=== PATIENT | female | born 1945 | race Caucasian/White ===

== ENCOUNTER 2017-01-18 00:05 | Observation (INO) ==
[2017-01-18] MEDS ORDERED: SALINE FLUSH 10ml SYRINGE IVF PRN (00:26)
--- OUTSIDE RECORDS SUMMARY | 2017-01-18 00:32 | External Medical Summary ---
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 Problem Nontoxic uninodular goiter E04.1 Active Problem Depression F32.9 Active Problem Atrial fibrillation I48.91 Active Problem Irritable bowel K58.9 Active Problem Personal history of transient Z86.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 Problem 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 Problem Personal history of malignant Z85.3 Active neoplasm of breast Problem Irritable bowel syndrome with K58.0 Active constipation and diarrhea Assessment 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 Problem Malignant neoplasm of colon C18.9 Active Problem Pain in joint, lower leg M25.569 Active Assessment Atrial fibrillation I48.91 Active Problem 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 Problem Insomnia G47.00 Active Problem Contact dermatitis and other L25.9 Active eczema, due to unspecified cause Medications Medication Code Code Instructions Start End Status Dosage System Date Fish Oil [facility] [address]-66 1000 MG Orally 1 capsule Once a day Calcium [facility] 479[address] 1500 MG Orally 1 tablet Twice a day with food Warfarin Sodium [facility] 29553773903 7.5MG TAKE ONE TABLET BY MOUTH EVERY DAY Lomotil [facility] [address]-59 2.5-0.025 MG Oct 12, 1 tablet Orally Four 2015 as needed times a day Furosemide [facility] 19119764512 40MG TAKE ONE TABLET BY MOUTH TWICE DAILY Flaxseed Oil [facility] [address]-72 1000 MG Orally as directed Venlafaxine HCl [facility] [address]-15 75 MG Orally QD 3 capules Amitriptyline [facility] 13548245977 25MG TAKE ONE HCl TABLET BY MOUTH EVERY DAY Allopurinol [facility] 92688248543 300MG TAKE ONE TABLET BY MOUTH EVERY DAY Klor-Con M10 [facility] 14573716162 10MEQ TAKE ONE TABLET BY MOUTH TWICE DAILY Multivitamins [facility] 53620[address] Orally as directed Hydrocodone-Acet [facility] [address]-35 7.5-325 MG take one aminophen Orally QID tablet by mouth every 6 hours for 30 days Gabapentin [facility] 77263041134 300MG Orally take one TID capsule by mouth twice daily for 30 days Imodium A-D [facility] [address]-67 2 MG Orally 8 1 tablet time(s) a day Metoprolol [facility] 0 50 MG Orally 1 tablet Succinate Once a day Fentanyl [facility] [address]-32 50 MCG/HR Apr 29 patch to Transdermal 2013 skin every 72 hrs Procedures Procedure Coding System Code Date OFFICE VISITEST PT CPT-4 20801 Jun 30, 2015 PROTIME CPT-4 37589 Jun 30, 2015 Vital Signs Date/Time: Jun 30, 2015 Blood Pressure Systolic 122 mm Hg Height 65 in Weight 219.2 lbs BMI 36.47 Index Blood Pressure Diastolic 72 mm Hg Results Name Result Date Reference Range Unit Abnormality Flag PROTIME ----PT 18.7 [id number] 11.6-13.2 SEC H ----INR 2.3 [id number] 2.0-3.5 Summary Purpose eClinicalWorks Submission
--- OUTSIDE RECORDS SUMMARY | 2017-01-18 00:32 | External Medical Summary ---
:1945 Author Organization eClinicalWorks Care Team Providers Name Role Phone Afshin Macias Provider Role Unavailable Allergies No Known Allergies Problems Problem Type Condition ICD-9 Code Onset Dates Condition Status Problem Degeneration of lumbar or 722.52 Active lumbosacral intervertebral disc Problem Depressive disorder, not 311 Active elsewhere classified Problem Personal history of transient V12.54 Active ischemic attack [TIA], 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s Problem Diabetes mellitus 250.00 Active Problem Eczema 692.9 Active Problem Knee pain 719.46 Active Problem Atrial fibrillation 427.31 Active Problem Irritable bowel syndrome 564.1 Active Problem Closed fracture of one or more 826.0 Active phalanges of foot Problem Personal history of malignant V10.3 Active neoplasm of breast Problem Colon cancer 153.9 Active Problem Nontoxic uninodular goiter 241.0 Active Problem Anticoagulants, Encounter for V58.61 Active long-term (current) use Medications Medication Code System Code Instructions Start End Date Status Dosage Date Hydrocodone-Ron [facility] 54469291721 10-325 TAKE ONE taminophen TABLET BY MOUTH EVERY 6 HOURS FOR 30 DAYS Results No Known Results Summary Purpose [employer] Submission
--- OUTSIDE RECORDS SUMMARY | 2017-01-18 00:33 | External Medical Summary ---
:1945 Author Organization eClinicalWorks Care Team Providers Name Role Phone Afshin Macias Provider Role Unavailable Allergies No Known Allergies Problems Problem Type Condition Code Onset Dates Condition Status Problem Personal history of transient V12.54 Active ischemic attack [TIA], 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s Problem Irritable bowel syndrome 564.1 Active Problem Depressive disorder, not elsewhere 311 Active classified Problem Knee pain 719.46 Active Problem Diabetes mellitus 250.00 Active Problem Insomnia 780.52 Active Problem Personal history of malignant V10.3 Active neoplasm of breast Problem Atrial fibrillation 427.31 Active Problem Eczema 692.9 Active Problem Closed fracture of one or more 826.0 Active phalanges of foot Problem Colon cancer 153.9 Active Problem Nontoxic uninodular goiter 241.0 Active Problem Anticoagulants, Encounter for V58.61 Active long-term (current) use Problem Degeneration of lumbar or 722.52 Active lumbosacral intervertebral disc Medications Medication Code System Code Instructions Start End Date Status Dosage Date Hydrocodone-Ron [facility] 26750452886 10-325 TAKE ONE taminophen TABLET BY MOUTH EVERY 6 HOURS FOR 30 DAYS Results No Known Results Summary Purpose eClinicalWorks Submission
--- OUTSIDE RECORDS SUMMARY | 2017-01-18 00:33 | External Medical Summary ---
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 Problem Actinic keratosis L57.0 Active Problem Irritable bowel K58.9 Active Problem Cerumen impaction H61.20 Active Problem Personal history of malignant Z85.3 Active neoplasm of breast Problem Irritable bowel syndrome with K58.0 Active constipation and diarrhea Problem Depression F32.9 Active Problem Atrial fibrillation I48.91 Active Problem Insomnia G47.00 Active Problem 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
--- OUTSIDE RECORDS SUMMARY | 2017-01-18 00:33 | External Medical Summary | Referral Summary ---
:1945 Author Organization [facility] Address [address] [place] [address] Care Team Providers Name Role Phone Colleen Afshin Darrell Primary Care Physician Encounter VC Date(s): 03/05/15 - 03/05/15 [facility] [address] [place] [address]- [place] Discharge Diagnosis: Status post cardiac pacemaker procedure Discharge Diagnosis: AV block, 3rd degree Discharge Diagnosis: Atrial fibrillation Discharge Disposition: 01-Home or Self Care Attending Physician: Naldo Gtz MD Admitting Physician: Naldo Gtz MD Vital Signs Most recent to oldest [Reference Range]: 1 Peripheral Pulse Rate [60-100 bpm] 68 bpm (03/05/15 9:42 AM) Blood Pressure [90-140/60-90 mmHg] 118/80mmHg (03/05/15 9:42 AM) Problem List Condition Effective Dates Status Health Status Informant Atrial fibrillation(Confirmed) Active AV block, 3rd degree(Confirmed) Active Arrhythmia(Confirmed) Active Depression(Confirmed) Active Dysphagia(Confirmed) Active Goiter(Confirmed) Active Status post cardiac pacemaker Active procedure(Confirmed) Hearing loss(Confirmed) Active IBS (irritable bowel Active syndrome)(Confirmed) Kidney stones(Confirmed) Active Colon cancer(Confirmed) Active Osteoarthritis(Confirmed) Active Sinoatrial node dysfunction(Confirmed) Active TIA (transient ischemic Active attack)(Confirmed) Varicella zoster(Confirmed) Active Allergies, Adverse Reactions, Alerts Substance Reaction Severity Status penicillin Urticaria (hives) Mild Active Medications allopurinol 300 mg oral tablet 1 tabs, Oral, Daily, # 30 tabs, 0 Refill(s) Start Date: 01/28/14 Status: OrderedAspir 81 81 mg, Oral, Daily, 0 Refill(s) Start Date: 01/28/14 Status: OrderedDulcolax Stool Softener 1 tabs, Oral, Daily, 0 Refill(s) Start Date: 01/28/14 Status: OrderedFish Oil 1000 mg oral capsule 1 caps, Oral, BID, # 60 caps, 0 Refill(s) Start Date: 01/30/14 Status: OrderedFlax Seed Oil oral capsule 1,000 mg, Oral, BID, 0 Refill(s) Start Date: 01/30/14 Status: Orderedfurosemide 40 mg oral tablet 1 tabs, Oral, BID, # 30 tabs, 0 Refill(s) Start Date: 01/28/14 Status: OrderedKlor-Con 10 mEq, Oral, BID, 0 Refill(s) Start Date: 05/21/14 Status: OrderedLortab 7.5/325 oral tablet 1 tabs, Oral, BID, 0 Refill(s) Start Date: 03/05/15 Status: OrderedMetoprolol Tartrate 50 mg oral tablet 25 mg 0.5 tabs, Oral, BID, # 30 tabs, 11 Refill(s), Pharmacy: [id number], 0.5 tabs Oral BID Start Date: 03/09/15 Status: OrderedMultivitamins oral capsule 1 caps, Oral, Daily, # 30 caps, 0 Refill(s) Start Date: 01/30/14 Status: OrderedNeurontin 300 mg oral capsule 300 mg 1 caps, Oral, TID, # 60 caps, 0 Refill(s) Start Date: 01/28/14 Status: Orderedsertraline 25 mg oral tablet 25 mg 1 tabs, Oral, Daily, # 30 tabs, 0 Refill(s) Start Date: 03/05/15 Status: Orderedvenlafaxine 75 mg oral tablet 225 mg 3 tabs, Oral, Daily, 0 Refill(s) Start Date: 03/05/15 Status: OrderedVitamin D3 1000 intl units oral tablet 1,000 Intl_Units 1 tabs, Oral, BID, # 30 tabs, 0 Refill(s) Start Date: 01/28/14 Status: Orderedwarfarin 7.5 mg oral tablet 1 tabs, Oral, Daily, # 30 tabs, 0 Refill(s) Start Date: 01/28/14 Status: Ordered Results No data available for this section Immunizations No data available for this section Procedures Procedure Date Related Diagnosis Body Site Blood transfusion Cholecystectomy Insertion of Cardiac Pacemaker Surgery-Colon resection Surgery-Nasal Septoplasty Surgery-Spinal fusion Thyroidectomy Tubal ligation Social History Social History Type Response Smoking Status Former smoker; Type: Cigarettes1 1Quit in 2005 Assessment and Plan Extracted from: Title:Office Visit Note Author:Naldo Gtz MD Date:03/05/15 Assessment/Plan 1.AV block, 3rd degree Ordered: Office Visit Level 3 Est 90617 Pm Device Progr Eval Sngl 03160 Return to Clinic Atrial fibrillation Status post cardiac pacemaker procedure Dictation performed with Crittercism voice recognition Referrals to Other Providers Referred by: Naldo Gtz MD
--- OUTSIDE RECORDS SUMMARY | 2017-01-18 00:33 | External Medical Summary | Referral Summary ---
:1945 Author Organization [facility], Cassia Camilo Address [address] [place] [address] Care Team Providers Name Role Phone Colleen Afshin Darrell Primary Care Physician Encounter VC Date(s): 05/18/15 - 05/18/15 [facility] [address] [place] [address] - [place] Discharge Diagnosis: Goiter Discharge Disposition: 01-Home or Self Care Attending Physician: Sree Sanchez MD Admitting Physician: Sree Sanchez MD Vital Signs Most recent to oldest [Reference Range]: 1 Apical Heart Rate [60-100 bpm] 70 bpm (05/18/15 10:26 AM) Blood Pressure [90-140/60-90 mmHg] 110/64mmHg (05/18/15 10:26 AM) Problem List Condition Effective Dates Status [...] BID, # 30 tabs, 11 Refill(s), Pharmacy: [id number], 0.5 tabs Oral BID Start [...] Refill(s) Start Date: 01/28/14 Status: Ordered Results Chemistry Most recent to oldest [Reference Range]: 1 T4 Free [0.7-1.5 ng/dL] 1.0 ng/dL (05/18/15 10:50 AM) TSH [0.35-4.94] 3.25 (05/18/15 10:50 AM) Immunizations No data available for this section Procedures Procedure Date Related Diagnosis Body Site Blood transfusion Cholecystectomy Insertion of Cardiac Pacemaker Surgery-Colon resection Surgery-Nasal Septoplasty Surgery-Spinal fusion Thyroidectomy Tubal ligation Social History Social History Type Response Smoking Status Former smoker; Type: Cigarettes1 1Quit in 2005 Assessment and Plan Extracted from: Title:Office Visit Note Author:Sree Sanchez MD Date:05/18/15 Assessment/Plan Status post left lobectomy. Plan: Check thyroid function test today. Initiate Synthroid as indicated. Assured about stable and unremarkable thyroid exam today. Return to clinic again in one year, sooner if with new problems. Extracted from: Title:Ambulatory Patient Education Author:Sree Sanchez MD Date:05/18/15 Family Medicine Goiter Goiter is an enlarged thyroid gland. The thyroid gland sits at the base of the front of the neck. The gland produces hormones that regulate mood, body temperature, pulse rate, and digestion. Most goit ers are painless and are not a cause for serious concern. Goiters and conditions that cause goiters can be treated if necessary. CAUSES Common causes of goiter include: Graves disease (causes too much hormone to be produced [hyperthyroidism]). Andry disease (causes too little hormone to be produced [hypothyroidism]) . Thyroiditis (inflammation of the thyroid sometimes caused by virus or ). Nodular goiter (small bumps form; sometimes called toxic nodular goiter). . Thyroid cancer (very few goiters with nodules are cancerous). Certain medications. Radiation exposure. Iodine deficiency (more common in developing countries in inland populations) . RISK FACTORS Risk factors for goiter include: A family history of goiter. Female gender. Inadequate iodine in the diet. Age older than 40 years. SYMPTOMS Many goiters do not cause symptoms. When symptoms do occur, they may include: Swelling in the lower part of the neck. This swelling can range from a very small bump to a large lump. A tight feeling in the throat. A hoarse voice. Less commonly, a goiter may result in: Coughing. Wheezing. Difficulty swallowing. Difficulty breathing. Bulging neck veins. Dizziness. When a goiter is the result of hyperthyroidism, symptoms may include: Rapid or irregular heartbeat. Sickness in your stomach (nausea). Vomiting. Diarrhea. Shaking. Irritable feeling. Bulging eyes. Weight loss. Heat sensitivity. Anxiety. When a goiter is the result of hypothyroidism, symptoms may include: Tiredness. Dry skin. Constipation. Weight gain. Irregular menstrual cycle. Depressed mood. Sensitivity to cold. DIAGNOSIS Tests used to diagnose goiter include: A physical exam. Blood tests, including thyroid hormone levels and antibody testing. Ultrasonography, computerized X-ray scan (computed tomography, CT) or computerized magnetic scan (magnetic resonance imaging, MRI). Thyroid scan (imaging along with safe radioactive injection). Tissue sample taken (biopsy) of nodules. This is sometimes done to confirm that the nodules are not cancerous. TREATMENT Treatment will depend on the cause of the goiter. Treatment may include: Monitoring. In some cases, no treatment is necessary, and your doctor will monitor your condition at regular checkups. Medications and supplements. Thyroid medication (thyroid hormone replacement ) is available for hyperthyroidism and hypothyroidism. If inflammation is the cause, ngio-ltu-atnoofz medication or steroid medication may be recommended. Goiters caused by iodine deficiency can be treated with iodine supplements or changes in diet. Radioactive iodine treatment. Radioactive iodine is injected into the blood. It travels to the thyroid gland, kills thyroid cells, and reduces the size of the gland. This is only used when the th yroid gland is overactive. Lifelong thyroid hormone medication is often necessary after this treatment. Surgery. A procedure to remove all or part of the gland may be recommended in severe cases or when cancer is the cause. Hormones can be taken to replace the hormones normally produced by the thyroid. HOME CARE INSTRUCTIONS Take medications as directed. Follow your caregiver's recommendations for any dietary changes. Follow up with your caregiver for further examination and testing, as directed. PREVENTION If you have a family history of goiter, discuss screening with your doctor. Make sure you are getting enough iodine in your diet. Use of iodized table salt can help prevent iodine deficiency. Document Released: 12/06/2010 Document Revised: 11/02/2014 Document Reviewed: 12/06/2010 [facility] Patient Information 2015 [employer] [facility]. This information is not intended to replace advice given to you by your health care provider. Make sure you discuss any questions you have with your health care provider. No follow up information was provided. Referrals to Other Providers Referred by: Sree Sanchez MD
--- OUTSIDE RECORDS SUMMARY | 2017-01-18 00:33 | External Medical Summary ---
:1945 Author Organization eClinicalWorks Care Team Providers Name Role Phone Afshin Macias Provider Role Unavailable Allergies, Adverse Reactions, Alerts Substance Reaction Event Type Penicillin Info Not Available Drug Allergy Problems Problem Type Condition Code Onset Dates Condition Status Problem Personal history of transient Z86.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 Problem Personal history of malignant Z85.3 Active neoplasm of breast Problem Irritable bowel syndrome with K58.0 Active constipation and diarrhea Problem Nocturnal hypoxia G47.34 Active Assessment Atrial fibrillation I48.91 Active Problem Cerumen impaction H61.20 Active Assessment CHF (congestive heart failure) I50.9 Active Assessment Bronchitis, chronic J42 Active Problem Restless leg G25.81 Active Problem Depression F32.9 Active Problem Atrial fibrillation I48.91 Active Problem Actinic keratosis L57.0 Active Problem Irritable bowel K58.9 Active Problem Malignant neoplasm of colon C18.9 Active Problem Pain in joint, lower leg M25.569 Active Assessment Restless leg G25.81 Active Problem Insomnia G47.00 Active Problem Closed fracture of phalanx of foot S92.919A Active Problem Nontoxic uninodular goiter E04.1 Active Problem 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 Problem skilled nursing current use of Z79.01 Active anticoagulant therapy Assessment Nocturnal hypoxia G47.34 Active Problem Contact dermatitis and other L25.9 Active eczema, due to unspecified cause Problem 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 Medications Medication Code Code Instructions Start End Status Dosage System Date Date Flaxseed Oil [facility] [address]-17 1000 MG Orally as directed Allopurinol [facility] 14106747927 300 TAKE ONE TABLET BY MOUTH DAILY Furosemide [facility] 80681623425 40MG TAKE ONE TABLET BY MOUTH TWICE DAILY Fish Oil [facility] [address]-38 1000 MG Orally 1 capsule Once a day Fentanyl [facility] [address]-40 50 MCG/HR Oct 29, 1 patch to Transdermal 2014 skin every 72 hrs Klor-Con M10 [facility] 97513113051 10 TAKE ONE TABLET BY MOUTH TWICE A DAY Warfarin Sodium [facility] 89463058401 7.5 TAKE ONE TABLET BY MOUTH DAILY Gabapentin [facility] 18795818494 300 TAKE ONE CAPSULE BY MOUTH THREE TIMES A DAY Sinemet [facility] [address]-74 25-100 MG January 09, 1 tablet Orally [facility] 2015 Hydrocodone-Acet [facility] [address]-82 7.5-325 MG take one aminophen Orally QID tablet by mouth every 6 hours for 30 days Calcium [facility] [address]99 1500 MG Orally 1 tablet Twice a day with food Seroquel [facility] 49258696516 50 TAKE ONE TABLET BY MOUTH DAILY Multivitamins [facility] [address]-40 Orally as directed Venlafaxine HCl [facility] [address]-36 75 mg Orally Jul 12, 3 capsule ER Once a day 2015 with food Metoprolol ND 0 50 MG Orally 1 tablet Succinate Once a day Procedures Procedure Coding System Code Date OFFICE VISITEST PT CPT-4 55926 January 10, 2016 Vital Signs Date/Time: January 10, 2016 Blood Pressure Systolic 90 mm Hg Height 65 in Weight 222.8 lbs BMI 37.07 Index Oximetry 89 % Cardiac Monitoring Heart Rate 95 /min Blood Pressure Diastolic 56 mm Hg Results No Known Results Summary Purpose eClinicalWorks Submission
--- OUTSIDE RECORDS SUMMARY | 2017-01-18 00:33 | External Medical Summary ---
:1945 Author Organization [facility] Address [address] [place] [address] Care Team Providers Name Role Phone Afshin Macias Unavailable Unavailable PROBLEMS Type Condition ICD9-CM Code [id number] Onset Condition SNOMED Code Code Dates Status Problem Irritable bowel K58.0 Active 66508070 syndrome with constipation and diarrhea Problem Atrial fibrillation I48.91 Active 71177970 Problem Personal history of Z85.3 Active 765769687 malignant neoplasm of breast Problem Restless leg G25.81 Active 18862495 Problem Nocturnal hypoxia G47.34 Active 842372431 Problem Irritable bowel K58.9 Active 70325623 Problem Depression F32.9 Active 277642952 Problem Cerumen impaction H61.20 Active 32430798 Problem Actinic keratosis L57.0 Active 527269608 Problem Pain in joint, M25.569 Active 395638326 lower leg Problem 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 591916055 type II Problem Insomnia G47.00 Active 832159000 Problem Malignant neoplasm C18.9 Active 728015775 of colon Problem 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 587890956 goiter 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 632427153 use of anticoagulant therapy Problem Contact dermatitis L25.9 Active 08239643 and other eczema, due to unspecified cause Problem 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 40603808 lumbar or lumbosacral intervertebral disc Problem Closed fracture of S92.919A Active 49081530 phalanx of foot Problem Personal history of Z86.73 Active 277932460 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
--- OUTSIDE RECORDS SUMMARY | 2017-01-18 00:33 | External Medical Summary | Referral Summary ---
:1945 Author Organization [facility] Address [address] [place] [address] Care Team Providers Name Role Phone Colleen Afshin Darrell Primary Care Physician Encounter VC Date(s): 03/05/15 - 03/05/15 [facility] [address] [place] [address]- [place] Discharge Diagnosis: Status post [...] BID, # 30 tabs, 11 Refill(s), Pharmacy: [facility] [id number], 0.5 tabs Oral BID [...] degree Ordered: Office Visit Level 3 Est 79996 Pm Device Progr Eval Sngl [id number] Return to Clinic Atrial fibrillation Status post cardiac pacemaker procedure Dictation performed with [employer] voice recognition Referrals to Other Providers Referred by: Naldo Gtz MD
--- OUTSIDE RECORDS SUMMARY | 2017-01-18 00:33 | External Medical Summary ---
:1945 Author Organization eClinicalWorks Care Team Providers Name Role Phone AshlandMonet gaytank Provider Role Unavailable Allergies No Known Allergies Problems Problem Type Condition ICD-9 Code Onset Dates Condition Status Problem Personal history of transient V12.54 Active ischemic attack [TIA], 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s Problem Irritable bowel syndrome 564.1 Active Problem Depressive disorder, not 311 Active elsewhere classified Problem Knee pain 719.46 Active Problem [...] Start End Date Status Dosage Date Hydrocodone-Ron [facility] 38588366240 10-325 TAKE ONE taminophen TABLET BY MOUTH EVERY 6 HOURS FOR 30 DAYS Results No Known Results Summary Purpose eClinicalWorks Submission
--- OUTSIDE RECORDS SUMMARY | 2017-01-18 00:33 | External Medical Summary ---
:1945 Author Organization eClinicalWorks Care Team Providers Name Role Phone Afshin Macias Provider Role Unavailable Allergies No Known Allergies Problems Problem Type Condition Code Onset Dates Condition Status Problem senior living current use of Z79.01 Active anticoagulant therapy [...] Medications Results No Known Results Summary Purpose [email or web address] Submission
--- OUTSIDE RECORDS SUMMARY | 2017-01-18 00:33 | External Medical Summary ---
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
--- OUTSIDE RECORDS SUMMARY | 2017-01-18 00:33 | External Medical Summary ---
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 47709119503 10MEQ Active TAKE ONE TABLET BY MOUTH TWICE DAILY Venlafaxine HCl [facility] [address]-84 150mg QD Active [address] [facility] [address] 1500 MG Orally Active 1 tablet with Twice a day food Furosemide [facility] 34341436592 40MG Active TAKE ONE TABLET BY MOUTH TWICE DAILY Allopurinol [facility] 55557247646 300MG Active TAKE ONE TABLET BY MOUTH EVERY DAY Hydrocodone-Acet [facility] 80105373349 10-325 Active TAKE ONE aminophen TABLET BY MOUTH EVERY 6 HOURS FOR 30 DAYS Metoprolol NDC 0 50 MG Orally Active 1 tablet Succinate Once a day Triamcinolone [facility] [address]-18 0.1 % September Active 1 application Acetonide Externally 29, to affected Twice a day 2012 area Maryam Contour NDC 0 USE Type 2 DM Sept Active test blood Test diet 08, sugar controlled 2013 daily Maryam Contour NDC 0 USE Type 2 DM Sept Active test blood diet 08, sugar controlled 2013 daily Fentanyl [facility] [address]-45 50 MCG/HR Apr 29, Active 1 patch to Transdermal 2013 skin every 72 hrs Gabapentin [facility] 19161113524 300MG Active 1 CAPSULE Three times a day Orally 30 Warfarin Sodium [facility] 27464822797 7.5MG Active TAKE ONE TABLET BY MOUTH EVERY DAY Omeprazole [facility] 11382335769 20MG Active TAKE ONE CAPSULE BY MOUTH TWICE DAILY Procedures Procedure Coding System Code Date OFFICE VISITEST PT CPT-4 96472 Jun 30, 2014 Vital Signs Date/Time: Jun 30, 2014 Blood Pressure Systolic 104 mm Hg Height 65 in Weight 236 lbs Oximetry 96 % Cardiac Monitoring Heart Rate 75 /min Temperature 98.5 F Blood Pressure Diastolic 58 mm Hg BMI 39.27 Index Results No Known Results Summary Purpose eClinicalWorks Submission
--- OUTSIDE RECORDS SUMMARY | 2017-01-18 00:33 | External Medical Summary | Referral Summary ---
:1945 Author Organization [facility] Address [address] [place] [address] Care Team Providers Name Role Phone Colleen Afshin Darrell Primary Care Physician Encounter VC Date(s): 03/05/15 - 03/05/15 [facility] [address] [place] [address]- [place] Discharge Diagnosis: Status post [...] BID, # 30 tabs, 11 Refill(s), Pharmacy: [facility] 5856, 0.5 tabs Oral [...] degree Ordered: Office Visit Level 3 Est 78775 Pm Device Progr Eval Sngl [id number] Return to Clinic Atrial fibrillation Status post cardiac pacemaker procedure Dictation performed with [employer] voice recognition Referrals to Other Providers Referred by: Naldo Gtz MD
--- OUTSIDE RECORDS SUMMARY | 2017-01-18 00:33 | External Medical Summary ---
:1945 [facility] Team Providers Name Role Phone Afshin Macias Provider Role Unavailable Allergies, Adverse Reactions, Alerts Substance Reaction Event Type Penicillin Info Not Available Drug Allergy Problems Problem Type Condition Code Onset Dates Condition Status Assessment Pyuria N39.0 Active Assessment Visit for screening mammogram Z12.31 Active Assessment Encounter for immunization Z23 Active Assessment Actinic keratosis L57.0 Active Problem Closed fracture of phalanx of foot S92.919A Active Assessment Cerumen impaction H61.20 Active Problem Nontoxic uninodular goiter E04.1 Active Assessment Malignant neoplasm of colon C18.9 Active Problem halfway current use of Z79.01 Active anticoagulant therapy Problem Personal history of transient Z86.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 Problem 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 Problem Actinic keratosis L57.0 Active Problem Irritable bowel K58.9 Active Assessment 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 Assessment halfway current use of Z79.01 Active anticoagulant therapy Problem Cerumen impaction H61.20 Active Assessment 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 Problem Personal history of malignant Z85.3 Active neoplasm of breast Problem Irritable bowel syndrome with K58.0 Active constipation and diarrhea Problem Depression F32.9 Active Problem Atrial fibrillation I48.91 Active Assessment Atrial fibrillation I48.91 Active Problem Insomnia G47.00 Active Assessment Personal history of transient Z86.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 [address]-19 1000 MG Orally as directed Klor-Con M10 [facility] 32173139500 10 TAKE ONE TABLET BY MOUTH TWICE A DAY Calcium [facility] [address] 1500 MG Orally 1 tablet Twice a day with food Allopurinol [facility] 63223346799 300 TAKE ONE TABLET BY MOUTH DAILY Venlafaxine HCl [facility] [address]-22 75 mg Orally Jul 12, 3 capsule ER Once a day 2016 with food Gabapentin [facility] 70648644273 300 TAKE ONE CAPSULE BY MOUTH THREE TIMES A DAY Furosemide ND 10616246205 40MG TAKE ONE TABLET BY MOUTH TWICE DAILY Seroquel [facility] [address]-18 50 MG Orally Aug 02, 1 tablet Once a day [address] [facility] [address]-03 50 MCG/HR Apr 29, 1 patch to Transdermal 2014 skin every 72 hrs Fish Oil [facility] [address]-76 1000 MG Orally 1 capsule Once a day Warfarin Sodium [facility] 42809870300 7.5MG TAKE ONE TABLET BY MOUTH EVERY DAY Hydrocodone-Acet [facility] [address]-95 7.5-325 MG take one aminophen Orally QID tablet by mouth every 6 hours for 30 days Multivitamins [facility] [address] Orally as directed Metoprolol ND 0 50 MG Orally 1 tablet Succinate Once a day Procedures Procedure Coding System Code Date CREATININE; OTHER SOURCE CPT-4 61018 October 28, 2015 MICROALBUMIN URINE CPT-4 62570 October 28, 2015 OFFICE VISITEST PT CPT-4 05729 October 28, 2015 URINALYSIS CPT-4 07293 October 28, 2015 TSH CPT-4 11371 October 28, 2015 HgB A1C CPT-4 93881 October 28, 2015 PROTIME CPT-4 65873 October 28, 2015 EAR IRRIGATION CPT-4 82468 October 28, 2015 Tdap Boostrix 7+ age CPT-4 14887 October 28, 2015 COMP PROFILE CPT-4 71794 October 28, 2015 Administration Fee 18yrs and up 1st injection CPT-4 65544 October 28, 2015 URINE CULTURE CPT-4 83370 October 28, 2015 LIPID PROFILE CPT-4 77472 October 28, 2015 CBC CPT-4 19727 October 28, 2015 Vital Signs Date/Time: October 28, 2015 Blood Pressure Systolic 126 mm Hg Height 65 in Weight 226.4 lbs BMI 37.67 Index Blood Pressure Diastolic 76 mm Hg Results No Known Results Immunizations Vaccine Administration Date Boostrix Tdap October 28, 2015 Summary Purpose eClinicalWorks Submission
--- OUTSIDE RECORDS SUMMARY | 2017-01-18 00:33 | External Medical Summary ---
:1945 Author Organization [facility] Address [address] [place] [address] Care Team Providers Name Role Phone Afshin Macias Unavailable Unavailable PROBLEMS Type Condition ICD9-CM Code TSH10-HJ Onset Condition SNOMED Code Code Dates Status Problem Irritable bowel K58.0 Active 72180582 syndrome with constipation and diarrhea Problem Atrial fibrillation I48.91 Active 19158300 Problem Personal history of Z85.3 Active 965692025 malignant neoplasm of breast Problem Restless leg G25.81 Active 39283909 Problem Nocturnal hypoxia G47.34 Active 576542999 Problem Irritable bowel K58.9 Active 56360881 Problem Depression F32.9 Active 838834224 Problem Cerumen impaction H61.20 Active 65172638 Problem Actinic keratosis L57.0 Active 763473919 Problem Pain in joint, M25.569 Active 945453145 lower leg Problem 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 543578011 type II Problem Insomnia G47.00 Active 521317669 Problem Malignant neoplasm C18.9 Active 295596729 of colon Problem 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 052756773 goiter 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 295537485 use of anticoagulant therapy Problem Contact dermatitis L25.9 Active 24983835 and other eczema, due to unspecified cause Problem 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 17653811 lumbar or lumbosacral intervertebral disc Problem Closed fracture of S92.919A Active 13662842 phalanx of foot Problem Personal history of Z86.73 Active 205118912 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
--- OUTSIDE RECORDS SUMMARY | 2017-01-18 00:33 | External Medical Summary ---
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 Problem Anticoagulants, Encounter for V58.61 Active long-term (current) use Medications Medication Code Code Instructions Start End Status Dosage System Date Date Fentanyl [facility] [address]-97 50 MCG/HR Apr 29 patch to Transdermal 2013 skin every 72 hrs Imodium A-D [facility] [address]-42 2 MG Orally 8 1 tablet time(s) a day Maryam Contour NDC 0 USE Type 2 DM Sept test blood Test diet 08, sugar controlled 2013 daily Hydrocodone-Acet [facility] 23859944520 10-325 TAKE ONE aminophen TABLET BY MOUTH EVERY 6 HOURS FOR 30 DAYS Calcium [facility] [address]22 1500 MG Orally 1 tablet with Twice a day food Venlafaxine HCl [facility] [address]-58 150mg QD 1 Omeprazole [facility] 98078708075 20MG TAKE ONE CAPSULE BY MOUTH TWICE DAILY Allopurinol [facility] 24495065466 300MG TAKE ONE TABLET BY MOUTH EVERY DAY Gabapentin [facility] 06594925394 300MG TAKE ONE CAPSULE BY MOUTH TWICE DAILY Warfarin Sodium [facility] 79471567519 5MG TAKE ONE TABLET BY MOUTH EVERY DAY Triamcinolone [facility] [address]-88 0.1 % September 30 application Acetonide Externally 29, to affected Twice a day 2012 area Metoprolol ND 0 50 MG Orally 1 tablet Succinate Once a day Furosemide [facility] 69996885315 40MG TAKE ONE TABLET BY MOUTH TWICE DAILY Maryam Contour NDC 0 USE Type 2 DM Sept test blood diet , sugar controlled 2013 daily Klor-Con M10 [facility] 21756072891 10MEQ TAKE ONE TABLET BY MOUTH TWICE DAILY Levaquin [facility] [address]-41 500 MG Orally Aug 25, 1 tablet Once a day 2014 Lomotil [facility] [address]-32 2.5-0.025 MG Jul 07, 1 tablet as Orally Four 2014 needed times a day Procedures Procedure Coding System Code Date OFFICE VISITEST PT CPT-4 88454 August 31, 2014 PROTIME CPT-4 12713 August 31, 2014 CHEST XRAY 2 VIEW CPT-4 43327 August 31, 2014 Vital Signs Date/Time: August 31, 2014 Blood Pressure Systolic 110 mm Hg Height 65 in Weight 229 lbs BMI 38.10 Index Cardiac Monitoring Heart Rate 96 /min Temperature 97.9 F Blood Pressure Diastolic 70 mm Hg Results No Known Results Summary Purpose eClinicalWorks Submission
--- OUTSIDE RECORDS SUMMARY | 2017-01-18 00:33 | External Medical Summary ---
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 Problem Insomnia G47.00 Active Problem Closed fracture of phalanx of foot S92.919A Active Problem Nontoxic uninodular goiter E04.1 Active Problem 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 Problem Contact dermatitis and other L25.9 Active eczema, due to unspecified cause Problem 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 Medications Medication Code Code Instructions Start End Status Dosage System Date Date Warfarin Sodium [facility] 30951650996 7.5 TAKE ONE TABLET BY MOUTH DAILY Venlafaxine HCl [facility] 81535650161 75 TAKE THREE ER CAPSULES BY MOUTH [place] [address]-78 Orally as directed Allopurinol ND 25080776345 300 TAKE ONE TABLET BY MOUTH DAILY Flaxseed Oil [facility] [address]-80 1000 MG Orally as directed Seroquel ND 20966161576 50 TAKE ONE TABLET BY MOUTH DAILY Fish Oil [facility] [address]-38 1000 MG Orally 1 capsule Once a day Metoprolol ND 0 50 MG Orally 1 tablet Succinate Once a day Gabapentin [facility] 49917289851 300 TAKE ONE CAPSULE BY MOUTH THREE TIMES A DAY Furosemide [facility] 33675539491 40MG TAKE ONE TABLET BY MOUTH TWICE DAILY Klor-Con M10 [facility] 96499238414 10 TAKE ONE TABLET BY MOUTH TWICE A DAY Calcium [facility] [address] 1500 MG Orally 1 tablet Twice a day with food Fentanyl [facility] [address]-33 50 MCG/HR Apr 29 patch to Transdermal 2014 skin every 72 hrs Hydrocodone-Acet [facility] [address]-99 7.5-325 MG take one aminophen Orally QID tablet by mouth every 6 hours for 30 days Tobrex [facility] [address]-72 0.3 % Mar 14 drop Ophthalmic 2016 into every 4 hrs affected eye Procedures Procedure Coding System Code Date OFFICE VISITEST PT CPT-4 13909 Mar 14, 2016 PROTIME CPT-4 59234 Mar 14, 2016 Vital Signs Date/Time: Mar 14, 2016 Blood Pressure Systolic 102 mm Hg Height 65 in Weight 232.8 lbs BMI 38.74 Index Blood Pressure Diastolic 58 mm Hg Results Name Result Date Reference Range Unit Abnormality Flag PROTIME ----PT 20.3 [id number] 11.4-13.8 SEC H ----INR 2.4 [id number] 2.0-3.5 Summary Purpose eClinicalWorks Submission
--- OUTSIDE RECORDS SUMMARY | 2017-01-18 00:33 | External Medical Summary ---
:1945 Author Organization [facility] Address [address] [place] [address] Care Team Providers Name Role Phone Afshin Macias Unavailable Unavailable PROBLEMS Type Condition ICD9-CM Code [id number] Onset Condition SNOMED Code Code Dates Status Problem Irritable bowel K58.0 Active 98838068 syndrome with constipation and diarrhea Problem Atrial fibrillation I48.91 Active 89640535 Problem Personal history of Z85.3 Active 915087923 malignant neoplasm of breast Problem Restless leg G25.81 Active 89645589 Problem Nocturnal hypoxia G47.34 Active 385015536 Problem Irritable bowel K58.9 Active 27785846 Problem Depression F32.9 Active 656072353 Problem Cerumen impaction H61.20 Active 65245941 Problem Actinic keratosis L57.0 Active 630006827 Problem Pain in joint, M25.569 Active 741346752 lower leg Problem 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 180975782 type II Problem Insomnia G47.00 Active 855204134 Problem Malignant neoplasm C18.9 Active 259895245 of colon Problem 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 929715412 goiter Problem halfway 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 Active 647615307 use of anticoagulant therapy Problem Contact dermatitis L25.9 Active 69439571 and other eczema, due to unspecified cause Problem 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 58697619 lumbar or lumbosacral intervertebral disc Problem Closed fracture of S92.919A Active 71131044 phalanx of foot Problem Personal history of Z86.73 Active 950891759 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
--- OUTSIDE RECORDS SUMMARY | 2017-01-18 00:34 | External Medical Summary ---
[...] lumbosacral intervertebral disc Medications No Known Medications Results No Known Results Summary Purpose eClinicalWorks Submission
--- OUTSIDE RECORDS SUMMARY | 2017-01-18 00:34 | External Medical Summary ---
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
--- OUTSIDE RECORDS SUMMARY | 2017-01-18 00:34 | External Medical Summary ---
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 Problem Personal history of malignant Z85.3 Active neoplasm of breast Problem Irritable bowel syndrome with K58.0 Active constipation and diarrhea Problem Nocturnal hypoxia G47.34 Active Problem Cerumen impaction H61.20 Active Problem Restless leg G25.81 Active Problem Depression F32.9 Active Problem Atrial fibrillation I48.91 Active Problem Actinic keratosis L57.0 Active Problem Irritable bowel K58.9 Active Problem Malignant neoplasm of colon C18.9 Active Problem Pain in joint, lower leg M25.569 Active Problem Insomnia G47.00 Active Problem Closed fracture of phalanx of foot S92.919A Active Problem Nontoxic uninodular goiter E04.1 Active Problem 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
--- OUTSIDE RECORDS SUMMARY | 2017-01-18 00:34 | External Medical Summary | Referral Summary ---
:1945 Author Organization [facility] Address [address] [place] [address] Care Team Providers Name Role Phone Colleen Afshin Darrell Primary Care Physician Encounter VC Date(s): 03/05/15 - 03/05/15 [facility] [address] [place] [address]- us Discharge Diagnosis: Status post [...] BID, # 30 tabs, 11 Refill(s), Pharmacy: [id number], 0.5 tabs Oral [...] degree Ordered: Office Visit Level 3 Est 98894 Pm Device Progr Eval Sngl [id number] Return to Clinic Atrial fibrillation Status post cardiac pacemaker procedure Dictation performed with [employer] voice recognition Referrals to Other Providers Referred by: Naldo Gtz MD
--- OUTSIDE RECORDS SUMMARY | 2017-01-18 00:34 | External Medical Summary ---
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
--- OUTSIDE RECORDS SUMMARY | 2017-01-18 00:34 | External Medical Summary ---
[...] Active Problem Cerumen impaction H61.20 Active Assessment Pain in joint, lower leg M25.569 Active Assessment Malignant neoplasm of colon C18.9 Active Problem Restless leg G25.81 Active Problem Depression F32.9 Active Problem Atrial fibrillation I48.91 Active Problem Actinic keratosis L57.0 Active Problem Irritable bowel K58.9 Active Problem Malignant neoplasm of colon C18.9 Active Problem Pain in joint, lower leg M25.569 Active Assessment Depression F32.9 Active Problem Insomnia G47.00 Active Problem Closed fracture of phalanx of foot S92.919A Active Problem Nontoxic uninodular goiter E04.1 Active Problem 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 Problem senior care current use of Z79.01 Active anticoagulant therapy Problem Contact dermatitis and other L25.9 Active eczema, due to unspecified cause Problem 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 Medications Medication Code Code Instructions Start End Status Dosage System Date Date Tobrex [facility] [address]-98 0.3 % Mar 14, drop Ophthalmic 2016 into every 4 hrs affected eye Allopurinol [facility] 33098320007 300 TAKE ONE TABLET BY MOUTH DAILY Fentanyl [facility] [address]-51 50 MCG/HR Apr 29, patch to Transdermal 2014 skin every 72 hrs Multivitamins [facility] [address]-43 Orally as directed Calcium [facility] [address] 1500 MG Orally 1 tablet Twice a day with food Gabapentin [facility] 43336966637 300 TAKE ONE CAPSULE BY MOUTH THREE TIMES A DAY Hydrocodone-Acet [facility] [address]-34 7.5-325 MG take one aminophen Orally QID tablet by mouth every 6 hours for 30 days Fish Oil [facility] [address]-17 1000 MG Orally 1 capsule Once a day Furosemide ND 07490890623 40MG TAKE ONE TABLET BY MOUTH TWICE DAILY Venlafaxine HCl [facility] 86742431426 75 TAKE THREE ER CAPSULES BY MOUTH DAILY WITH FOOD Flaxseed Oil [facility] [address]-88 1000 MG Orally as directed Metoprolol ND 0 50 MG Orally 1 tablet Succinate Once a day Klor-Con M10 [facility] 69944627982 10 TAKE ONE TABLET BY MOUTH TWICE A DAY Warfarin Sodium [facility] 17285749384 7.5 TAKE ONE TABLET BY MOUTH DAILY Seroquel [facility] [address]-28 100 MG Orally 1 tablet Once a day at bedtime Procedures Procedure Coding System Code Date OFFICE VISITEST PT CPT-4 72751 May 02, 2016 PROTIME CPT-4 37254 May 02, 2016 Vital Signs Date/Time: May 02, 2016 Blood Pressure Systolic 120 mm Hg Height 65 in Weight 230 lbs BMI 38.27 Index Blood Pressure Diastolic 65 mm Hg Results Name Result Date Reference Range Unit Abnormality Flag PROTIME ----PT 22.2 [id number] 11.4-13.8 SEC H ----INR 2.8 [id number] 2.0-3.5 Summary Purpose eClinicalWorks Submission
--- OUTSIDE RECORDS SUMMARY | 2017-01-18 00:34 | External Medical Summary ---
:1945 Author Organization [facility] Address [address] [place] [address] Care Team Providers Name Role Phone Afshin Macias Unavailable Unavailable PROBLEMS Type Condition ICD9-CM Code [id number] Onset Condition SNOMED Code Code Dates Status Problem Irritable bowel K58.0 Active 06811242 syndrome with constipation and diarrhea Problem Atrial fibrillation I48.91 Active 58116963 Problem Personal history of Z85.3 Active 414912669 malignant neoplasm of breast Problem Restless leg G25.81 Active 35484899 Problem Nocturnal hypoxia G47.34 Active 771438849 Problem Irritable bowel K58.9 Active 48363750 Problem Depression F32.9 Active 159733705 Problem Cerumen impaction H61.20 Active 44440490 Problem Actinic keratosis L57.0 Active 824797291 Problem Pain in joint, M25.569 Active 306544778 lower leg Problem 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 910274783 type II Problem Insomnia G47.00 Active 318372137 Problem Malignant neoplasm C18.9 Active 795557108 of colon Problem 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 107512741 goiter Problem 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 869237119 use of anticoagulant therapy Problem Contact dermatitis L25.9 Active 42856884 and other eczema, due to unspecified cause Problem 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 82340041 lumbar or lumbosacral intervertebral disc Problem Closed fracture of S92.919A Active 65089638 phalanx of foot Problem Personal history of Z86.73 Active 639252295 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
--- OUTSIDE RECORDS SUMMARY | 2017-01-18 00:34 | External Medical Summary ---
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 therapy Problem Personal history of transient Z86.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 Problem 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 Problem Actinic keratosis L57.0 Active Problem Irritable bowel K58.9 Active Assessment Personal history of transient Z86.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 Assessment 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 Problem Cerumen impaction H61.20 Active Assessment 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 therapy Problem Personal history of malignant Z85.3 Active neoplasm of breast Problem Irritable bowel syndrome with K58.0 Active constipation and diarrhea Problem Depression F32.9 Active Problem Atrial fibrillation I48.91 Active Assessment Atrial fibrillation I48.91 Active Problem Insomnia G47.00 Active Assessment Irritable bowel syndrome with K58.0 Active constipation and diarrhea Assessment Visit for screening mammogram Z12.31 Active Problem 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
--- OUTSIDE RECORDS SUMMARY | 2017-01-18 00:34 | External Medical Summary ---
[...] Medications Procedures Procedure Coding System Code Date PROTIME CPT-4 46832 December 18, 2014 Results No Known Results Summary Purpose [employer] Submission
--- OUTSIDE RECORDS SUMMARY | 2017-01-18 00:34 | External Medical Summary ---
[...] Start End Date Status Dosage Date Hydrocodone-Ron [facility] 75711520518 10-325 Active TAKE ONE taminophen TABLET BY MOUTH EVERY 6 HOURS FOR 30 DAYS Results No Known Results Summary Purpose eClinicalWorks Submission
--- OUTSIDE RECORDS SUMMARY | 2017-01-18 00:34 | External Medical Summary ---
[...] Medications Results No Known Results Summary Purpose Digital Message [facility] Submission
--- OUTSIDE RECORDS SUMMARY | 2017-01-18 00:34 | External Medical Summary ---
[...] Medications Medication Code System Code Instructions Start Date End Date Status Dosage Fentanyl [facility] [address]1851-248 50 MCG/HR Apr 29, Active 1 patch to 1-45 Transdermal every 2013 skin 72 hrs Results No Known Results Summary Purpose [employer] Submission
--- OUTSIDE RECORDS SUMMARY | 2017-01-18 00:34 | External Medical Summary ---
[...] for V58.61 Active long-term (current) use Medications No Known Medications Results No Known Results Summary Purpose [facility] Submission
--- OUTSIDE RECORDS SUMMARY | 2017-01-18 00:34 | External Medical Summary ---
[...] Medications Results No Known Results Summary Purpose [employer] Submission
--- OUTSIDE RECORDS SUMMARY | 2017-01-18 00:34 | External Medical Summary ---
:1945 Author Organization [facility] Address [address] [place] [address] Care Team Providers Name Role Phone Afshin Macias Unavailable Unavailable PROBLEMS Type Condition ICD9-CM [id number] Onset Condition SNOMED Code Code Code Dates Status Problem Irritable bowel K58.0 Active 77471842 syndrome with constipation and diarrhea Problem Atrial I48.91 Active 38431293 fibrillation Problem Personal history Z85.3 Active 895492372 of malignant neoplasm of breast Problem Restless leg G25.81 Active 07823728 Assessment Depression F32.9 13 Jun, Active 185488212 2016 Problem Nocturnal hypoxia G47.34 Active 112800999 Problem Irritable bowel K58.9 Active 74715012 Problem Depression F32.9 Active 472955987 Problem Cerumen impaction H61.20 Active 96109801 Problem Actinic keratosis L57.0 Active 050186658 Problem Pain in joint, M25.569 Active 915571905 lower leg Problem DM w/o 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 466952680 complication type II Problem Insomnia G47.00 Active 238499082 Problem Malignant neoplasm C18.9 Active 031203150 of colon Problem Nontoxic E04.1 Active 364281519 uninodular goiter 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 542550804 use of anticoagulant therapy Problem Contact dermatitis L25.9 Active 75464604 and other eczema, due to unspecified cause Problem 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 78130584 lumbar or lumbosacral intervertebral disc Problem Closed fracture of S92.919A Active 95784688 phalanx of foot Problem Personal history Z86.73 Active 488215755 of 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 ALLERGIES Substance Reaction Event Type Date Status Penicillin Unknown Drug Allergy Jun, Active SOCIAL HISTORY No smoking Hx information available PLAN OF CARE VITAL SIGNS Weight 236.6 lbs 2016-06-13 Height 65 in 2016-06-13 Heart Rate 81 /min 2016-06-13 Oximetry 95 % 2016-06-13 BMI 39.37 kg/m2 2016-06-13 Blood pressure systolic 122 mm Hg 2016-06-13 Blood pressure diastolic 78 mm Hg 2016-06-13 MEDICATIONS Medication Instructions Dosage Frequency Start End Duration Status Date Date Fish Oil 1000 MG Orally Once a 1 capsule 24h 30 day(s) Active day Seroquel 100 MG Orally Once a 1 tablet at 24h 30 days Active day bedtime Warfarin Sodium TAKE ONE 30 Active 7.5 TABLET BY MOUTH DAILY Metoprolol Orally Once a 1 tablet 24h 30 day(s) Active Succinate 50 MG day Furosemide 40 TAKE ONE 90 Active TABLET BY MOUTH TWICE A DAY Allopurinol 300 TAKE ONE 30 Active TABLET BY MOUTH DAILY Seroquel 100 MG take one Active tablet by mouth daily Klor-Con M10 10 TAKE ONE 30 Active TABLET BY MOUTH TWICE A DAY Flaxseed Oil 1000 as directed Active MG Multivitamins as directed Active Tobrex 0.3 % Ophthalmic 1 drop into 4h Mar, Active every 4 hrs affected 2015 eye Calcium 1500 MG Orally Twice a 1 tablet 12h 30 day(s) Active day with food Hydrocodone-Aceta Orally QID take one 6h 30 days Active minophen 7.5-325 tablet by MG mouth every 6 hours for 30 days Venlafaxine HCl TAKE THREE Active ER 75 CAPSULES BY MOUTH DAILY WITH FOOD Fentanyl 50 Transdermal 1 patch to Apr, days Active MCG/HR every 72 hrs skin 2013 Gabapentin 300 TAKE ONE 30 Active CAPSULE BY MOUTH THREE TIMES A DAY RESULTS No Results PROCEDURES Procedure Date Ordered Related Diagnosis Body Site OFFICE VISITEST PT Jun 13, 2016 IMMUNIZATIONS No Known Immunizations
--- OUTSIDE RECORDS SUMMARY | 2017-01-18 00:34 | External Medical Summary ---
:1945 Author Organization eClinicalWorks Care Team Providers Name Role Phone RodneyAfshin gaytan Provider Role Unavailable Allergies No Known Allergies [...] malignant V10.3 Active neoplasm of breast Assessment Atrial fibrillation 427.31 Active Problem Colon cancer 153.9 Active Problem Nontoxic uninodular goiter 241.0 Active Assessment Anticoagulants, Encounter for V58.61 Active long-term (current) use Problem Anticoagulants, Encounter for V58.61 Active long-term (current) use Medications No Known Medications Procedures Procedure Coding System Code Date PROTIME CPT-4 99980 Aug 12, 2014 Results No Known Results Summary Purpose [employer] Submission
--- OUTSIDE RECORDS SUMMARY | 2017-01-18 00:34 | External Medical Summary ---
[...] more 826.0 Active phalanges of foot Assessment Knee pain 719.46 Active Assessment Anticoagulants, Encounter for V58.61 Active long-term (current) use Problem Colon cancer 153.9 Active Problem Nontoxic uninodular goiter 241.0 Active Assessment Atrial fibrillation 427.31 Active Problem Anticoagulants, Encounter for V58.61 Active long-term (current) use Assessment Degeneration of lumbar or 722.52 Active lumbosacral intervertebral disc Problem Degeneration of lumbar or 722.52 Active lumbosacral intervertebral disc Medications Medication Code Code Instructions Start End Status Dosage System Date Date Calcium [facility] [address] 1500 MG Orally 1 tablet Twice a day with food Maryam Contour NDC 0 USE Type 2 DM Mar 09, test blood diet controlled 2013 sugar daily Gabapentin [facility] 79322984164 300MG Orally take one TID capsule by mouth twice daily for 30 days Seroquel [facility] [address]-25 25 MG Orally 1 tablet Twice a day Warfarin Sodium [facility] 39999470992 7.5MG TAKE ONE TABLET BY MOUTH EVERY DAY Fentanyl [facility] [address]-16 50 MCG/HR Apr 29 patch to Transdermal 2013 skin every 72 hrs Furosemide [facility] 55322529883 40MG TAKE ONE TABLET BY MOUTH TWICE DAILY Multivitamins [facility] 24769-[address]68 Orally as directed Coumadin [facility] [address]-59 5 TAKE ONE TABLET BY MOUTH EVERY DAY Imodium A-D [facility] [address]-36 2 MG Orally 8 1 tablet time(s) a day Venlafaxine HCl [facility] [address]-75 150mg QD 1 Klor-Con M10 [facility] 20967570318 10MEQ TAKE ONE TABLET BY MOUTH TWICE DAILY Allopurinol [facility] 39515459242 300MG TAKE ONE TABLET BY MOUTH EVERY DAY Hydrocodone-Acet [facility] [address]-10 7.5-325 MG take one aminophen Orally QID tablet by mouth every 6 hours for 30 days Flaxseed Oil [facility] [address]-26 1000 MG Orally as directed Metoprolol ND 0 50 MG Orally 1 tablet Succinate Once a day Maryam Contour NDC 0 USE Type 2 DM Mar 09, test blood Test diet controlled 2013 sugar daily Fish Oil [facility] [address]-35 1000 MG Orally 1 capsule Once a day Procedures Procedure Coding System Code Date PROTIME CPT-4 14452 Feb 24, 2015 OFFICE VISITEST PT CPT-4 05608 Feb 24, 2015 Vital Signs Date/Time: Feb 24, 2015 Blood Pressure Systolic 135 mm Hg Height 65 in Weight 218.2 lbs BMI 36.31 Index Oximetry 95 % Cardiac Monitoring Heart Rate 86 /min Blood Pressure Diastolic 83 mm Hg Results No Known Results Summary Purpose eClinicalWorks Submission
--- OUTSIDE RECORDS SUMMARY | 2017-01-18 00:34 | External Medical Summary ---
:1945 Author Organization [facility] Care Team Providers Name Role Phone Afshin [...] Procedure Coding System Code Date PROTIME CPT-4 19641 December 18, 2014 Results Name Result Date Reference Range Unit Abnormality Flag PROTIME ----PT 16.5 [id number] 11.6-13.2 SEC H ----INR 1.7 [id number] 2.0-3.5 L Summary Purpose [facility] Submission
--- OUTSIDE RECORDS SUMMARY | 2017-01-18 00:34 | External Medical Summary ---
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
--- OUTSIDE RECORDS SUMMARY | 2017-01-18 00:34 | External Medical Summary ---
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
--- OUTSIDE RECORDS SUMMARY | 2017-01-18 00:34 | External Medical Summary ---
[...] more 826.0 Active phalanges of foot Assessment Unspecified atrial fibrillation I48.91 Active Assessment Anticoagulants, Encounter for V58.61 Active long-term (current) use Assessment On anticoagulant therapy Z79.01 Active Problem Colon cancer 153.9 Active Problem Nontoxic uninodular goiter 241.0 Active Assessment Atrial fibrillation 427.31 Active Problem Anticoagulants, Encounter for V58.61 Active long-term (current) use Assessment Degeneration of lumbar or 722.52 Active lumbosacral intervertebral disc Problem Degeneration of lumbar or 722.52 Active lumbosacral intervertebral disc Medications Medication Code Code Instructions Start End Status Dosage System Date Date Furosemide [facility] 64402535785 40MG TAKE ONE TABLET BY MOUTH TWICE DAILY Metoprolol ND 0 50 MG Orally 1 tablet Succinate Once a day Warfarin Sodium [facility] 10208216931 7.5MG TAKE ONE TABLET BY MOUTH EVERY DAY Seroquel [facility] [address]-13 25 MG Orally 1 tablet Twice a day Gabapentin [facility] 07989038154 300MG Orally take one TID capsule by mouth twice daily for 30 days Klor-Con M10 [facility] 39490278981 10MEQ TAKE ONE TABLET BY MOUTH TWICE DAILY Multivitamins [facility] [address]66 Orally as directed Fentanyl [facility] [address]-81 50 MCG/HR Apr 29 patch to Transdermal 2013 skin every 72 hrs Venlafaxine HCl [facility] [address]-26 150mg QD 1 Hydrocodone-Acet [facility] [address]-67 7.5-325 MG take one aminophen Orally QID tablet by mouth every 6 hours for 30 days Imodium A-D [facility] [address]-98 2 MG Orally 8 1 tablet time(s) a day Flaxseed Oil [facility] [address]-94 1000 MG Orally as directed Calcium [facility] 67[address]40 1500 MG Orally 1 tablet Twice a day with food Allopurinol [facility] 35192181042 300MG TAKE ONE TABLET BY MOUTH EVERY DAY Fish Oil [facility] [address]-25 1000 MG Orally 1 capsule Once a day Procedures Procedure Coding System Code Date OFFICE VISITEST PT CPT-4 55630 Mar 29, 2015 PROTIME CPT-4 20374 Mar 29, 2015 Vital Signs Date/Time: Mar 29, 2015 Blood Pressure Systolic 106 mm Hg Height 65 in Weight 218.2 lbs BMI 36.31 Index Blood Pressure Diastolic 62 mm Hg Results Name Result Date Reference Range Unit Abnormality Flag PROTIME Summary Purpose eClinicalWorks Submission
--- OUTSIDE RECORDS SUMMARY | 2017-01-18 00:34 | External Medical Summary ---
:1945 Author Organization [email or web address] Care Team Providers Name Role Phone Afshin [...] Medications Results No Known Results Summary Purpose [email or web address] Submission
--- OUTSIDE RECORDS SUMMARY | 2017-01-18 00:35 | External Medical Summary ---
:1945 Author Organization [facility] Address [address] [place] [address] Care Team Providers Name Role Phone Afshin Macias Unavailable Unavailable PROBLEMS Type Condition ICD9-CM Code [id number] Onset Condition SNOMED Code Code Dates Status Problem Irritable bowel K58.0 Active 49986325 syndrome with constipation and diarrhea Problem Atrial fibrillation I48.91 Active 24572909 Problem Personal history of Z85.3 Active 047627126 malignant neoplasm of breast Problem Restless leg G25.81 Active 23919920 Problem Nocturnal hypoxia G47.34 Active 962404120 Problem Irritable bowel K58.9 Active 42588698 Problem Depression F32.9 Active 142687222 Problem Cerumen impaction H61.20 Active 19693831 Problem Actinic keratosis L57.0 Active 235520601 Problem Pain in joint, M25.569 Active 696362517 lower leg Problem 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 172462767 type II Problem Insomnia G47.00 Active 977806822 Problem Malignant neoplasm C18.9 Active 432404843 of colon Problem 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 853901604 goiter Problem 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 942273500 use of anticoagulant therapy Problem Contact dermatitis L25.9 Active 50302365 and other eczema, due to unspecified cause Problem 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 29623680 lumbar or lumbosacral intervertebral disc Problem Closed fracture of S92.919A Active 59325048 phalanx of foot Problem Personal history of Z86.73 Active 296666850 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
--- OUTSIDE RECORDS SUMMARY | 2017-01-18 00:35 | External Medical Summary ---
[...] Medications Results No Known Results Summary Purpose [employer] Submission
--- OUTSIDE RECORDS SUMMARY | 2017-01-18 00:35 | External Medical Summary ---
:1945 Author Organization [employer] Care Team Providers Name Role Phone Afshin Macias Provider Role Unavailable Allergies No Known Allergies Problems Problem Type Condition ICD-9 Code Onset Dates Condition Status Problem Degeneration of lumbar or 722.52 Active lumbosacral intervertebral disc Problem Depressive disorder, not 311 Active elsewhere classified Problem Personal history of transient V12.54 Active ischemic attack [TIA], 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s Problem Nontoxic uninodular goiter 241.0 Active Problem Anticoagulants, Encounter for V58.61 Active long-term (current) use Problem Diabetes mellitus 250.00 Active Problem Eczema 692.9 Active Problem Knee pain 719.46 Active Problem Atrial fibrillation 427.31 Active Problem Irritable bowel syndrome 564.1 Active Problem Closed fracture of one or more 826.0 Active phalanges of foot Problem Personal history of malignant V10.3 Active neoplasm of breast Medications No Known Medications Results No Known Results Summary Purpose [employer] Submission
--- OUTSIDE RECORDS SUMMARY | 2017-01-18 00:35 | External Medical Summary ---
[...] Medications Results No Known Results Summary Purpose [employer] Submission
--- OUTSIDE RECORDS SUMMARY | 2017-01-18 00:35 | External Medical Summary ---
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 therapy [...] in joint, lower leg M25.569 Active Assessment Encounter for general adult Z00.00 Active medical examination without abnormal findings Problem 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 Problem Insomnia G47.00 Active Problem Contact dermatitis and other L25.9 Active eczema, due to unspecified cause Medications Medication Code Code Instructions Start End Status Dosage System Date Date Hydrocodone-Acet [facility] [address]-75 7.5-325 MG take one aminophen Orally QID tablet by mouth every 6 hours for 30 [place] [address]-62 1000 MG Orally 1 capsule [place] [address]-29 75 mg Orally Jul 12, 3 capsule ER Once a day 2015 [place] [address] Orally as directed Fentanyl [facility] 2001 [address]-75 50 MCG/HR Apr 29, 1 patch to Transdermal 2014 skin [place] [address] 1500 MG Orally 1 tablet Twice a day with food Flaxseed Oil [facility] 2001 [address]-75 1000 MG Orally as directed Allopurinol ND 11709863556 300 TAKE ONE TABLET BY MOUTH DAILY Warfarin Sodium [facility] 09326072074 7.5MG TAKE ONE TABLET BY MOUTH EVERY DAY Klor-Con M10 [facility] 21721964145 10 TAKE ONE TABLET BY MOUTH TWICE A DAY Metoprolol ND 0 50 MG Orally 1 tablet Succinate Once a day Gabapentin [facility] 68251220104 300 TAKE ONE CAPSULE BY MOUTH THREE TIMES A DAY Seroquel [facility] [address]-85 50 MG Orally Aug 02, 1 tablet Once a day 2015 Furosemide [facility] 54089273143 40MG TAKE ONE TABLET BY MOUTH TWICE DAILY Procedures Procedure Coding System Code Date ANNUAL MARY DUMONTT; ARIN PPS INIT CPT-4 G0438 October 19, 2015 Vital Signs Date/Time: October 19, 2015 Blood Pressure Systolic 101 mm Hg Height 65 in Weight 225.8 lbs BMI 37.57 Index Oximetry 93 % Cardiac Monitoring Heart Rate 77 /min Blood Pressure Diastolic 61 mm Hg Results No Known Results Summary Purpose [employer] Submission
--- OUTSIDE RECORDS SUMMARY | 2017-01-18 00:35 | External Medical Summary | Referral Summary ---
:1945 Author Organization [facility] Address [address] [place] [address] Care Team Providers Name Role Phone Afshin Macias Primary Care Physician Encounter VC Date(s): 03/05/15 - 03/05/15 [facility] [address] [place] [address]- [place] Discharge Diagnosis: Status post [...] BID, # 30 tabs, 11 Refill(s), Pharmacy: [facility], 0.5 tabs Oral [...] degree Ordered: Office Visit Level 3 Est 86170 Pm Device Progr Eval Sngl 26119 Return to Clinic Atrial fibrillation Status post cardiac pacemaker procedure Dictation performed with [employer] voice recognition Referrals to Other Providers Referred by: Naldo Gtz MD
--- OUTSIDE RECORDS SUMMARY | 2017-01-18 00:35 | External Medical Summary ---
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 intervertebral disc Medications Medication Code Code Instructions Start End Status Dosage System Date Date Venlafaxine HCl [facility] [address]-11 150mg QD 1 Imodium A-D [facility] [place] [address]-68 2 MG Orally 8 1 tablet time(s) a day Allopurinol [facility] 31132024721 300MG TAKE ONE TABLET BY MOUTH EVERY DAY Fentanyl [facility] [place] [address]-45 50 MCG/HR Apr 29, patch to Transdermal 2013 skin every 72 hrs Maryam Contour ND 0 USE Type 2 DM Mar 09, test blood Test diet controlled 2013 sugar daily Fish Oil [facility] [place] [address]-36 1000 MG Orally 1 capsule Once a day Klor-Con M10 [facility] 19230684243 10MEQ TAKE ONE TABLET BY MOUTH TWICE DAILY Warfarin Sodium [facility] 96303079211 5MG TAKE ONE TABLET BY MOUTH EVERY DAY Hydrocodone-Acet [facility] 32851639911 7.5-500MG TAKE ONE aminophen TABLET BY MOUTH EVERY 6 HOURS FOR 30 DAYS Furosemide NDC 64923932110 40MG TAKE ONE TABLET BY MOUTH TWICE DAILY Calcium [facility] [place] [address] 1500 MG Orally 1 tablet Twice a day with food Maryam Contour NDC 0 USE Type 2 DM Mar 09 blood diet controlled 2013 sugar daily Flaxseed Oil [facility] [place] [address]-32 1000 MG Orally as directed Gabapentin [facility] 50909203907 300MG TAKE ONE CAPSULE BY MOUTH TWICE DAILY FOR 30 DAYS Metoprolol ND 0 50 MG Orally 1 tablet Succinate Once a day Seroquel [facility] [place] [address]-74 25 MG Orally 1 tablet Twice a day Multivitamins [facility] [place] [address] Orally as directed Procedures Procedure Coding System Code Date RIB UNILAT 2 VIEW CPT-4 61361 November 03, 2014 OFFICE VISITEST PT CPT-4 16656 November 03, 2014 CHEST XRAY 2 VIEW CPT-4 90811 November 03, 2014 Vital Signs Date/Time: November 03, 2014 Blood Pressure Systolic 110 mm Hg Height 65 in Weight 229.2 lbs BMI 38.14 Index Blood Pressure Diastolic 68 mm Hg Results No Known Results Summary Purpose [employer] Submission
--- OUTSIDE RECORDS SUMMARY | 2017-01-18 00:35 | External Medical Summary ---
:1945 Author Organization [employer] Care Team Providers Name Role Phone Afshin [...] malignant V10.3 Active neoplasm of breast Assessment Nontoxic multinodular goiter 241.1 Active Problem Colon cancer 153.9 Active Assessment Atrial fibrillation 427.31 Active Problem Nontoxic uninodular goiter 241.0 Active Assessment Personal history of malignant V10.3 Active neoplasm of breast Problem Anticoagulants, Encounter for V58.61 Active long-term (current) use Medications No Known Medications Procedures Procedure Coding System Code Date TSH CPT-4 75149 May 18, 2014 PROTIME CPT-4 51572 May 18, 2014 FREE T4 CPT-4 61555 May 18, 2014 Results Name Result Date Reference Range Unit FREE T4 ----Free T4 1.14 20140518 -0.93-1.70 ng/dL PROTIME TSH ----TSH 3.24 20140518 -0.40-5.00 IU/ML Summary Purpose [employer] Submission
--- OUTSIDE RECORDS SUMMARY | 2017-01-18 00:35 | External Medical Summary | Referral Summary ---
:1945 Author Organization [facility] Address [address] [place] [address] Care Team Providers Name Role Phone Afshin Macias Primary Care Physician Encounter VC Date(s): 05/12/16 - 05/12/16 [facility] [address] [place] [address]- [place] Discharge Diagnosis: Atrial fibrillation Discharge Diagnosis: Status post cardiac pacemaker procedure Discharge Diagnosis: AV block, 3rd degree Discharge Disposition: 01-Home or Self Care Attending Physician: Naldo Gtz MD Admitting Physician: Naldo Gtz MD Vital Signs Most recent to oldest [Reference Range]: 1 Peripheral Pulse Rate [60-100 bpm] 82 bpm (05/12/16 9:25 AM) Blood Pressure [90-140/60-90 mmHg] 124/70mmHg (05/12/16 9:25 AM) Problem List Condition Effective Dates Status [...] Status: OrderedMetoprolol Tartrate 50 mg oral tablet See Instructions, TAKE ONE-HALF TABLET BY MOUTH TWICE A DAY, # 30 tabs, 3 Refill (s), eRx: [facility] #[id number], TAKE ONE-HALF TABLET BY MOUTH TWICE A DAY Start Date: 04/10/16 Status: OrderedMultivitamins oral capsule 1 caps, Oral, Daily, # 30 caps, 0 Refill(s) Start Date: 01/30/14 Status: OrderedNeurontin 300 mg oral capsule 300 mg 1 caps, Oral, TID, # 60 caps, 0 Refill(s) Start Date: 01/28/14 Status: OrderedSEROquel 50 mg oral tablet 50 mg 1 tabs, Oral, Daily, 0 Refill(s) Start Date: 05/12/16 Status: Orderedvenlafaxine 75 mg oral tablet 225 [...] in 2005 Assessment and Plan Extracted from: Title:Ambulatory Patient Education Author:Naldo Gtz MD Date:05/12/16 Cardiovascular Atrial Fibrillation Atrial fibrillation is a type of irregular heart rhythm (arrhythmia). During atrial fibrillation, the upper chambers of the heart (atria) quiver continuously in a chaotic pattern. This causes an irregular and often rapid heart rate. Atrial fibrillation is the result of the heart becoming overloaded with disorganized signals that tell it to beat. These signals are normally released one at a time by a part of the right atrium eid d the sinoatrial node. They then travel from the atria to the lower chambers of the heart (ventricles), causing the atria and ventricles to contract and pump blood as they pass. In atrial fibrillation , parts of the atria outside of the sinoatrial node also release these signals. This results in two problems. First, the atria receive so many signals that they do not have time to fully contract. Sec ond, the ventricles, which can only receive one signal at a time, beat irregularly and out of rhythm with the atria. There are three types of atrial fibrillation: Paroxysmal. Paroxysmal atrial fibrillation starts suddenly and stops on its own within a week. Persistent. Persistent atrial fibrillation lasts for more than a week. It may stop on its own or with treatment. Permanent. Permanent atrial fibrillation does not go away. Episodes of atrial fibrillation may lead to permanent atrial fibrillation. Atrial fibrillation can prevent your heart from pumping blood normally. It increases your risk of stroke and can lead to heart failure. CAUSES Heart conditions, including a heart attack, heart failure, coronary artery disease, and heart valve conditions. Inflammation of the sac that surrounds the heart (pericarditis). Blockage of an artery in the lungs (pulmonary embolism). Pneumonia or other infections. Chronic lung disease. Thyroid problems, especially if the thyroid is overactive (hyperthyroidism) . Caffeine, excessive alcohol use, and use of some illegal drugs. Use of some medicines, including certain decongestants and diet pills. Heart surgery. defects. Sometimes, no cause can be found. When this happens, the atrial fibrillation is called lone atrial fibrillation. The risk of complications from atrial fibrillation increases if you have lone atrial fibrillation and you are age 60 years or older. RISK FACTORS Heart failure. Coronary artery disease. Diabetes mellitus. High blood pressure (hypertension). Obesity. Other arrhythmias. Increased age. SIGNS AND SYMPTOMS A feeling that your heart is beating rapidly or irregularly. A feeling of discomfort or pain in your chest. Shortness of breath. Sudden light-headedness or weakness. Getting tired easily when exercising. Urinating more often than normal (mainly when atrial fibrillation first begins). In paroxysmal atrial fibrillation, symptoms may start and suddenly stop. DIAGNOSIS Your health care provider may be able to detect atrial fibrillation when taking your pulse. Your health care provider may have you take a test called an ambulatory electrocardiogram (ECG). An ECG zuleima rds your heartbeat patterns over a 24-hour period. You may also have other tests, such as: Transthoracic echocardiogram (TTE). During echocardiography, sound waves are used to evaluate how blood flows through your heart. Transesophageal echocardiogram (MOSES). Stress test. There is more than one type of stress test. If a stress test is needed, ask your health care provider about which type is best for you. Chest X-ray exam. Blood tests. Computed tomography (CT). TREATMENT Treatment may include: Treating any underlying conditions. For example, if you have an overactive thyroid, treating the condition may correct atrial fibrillation. Taking medicine. Medicines may be given to control a rapid heart rate or to prevent blood clots, heart failure, or a stroke. Having a procedure to correct the rhythm of the heart: Electrical cardioversion. During electrical cardioversion, a controlled, low-energy shock is delivered to the heart through your skin. If you have chest pain, very low blood pressure, or sudden heart failure, this procedure may need to be done as an emergency. Catheter ablation. During this procedure, heart tissues that send the signals that cause atrial fibrillation are destroyed. Surgical ablation. During this surgery, thin lines of heart tissue that carry the abnormal signals are destroyed. This procedure can either be an open- heart surgery or a minimally invasive surg julianna. With the minimally invasive surgery, small cuts are made to access the heart instead of a large opening. Pulmonary venous isolation. During this surgery, tissue around the veins that carry blood from the lungs (pulmonary veins) is destroyed. This tissue is thought to carry the abnormal signals. HOME CARE INSTRUCTIONS Take medicines only as directed by your health care provider. Some medicines can make atrial fibrillation worse or recur. If blood thinners were prescribed by your health care provider, take them exactly as directed. Too much blood-thinning medicine can cause bleeding. If you take too little, you will not have the needed protection against stroke and other problems. Perform blood tests at home if directed by your health care provider. Perform blood tests exactly as directed. Quit smoking if you smoke. Do not drink alcohol. Do not drink caffeinated beverages such as coffee, soda, and some teas. You may drink decaffeinated coffee, soda, or tea. Maintain a healthy weight.Do not use diet pills unless your health care provider approves. They may make heart problems worse. Follow diet instructions as directed by your health care provider. Exercise regularly as directed by your health care provider. Keep all follow-up visits as directed by your health care provider. This is important. PREVENTION The following substances can cause atrial fibrillation to recur: Caffeinated beverages. Alcohol. Certain medicines, especially those used for breathing problems. Certain herbs and herbal medicines, such as those containing ephedra or ginseng. Illegal drugs, such as cocaine and amphetamines. Sometimes medicines are given to prevent atrial fibrillation from recurring. Proper treatment of any underlying condition is also important in helping prevent recurrence. SEEK MEDICAL CARE IF: You notice a change in the rate, rhythm, or strength of your heartbeat. You suddenly begin urinating more frequently. You tire more easily when exerting yourself or exercising. SEEK IMMEDIATE MEDICAL CARE IF: You have chest pain, abdominal pain, sweating, or weakness. You feel nauseous. You have shortness of breath. You suddenly have swollen feet and ankles. You feel dizzy. Your face or limbs feel numb or weak. You have a change in your vision or speech. MAKE SURE YOU: Understand these instructions. Will watch your condition. Will get help right away if you are not doing well or get worse. This information is not intended to replace advice given to you by your health care provider. Make sure you discuss any questions you have with your health care provider. Document Released: 06/18/2006 Document Revised: 07/09/2015 Document Reviewed: 10/13/2015 [employer] Patient Education 2016 [employer] No follow up information was provided. Referrals to Other Providers Referred by: Naldo Gtz MD
--- OUTSIDE RECORDS SUMMARY | 2017-01-18 00:35 | External Medical Summary ---
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 of Z79.01 Active anticoagulant [...] with K58.0 Active constipation and diarrhea Assessment Depression F32.9 Active Assessment Irritable bowel K58.9 Active Assessment Chronic pain G89.29 Active Problem Malignant neoplasm of colon C18.9 Active Problem Pain in joint, lower leg M25.569 Active Assessment Diarrhea R19.7 Active Problem 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 Problem Insomnia G47.00 Active Problem Contact dermatitis and other L25.9 Active eczema, due to unspecified cause Medications Medication Code Code Instructions Start End Status Dosage System Date Date Klor-Con M10 [facility] 72735133800 10MEQ TAKE ONE TABLET BY MOUTH TWICE DAILY Hydrocodone-Acet [facility] [address]-51 7.5-325 MG take one aminophen Orally QID tablet by mouth every 6 hours for 30 days Fish Oil [facility] [address]-03 1000 MG Orally 1 capsule Once a day Allopurinol [facility] 39661959387 300MG TAKE ONE TABLET BY MOUTH EVERY DAY Imodium A-D [facility] [address]-33 2 MG Orally 8 1 tablet time(s) a day Venlafaxine HCl [facility] [address]-67 75 MG Orally QD 3 capules Flaxseed Oil [facility] [address]-72 1000 MG Orally as directed Metoprolol [facility] 0 50 MG Orally 1 tablet Succinate Once a day Furosemide [facility] 91698963812 40MG TAKE ONE TABLET BY MOUTH TWICE DAILY Lomotil [facility] [address]-69 2.5-0.025 MG Apr 12, 1 tablet Orally Four 2015 as needed times a day Calcium [facility] [address] 1500 MG Orally 1 tablet Twice a day with food Multivitamins [facility] [address] Orally as directed Gabapentin [facility] 30588428099 300MG Orally take one TID capsule by mouth twice daily for 30 days Warfarin Sodium [facility] 01693824574 7.5MG TAKE ONE TABLET BY MOUTH EVERY DAY Fentanyl [facility] [address]-24 50 MCG/HR Apr 29, 1 patch to Transdermal 2014 skin every 72 hrs Procedures Procedure Coding System Code Date OFFICE VISITEST PT CPT-4 76493 Apr 12, 2015 Vital Signs Date/Time: Apr 12, 2015 Blood Pressure Systolic 110 mm Hg Height 65 in Weight 217.6 lbs BMI 36.21 Index Blood Pressure Diastolic 66 mm Hg Results No Known Results Summary Purpose [employer] Submission
--- OUTSIDE RECORDS SUMMARY | 2017-01-18 00:35 | External Medical Summary ---
[...] Start Date End Date Status Dosage Fentanyl [facility] 459[address]-767 50 MCG/HR Apr 29, patch to 1-45 Transdermal every 2013 skin 72 hrs Results No Known Results Summary Purpose [employer] Submission
--- OUTSIDE RECORDS SUMMARY | 2017-01-18 00:35 | External Medical Summary | Referral Summary ---
:1945 Author Organization [facility] Address [address] [place] [address] Care Team Providers Name Role Phone Colleen Afshin Darrell Primary Care Physician Encounter VC Date(s): 03/05/15 - 03/05/15 [facility] [address] [place] [address]- [place] Discharge Diagnosis: Status post [...] BID, # 30 tabs, 11 Refill(s), Pharmacy: [facility], 0.5 tabs Oral BID [...] degree Ordered: Office Visit Level 3 Est 73343 Pm Device Progr Eval Sngl 17903 Return to Clinic Atrial fibrillation Status post cardiac pacemaker procedure Dictation performed with [employer] voice recognition Referrals to Other Providers Referred by: Naldo Gtz MD
--- OUTSIDE RECORDS SUMMARY | 2017-01-18 00:35 | External Medical Summary ---
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 Problem Cerumen impaction H61.20 Active Assessment 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 Assessment Actinic keratosis L57.0 Active Problem Restless leg G25.81 Active Problem Depression F32.9 Active Problem Atrial fibrillation I48.91 Active Problem Actinic keratosis L57.0 Active Problem Irritable bowel K58.9 Active Problem Malignant neoplasm of colon C18.9 Active Problem Pain in joint, lower leg M25.569 Active Assessment Atrial fibrillation I48.91 Active Problem Insomnia G47.00 Active Problem Closed fracture of phalanx of foot S92.919A Active Problem Nontoxic uninodular goiter E04.1 Active Problem 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 Problem assisted current use of Z79.01 Active anticoagulant therapy Problem Contact dermatitis and other L25.9 Active eczema, due to unspecified cause Problem 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 Medications Medication Code Code Instructions Start End Status Dosage System Date Date Fentanyl [facility] [address]-83 50 MCG/HR Apr 29 patch to Transdermal 2014 skin every 72 hrs Multivitamins [facility] [address]-56 Orally as directed Gabapentin [facility] 98802521914 300 TAKE ONE CAPSULE BY MOUTH THREE TIMES A DAY Flaxseed Oil [facility] [address]-65 1000 MG Orally as directed Hydrocodone-Acet [facility] [address]-50 7.5-325 MG take one aminophen Orally QID tablet by mouth every 6 hours for 30 days Metoprolol NDC 0 50 MG Orally 1 tablet Succinate Once a day Fish Oil [facility] [address]-23 1000 MG Orally 1 capsule Once a day Allopurinol [facility] 13475778440 300 TAKE ONE TABLET BY MOUTH DAILY Klor-Con M10 [facility] 70495198136 10 TAKE ONE TABLET BY MOUTH TWICE A DAY Furosemide [facility] 24582953039 40MG TAKE ONE TABLET BY MOUTH TWICE DAILY Calcium [facility] [address]63[address]16 1500 MG Orally 1 tablet Twice a day with food Warfarin Sodium [facility] 11341213591 7.5 TAKE ONE TABLET BY MOUTH DAILY Venlafaxine HCl [facility] 72340049467 75 TAKE THREE ER CAPSULES BY MOUTH DAILY WITH FOOD Seroquel [facility] 48087658763 50 TAKE ONE TABLET BY MOUTH DAILY Procedures Procedure Coding System Code Date OFFICE VISITEST PT CPT-4 98386 Feb 14, 2016 PROTIME CPT-4 27943 Feb 14, 2016 Vital Signs Date/Time: Feb 14, 2016 Blood Pressure Systolic 112 mm Hg Height 65 in Weight 230.4 lbs BMI 38.34 Index Blood Pressure Diastolic 64 mm Hg Results Name Result Date Reference Range Unit Abnormality Flag PROTIME ----PT 23.7 [id number] 11.4-13.8 SEC H ----INR 3.2 [id number] 2.0-3.5 Summary Purpose eClinicalWorks Submission
--- OUTSIDE RECORDS SUMMARY | 2017-01-18 00:35 | External Medical Summary ---
:1945 Author Organization [facility] Address [address] [place] [address] Care Team Providers Name Role Phone Afshin Macias Unavailable Unavailable PROBLEMS Type Condition ICD9-CM Code [id number] Onset Condition SNOMED Code Code Dates Status Problem Irritable bowel K58.0 Active 10059362 syndrome with constipation and diarrhea Problem Atrial fibrillation I48.91 Active 37402203 Problem Personal history of Z85.3 Active 247655768 malignant neoplasm of breast Problem Restless leg G25.81 Active 26179391 Problem Nocturnal hypoxia G47.34 Active 162236201 Problem Irritable bowel K58.9 Active 63128559 Problem Depression F32.9 Active 485805942 Problem Cerumen impaction H61.20 Active 02222420 Problem Actinic keratosis L57.0 Active 603666027 Problem Pain in joint, M25.569 Active 758151191 lower leg Problem 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 Problem Insomnia G47.00 Active 793010044 Problem Malignant neoplasm C18.9 Active 150680732 of colon Problem 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 291923564 goiter Problem long term care pharmacist 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 Active 100137318 use of anticoagulant therapy Problem Contact dermatitis L25.9 Active 58954845 and other eczema, due to unspecified cause Problem 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 60708432 lumbar or lumbosacral intervertebral disc Problem Closed fracture of S92.919A Active 37476846 phalanx of foot Problem Personal history of Z86.73 Active 613375528 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 ALLERGIES Substance Reaction Event Type Date Status Penicillin Unknown Drug Allergy Sep, Active SOCIAL HISTORY No smoking Hx information available PLAN OF CARE Activity Details Follow Up follow up pending results Reason: VITAL SIGNS Weight 224.2 lbs 2016-10-10 Height 65 in 2016-10-10 Temperature 98.1 degrees Fahrenheit 2016-10-10 Heart Rate 90 /min 2016-10-10 Oximetry 93 % 2016-10-10 BMI 37.30 kg/m2 2016-10-10 Blood pressure systolic 126 mm Hg 2016-10-10 Blood pressure diastolic 83 mm Hg 2016-10-10 MEDICATIONS Medication Instructions Dosage Frequency Start End Duration Status Date Date Seroquel 100 MG Orally Once a 1 tablet at 24h 90 days Active day bedtime Sertraline HCl 50 Orally Once a 1 tablet 24h Active MG day Allopurinol 300 Orally Once a 1 tablet 24h 90 days Active day Furosemide 40 MG Orally Twice a 1 tablet 12h 90 days Active day Fentanyl 50 Transdermal 1 patch to Apr, Active MCG/HR every 72 hrs skin 2013 Calcium 1500 MG Orally Twice a 1 tablet 12h 30 day(s) Active day with food Hydrocodone-Aceta Orally QID take one 6h 30 days Active minophen 7.5-325 tablet by MG mouth every 6 hours for 30 days Metoprolol Orally Twice a 1/2 - 1 12h Active Tartrate 50 MG day TABLET Coumadin 5 mg Orally Once a 1 tablet 24h Sep, day(s) Active day 2016 Trazodone HCl 50 Orally Once a 1 tablet at 24h Active MG day bedtime as needed Multivitamins as directed Active Warfarin Sodium Orally Once a 1 tablet 24h 90 DAYS Active 7.5 day Venlafaxine HCl Orally Everyday 2 TABLETS Active ER 150 MG in the morning Klor-Con M10 10 Orally Twice a 1 tablet 12h 90 days Active day with food Gabapentin 300 Orally Three 1 capsule 8h 90 days Active times a day Fish Oil 1000 MG Orally Once a 1 capsule 24h 30 day(s) Active day RESULTS Name Result Date Reference Range PROTIME 2016-10-10 PT 29.0 11.4-13.8 INR 4.6 2.0-3.5 PROCEDURES Procedure Date Ordered Related Diagnosis Body Site Prevnar 13 October 10, 2016 Administration Fee 0-18 yrs for 1st October 10, 2016 injection URINE CULTURE October 10, 2016 CBC October 10, 2016 COMP PROFILE October 10, 2016 EKG WITH INTERPRETAT October 10, 2016 PROTIME October 10, 2016 PREV MED SEREST 65 October 10, 2016 TSH October 10, 2016 LIPID PROFILE October 10, 2016 HgB A1C October 10, 2016 URINALYSIS October 10, 2016 IMMUNIZATIONS Vaccine Route Administration Date Status Prev 13 IM Intramuscular 2: 00, 09:0 Administered
--- OUTSIDE RECORDS SUMMARY | 2017-01-18 00:35 | External Medical Summary ---
:[address] [facility] Address [address] [place] [address] Care Team Providers Name Role Phone Afshin Macias Unavailable Unavailable PROBLEMS Type Condition ICD9-CM [id number] Onset Condition SNOMED Code Code Code Dates Status Problem Irritable bowel K58.0 Active 00448826 syndrome with constipation and diarrhea Problem Atrial I48.91 Active 33197843 fibrillation Problem Personal history Z85.3 Active 871163122 of malignant neoplasm of breast Problem Restless leg G25.81 Active 30693808 Assessment 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 Aug, Active 35087153 lumbar or 2017 lumbosacral intervertebral disc Problem Nocturnal hypoxia G47.34 Active 122032491 Problem Irritable bowel K58.9 Active 92716082 Problem Depression F32.9 Active 535303118 Problem Cerumen impaction H61.20 Active 47780257 Problem Actinic keratosis L57.0 Active 296442352 Problem Pain in joint, M25.569 Active 561458386 lower leg Problem DM w/o 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 270602946 complication type II Problem Insomnia G47.00 Active 775165822 Problem Malignant neoplasm C18.9 Active 497485349 of colon Problem Nontoxic E04.1 Active 961214416 uninodular goiter Problem [facility]DC 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 Active 640925844 use of anticoagulant therapy Problem Contact dermatitis L25.9 Active 05060456 and other eczema, due to unspecified cause Problem 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 06321985 lumbar or lumbosacral intervertebral disc Problem Closed fracture of S92.919A Active 12365963 phalanx of foot Problem Personal history Z86.73 Active 882426596 of 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 ALLERGIES Substance Reaction Event Type Date Status Penicillin Unknown Drug Allergy Aug, Active SOCIAL HISTORY No smoking Hx information available PLAN OF CARE VITAL SIGNS Weight 222.6 lbs 2016-09-12 Height 65 in 2016-09-12 Temperature 98.1 degrees Fahrenheit 2016-09-12 Heart Rate 77 /min 2016-09-12 Oximetry 96 % 2016-09-12 BMI 37.04 kg/m2 2016-09-12 Blood pressure systolic 102 mm Hg 2016-09-12 Blood pressure diastolic 70 mm Hg 2016-09-12 MEDICATIONS Medication Instructions Dosage Frequency Start End Duration Status Date Date Fish Oil 1000 MG Orally Once a 1 capsule 24h 30 day(s) Active day Seroquel 100 MG Orally Once a 1 tablet at 24h 90 days Active day bedtime Allopurinol 300 Orally Once a 1 tablet 24h 90 days Active day Furosemide 40 MG Orally Twice a 1 tablet 12h 90 days Active day Calcium 1500 MG Orally Twice a 1 tablet 12h 30 day(s) Active day with food Trazodone HCl 50 Orally Once a 1 tablet at 24h Active MG day bedtime as needed Metoprolol Orally Twice a 1/2 - 1 12h Active Tartrate 50 MG day TABLET Klor-Con M10 10 Orally Twice a 1 tablet 12h 90 days Active day with food Venlafaxine HCl Orally Everyday 2 TABLETS Active ER 150 MG in the morning Sertraline HCl 50 Orally Once a 1 tablet 24h Active MG day Hydrocodone-Aceta Orally QID take one 6h 30 days Active minophen 7.5-325 tablet by MG mouth every 6 hours for 30 days Gabapentin 300 Orally Three 1 capsule 8h 90 days Active times a day Multivitamins as directed Active Warfarin Sodium Orally Once a 1 tablet 24h 90 DAYS Active 7.5 day Fentanyl 50 Transdermal 1 patch to Apr, days Active MCG/HR every 72 hrs skin 2014 RESULTS Name Result Date Reference Range PROTIME 2016-09-12 PT 21.4 11.4-13.8 INR 2.6 2.0-3.5 PROCEDURES Procedure Date Ordered Related Diagnosis Body Site PROTIME September 12, 2016 OFFICE VISITEST PT September 12, 2016 IMMUNIZATIONS No Known Immunizations
--- OUTSIDE RECORDS SUMMARY | 2017-01-18 00:35 | External Medical Summary ---
[...] Start End Status Dosage System Date Date Seroquel [facility] [address]-58 25 MG Orally 1 tablet Twice a day Calcium [facility] 56521-[address]34 1500 MG Orally 1 tablet Twice a day with food Warfarin Sodium [facility] 06604832174 7.5MG TAKE ONE TABLET BY MOUTH EVERY DAY Multivitamins [facility] 774[address] Orally as directed Allopurinol [facility] 56754589421 300MG TAKE ONE TABLET BY MOUTH EVERY DAY Metoprolol ND 0 50 MG Orally 1 tablet Succinate Once a day Gabapentin [facility] 56734850898 300MG TAKE ONE CAPSULE BY MOUTH TWICE DAILY FOR 30 DAYS Furosemide [facility] 16751599921 40MG TAKE ONE TABLET BY MOUTH TWICE DAILY Flaxseed Oil [facility] [address]-00 1000 MG Orally as directed Klor-Con M10 [facility] 37146148277 10MEQ TAKE ONE TABLET BY MOUTH TWICE DAILY Maryam Contour NDC 0 USE Type 2 DM Mar 09, test blood diet controlled 2013 sugar daily Maryam Contour NDC 0 USE Type 2 DM Mar 09, test blood Test diet controlled 2013 sugar daily Fish Oil [facility] [address]-59 1000 MG Orally 1 capsule Once a day Hydrocodone-Acet [facility] 82923277749 7.5-500MG take one aminophen Orally QID tablet by mouth every 6 hours for 30 days Venlafaxine HCl [facility] [address]-52 150mg QD 1 Imodium A-D [facility] [address]-12 2 MG Orally 8 1 tablet time(s) a day Fentanyl [facility] [address]-37 50 MCG/HR Apr 29, patch to Transdermal 2014 skin every 72 hrs Procedures Procedure Coding System Code Date OFFICE VISITEST PT CPT-4 21883 Feb 01, 2015 Vital Signs Date/Time: Feb 01, 2015 Blood Pressure Systolic 110 mm Hg Height 65 in Weight 220.2 lbs BMI 36.64 Index Blood Pressure Diastolic 62 mm Hg Results No Known Results Summary Purpose eClinicalWorks Submission
--- OUTSIDE RECORDS SUMMARY | 2017-01-18 00:35 | External Medical Summary ---
[...] Medications Results No Known Results Summary Purpose [employer] Submission
--- OUTSIDE RECORDS SUMMARY | 2017-01-18 00:35 | External Medical Summary | Referral Summary ---
:1945 Author Organization [facility] Address [address] [place] [address] Care Team Providers Name Role Phone Afshin Macias Primary Care Physician Encounter VC Date(s): 05/18/16 - 05/18/16 [facility] [address] [place] [address] - [place] Discharge Diagnosis: Multinodular goiter (nontoxic) Discharge Diagnosis: Dysphagia Discharge Disposition: 01-Home or Self Care Attending Physician: Li Chaparro MD Admitting Physician: Li Chaparro MD Vital Signs Most recent to oldest [Reference Range]: 1 Peripheral Pulse Rate [60-100 bpm] 78 bpm (05/18/16 10:26 AM) Blood Pressure [90-140/60-90 mmHg] 134/84mmHg (05/18/16 10:26 AM) Problem List Condition Effective Dates [...] # 30 tabs, 3 Refill (s), eRx: [facility] #[id number], TAKE ONE-HALF TABLET BY MOUTH TWICE A [...] Most recent to oldest [Reference Range]: 1 TSH with Reflex Free T4 [0.35-4.94] 3.82 (05/18/16 11:16 AM) Immunizations No data available for this section Procedures Procedure Date Related Diagnosis Body Site Blood transfusion Cholecystectomy Insertion of Cardiac Pacemaker Surgery-Colon resection Surgery-Nasal Septoplasty Surgery-Spinal fusion Thyroidectomy Tubal ligation Social History Social History Type Response Smoking Status Former smoker; Type: Cigarettes1 1Quit in 2005 Assessment and Plan Extracted from: Title:Ambulatory Patient Education Author:Li Chaparro MD Date:05/18 Allergy Dysphagia Swallowing problems (dysphagia) occur when solids and liquids seem to stick in your throat on the way down to your stomach, or the food takes longer to get to the stomach. Other symptoms include regur gitating food, noises coming from the throat, chest discomfort with swallowing , and a feeling of fullness or the feeling of something being stuck in your throat when swallowing. When blockage in your throat is complete, it may be associated with drooling. CAUSES Problems with swallowing may occur because of problems with the muscles. The food cannot be propelled in the usual manner into your stomach. You may have ulcers, scar tissue, or inflammation in the tu be down which food travels from your mouth to your stomach (esophagus), which blocks food from passing normally into the stomach. Causes of inflammation include: Acid reflux from your stomach into your esophagus. Infection. Radiation treatment for cancer. Medicines taken without enough fluids to wash them down into your stomach. You may have nerve problems that prevent signals from being sent to the muscles of your esophagus to contract and move your food down to your stomach. Globus pharyngeus is a relatively common problem in which there is a sense of an obstruction or difficulty in swallowing, without any physical abnormalities of the swallowing passages being found. This problem usually improves over time with reassurance and testing to rule out other causes. DIAGNOSIS Dysphagia can be diagnosed and its cause can be determined by tests in which you swallow a white substance that helps illuminate the inside of your throat ( contrast medium) while X-rays are taken. Narayan etimes a flexible telescope that is inserted down your throat (endoscopy) to look at your esophagus and stomach is used. TREATMENT If the dysphagia is caused by acid reflux or infection, medicines may be used. If the dysphagia is caused by problems with your swallowing muscles, swallowing therapy may be used to help you strengthen your swallowing muscles. If the dysphagia is caused by a blockage or mass, procedures to remove the blockage may be done. HOME CARE INSTRUCTIONS Try to eat soft food that is easier to swallow and check your weight on a daily basis to be sure that it is not decreasing. Be sure to drink liquids when sitting upright (not lying down). SEEK MEDICAL CARE IF: You are losing weight because you are unable to swallow. You are coughing when you drink liquids (aspiration). You are coughing up partially digested food. SEEK IMMEDIATE MEDICAL CARE IF: You are unable to swallow your own saliva(. You are having shortness of breath or a fever, or both.( You have a hoarse voice along with difficulty swallowing. MAKE SURE YOU: Understand these instructions. Will watch your condition. Will get help right away if you are not doing well or get worse. This information is not intended to replace advice given to you by your health care provider. Make sure you discuss any questions you have with your health care provider. Document Released: 06/15/2001 Document Revised: 07/09/2015 Document Reviewed: 12/05/2013 [email or web address] Interactive Patient Education 2016 [email or web address] No follow up information was provided. Extracted from: Title:Consult Note Author:Li Chaparro MD Date:05/18/16 Assessment/Plan 1-dysphagia: will get thyroid u/s if normal, no need for further f/u with us will call her about results
--- OUTSIDE RECORDS SUMMARY | 2017-01-18 00:36 | External Medical Summary | Continuity of Care Document ---
:1945 Author Organization [facility] [place] Allergies Active Description Code Type Severity Reaction Onset Reported/ Identified Relationship Clinical to Patient Status Yes Penicillins Drug Mild Urticaria 06/08/2010 Aller (hives) gy Yes No Known Food 10/09/2012 Food Aller Allergies gy Medications Problems Date Dx Coded Attending Type Code Diagnosis Diagnosed By 10/11/2012 Lavon Glaser MD Final 285.1 ACUTE POSTHEMOR ANEMIA 10/11/2012 Lavon Glaser MD Final 401.9 HYPERTENSION NOS 10/11/2012 Lavon Glaser MD Final 427.31 ATRIAL FIBRILLATION 10/11/2012 Lavon Glaser MD Final 458.9 HYPOTENSION NOS 10/11/2012 Lavon Glaser MD Final 724.02 SP STENOSIS-LUMB S WU 10/11/2012 Lavon Glaser MD Final 738.4 ACQ SPONDYLOLISTHESIS Procedures Code Description Performed By Performed On 41.98 BONE MARROW OPS Lavon Rajan MD 10/11/2012 77.79 EXC BONE FOR GRAFT Lavon Rajan MD 10/11/2012 81.07 LAT TRANS LUMBAR FUSION Lavon Glasre MD 10/11/2012 81.62 REPLACE FEMORAL HEAD Lavon Rajan MD 10/11/2012 Results Encounters ACCT No. Visit Discharge Status Pt. Type Provider Facility Loc./Unit Complaint Date/Time [id number] 10/11/2012 10/14/2012 DIS Inpatient [facility] 08:00:00 13:13:00 Lavon BATES [facility] [place]
--- OUTSIDE RECORDS SUMMARY | 2017-01-18 00:36 | External Medical Summary ---
:1945 Author Organization [facility] Address [address] [place] [address] Care Team Providers Name Role Phone Afshin Macias Unavailable Unavailable PROBLEMS Type Condition ICD9-CM Code [id number] Onset Condition SNOMED Code Code Dates Status Problem Irritable bowel K58.0 Active 86472721 syndrome with constipation and diarrhea Problem Atrial fibrillation I48.91 Active 51143506 Problem Personal history of Z85.3 Active 711844804 malignant neoplasm of breast Problem Restless leg G25.81 Active 82290684 Problem Nocturnal hypoxia G47.34 Active 201293889 Problem Irritable bowel K58.9 Active 18117098 Problem Depression F32.9 Active 362161975 Problem Cerumen impaction H61.20 Active 16752961 Problem Actinic keratosis L57.0 Active 497960052 Problem Pain in joint, M25.569 Active 599855484 lower leg Problem 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 173605935 type II Problem Insomnia G47.00 Active 195748671 Problem Malignant neoplasm C18.9 Active 101429697 of colon Problem 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 264086223 goiter 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 226486573 use of anticoagulant therapy Problem Contact dermatitis L25.9 Active 27599290 and other eczema, due to unspecified cause Problem 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 51671039 lumbar or lumbosacral intervertebral disc Problem Closed fracture of S92.919A Active 46146994 phalanx of foot Problem Personal history of Z86.73 Active 062778900 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 ALLERGIES Substance Reaction Event Type Date Status Penicillin Unknown Drug Allergy Nov, Active SOCIAL HISTORY No smoking Hx information available PLAN OF CARE Activity Details Follow Up As needed Reason: VITAL SIGNS Weight 217.5 lbs 2016-11-30 Height 65 in 2016-11-30 Temperature 97.7 degrees Fahrenheit 2016-11-30 Heart Rate 82 /min 2016-11-30 Oximetry 94 % 2016-11-30 BMI 36.19 kg/m2 2016-11-30 Blood pressure systolic 122 mm Hg 2016-11-30 Blood pressure diastolic 62 mm Hg 2016-11-30 MEDICATIONS Medication Instructions Dosage Frequency Start End Duration Status Date Date Calcium 1500 MG Orally Twice a 1 tablet 12h 30 day(s) Active day with food Furosemide 40 MG Orally Twice a 1 tablet 12h 90 days Active day Gabapentin 300 Orally Three 1 capsule 8h 90 days Active times a day Allopurinol 300 Orally Once a 1 tablet 24h 90 days Active day Seroquel 100 MG Orally Once a 1 tablet at 24h 90 days Active day bedtime Metoprolol Orally Twice a 1/2 - 1 12h Active Tartrate 50 MG day TABLET Coumadin 5 mg Orally Once a 1 tablet 24h Sep, day(s) Active day 2016 Trazodone HCl 50 Orally Once a 1 tablet at 24h Active MG day bedtime as needed Venlafaxine HCl Orally Everyday 2 TABLETS Active ER 150 MG in the morning Warfarin Sodium Orally Once a 1 tablet 24h 90 DAYS Active 7.5 day Hydrocodone-Aceta Orally QID take one 6h 30 days Active minophen 7.5-325 tablet by MG mouth every 6 hours for 30 days Fish Oil 1000 MG Orally Once a 1 capsule 24h 30 day(s) Active day Klor-Con M10 10 Orally Twice a 1 tablet 12h 90 days Active day with food Sertraline HCl 50 Orally Once a 1 tablet 24h Active MG day Multivitamins as directed Active Fentanyl 50 Transdermal 1 patch to Apr, days Active MCG/HR every 72 hrs skin 2014 RESULTS Name Result Date Reference Range PROTIME 2016-11-30 PT 15.3 11.4-13.8 INR 1.4 2.0-3.5 PROCEDURES Procedure Date Ordered Related Diagnosis Body Site PROTIME November 30, 2016 OFFICE VISITEST PT November 30, 2016 IMMUNIZATIONS No Known Immunizations
--- OUTSIDE RECORDS SUMMARY | 2017-01-18 00:36 | External Medical Summary ---
[...] Status Dosage System Date Date Warfarin Sodium [facility] 90968571065 7.5MG TAKE ONE TABLET BY MOUTH EVERY DAY Gabapentin [facility] 23190737090 300MG TAKE ONE CAPSULE BY MOUTH TWICE DAILY FOR 30 DAYS Fentanyl [facility] [address]-93 50 MCG/HR Apr 29 patch to Transdermal 2014 skin every 72 hrs Seroquel [facility] [address]-46 25 MG Orally 1 tablet Twice a day Hydrocodone-Acet [facility] 03383773331 7.5-500MG TAKE ONE aminophen TABLET BY MOUTH EVERY 6 HOURS FOR 30 DAYS Furosemide [facility] 45802348460 40MG TAKE ONE TABLET BY MOUTH TWICE DAILY Flaxseed Oil [facility] [address]-83 1000 MG Orally as directed Multivitamins [facility] 34901-82281 Orally as directed Venlafaxine HCl [facility] [address]-29 150mg QD 1 Imodium A-D NDC [address]-18 2 MG Orally 8 1 tablet time(s) a day Allopurinol [facility] 56337883741 300MG TAKE ONE TABLET BY MOUTH EVERY DAY Klor-Con M10 [facility] 52840217366 10MEQ TAKE ONE TABLET BY MOUTH TWICE DAILY Metoprolol NDC 0 50 MG Orally 1 tablet Succinate Once a day Fish Oil [facility] [address]-35 1000 MG Orally 1 capsule Once a day Maryam Contour NDC 0 USE Type 2 DM Mar 09, test blood diet controlled 2013 sugar daily Maryam Contour NDC 0 USE Type 2 DM Mar 09, test blood Test diet controlled 2013 sugar daily Calcium [facility] [address]184 1500 MG Orally 1 tablet Twice a day with food Procedures Procedure Coding System Code Date OFFICE VISITEST PT CPT-4 12366 January 05, 2015 Vital Signs Date/Time: January 05, 2015 Blood Pressure Diastolic 62 mm Hg Blood Pressure Systolic 122 mm Hg Height 65 in Cardiac Monitoring Heart Rate 72 /min Temperature 98.6 F Results No Known Results Summary Purpose eClinicalWorks Submission
--- OUTSIDE RECORDS SUMMARY | 2017-01-18 00:36 | External Medical Summary ---
[...] more 826.0 Active phalanges of foot Assessment Insomnia 780.52 Active Assessment Colon cancer 153.9 Active Problem Colon cancer 153.9 Active Problem Nontoxic uninodular goiter 241.0 Active Assessment Atrial fibrillation 427.31 Active Problem Anticoagulants, Encounter for V58.61 Active long-term (current) use Assessment Knee pain 719.46 Active Problem Degeneration of lumbar or 722.52 Active lumbosacral intervertebral disc Medications Medication Code Code Instructions Start End Status Dosage System Date Date Hydrocodone-Acet [facility] 91796673954 10-325 TAKE ONE aminophen TABLET BY MOUTH EVERY 6 HOURS FOR 30 DAYS Imodium A-D [facility] [address]-38 2 MG Orally 8 1 tablet time(s) a day Fentanyl [facility] [address]-77 50 MCG/HR Apr 29 patch to Transdermal 2013 skin every 72 hrs Klor-Con M10 [facility] 26699102599 10MEQ TAKE ONE TABLET BY MOUTH TWICE DAILY Maryam Contour NDC 0 USE Type 2 DM Sept test blood Test diet 08, sugar controlled 2013 daily Venlafaxine HCl [facility] [address]-24 150mg QD 1 Omeprazole [facility] 31305383764 20MG TAKE ONE CAPSULE BY MOUTH TWICE DAILY Calcium [facility] 62686-[address]62 1500 MG Orally 1 tablet with Twice a day food Warfarin Sodium ND 60079921210 5MG TAKE ONE TABLET BY MOUTH EVERY DAY Allopurinol [facility] 45730015008 300MG TAKE ONE TABLET BY MOUTH EVERY DAY Triamcinolone [facility] [address]-33 0.1 % September 30 application Acetonide Externally 29, to affected Twice a day 2012 area Amitriptyline [facility] [address]-32 25 MG Orally September 30 tablet at HCl Once a day 07, bedtime 2014 Maryam Contour NDC 0 USE Type 2 DM Sept test blood diet 08, sugar controlled 2013 daily Metoprolol ND 0 50 MG Orally 1 tablet Succinate Once a day Furosemide [facility] 04294283726 40MG TAKE ONE TABLET BY MOUTH TWICE DAILY Gabapentin [facility] 91193592488 300MG TAKE ONE CAPSULE BY MOUTH TWICE DAILY FOR 30 DAYS Procedures Procedure Coding System Code Date OFFICE VISITEST PT CPT-4 53290 October 06, 2014 PROTIME CPT-4 11441 October 06, 2014 Vital Signs Date/Time: October 06, 2014 Blood Pressure Systolic 113 mm Hg Height 65 in Weight 226.8 lbs BMI 37.74 Index Oximetry 94 % Cardiac Monitoring Heart Rate 88 /min Blood Pressure Diastolic 75 mm Hg Results No Known Results Summary Purpose eClinicalWorks Submission
--- OUTSIDE RECORDS SUMMARY | 2017-01-18 00:36 | External Medical Summary ---
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 Assessment On anticoagulant therapy Z79.01 Active Assessment Anticoagulants, Encounter for V58.61 Active long-term (current) use Assessment Atrial fibrillation 427.31 Active Problem Malignant neoplasm of colon C18.9 Active Problem Pain in joint, lower leg M25.569 Active Assessment Unspecified atrial fibrillation I48.91 Active Problem 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
--- OUTSIDE RECORDS SUMMARY | 2017-01-18 00:36 | External Medical Summary ---
:1945 Author Organization [facility] Address [address] [place] [address] Care Team Providers Name Role Phone Afshin Macias Unavailable Unavailable PROBLEMS Type Condition ICD9-CM Code [id number] Onset Condition SNOMED Code Code Dates Status Problem Irritable bowel K58.0 Active 99731327 syndrome with constipation and diarrhea Problem Atrial fibrillation I48.91 Active 68869067 Problem Personal history of Z85.3 Active 175668916 malignant neoplasm of breast Problem Restless leg G25.81 Active 31487521 Problem Nocturnal hypoxia G47.34 Active 343357436 Problem Irritable bowel K58.9 Active 77055985 Problem Depression F32.9 Active 571508259 Problem Cerumen impaction H61.20 Active 92813435 Problem Actinic keratosis L57.0 Active 184158972 Problem Pain in joint, M25.569 Active 075106449 lower leg Problem 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 106144424 type II Problem Insomnia G47.00 Active 268337544 Problem Malignant neoplasm C18.9 Active 311462440 of colon Problem 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 373918719 goiter Problem 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 Active 491653504 use of anticoagulant therapy Problem Contact dermatitis L25.9 Active 36896079 and other eczema, due to unspecified cause Problem 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 74714438 lumbar or lumbosacral intervertebral disc Problem Closed fracture of S92.919A Active 59667262 phalanx of foot Problem Personal history of Z86.73 Active 940233978 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
--- OUTSIDE RECORDS SUMMARY | 2017-01-18 00:36 | External Medical Summary ---
:1945 Author Organization [facility] Address [address] [place] [address] Care Team Providers Name Role Phone Afshin Macias Unavailable Unavailable PROBLEMS Type Condition ICD9-CM Code [id number] Onset Condition SNOMED Code Code Dates Status Problem Irritable bowel K58.0 Active 82372281 syndrome with constipation and diarrhea Problem Atrial fibrillation I48.91 Active 44907541 Problem Personal history of Z85.3 Active 190252535 malignant neoplasm of breast Problem Restless leg G25.81 Active 89112405 Problem Nocturnal hypoxia G47.34 Active 996819720 Problem Irritable bowel K58.9 Active 11185488 Problem Depression F32.9 Active 340283422 Problem Cerumen impaction H61.20 Active 36552229 Problem Actinic keratosis L57.0 Active 606394308 Problem Pain in joint, M25.569 Active 630760327 lower leg Problem 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 115642471 type II Problem Insomnia G47.00 Active 554179272 Problem Malignant neoplasm C18.9 Active 199914752 of colon Problem 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 388454179 goiter 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 Active 111677149 use of anticoagulant therapy Problem Contact dermatitis L25.9 Active 10675283 and other eczema, due to unspecified cause Problem 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 98581088 lumbar or lumbosacral intervertebral disc Problem Closed fracture of S92.919A Active 73859192 phalanx of foot Problem Personal history of Z86.73 Active 095510400 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
--- OUTSIDE RECORDS SUMMARY | 2017-01-18 00:36 | External Medical Summary | Referral Summary ---
:1945 Author Organization [facility] Address [address] [place] [address] Care Team Providers Name Role Phone Colleen Afshin Darrell Primary Care Physician Encounter VC Date(s): 03/05/15 - 03/05/15 [facility] [address] [place] [address]- [place] Discharge Diagnosis: Status post [...] BID, # 30 tabs, 11 Refill(s), Pharmacy: [id number], 0.5 tabs Oral BID [...] degree Ordered: Office Visit Level 3 Est 86909 Pm Device Progr Eval Sngl [id number] Return to Clinic Atrial fibrillation Status post cardiac pacemaker procedure Dictation performed with [employer] voice recognition Referrals to Other Providers Referred by: Naldo Gtz MD
--- OUTSIDE RECORDS SUMMARY | 2017-01-18 00:36 | External Medical Summary ---
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
--- OUTSIDE RECORDS SUMMARY | 2017-01-18 00:36 | External Medical Summary ---
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
--- OUTSIDE RECORDS SUMMARY | 2017-01-18 00:36 | External Medical Summary ---
:1945 Author Organization [facility] Address [address] [place] [address] Care Team Providers Name Role Phone Afshin Macias Unavailable Unavailable PROBLEMS Type Condition ICD9-CM Code [id number] Onset Condition SNOMED Code Code Dates Status Problem Irritable bowel K58.0 Active 99585625 syndrome with constipation and diarrhea Problem Atrial fibrillation I48.91 Active 83128014 Problem Personal history of Z85.3 Active 586034618 malignant neoplasm of breast Problem Restless leg G25.81 Active 46822084 Problem Nocturnal hypoxia G47.34 Active 225187959 Problem Irritable bowel K58.9 Active 15802291 Problem Depression F32.9 Active 625013953 Problem Cerumen impaction H61.20 Active 50500761 Problem Actinic keratosis L57.0 Active 999758539 Problem Pain in joint, M25.569 Active 756752003 lower leg Problem 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 760303598 type II Problem Insomnia G47.00 Active 939480404 Problem Malignant neoplasm C18.9 Active 693522923 of colon Problem 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 755166768 goiter Problem 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 567806003 use of anticoagulant therapy Problem Contact dermatitis L25.9 Active 59217184 and other eczema, due to unspecified cause Problem 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 43344823 lumbar or lumbosacral intervertebral disc Problem Closed fracture of S92.919A Active 69881641 phalanx of foot Problem Personal history of Z86.73 Active 204726032 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
[2017-01-18] MEDS ORDERED: NS 1,000 ML IV ONE (00:52)
--- NOTE | 2017-01-18 01:05 | Emergency Department Report ---
General Adult HPI - General Chief complaint: Syncope Stated complaint: fell Time Seen by Provider: 01/18/17 00:26 Source: patient, family Mode of arrival: ambulatory Limitations: no limitations - History of Present Illness HPI narrative: 72-year-old female presents to emergency department with a chief complaint of a syncopal episode prior to arrival to the emergency department today. Patient had just finished using the restroom and stood up when she suffered a syncopal episode falling forward and striking her forehead against the wall. Patient notes a mild dull discomfort locally at the site of injury without radiation. No other complaints or associated symptoms. Patient currently denies any pain or discomfort other than the site of ecchymosis. She was at home when the incident occurred. She notes improvement of symptoms with time. - Related Data Allergies Allergy/AdvReac Type Severity Reaction Status Date / Time Penicillins Allergy Hives Verified 01/18/17 00:51 Review of Systems Constitutional: Denies: fever, chills Eyes: Denies: eye pain, vision change ENT: Denies: ear pain, throat pain Cardiovascular: Denies: chest pain, palpitations Respiratory: Denies: cough, dyspnea Gastrointestinal: Denies: abdominal pain, nausea, vomiting, diarrhea Genitourinary: Denies: urgency, dysuria Musculoskeletal: Denies: back pain, arthralgia Integumentary: Denies: erythema, rash Neurological: Denies: headache, weakness Psychiatric: Denies: anxiety, depression Endocrine: Denies: fatigue, heat or cold intolerance Hematological/Lymphatic: Denies: easy bleeding, easy bruising Allergic/Immunologic: Denies: facial swelling, urticaria PFSH CVA, atrial fibrillation, hypertension Surgical History: Pacemaker Family History: Reviewed and noncontributory - Social History Smoking status: Never smoker Substance use type: does not use Alcohol intake frequency: does not drink Physical Exam - Limitations Limitations: no limitations - General General appearance: alert, in no apparent distress - Normal Exams: Head:: Normocephalic without trauma (no raccoon eyes, Deleon sign, hemotympanum or CSF leak. The midface is stable. No malocclusion of the jaw.) Eyes:: Pupils are PERRLA w/ EOMI, No scleral icterus, irritation, or foreign bodies noted ENMT:: No facial trauma, nasal exudates, pharyngeal erythema, or exudates are noted Dental: No fractured, loose, or missing teeth noted Neck:: Full range of motion, without adenopathy, JVD, bruits or thyromegaly Chest/Respirations:: Clear all garza, with good airflow, and symmetry bilaterally Cardiovascular:: Regular rate and rhythm, without murmur or gallop, Pulses 2+ all extremities, capillary refill, <2 seconds all extremities Abdomen:: Bowel sounds positive, soft, non-tender, non-distended, no hepatosplenomegaly, masses or bruits noted Lymphatic:: No lymphadenopathy, or lymphedema noted Musculoskeletal:: No tenderness, or deformity noted, good range of motion, all extremities (no midline tenderness or deformity of the cervical/lumbar/thoracic spine. Pelvis is stable and nontender to compression.) Integumentary:: No rashes, hives, or bruising noted, hair and nails, without abnormality Neurological:: Patient is alert, and oriented, cranial nerves, motor/sensory/ cerebellar, exams w/o gross deficits, to observation Psychiatric:: Patient exhibits, appropriate attention, emotion and affect Course Vital Signs Temperature 98.7 F 01/18/17 00:05 Pulse Rate 72 01/18/17 00:05 Respiratory Rate 18 01/18/17 00:05 Blood Pressure 99/61 01/18/17 00:05 Pulse Oximetry 91 01/18/17 00:05 Temperature 98.7 F 01/18/17 00:05 Pulse Rate 69 01/18/17 04:01 Respiratory Rate 19 01/18/17 04:01 Blood Pressure 125/57 01/18/17 04:01 Pulse Oximetry 95 01/18/17 01:40 Medical Decision Making - [facility] Narrative Medical decision making narrative: Labs / imaging were discussed in detail with the patient and questions are answered. Patient did exhibit orthostatic hypotension in the emergency department. Due to the hypotension by [place] syncope criteria the patient cannot safely be discharged home at this time. Patient is given gentle IV hydration. Patient is admitted to the service of the hospitalist in improved condition. Patient is in agreement with the current plan of management. Patient is discussed with Dr. Guzman who agrees to admit the patient to the service of Dr. Hoyos. Patient is admitted to the hospital in improved condition. No further orders from accepting physician is in agreement with the current plan of management. Patient declined offered analgesic pain medication in the emergency department. - Differential Diagnosis syncope, orthostatic hypotension, [place], metabolic disorder - Lab Data Result diagrams: 01/18/17 00:35 01/18/17 00:35 Lab Results 01/18/17 01/18/17 01/18/17 Range/Units 00:35 00:35 00:35 WBC 9.6 (4.5-11.0) T/MM3 RBC 4.02 (4.00-5.20) M/MM3 Hgb 12.6 (12-16) GM/DL Hct 38.4 (36-46) % MCV 95.5 (80-100) UM3 MCH 31.3 (26-34) UUG MCHC 32.8 (31-37) GM/DL RDW Std Deviation 44.4 (36.9-50.2) FL Plt Count 192 (130-400) T/MM3 MPV 10.5 (9.4-12.4) UM3 Immature Gran % (Auto) 0.1 (0.0-0.5) % Neut % (Auto) 57.5 (33-66) % Lymph % (Auto) 32.7 (23-45) % [place] % (Auto) 7.0 (0-9.0) % Eos % (Auto) 2.4 (0-4) % Baso % (Auto) 0.3 (0-2) % Neut # 5.5 (1.8-7.7) T/MM3 Lymph # 3.1 (1-4.8) T/MM3 [place] # 0.7 (0-0.8) T/MM3 Eos # 0.2 (0-0.5) T/MM3 Baso # 0.0 (0-0.2) T/MM3 Abs Immat Gran (auto) 0.01 (0.00-0.03) T/MM3 INR 2.76 H (0.99-1.21) Turbidity < 20 (0-20) Sodium 145 H (134-144) MEQ/L Potassium 3.5 L (3.6-5) MEQ/L Chloride 107 (98-107) MEQ/L Carbon Dioxide 30 (22-30) MEQ/L Anion Gap 8 (5-15) MEQ/L BUN 29.0 H (7-17) MG/DL Creatinine 1.2 (0.7-1.2) MG/DL GFR Calculation 44 BUN/Creatinine Ratio 24 (6-26) RATIO Glucose 97 (65-110) MG/DL Calculated Osmolality 285 H (261-280) MOSM/KG Calcium 9.8 (8.4-10.2) MG/DL Total Bilirubin 0.50 (0.20-1.30) MG/DL Icterus Index < 2 (0-7) AST 24 (14-36) U/L ALT 31 (9-52) U/L Alkaline Phosphatase 153 H (38-126) U/L Troponin I < 0.012 (0-0.12) ng/ml Total Protein 6.4 (6.3-8.2) G/DL Albumin 4.0 (3.5-5.0) G/DL Globulin 2.4 (2.4-3.6) G/DL Albumin/Globulin Ratio 1.7 (1.1-2.2) RATIO Specimen Hemolysis 19 (0-25) Ur Collection Type Urine Color (YELLOW) Urine Clarity Urine pH (5.0-8.0) Ur Specific [place] (1.015-1.025) Urine Protein (NEGATIVE) Urine Glucose (UA) (NEGATIVE) Urine Ketones (NEGATIVE) Urine Occult Blood (NEGATIVE) Urine Nitrate (NEGATIVE) Urine Bilirubin (NEGATIVE) Urine Urobilinogen (NORMAL) EU/DL Ur Leukocyte Esterase (NEGATIVE) Urinalysis Comment 01/18/17 Range/Units 02:22 WBC (4.5-11.0) T/MM3 RBC (4.00-5.20) M/MM3 Hgb (12-16) GM/DL Hct (36-46) % MCV (80-100) UM3 MCH (26-34) UUG MCHC (31-37) GM/DL RDW Std Deviation (36.9-50.2) FL Plt Count (130-400) T/MM3 MPV (9.4-12.4) UM3 Immature Gran % (Auto) (0.0-0.5) % Neut % (Auto) (33-66) % Lymph % (Auto) (23-45) % [place] % (Auto) (0-9.0) % Eos % (Auto) (0-4) % Baso % (Auto) (0-2) % Neut # (1.8-7.7) T/MM3 Lymph # (1-4.8) T/MM3 [place] # (0-0.8) T/MM3 Eos # (0-0.5) T/MM3 Baso # (0-0.2) T/MM3 Abs Immat Gran (auto) (0.00-0.03) T/MM3 INR (0.99-1.21) Turbidity (0-20) Sodium (134-144) MEQ/L Potassium (3.6-5) MEQ/L Chloride (98-107) MEQ/L Carbon Dioxide (22-30) MEQ/L Anion Gap (5-15) MEQ/L BUN (7-17) MG/DL Creatinine (0.7-1.2) MG/DL GFR Calculation BUN/Creatinine Ratio (6-26) RATIO Glucose (65-110) MG/DL Calculated Osmolality (261-280) MOSM/KG Calcium (8.4-10.2) MG/DL Total Bilirubin (0.20-1.30) MG/DL Icterus Index (0-7) AST (14-36) U/L ALT (9-52) U/L Alkaline Phosphatase (38-126) U/L Troponin I (0-0.12) ng/ml Total Protein (6.3-8.2) G/DL Albumin (3.5-5.0) G/DL Globulin (2.4-3.6) G/DL Albumin/Globulin Ratio (1.1-2.2) RATIO Specimen Hemolysis (0-25) Ur Collection Type Urine, catheter Urine Color Yellow (YELLOW) Urine Clarity Clear Urine pH 5.5 (5.0-8.0) Ur Specific [place] 1.010 L (1.015-1.025) Urine Protein Negative (NEGATIVE) Urine Glucose (UA) Negative (NEGATIVE) Urine Ketones Negative (NEGATIVE) Urine Occult Blood Negative (NEGATIVE) Urine Nitrate Negative (NEGATIVE) Urine Bilirubin Negative (NEGATIVE) Urine Urobilinogen 0.2 (NORMAL) EU/DL Ur Leukocyte Esterase Negative (NEGATIVE) Urinalysis Comment Microscopic not ind. - Radiology Data Chest x-ray: Negative. CT head: Negative - EKG Data EKG #1 EKG results narrative: Electronic ventricular pacemaker. 69 bpm. No STEMI. Disposition Clinical Impression: Syncope Qualifiers: Syncope type: unspecified Qualified Code(s): R55 - Syncope and collapse Disposition: OBS [facility] Condition: Improved Referrals: Afshin Macias [Family Provider] - Time of Disposition: 03:00 (Admit. Dr. Hoyos. ) - Seen By: physician
[2017-01-18] MEDS ORDERED: ACETAMINOPHEN 325 MG TABLET PO PRN (04:40)
[2017-01-18] MEDS ORDERED: ONDANSETRON 4 MG/2 ML INJECTION IVP PRN (04:40)
[2017-01-18 04:46] VITALS: BMI 38.5
--- NOTE | 2017-01-18 05:10 | History & Physical Report ---
History of Present Illness Date: 01/18/17 Chief complaint: Syncope HPI: This is a 72-year-old female who presents to the ER today after she had a syncopal event on the toilet. She apparently has frequent falls. She apparently was on the toilet at around midnight, got up and fell face 1st and hit her forehead. She has a small frontal scalp hematoma. She admits that she has been out in the heat, and thinks that she has been dehydrated. Multiple imaging studies were obtained, including CT of the head which is negative for intracerebral bleed. Of note, she is on warfarin and has INR 2.7 this evening. Creatinine is slightly elevated at 1.2. Her blood pressure upon arrival to the emergency department was 70/50. After 500 MLs of normal saline, her blood pressure has improved to 107/60. ER physician is requesting observational status. Please note this patient encounter was performed via the use of telemedicine technology Review of Systems All systems: reviewed and no additional remarkable complaints except as stated - Integumentary/Breasts Integumentary: Absent: erythema, rash PFSH 1.Status post PPM 2. CVA 3. HTN 4. A fib on coumadin Surgical History: Pacemaker - Social History Smoking status: Never smoker Medications Allergies Allergy/AdvReac Type Severity Reaction Status Date / Time Penicillins Allergy Hives Verified 01/18/17 00:51 Exam Vital Signs: Temperature 98.7 F 01/18/17 00:05 Pulse Rate 71 01/18/17 04:31 Respiratory Rate 41 H 01/18/17 04:31 Blood Pressure 111/87 01/18/17 04:31 Pulse Oximetry 95 01/18/17 01:40 Height: 1.63 m Weight: 101.8 kg Body Mass Index: 38.5 - Constitutional Present: no acute distress - Routine HEENT Exam Head: Present: hematoma (front scalp) - Routine Respiratory Exam Present: CTA bilaterally. Absent: accessory muscle use, dyspnea - Routine Cardiovascular Exam Present: RRR (paced), S1, S2 - Routine Abdominal Exam Present: soft, normoactive bowel sounds, non distended. Absent: tenderness Results - Labs CBC & Chem 7: 01/18/17 00:35 01/18/17 00:35 Assessment and Plan (1) Syncope Current visit: Yes Status: Acute Assessment and Plan: Assessment: 1. Orthostasis, dehydration and subsequent syncopal event 2. Status post permanent pacemaker placement 3. Cerebrovascular disease 4. Hypertension 5. Chronic atrial fibrillation on anticoagulation with warfarin 6. Small frontal scalp hematoma Plan: Patient will be placed under observational status this evening. Gentle IV fluids. Monitor her hemodynamic status. Home medications have yet to be reconciled by the nursing staff. Would hold warfarin, diuretics at this time. It appears that she is on multiple psychiatric medications per ER physician report. Again, will need to confirm once official medicine reconciliation list has been obtained by nursing staff. Supportive care will be provided in the meantime. DVT ppx: Patient is already anticoagulated on warfarin Hospital Course Summary Disclaimer: The visit summary below is not to be considered part of the above Progress Note.
[2017-01-18] MEDS: NS 1,000 ML IV SCH ×2 (05:11→15:54)
[2017-01-18] MEDS ORDERED: FALL RISK - PHARMACY CONSULT MC PRN (05:41)
--- NOTE | 2017-01-18 07:52 | XRay Report ---
Indication: syncope PROCEDURE: XR chest 1V: Encounter: Initial Comparison: None Findings: Right double lead cardiac pacemaker. Poststernotomy changes. Lungs are grossly clear. No pleural effusion or pneumothorax. Cardiac silhouette is mildly enlarged. Mediastinal contours are within normal limits. Pulmonary vascularity appears normal. Impression: No focal pneumonia or congestive failure. Enlargement of the cardiac silhouette could be due to cardiomegaly or pericardial effusion. .
--- NOTE | 2017-01-18 07:53 | CT Scan Report ---
Indication: CHI fall with trauma to the left forehead PROCEDURE: CT head/brain wo con: Encounter: Initial Comparison: None Technique: Axial CT images through the head were performed without contrast. Iterative Reconstruction dose reducing technique was utilized. FINDINGS: The ventricles are of normal size, shape, and configuration for the patient's age. Old ischemia and encephalomalacia along the left sylvian fissure. There is no evidence of acute intracranial hemorrhage, midline displacement, or mass effect. There are scattered areas of low attenuation in the white matter which most likely represent changes of chronic microvascular ischemia. The CT attenuation of the brain parenchyma is otherwise normal within the cerebellum, brain stem, and cerebral hemispheres. The tympanic cavities and mastoid air cells are free of appreciable disease. There are no definite fractures of the skull base, calvarium, or visualized portion of the midface. Left frontal scalp hematoma. IMPRESSION: No CT evidence of acute traumatic intracranial injury. There is a preliminary report by virtual radiologic. .
[2017-01-18] MEDS ORDERED: VENLAFAXINE HCL PO SCH (09:00)
[2017-01-18] MEDS: SERTRALINE 50 MG TABLET PO SCH ×3 (09:24→21:55)
[2017-01-18] MEDS ORDERED: Venlaflaxine XR 75 MG CAPSULE (24hr) PO SCH ×4 (09:30→22:00)
[2017-01-18] MEDS ORDERED: Venlafaxine XR 37.5 MG CAPSULE (24hr) PO SCH ×2 (09:30→22:00)
[2017-01-18] MEDS ORDERED: HYDROCODONE/APAP 7.5 MG/325 MG TABLET PO PRN (12:40)
[2017-01-18] MEDS ORDERED: WARFARIN 5 MG TABLET PO ONE (13:21)
[2017-01-18] MEDS: DiphenhydrAMINE 25 MG CAPSULE PO PRN ×2 (13:43→20:02)
--- NOTE | 2017-01-18 13:52 | Pharmacy Consult ---
Pharmacy Consult-Warfarin - Laboratory Information 01/18/17 13:23 INR 2.90 H - Consult Information COUMADIN CONSULT (Initial): Dx: A. FIB Baseline INR = 2.76. Will give Warfarin 5mg today (home dose). Will continue to monitor and make adjustments accordingly. Thank you.
[2017-01-18] MEDS: GABAPENTIN 300 MG CAPSULE PO SCH ×2 (16:42→20:03)
--- NOTE | 2017-01-18 18:29 | History & Physical Report ---
History of Present Illness Date: 01/18/17 Chief complaint: blacked out HPI: This is a 72-year-old female who presents to the ER early this morning after she had a syncopal event on the toilet. She had one prior syncopal episode approximately one month ago preceded by dizziness. She apparently was on the toilet at around midnight after voiding and fell face 1st and striking her forehead and the top of her head. The patient denies any symptoms prior to the fall which she attributes to transient loss of consciousness. In the emergency room syncope was attributed to the patient's standing up from the toilet but patient adamantly denies that indicating she was still seated and thinking about standing at which point she passed out falling forward. She denied preceding lightheadedness, chest pain, palpitations, or any other symptoms suggesting presyncope. She sustained a small frontal scalp hematoma but no other injuries. 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 Multiple imaging studies were obtained, including CT of the head which is negative for intracerebral bleed. Of note, she is on warfarin and has INR 2.7 this morning. Creatinine is slightly elevated at 1.2. Her blood pressure upon arrival to the emergency department was 70/50. After 500 MLs of normal saline, her blood pressure has improved to 107/60. Patient was hospitalized on observational status for stabilization. Review of Systems Review of systems: Comprehensive review of systems completed with patient describing chronic back pain with bilateral sciatica greater on the left and right and chronic numbness in her left thigh. She has chronic constipation, chronic tinnitus, occasionally chokes when she swallows with either liquids or solids. Remainder of review of systems was negative or as per history of present illness. COUNT INCLUDES THE [facility] Patient Stated Medical History Cerebrovascular Accident Migraine Syncope Atrial fibrillation, third-degree heart block Osteoarthritis Depression Post Menopausal Hypertension Possible COPD-home oxygen at night Thyroid nodule-benign Colon cancer Surgical History: Pacemaker. Lumbar fusion 2. Cholecystectomy. Oophorectomy- benign disease. Right colon resection. Bilateral cataract extractions. Hemithyroidectomy Family History: Mother-breast cancer Father, brother -CAD - Social History Smoking status: Former smoker (one pack per day 40 years, discontinued 2005) Substance use type: does not use Alcohol intake frequency: does not drink Household members: other (granddaughter-Christelle) Current residence: Apartment/Private Home Social history: PCP-Dr. Afshin Macias DPOA-Jose Perez, son CODE STATUS-DO NOT RESUSCITATE Medications Home Medications Medication Instructions Recorded Confirmed Type Allopurinol [Zyloprim] 1 tab PO DAILY 01/18/17 01/18/17 History Calcium Carbonate [Calcium] 3 tab DAILY 01/18/17 01/18/17 History FentaNYL [Fentanyl] 50 mcg Q3-4DAYS 01/18/17 01/18/17 History Furosemide [Lasix] 1 tab PO BID 01/18/17 01/18/17 History Gabapentin 300 mg PO TID 01/18/17 01/18/17 History Hydrocodone/Acetaminophen 1 tab PO Q6HPRN PRN 01/18/17 01/18/17 History [Hydrocodon-Acetaminoph 7.5-300] Metoprolol Tartrate [Lopressor] 25 mg PO BIDWM 01/18/17 01/18/17 History [place]-3/Dha/Epa/Fish Oil [Fish Oil 1 each PO BID 01/18/17 01/18/17 History 1,000 mg Softgel] Quetiapine [Seroquel] 100 mg PO HS 01/18/17 01/18/17 History Sertraline HCl [Zoloft] 50 mg PO BID 01/18/17 01/18/17 History Trazodone [Desyrel] 50 mg PO HS 01/18/17 01/18/17 History Venlafaxine HCl [Venlafaxine HCl 1 tab PO DAILY 01/18/17 01/18/17 History ER] Venlafaxine [Effexor] 1 tab PO DAILY 01/18/17 01/18/17 History Warfarin [Coumadin] 5 mg PO 4XW 01/18/17 01/18/17 History Warfarin [Coumadin] 7.5 mg PO 3XW 01/18/17 01/18/17 History Allergies Allergy/AdvReac Type Severity Reaction Status Date / Time Penicillins Allergy Hives Verified 01/18/17 00:51 Exam Vital Signs: Temperature 98.0 F 01/18/17 15:00 Pulse Rate 73 01/18/17 16:00 Respiratory Rate 16 01/18/17 15:00 Blood Pressure 121/65 01/18/17 15:00 Pulse Oximetry 95 07/20/17 15:00 Oxygen Delivery Method Room Air Oxygen Flow Rate 2 EXAM: General-NAD, alert, fluent speech HEENT-PERRL, EOMI without nystagmus, conjugate gaze, conjunctiva clear, sclera anicteric facial structures symmetric, oropharynx clear, neck supple and without adenopathy, left frontal hematoma with bruising, no palpable or visible hematoma over the scalp although there is a 3 cm erythematous lilian just to the left of the midline on the top of the scalp-6 does not appear to have broken the skin surface and there is no indication of bleeding at the site. 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 Liver enzymes unremarkable, troponin undetectable, urinalysis negative with specific gravity 1.010 - ECG Data Tracing #1 Arrhythmias present: other (paced) - Imaging and Cardiology Chest x-ray Status: image reviewed by me (borderline cardiomegaly, lung garza clear) CT scan - head Status: image reviewed by me (CT head without acute pathology although there is extensive old ischemic changes with encephalomalacia and atrophy by my review.) Assessment and Plan (1) Syncope Current visit: Yes Status: Acute Resuscitation Status: Do Not Intubate Assessment and Plan: Assessment: Syncope Orthostasis, probable Status post permanent pacemaker placement for third-degree heart block Cerebrovascular disease Hypertension Chronic atrial fibrillation on anticoagulation with warfarin Small frontal scalp hematoma Plan: Patient will be placed under observational status. Gentle IV fluids. Monitor orthostatic vital signs. PT/OT evaluations. Echocardiogram ordered to exclude valvular heart disease. Continue telemetry. Interrogate pacemaker. Ice packs as needed for facial hematoma. Add muscle relaxant if desired for neck pain. Monitor INR, slightly elevated relative to goal for A. fib. Pharmacy consulted for assistance. X-rays reviewed by myself, outpatient records reviewed, echocardiogram discussed with Dr. Chavez, laboratory data reviewed. High-risk medications in use. DVT ppx: warfarin Sepsis Assessment - Evaluation Sepsis screening result: No Definite Risk Hospital Course Summary Disclaimer: The visit summary below is not to be considered part of the above Progress Note. Hospital Course: 01/18/17 18:52 Patient will be hospitalized for evaluation of syncope under observational status. Gentle IV fluids. Monitor orthostatic vital signs. PT/OT evaluations. Echocardiogram ordered to exclude valvular heart disease. Continue telemetry. Interrogate pacemaker. Ice packs as needed for facial hematoma. Add muscle relaxant if desired for neck pain.
[2017-01-18] MEDS ORDERED: CYCLOBENZAPRINE 5 MG TABLET PO PRN (18:51)
[2017-01-18] MEDS: QUETIAPINE 100 MG TABLET PO SCH ×2 (20:02→21:57)
[2017-01-18] MEDS: OMEGA-3 ACID ESTERS 1 GM CAPSULE PO SCH (20:03)
--- NOTE | 2017-01-18 21:33 | Echocardiogram ---
DATE OF PROCEDURE January 18, 2017 This is a two-dimensional echo with spectral Doppler, color-flow and M-mode. It was obtained in a patient with a history of atrial fibrillation. Left atrium is dilated. Left ventricular end-diastolic dimension is increased. Left ventricular wall thickness is increased. LV systolic function is reduced with global hypokinesia with ejection fraction of about 35%. Right atrium is dilated. Right ventricle is dilated. Aortic root dimension is normal. Mitral valve annulus is calcified. Mitral valve leaflets are normal with mild mitral regurgitation. Aortic valve shows fibrocalcific changes with no stenosis or insufficiency. Tricuspid valve shows mild tricuspid regurgitation with normal estimated pulmonary artery systolic pressure of 33. Pulmonary valve shows mild pulmonary insufficiency. There is no pericardial effusion. Pacemaker or catheter is seen in the right heart. IMPRESSION 1. Four-chamber dilation. 2. Left ventricular hypertrophy. 3. Global hypokinesia with ejection fraction of about 35%. 4. Mitral annulus calcification with mild mitral regurgitation. 5. Mild tricuspid regurgitation with normal estimated pulmonary artery systolic pressure of 33. 6. Mild pulmonary insufficiency. 7. Aortic sclerosis. 8. Pacemaker or catheter is seen in the right heart. MTDD
[2017-01-18] MEDS ORDERED: VENLAFAXINE 37.5 MG TABLET PO SCH (22:00)
[2017-01-18] MEDS ORDERED: TRAZODONE 50 MG TABLET PO SCH (22:00)
[2017-01-19 00:28] VITALS: RESP 18
[2017-01-19] MEDS: DiphenhydrAMINE 25 MG CAPSULE PO PRN ×2 (02:31→09:31)
[2017-01-19] MEDS: NS 1,000 ML IV SCH ×2 (02:31→12:01)
[2017-01-19 07:26] VITALS: BP 116/65; TEMP 97.8; O2SAT 93
[2017-01-19 07:57] VITALS: PULSE 69
--- NOTE | 2017-01-19 08:12 | Pharmacy Consult ---
Pharmacy Consult-Warfarin - Laboratory Information 01/18/17 01/19/17 13:23 05:13 INR 2.90 H 3.15 H - Consult Information COUMADIN CONSULT (Recurring): Today's INR = 3.15. Will give Warfarin 2mg today. Will continue to monitor & make adjustments accordingly. Thank you.
[2017-01-19] MEDS: SERTRALINE 50 MG TABLET PO SCH (08:58)
[2017-01-19] MEDS: GABAPENTIN 300 MG CAPSULE PO SCH (08:58)
[2017-01-19] MEDS: OMEGA-3 ACID ESTERS 1 GM CAPSULE PO SCH (08:59)
[2017-01-19] MEDS ORDERED: Venlafaxine XR 37.5 MG CAPSULE (24hr) PO SCH (09:00)
[2017-01-19] MEDS ORDERED: Venlaflaxine XR 75 MG CAPSULE (24hr) PO SCH (09:00)
[2017-01-19] MEDS ORDERED: ALLOPURINOL 300 MG TABLET PO SCH (09:00)
[2017-01-19] MEDS ORDERED: WARFARIN 2 MG TABLET PO SCH (12:00)
--- NOTE | 2017-01-19 14:28 | Discharge Instructions ---
Discharge Plan - Med Rec/Dispo Referrals/Follow Up: Afshin Macias [Family Provider] - 1 Week [place] Instructions: Syncope (GEN) Prescriptions: New Metoprolol Tartrate [Lopressor] 12.5 mg PO BIDWM #90 tab Cyclobenzaprine [Flexeril] 5 mg PO TID PRN #20 tablet PRN Reason: Muscle Spasm DiphenhydrAMINE [Benadryl] 25 mg PO Q4H PRN capsule PRN Reason: Itching Continue Warfarin [Coumadin] 7.5 mg PO 3XW Warfarin [Coumadin] 5 mg PO 4XW Hydrocodone/Acetaminophen [Hydrocodon-Acetaminoph 7.5-300] 1 tab PO Q6HPRN PRN PRN Reason: Pain Gabapentin 300 mg PO TID [place]-3/Dha/Epa/Fish Oil [Fish Oil 1,000 mg Softgel] 1 each PO BID Calcium Carbonate [Calcium] 3 tab DAILY Allopurinol [Zyloprim] 1 tab PO DAILY Quetiapine [Seroquel] 100 mg PO HS Venlafaxine HCl [Venlafaxine HCl ER] 1 tab PO DAILY Venlafaxine [Effexor] 1 tab PO DAILY Sertraline HCl [Zoloft] 50 mg PO BID Trazodone [Desyrel] 50 mg PO HS Changed Furosemide [Lasix] 1 tab PO DAILY #0 Discontinued Metoprolol Tartrate [Lopressor] 25 mg PO BIDWM FentaNYL [Fentanyl] 50 mcg Q3-4DAYS Discharge Instructions/Outpatient Orders: Final Provider Discharge Instructions Location: Determined By Patient - Disposition 01 Discharged Home, Self-Care
--- NOTE | 2017-01-19 15:13 | Discharge Summary ---
Discharge Information Date of admission: 01/18/17 04:12 Anticipated date of discharge: 01/19/17 Attending Physician: Funmi Hoyos MD Primary care physician: Afshin Macias Consults: - Discharge Diagnosis (1) Syncope Qualifiers: Syncope type: unspecified Status: Acute - Procedures Procedures: Echocardiogram on 01/18/17: 1. Four-chamber dilation. 2. Left ventricular hypertrophy. 3. Global hypokinesia with ejection fraction of about 35%. 4. Mitral annulus calcification with mild mitral regurgitation. 5. Mild tricuspid regurgitation with normal estimated pulmonary artery systolic pressure of 33. 6. Mild pulmonary insufficiency. 7. Aortic sclerosis. 8. Pacemaker or catheter is seen in the right heart. Pacemaker interrogation on 01/19/17 was without evidence of pacemaker malfunction or cardiac arrhythmias - Laboratory Labs: INR on admission was 2.76 increasing to 2.9 later in the day on 01/18 and 3.15 on 01/19 although warfarin was held following admission. On 01/18 sodium was 147 and BUN/creatinine 23/1.0. Liver enzymes normal except minor elevation in alkaline phosphatase at 153. Admission hemoglobin 12.6. Urinalysis unremarkable. 01/19/17 05:13 01/19/17 05:13 - Radiology Radiology: Chest x-ray in admission demonstrated cardiomegaly heart failure or pneumonia. Noncontrast CT of the head on admission demonstrated old ischemia and encephalomalacia along the left sylvian fissure. There were scattered areas of low attenuation in the white matter consistent with chronic microvascular ischemia. There is no evidence of acute stroke or intracranial hematoma. There was a left frontal scalp hematoma evident. History of Present Illness HPI: This is a 72-year-old female who presents to the ER early this morning after she had a syncopal event on the toilet. She had one prior syncopal episode approximately one month ago preceded by dizziness. She apparently was on the toilet at around midnight after voiding and fell face 1st and striking her forehead and the top of her head. The patient denies any symptoms prior to the fall which she attributes to transient loss of consciousness. In the emergency room syncope was attributed to the patient's standing up from the toilet but patient adamantly denies that indicating she was still seated and thinking about standing at which point she passed out falling forward. She denied preceding lightheadedness, chest pain, palpitations, or any other symptoms suggesting presyncope. She sustained a small frontal scalp hematoma but no other injuries. 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 Multiple imaging studies were obtained, including CT of the head which is negative for intracerebral bleed. Of note, she is on warfarin and has INR 2.7 this morning. Creatinine is slightly elevated at 1.2. Her blood pressure upon arrival to the emergency department was 70/50. After 500 MLs of normal saline, her blood pressure has improved to 107/60. Patient was hospitalized on observational status for stabilization. Hospital Course This is a general summary of the patient's hospital course. For more details refer to the complete medical record. Hospital course: Syncope, possibly post-micturition Orthostasis Normocytic anemia Cardiomyopathy Status post permanent pacemaker placement for third-degree heart block Cerebrovascular disease Hypertension Chronic atrial fibrillation on anticoagulation with warfarin Small frontal scalp hematoma Mrs. Lewis was hospitalized for evaluation of syncope under observational status. Due to concern that dehydration prompted the event she was hydrated. Minor orthostatic change was demonstrated with blood pressures dropping 10-20 mm from supine to standing positions without change in pulse or development of symptoms. Typically the patient had a standing systolic blood pressure in the upper 90s. It should be noted that the initial orthostatics were obtained after hydration was initiated and the first fluid bolus had been given in the emergency room. Hemoglobin dropped from 12.6 to 10.9 with hydration and there was corresponding improvement in BUN/creatinine. Echocardiogram was obtained demonstrating global hypokinesis with ejection fraction of 35%, clinically the patient had no corresponding symptoms and no arrhythmias were identified on telemetry or by pacemaker interrogation that could account for presenting syncope. Patient is referred back to her director prospect for further assessment. On 01/19 the patient continued to have discomfort in her neck but denied headache. Increased facial and periorbital bruising had evolved overnight but there was less swelling/hematoma evident above the left eye than on admission. Patient denied visual change and was having no difficulty ambulating. Cardiac rhythm is regular with telemetry consistently demonstrating paced rhythm. Respirations are nonlabored with good airflow and clear breath sounds. Patient is stable for discharge this time with several modifications made to her medication regimen including reduction in metoprolol dose from 25 mg twice a day to 12.5 mg twice a day, reduction in Lasix from 40 mg twice a day to 40 mg daily, and addition of low-dose Flexeril 5 mg 3 times a day when necessary for muscle spasm. Home pain regimen will be continued. Due to elevated INR warfarin is on hold for 2 days and will resume at 5 mg on 01/21 with INR to be screened on 01/20 to permit further dosing. Patient is asked to follow up with Dr. Macias next week and Dr. Gtz in the near future. Discharge Plan - Med Rec/Dispo Referrals/Follow Up: Afshin Macias [Family Provider] - 1 Week [place] Instructions: Syncope (GEN) Prescriptions: New Metoprolol Tartrate [Lopressor] 12.5 mg PO BIDWM #90 tab Cyclobenzaprine [Flexeril] 5 mg PO TID PRN #20 tablet PRN Reason: Muscle Spasm DiphenhydrAMINE [Benadryl] 25 mg PO Q4H PRN capsule PRN Reason: Itching Continue Warfarin [Coumadin] 7.5 mg PO 3XW Warfarin [Coumadin] 5 mg PO 4XW Hydrocodone/Acetaminophen [Hydrocodon-Acetaminoph 7.5-300] 1 tab PO Q6HPRN PRN PRN Reason: Pain Gabapentin 300 mg PO TID [place]-3/Dha/Epa/Fish Oil [Fish Oil 1,000 mg Softgel] 1 each PO BID Calcium Carbonate [Calcium] 3 tab DAILY Allopurinol [Zyloprim] 1 tab PO DAILY Quetiapine [Seroquel] 100 mg PO HS Venlafaxine HCl [Venlafaxine HCl ER] 1 tab PO DAILY Venlafaxine [Effexor] 1 tab PO DAILY Sertraline HCl [Zoloft] 50 mg PO BID Trazodone [Desyrel] 50 mg PO HS Changed Furosemide [Lasix] 1 tab PO DAILY #0 Discontinued Metoprolol Tartrate [Lopressor] 25 mg PO BIDWM FentaNYL [Fentanyl] 50 mcg Q3-4DAYS Discharge Instructions/Outpatient Orders: Final Provider Discharge Instructions Location: Determined By Patient - Disposition 01 Discharged Home, Self-Care
== END 2017-01-19 15:43 | disposition home or self-care (01) ==
LOC: MED 00:05 → ED 00:05 → MED 04:35
PROVIDERS: ADMIT Hospitalist; ATTEND Internal Medicine

== ENCOUNTER 2017-09-13 15:42 | Inpatient (IN) ==
[2017-09-13] MEDS ORDERED: ALBUTEROL/IPRATROPIUM 2.5mg-0.5mg/3ml NEB AEROSOL ONE (15:57)
--- OUTSIDE RECORDS SUMMARY | 2017-09-13 16:03 | External Medical Summary ---
[...] Dosage System Date Date KlorCon M10 [facility] 90119498028 10MEQ Active TAKE ONE TABLET BY MOUTH TWICE DAILY Venlafaxine HCl [facility] [address]-17 150mg QD Active 1 Calcium [facility] 56811-[address]254 1500 MG Orally Active 1 tablet with Twice a day food Furosemide [facility] 56461211693 40MG Active TAKE ONE TABLET BY MOUTH TWICE DAILY Allopurinol [facility] 58127028250 300MG Active TAKE ONE TABLET BY MOUTH EVERY DAY Hydrocodone-Acet [facility] 99454940213 10-325 Active TAKE ONE aminophen TABLET BY MOUTH EVERY 6 HOURS FOR 30 DAYS Metoprolol NDC 0 50 MG Orally Active 1 tablet Succinate Once a day Triamcinolone [facility] [address]-81 0.1 % September Active 1 application Acetonide Externally 29, to affected Twice a day 2012 area Maryam Contour NDC 0 USE Type 2 DM Sept Active test blood Test diet 08, sugar controlled 2013 daily Maryam Contour NDC 0 USE Type 2 DM Sept Active test blood diet 08, sugar controlled 2013 daily Fentanyl [facility] [address]-40 50 MCG/HR Apr 29, Active 1 patch to Transdermal 2013 skin every 72 hrs Gabapentin [facility] 92821242828 300MG Active 1 CAPSULE Three times a day Orally 30 Warfarin Sodium [facility] 32592110014 7.5MG Active TAKE ONE TABLET BY MOUTH EVERY DAY Omeprazole [facility] 91269419512 20MG Active TAKE ONE CAPSULE BY MOUTH TWICE DAILY Procedures Procedure Coding System Code Date OFFICE VISITEST PT CPT-4 62023 Jun 30, 2014 Vital Signs Date/Time: Jun 30, 2014 Blood Pressure Systolic 104 mm Hg Height 65 in Weight 236 lbs Oximetry 96 % Cardiac Monitoring Heart Rate 75 /min Temperature 98.5 F Blood Pressure Diastolic 58 mm Hg BMI 39.27 Index Results No Known Results Summary Purpose eClinicalWorks Submission
--- OUTSIDE RECORDS SUMMARY | 2017-09-13 16:03 | External Medical Summary ---
:1945 Author Organization [facility] Address [address] [place] [address] Care Team Providers Name Role Phone Afshin Macias Unavailable Unavailable PROBLEMS Type Condition ICD9-CM Code [id number] Onset Condition SNOMED Code Code Dates Status Problem Personal history of Z85.3 Active 278922586 malignant neoplasm of breast Problem Depression F32.9 Active 69204463 Problem Atrial fibrillation I48.91 Active 47636011 Problem Hyperlipidemia, E78.5 Active 76360086 unspecified hyperlipidemia type Problem Insomnia G47.00 Active 623021288 Problem Restless leg G25.81 Active 48904265 Problem Actinic keratosis L57.0 Active 857860 Problem Irritable bowel K58.9 Active 64809230 Problem Nocturnal hypoxia G47.34 Active 770709207 Problem Cerumen impaction H61.20 Active 04525312 Problem 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 Problem Contact dermatitis L25.9 Active 74765651 and other eczema, due to unspecified cause Problem Malignant neoplasm C18.9 Active 101878143 of colon Problem Pain in joint, M25.569 Active 273974897 lower leg Problem [facility] 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 Active 682131536 use of anticoagulant therapy Problem 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 76748150 lumbar or lumbosacral intervertebral disc Problem Closed fracture of S92.919A Active 41901644 phalanx of foot Problem Personal history of Z86.73 Active 338247737 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 Problem 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 173693234 goiter Problem Irritable bowel K58.0 Active 40963291 syndrome with constipation and diarrhea ALLERGIES No Information SOCIAL HISTORY Never Assessed PLAN OF CARE VITAL SIGNS MEDICATIONS Unknown Medications RESULTS No Results PROCEDURES No Known procedures IMMUNIZATIONS No Known Immunizations MEDICAL (GENERAL) HISTORY Type Description Date Medical History pacemaker Medical History kidney stones Medical History cerebrovascular accident Medical History Depression Medical History Atrial fibrillation Medical History Irritable bowel syndrome with constipation and diarrhea Medical History Personal history of 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 Medical History Degeneration of lumbar or lumbosacral intervertebral disc 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 Mcmahan 1984 Surgical History cardiac pacemaker in [place] 1991 Surgical History Negative Myoview Perfusion Imaging 10/16/06 Surgical History right oopherectomy- Dr. Potter 2006 Surgical History Partial Colon Resection due to colon cancer- 03/2009 [facility] Surgical History DEXA 02/15/10 Surgical History Left Hemithyroidectomy- Dr. Salazar 06/06/11 Surgical History Colonoscopy with polypectomy- tubular adenoma- 08/2012 [facility]- repeat in 2-3 years & perform a sigmoidoscopy in 6months Surgical History Posterior Spinal Fusion with decompression of 10/11/12 L2-L4- Dr. Glaser Surgical History Bilateral Cataracts Removed- Dr. Mccord 2012 Surgical History PPM battery change- Dr. Gtz 07/2014 Surgical History Multiple LESIs- Dr. Kaur 1514-2002 Hospitalization History with above surgeries Hospitalization History [facility]- CVA 2005
--- OUTSIDE RECORDS SUMMARY | 2017-09-13 16:03 | External Medical Summary ---
[...] Start End Date Status Dosage Date Hydrocodone-Ron [facility] 33215677388 10-325 TAKE ONE taminophen TABLET BY MOUTH EVERY 6 HOURS FOR 30 DAYS Results No Known Results Summary Purpose [employer] Submission
--- OUTSIDE RECORDS SUMMARY | 2017-09-13 16:03 | External Medical Summary ---
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 anticoagulant therapy [...] End Status Dosage System Date Fish Oil [facility] [address]-07 1000 MG Orally 1 capsule Once a day Calcium [facility] 52892-[address] 1500 MG Orally 1 tablet Twice a day with food Warfarin Sodium [facility] 45352074447 7.5MG TAKE ONE TABLET BY MOUTH EVERY DAY Lomotil [facility] [address]-80 2.5-0.025 MG Oct 12, 1 tablet Orally Four 2015 as needed times a day Furosemide [facility] 11744973740 40MG TAKE ONE TABLET BY MOUTH TWICE DAILY Flaxseed Oil [facility] [address]-74 1000 MG Orally as directed Venlafaxine HCl [facility] [address]-18 75 MG Orally QD 3 capules Amitriptyline [facility] 05710760698 25MG TAKE ONE HCl TABLET BY MOUTH EVERY DAY Allopurinol [facility] 70284791891 300MG TAKE ONE TABLET BY MOUTH EVERY DAY Klor-Con M10 [facility] 90822768610 10MEQ TAKE ONE TABLET BY MOUTH TWICE DAILY Multivitamins [facility] 27721-[address] Orally as directed Hydrocodone-Acet [facility] [address]-24 7.5-325 MG take one aminophen Orally QID tablet by mouth every 6 hours for 30 days Gabapentin [facility] 46752294313 300MG Orally take one TID capsule by mouth twice daily for 30 days Imodium A-D [facility] [address]-23 2 MG Orally 8 1 tablet time(s) a day Metoprolol [facility] 0 50 MG Orally 1 tablet Succinate Once a day Fentanyl [facility] [address]-34 50 MCG/HR Apr 29 patch to Transdermal 2013 skin every 72 hrs Procedures Procedure Coding System Code Date OFFICE VISITEST PT CPT-4 61139 Jun 30, 2015 PROTIME CPT-4 47375 Jun 30, 2015 Vital Signs Date/Time: Jun 30, 2015 Blood Pressure Systolic 122 mm Hg Height 65 in Weight 219.2 lbs BMI 36.47 Index Blood Pressure Diastolic 72 mm Hg Results Name Result Date Reference Range Unit Abnormality Flag PROTIME ----PT 18.7 [id number] 11.6-13.2 SEC H ----INR 2.3 [id number] 2.0-3.5 Summary Purpose eClinicalWorks Submission
--- OUTSIDE RECORDS SUMMARY | 2017-09-13 16:03 | External Medical Summary ---
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 Medications Medication Code Code Instructions Start End Status Dosage System Date Date Warfarin Sodium [facility] 98886112196 7.5 TAKE ONE TABLET BY MOUTH DAILY Venlafaxine HCl [facility] 84249410699 75 TAKE THREE ER CAPSULES BY MOUTH [place] [address]-09 Orally as directed Allopurinol ND 66620680779 300 TAKE ONE TABLET BY MOUTH DAILY Flaxseed Oil [facility] [address]-42 1000 MG Orally as directed Seroquel ND 10144868637 50 TAKE ONE TABLET BY MOUTH DAILY Fish Oil [facility] [address]-95 1000 MG Orally 1 capsule Once a day Metoprolol ND 0 50 MG Orally 1 tablet Succinate Once a day Gabapentin [facility] 01781828832 300 TAKE ONE CAPSULE BY MOUTH THREE TIMES A DAY Furosemide [facility] 22807074532 40MG TAKE ONE TABLET BY MOUTH TWICE DAILY Klor-Con M10 [facility] 49679804183 10 TAKE ONE TABLET BY MOUTH TWICE A DAY Calcium [facility] 78829-[address] 1500 MG Orally 1 tablet Twice a day with food Fentanyl [facility] [address]-68 50 MCG/HR Apr 29 patch to Transdermal 2014 skin every 72 hrs Hydrocodone-Acet [facility] [address]-93 7.5-325 MG take one aminophen Orally QID tablet by mouth every 6 hours for 30 days Tobrex [facility] [address]-57 0.3 % Mar 14 drop Ophthalmic 2016 into every 4 hrs affected eye Procedures Procedure Coding System Code Date OFFICE VISITEST PT CPT-4 30035 Mar 14, 2016 PROTIME CPT-4 41895 Mar 14, 2016 Vital Signs Date/Time: Mar 14, 2016 Blood Pressure Systolic 102 mm Hg Height 65 in Weight 232.8 lbs BMI 38.74 Index Blood Pressure Diastolic 58 mm Hg Results Name Result Date Reference Range Unit Abnormality Flag PROTIME ----PT 20.3 [id number] 11.4-13.8 SEC H ----INR 2.4 [id number] 2.0-3.5 Summary Purpose eClinicalWorks Submission
--- OUTSIDE RECORDS SUMMARY | 2017-09-13 16:04 | External Medical Summary ---
:1945 Author Organization [facility] Address [address] [place] [address] Care Team Providers Name Role Phone Afshin Macias Unavailable Unavailable PROBLEMS Type Condition ICD9-CM Code CCT20-MM Onset Condition SNOMED Code Code Dates Status Problem Personal history of Z85.3 Active 770211016 malignant neoplasm of breast Problem Depression F32.9 Active 24241207 Problem Atrial fibrillation I48.91 Active 76453191 Problem Hyperlipidemia, E78.5 Active 45901482 unspecified hyperlipidemia type Problem Insomnia G47.00 Active 144247243 Problem Restless leg G25.81 Active 10464635 Problem Actinic keratosis L57.0 Active 031513 Problem Irritable bowel K58.9 Active 95986082 Problem Nocturnal hypoxia G47.34 Active 399632672 Problem Cerumen impaction H61.20 Active 90045593 Problem 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 352154222 type II Problem Contact dermatitis L25.9 Active 48764055 and other eczema, due to unspecified cause Problem Malignant neoplasm C18.9 Active 737412989 of colon Problem Pain in joint, M25.569 Active 427821766 lower leg Problem retirement 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 Active 803819911 use of anticoagulant therapy Problem 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 34834519 lumbar or lumbosacral intervertebral disc Problem Closed fracture of S92.919A Active 12499300 phalanx of foot Problem Personal history of Z86.73 Active 383097823 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 Problem 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 474263033 goiter Problem Irritable bowel K58.0 Active 24994642 syndrome with constipation and diarrhea ALLERGIES Substance Reaction Event Type Date Status Penicillin Unknown Drug Allergy May, Active SOCIAL HISTORY Never Assessed PLAN OF CARE Activity Details Follow Up if not improving Reason: Pending Test LIPID PROFILE VITAL SIGNS Weight 225.0 lbs 2017-05-03 Height 65 in 2017-05-03 Heart Rate 93 /min 2017-05-03 BMI 37.44 kg/m2 2017-05-03 Blood pressure systolic 104 mm Hg 2017-05-03 Blood pressure diastolic 67 mm Hg 2017-05-03 MEDICATIONS Medication Instructions Dosage Frequency Start End Duration Status Date Date Klor-Con M10 10 Orally Twice a 1 tablet 12h 90 days Active day with food Warfarin Sodium 6 Orally Once a 1 tablet 24h 30 days Active MG day Sertraline HCl Orally Once a 1 tablet 24h Active 100 MG day Furosemide 40 mg Orally Once a 1 tablet 24h 90 days Active day Allopurinol 300 Orally Once a 1 tablet 24h 90 days Active day Multivitamins as directed Active Fish Oil 1000 MG Orally Once a 1 capsule 24h 30 day(s) Active day Seroquel 100 MG Orally Once a 1 tablet at 24h 90 days Active day bedtime Gabapentin 300 Orally Three 1 capsule 8h 14 days Active times a day Remeron 15 MG Orally Once a 1 tablet at 24h Active day bedtime Hydrocodone-Aceta Orally QID take one 6h 30 days Active minophen 7.5-325 tablet by MG mouth every 6 hours for 30 days Venlafaxine HCl Orally Everyday 1 1/2 Active ER 75 MG in the morning TABLETS Calcium 1500 MG Orally Twice a 1 tablet 12h 30 day(s) Active day with food Metoprolol Orally Twice a 1/2 tablet 12h Active Tartrate 25 MG day Fentanyl 50 Transdermal 1 patch to Apr, Active MCG/HR every 72 hrs skin 2014 RESULTS Name Result Date Reference Range PROTIME 2017-05-03 PT 13.8 11.4-13.8 INR 1.2 2.0-3.5 PROCEDURES Procedure Date Ordered Result Body Site PROTIME May 03, 2017 LIPID PROFILE May 03, 2017 IMMUNIZATIONS No Known Immunizations MEDICAL (GENERAL) HISTORY Type Description Date Medical History pacemaker Medical History kidney stones Medical History cerebrovascular accident Medical History Depression Medical History Atrial fibrillation Medical History Irritable bowel syndrome with constipation and diarrhea Medical History Personal history of 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 Mcmahan 1984 Surgical History cardiac pacemaker in [place] 1991 Surgical History Negative Myoview Perfusion Imaging [...] 07/2014 Surgical History Multiple LESIs- Dr. Kaur [id number] Hospitalization History with above surgeries Hospitalization History [facility]- CVA 2005
--- OUTSIDE RECORDS SUMMARY | 2017-09-13 16:04 | External Medical Summary ---
[...] End Status Dosage System Date Date Fentanyl [facility] [address]-36 50 MCG/HR Apr 29 patch to Transdermal 2013 skin every 72 hrs Imodium A-D [facility] [address]-50 2 MG Orally 8 1 tablet time(s) a day Maryam Contour NDC 0 USE Type 2 DM Sept test blood Test diet 08, sugar controlled 2013 daily Hydrocodone-Acet [facility] 07067343458 10-325 TAKE ONE aminophen TABLET BY MOUTH EVERY 6 HOURS FOR 30 DAYS Calcium [facility] 05[address]476 1500 MG Orally 1 tablet with Twice a day food Venlafaxine HCl [facility] [address]-82 150mg QD 1 Omeprazole [facility] 50687899046 20MG TAKE ONE CAPSULE BY MOUTH TWICE DAILY Allopurinol [facility] 05881781235 300MG TAKE ONE TABLET BY MOUTH EVERY DAY Gabapentin [facility] 46440617944 300MG TAKE ONE CAPSULE BY MOUTH TWICE DAILY Warfarin Sodium [facility] 70220992465 5MG TAKE ONE TABLET BY MOUTH EVERY DAY Triamcinolone [facility] [address]-67 0.1 % September 30 application Acetonide Externally 29, to affected Twice a day 2012 area Metoprolol ND 0 50 MG Orally 1 tablet Succinate Once a day Furosemide [facility] 47329494918 40MG TAKE ONE TABLET BY MOUTH TWICE DAILY Maryam Contour NDC 0 USE Type 2 DM Sept test blood diet , sugar controlled 2013 daily Klor-Con M10 [facility] 19136103229 10MEQ TAKE ONE TABLET BY MOUTH TWICE DAILY Levaquin [facility] [address]-50 500 MG Orally Aug 25, 1 tablet Once a day 2014 Lomotil [facility] [address]-95 2.5-0.025 MG Jul 07, 1 tablet as Orally Four 2014 needed times a day Procedures Procedure Coding System Code Date OFFICE VISITEST PT CPT-4 23716 August 31, 2014 PROTIME CPT-4 95740 August 31, 2014 CHEST XRAY 2 VIEW CPT-4 95681 August 31, 2014 Vital Signs Date/Time: August 31, 2014 Blood Pressure Systolic 110 mm Hg Height 65 in Weight 229 lbs BMI 38.10 Index Cardiac Monitoring Heart Rate 96 /min Temperature 97.9 F Blood Pressure Diastolic 70 mm Hg Results No Known Results Summary Purpose eClinicalWorks Submission
--- OUTSIDE RECORDS SUMMARY | 2017-09-13 16:04 | External Medical Summary ---
:1945 Author Organization [employer] Care Team Providers Name Role Phone [employer] Provider Role Unavailable Allergies No Known [...] Status Dosage Date Hydrocodone-Ron [facility] 64340366049 10-325 TAKE ONE taminophen TABLET BY MOUTH EVERY 6 HOURS FOR 30 DAYS Results No Known Results Summary Purpose eClinicalWorks Submission
--- OUTSIDE RECORDS SUMMARY | 2017-09-13 16:04 | External Medical Summary ---
[...] End Date Status Dosage Date Hydrocodone-Ron [facility] 93755771040 10-325 TAKE ONE taminophen TABLET BY MOUTH EVERY 6 HOURS FOR 30 DAYS Results No Known Results Summary Purpose eClinicalWorks Submission
--- OUTSIDE RECORDS SUMMARY | 2017-09-13 16:04 | External Medical Summary ---
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
--- OUTSIDE RECORDS SUMMARY | 2017-09-13 16:04 | External Medical Summary ---
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 Assessment residential current use of Z79.01 Active anticoagulant therapy [...] Status Dosage System Date Date Flaxseed Oil [facility] [address]-78 1000 MG Orally as directed Klor-Con M10 [facility] 84711156789 10 TAKE ONE TABLET BY MOUTH TWICE A DAY Calcium [facility] 698[address]53 1500 MG Orally 1 tablet Twice a day with food Allopurinol [facility] 02115521292 300 TAKE ONE TABLET BY MOUTH DAILY Venlafaxine HCl [facility] [address]-61 75 mg Orally Jul 12, 3 capsule ER Once a day 2016 with food Gabapentin [facility] 98419760298 300 TAKE ONE CAPSULE BY MOUTH THREE TIMES A DAY Furosemide ND 93368034390 40MG TAKE ONE TABLET BY MOUTH TWICE DAILY Seroquel [facility] [address]-57 50 MG Orally Aug 02, 1 tablet Once a day 2015 Fentanyl [facility] [address]-07 50 MCG/HR Apr 29, 1 patch to Transdermal 2014 skin every 72 hrs Fish Oil [facility] [address]-47 1000 MG Orally 1 capsule Once a day Warfarin Sodium [facility] 08570071153 7.5MG TAKE ONE TABLET BY MOUTH EVERY DAY Hydrocodone-Acet [facility] [address]-23 7.5-325 MG take one aminophen Orally QID tablet by mouth every 6 hours for 30 days Multivitamins [facility] 27[address] Orally as directed Metoprolol ND 0 50 MG Orally 1 tablet Succinate Once a day Procedures Procedure Coding System Code Date CREATININE; OTHER SOURCE CPT-4 08754 October 28, 2015 MICROALBUMIN URINE CPT-4 00521 October 28, 2015 OFFICE VISITEST PT CPT-4 04556 October 28, 2015 URINALYSIS CPT-4 41328 October 28, 2015 TSH CPT-4 83766 October 28, 2015 HgB A1C CPT-4 38237 October 28, 2015 PROTIME CPT-4 21310 October 28, 2015 EAR IRRIGATION CPT-4 77979 October 28, 2015 Tdap Boostrix 7+ age CPT-4 83054 October 28, 2015 COMP PROFILE CPT-4 55626 October 28, 2015 Administration Fee 18yrs and up 1st injection CPT-4 30413 October 28, 2015 URINE CULTURE CPT-4 76309 October 28, 2015 LIPID PROFILE CPT-4 11227 October 28, 2015 CBC CPT-4 43279 October 28, 2015 Vital Signs Date/Time: October 28, 2015 Blood Pressure Systolic 126 mm Hg Height 65 in Weight 226.4 lbs BMI 37.67 Index Blood Pressure Diastolic 76 mm Hg Results No Known Results Immunizations Vaccine Administration Date Boostrix Tdap October 28, 2015 Summary Purpose eClinicalWorks Submission
--- OUTSIDE RECORDS SUMMARY | 2017-09-13 16:04 | External Medical Summary ---
:1945 Author Organization [facility] Address [address] [place] [address] Care Team Providers Name Role Phone Afshin Macias Unavailable Unavailable PROBLEMS Type Condition ICD9-CM Code [id number] Onset Condition SNOMED Code Code Dates Status Problem Irritable bowel K58.0 Active 69117773 syndrome with constipation and diarrhea Problem Atrial fibrillation I48.91 Active 06358019 Problem Personal history of Z85.3 Active 442821644 malignant neoplasm of breast Problem Restless leg G25.81 Active 94046690 Problem Nocturnal hypoxia G47.34 Active 015394132 Problem Irritable bowel K58.9 Active 12575090 Problem Depression F32.9 Active 844406487 Problem Cerumen impaction H61.20 Active 59876757 Problem Actinic keratosis L57.0 Active 817349732 Problem Pain in joint, M25.569 Active 899050565 lower leg Problem 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 712296282 type II Problem Insomnia G47.00 Active 416042349 Problem Malignant neoplasm C18.9 Active 916317865 of colon Problem 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 428843474 goiter 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 546027780 use of anticoagulant therapy Problem Contact dermatitis L25.9 Active 14716779 and other eczema, due to unspecified cause Problem 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 06003585 lumbar or lumbosacral intervertebral disc Problem Closed fracture of S92.919A Active 95812091 phalanx of foot Problem Personal history of Z86.73 Active 121158323 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 ALLERGIES Substance Reaction Event Type Date Status Penicillin Unknown Drug Allergy Jan, Active SOCIAL HISTORY No smoking Hx information available PLAN OF CARE Activity Details Follow Up As needed Reason: VITAL SIGNS Weight 221.2 lbs 2017-02-19 Height 65 in 2017-02-19 Heart Rate 88 /min 2017-02-19 Oximetry 93 % 2017-02-19 BMI 36.81 kg/m2 2017-02-19 Blood pressure systolic 128 mm Hg 2017-02-19 Blood pressure diastolic 68 mm Hg 2017-02-19 MEDICATIONS Medication Instructions Dosage Frequency Start End Duration Status Date Date Allopurinol 300 Orally Once a 1 tablet 24h 90 days Active day Trazodone HCl 50 Orally Once a 1 tablet at 24h Active MG day bedtime as needed Klor-Con M10 10 Orally Twice a 1 tablet 12h 90 days Active day with food Gabapentin 300 Orally Three 1 capsule 8h 90 days Active times a day Warfarin Sodium Orally Once a 1 tablet 24h 90 DAYS Active 7.5 day Furosemide 40 mg Orally Once a 1 tablet 24h 90 days Active day Multivitamins as directed Active Venlafaxine HCl Orally Everyday 1 1/2 Active ER 75 MG in the morning TABLETS Coumadin 5 mg Orally Once a 1 tablet 24h Sep, day(s) Active day 2016 Sertraline HCl Orally Once a 1 tablet 24h Active 100 MG day Fentanyl 50 Transdermal 1 patch to Apr, Active MCG/HR every 72 hrs skin 2013 Calcium 1500 MG Orally Twice a 1 tablet 12h 30 day(s) Active day with food Seroquel 100 MG Orally Once a 1 tablet at 24h 90 days Active day bedtime Metoprolol Orally Twice a 1/2 tablet 12h Active Tartrate 25 MG day Fish Oil 1000 MG Orally Once a 1 capsule 24h 30 day(s) Active day Hydrocodone-Aceta Orally QID take one 6h 30 days Active minophen 7.5-325 tablet by MG mouth every 6 hours for 30 days RESULTS No Results PROCEDURES Procedure Date Ordered Related Diagnosis Body Site PROTIME Feb 19, 2017 OFFICE VISITEST PT Feb 19, 2017 IMMUNIZATIONS No Known Immunizations
--- OUTSIDE RECORDS SUMMARY | 2017-09-13 16:04 | External Medical Summary ---
[...] Status Dosage System Date Date Flaxseed Oil [facility] [address]-92 1000 MG Orally as directed Allopurinol [facility] 18476885246 300 TAKE ONE TABLET BY MOUTH DAILY Furosemide [facility] 26770925180 40MG TAKE ONE TABLET BY MOUTH TWICE DAILY Fish Oil [facility] [address]-43 1000 MG Orally 1 capsule Once a day Fentanyl [facility] [address]-23 50 MCG/HR Oct 29, 1 patch to Transdermal 2014 skin every 72 hrs Klor-Con M10 [facility] 51605574256 10 TAKE ONE TABLET BY MOUTH TWICE A DAY Warfarin Sodium [facility] 67462367579 7.5 TAKE ONE TABLET BY MOUTH DAILY Gabapentin [facility] 88347842074 300 TAKE ONE CAPSULE BY MOUTH THREE TIMES A DAY Sinemet [facility] [address]-74 25-100 MG January 09, 1 tablet Orally QHS 2015 Hydrocodone-Acet [facility] [address]-19 7.5-325 MG take one aminophen Orally QID tablet by mouth every 6 hours for 30 days Calcium [facility] [address] 1500 MG Orally 1 tablet Twice a day with food Seroquel [facility] 00092854522 50 TAKE ONE TABLET BY MOUTH DAILY Multivitamins [facility] [address]-92 Orally as directed Venlafaxine HCl [facility] [address]-91 75 mg Orally Jul 12, 3 capsule ER Once a day 2015 with food Metoprolol ND 0 50 MG Orally 1 tablet Succinate Once a day Procedures Procedure Coding System Code Date OFFICE VISITEST PT CPT-4 24582 January 10, 2016 Vital Signs Date/Time: January 10, 2016 Blood Pressure Systolic 90 mm Hg Height 65 in Weight 222.8 lbs BMI 37.07 Index Oximetry 89 % Cardiac Monitoring Heart Rate 95 /min Blood Pressure Diastolic 56 mm Hg Results No Known Results Summary Purpose [employer]ClinicalWorks Submission
--- OUTSIDE RECORDS SUMMARY | 2017-09-13 16:04 | External Medical Summary ---
[...] Procedure Coding System Code Date CBC CPT-4 75716 December 31, 2014 GLUCOSE CPT-4 80122 December 31, 2014 PROTIME CPT-4 43363 December 31, 2014 LIPID PROFILE CPT-4 73441 December 31, 2014 Results Name Result Date Reference Range Unit Abnormality Flag CBC Summary Purpose [employer] Submission
--- OUTSIDE RECORDS SUMMARY | 2017-09-13 16:04 | External Medical Summary ---
:1945 Author Organization [facility] Address [address] [place] [address] Care Team Providers Name Role Phone Afshin Macias Unavailable Unavailable PROBLEMS Type Condition ICD9-CM Code [id number] Onset Condition SNOMED Code Code Dates Status Problem Irritable bowel K58.0 Active 16898504 syndrome with constipation and diarrhea Problem Atrial fibrillation I48.91 Active 73691482 Problem Personal history of Z85.3 Active 896905433 malignant neoplasm of breast Problem Restless leg G25.81 Active 59255387 Problem Nocturnal hypoxia G47.34 Active 956977506 Problem Irritable bowel K58.9 Active 49476979 Problem Depression F32.9 Active 402723458 Problem Cerumen impaction H61.20 Active 27090836 Problem Actinic keratosis L57.0 Active 726913579 Problem Pain in joint, M25.569 Active 612097892 lower leg Problem 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 881768397 type II Problem Insomnia G47.00 Active 551643791 Problem Malignant neoplasm C18.9 Active 995815747 of colon Problem 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 473848418 goiter 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 Active 693218273 use of anticoagulant therapy Problem Contact dermatitis L25.9 Active 40104996 and other eczema, due to unspecified cause Problem 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 07469658 lumbar or lumbosacral intervertebral disc Problem Closed fracture of S92.919A Active 67138673 phalanx of foot Problem Personal history of Z86.73 Active 493698407 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
--- OUTSIDE RECORDS SUMMARY | 2017-09-13 16:04 | External Medical Summary ---
:1945 Author Organization [employer] Care Team Providers Name Role Phone Afshin Macias Provider Role Unavailable Allergies No Known Allergies Problems Problem Type Condition Code Onset Dates Condition Status Problem jail current use of Z79.01 Active [...] Medications Results No Known Results Summary Purpose [employer] Submission
--- OUTSIDE RECORDS SUMMARY | 2017-09-13 16:04 | External Medical Summary ---
:1945 Author Organization [facility] Address [address] [place] [address] Care Team Providers Name Role Phone Afshin Macias Unavailable Unavailable PROBLEMS Type Condition ICD9-CM Code [id number] Onset Condition SNOMED Code Code Dates Status Problem Irritable bowel K58.0 Active 29910170 syndrome with constipation and diarrhea Problem Atrial fibrillation I48.91 Active 76170613 Problem Personal history of Z85.3 Active 434625934 malignant neoplasm of breast Problem Restless leg G25.81 Active 03600622 Problem Nocturnal hypoxia G47.34 Active 161435848 Problem Irritable bowel K58.9 Active 76010894 Problem Depression F32.9 Active 61715884 Problem Cerumen impaction H61.20 Active 61167580 Problem Actinic keratosis L57.0 Active 165753 Problem Pain in joint, M25.569 Active 501136807 lower leg Problem 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 Problem Insomnia G47.00 Active 649526016 Problem Malignant neoplasm C18.9 Active 622679419 of colon Problem 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 164595211 goiter Problem [facility] 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 Active 183227916 use of anticoagulant therapy Problem Contact dermatitis L25.9 Active 33249247 and other eczema, due to unspecified cause Problem 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 29557631 lumbar or lumbosacral intervertebral disc Problem Closed fracture of S92.919A Active 28076030 phalanx of foot Problem Personal history of Z86.73 Active 530528229 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 ALLERGIES No Information SOCIAL HISTORY Never Assessed PLAN OF CARE VITAL SIGNS MEDICATIONS Medication Instructions Dosage Frequency Start End Date Duration Status Date Gabapentin 300 Orally Three 1 capsule 8h 14 days Active times a day Warfarin Sodium Orally Once a day 1 tablet 24h 30 days Active 6 MG RESULTS No Results PROCEDURES No Known procedures [...] lumbar or lumbosacral intervertebral disc Medical History rn long term care current use of anticoagulant therapy Medical History Nontoxic uninodular goiter Medical History Contact dermatitis and other eczema, due to unspecified cause Medical History Malignant neoplasm of colon Medical History Insomnia Medical History Hyperglycemia Surgical History Tubal Ligation 1969 Surgical History Lumbar Spine Surgery in [place] 1981 Surgical History Cholecystectomy- Dr. Mcmahan 1984 Surgical History cardiac pacemaker in [place] 1991 Surgical History Negative Myoview Perfusion Imaging [...] 07/2014 Surgical History Multiple LESIs- Dr. Kaur [phone] Hospitalization History with above surgeries Hospitalization History [facility]- [facility] 2005
--- OUTSIDE RECORDS SUMMARY | 2017-09-13 16:04 | External Medical Summary ---
:1945 Author Organization [employer] Care Team Providers Name Role Phone Afshin Macias Provider Role Unavailable Allergies No Known Allergies Problems Problem Type Condition Code Onset Dates Condition Status Problem group home current use of Z79.01 [...] Medications Results No Known Results Summary Purpose [employer] Submission
--- OUTSIDE RECORDS SUMMARY | 2017-09-13 16:05 | External Medical Summary ---
[...] End Status Dosage System Date Date Calcium [facility] [address] 1500 MG Orally 1 tablet Twice a day with food Maryam Contour NDC 0 USE Type 2 DM Mar 09, test blood diet controlled 2013 sugar daily Gabapentin [facility] 77961799140 300MG Orally take one TID capsule by mouth twice daily for 30 days Seroquel [facility] [address]-63 25 MG Orally 1 tablet Twice a day Warfarin Sodium [facility] 24517884100 7.5MG TAKE ONE TABLET BY MOUTH EVERY DAY Fentanyl [facility] [address]-90 50 MCG/HR Apr 29 patch to Transdermal 2013 skin every 72 hrs Furosemide [facility] 60452671340 40MG TAKE ONE TABLET BY MOUTH TWICE DAILY Multivitamins [facility] [address] Orally as directed Coumadin [facility] [address]-65 5 TAKE ONE TABLET BY MOUTH EVERY DAY Imodium A-D [facility] [address]-16 2 MG Orally 8 1 tablet time(s) a day Venlafaxine HCl [facility] [address]-74 150mg QD 1 Klor-Con M10 [facility] 13811467049 10MEQ TAKE ONE TABLET BY MOUTH TWICE DAILY Allopurinol [facility] 93000349374 300MG TAKE ONE TABLET BY MOUTH EVERY DAY Hydrocodone-Acet [facility] [address]-68 7.5-325 MG take one aminophen Orally QID tablet by mouth every 6 hours for 30 days Flaxseed Oil [facility] [address]-40 1000 MG Orally as directed Metoprolol ND 0 50 MG Orally 1 tablet Succinate Once a day Maryam Contour NDC 0 USE Type 2 DM Mar 09, test blood Test diet controlled 2013 sugar daily Fish Oil [facility] [address]-39 1000 MG Orally 1 capsule Once a day Procedures Procedure Coding System Code Date PROTIME CPT-4 51427 Feb 24, 2015 OFFICE VISITEST PT CPT-4 02187 Feb 24, 2015 Vital Signs Date/Time: Feb 24, 2015 Blood Pressure Systolic 135 mm Hg Height 65 in Weight 218.2 lbs BMI 36.31 Index Oximetry 95 % Cardiac Monitoring Heart Rate 86 /min Blood Pressure Diastolic 83 mm Hg Results No Known Results Summary Purpose [employer]Works Submission
--- OUTSIDE RECORDS SUMMARY | 2017-09-13 16:05 | External Medical Summary ---
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
--- OUTSIDE RECORDS SUMMARY | 2017-09-13 16:05 | External Medical Summary ---
[...] Procedure Coding System Code Date PROTIME CPT-4 91940 December 18, 2014 Results No Known Results Summary Purpose [employer] Submission
--- OUTSIDE RECORDS SUMMARY | 2017-09-13 16:05 | External Medical Summary ---
[...] End Status Dosage System Date Date Furosemide [facility] 83474491444 40MG TAKE ONE TABLET BY MOUTH TWICE DAILY Metoprolol ND 0 50 MG Orally 1 tablet Succinate Once a day Warfarin Sodium [facility] 31001758294 7.5MG TAKE ONE TABLET BY MOUTH EVERY DAY Seroquel [facility] [address]-69 25 MG Orally 1 tablet Twice a day Gabapentin [facility] 17494791786 300MG Orally take one TID capsule by mouth twice daily for 30 days Klor-Con M10 [facility] 86702360571 10MEQ TAKE ONE TABLET BY MOUTH TWICE DAILY Multivitamins [facility] [address] Orally as directed Fentanyl [facility] [address]-56 50 MCG/HR Apr 29 patch to Transdermal 2013 skin every 72 hrs Venlafaxine HCl [facility] [address]-52 150mg QD 1 Hydrocodone-Acet [facility] [address]-57 7.5-325 MG take one aminophen Orally QID tablet by mouth every 6 hours for 30 days Imodium A-D [facility] [address]-98 2 MG Orally 8 1 tablet time(s) a day Flaxseed Oil [facility] [address]-77 1000 MG Orally as directed Calcium [facility] [address] 1500 MG Orally 1 tablet Twice a day with food Allopurinol [facility] 61756423740 300MG TAKE ONE TABLET BY MOUTH EVERY DAY Fish Oil [facility] [address]-74 1000 MG Orally 1 capsule Once a day Procedures Procedure Coding System Code Date OFFICE VISITEST PT CPT-4 16489 Mar 29, 2015 PROTIME CPT-4 69757 Mar 29, 2015 Vital Signs Date/Time: Mar 29, 2015 Blood Pressure Systolic 106 mm Hg Height 65 in Weight 218.2 lbs BMI 36.31 Index Blood Pressure Diastolic 62 mm Hg Results Name Result Date Reference Range Unit Abnormality Flag PROTIME Summary Purpose [employer]ClinicalWorks Submission
--- OUTSIDE RECORDS SUMMARY | 2017-09-13 16:05 | External Medical Summary ---
[...] 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 II 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 Problem halfway current use of Z79.01 Active anticoagulant therapy Problem Contact dermatitis and other L25.9 Active eczema, due to unspecified cause Problem 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 Medications No Known Medications Results No Known Results Summary Purpose [employer]ClinicalWorks Submission
--- OUTSIDE RECORDS SUMMARY | 2017-09-13 16:05 | External Medical Summary ---
:1945 Author Organization [employer] Care Team Providers Name Role Phone El PortalAfshin gaytan Provider Role Unavailable Allergies No Known [...] Procedure Coding System Code Date PROTIME CPT-4 47455 Aug 12, 2014 Results No Known Results Summary Purpose [employer] Submission
--- OUTSIDE RECORDS SUMMARY | 2017-09-13 16:05 | External Medical Summary ---
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
--- OUTSIDE RECORDS SUMMARY | 2017-09-13 16:05 | External Medical Summary ---
[...] 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 II 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 Problem longterm current use of Z79.01 Active anticoagulant therapy Problem Contact dermatitis and other L25.9 Active eczema, due to unspecified cause Problem 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 Medications Medication Code Code Instructions Start End Status Dosage System Date Date Tobrex [facility] [address]-27 0.3 % Mar 14, drop Ophthalmic 2016 into every 4 hrs affected eye Allopurinol [facility] 42343556033 300 TAKE ONE TABLET BY MOUTH DAILY Fentanyl [facility] [address]-71 50 MCG/HR Apr 29, patch to Transdermal 2014 skin every 72 hrs Multivitamins [facility] [address]-02 Orally as directed Calcium [facility] 397[address] 1500 MG Orally 1 tablet Twice a day with food Gabapentin [facility] 36592049888 300 TAKE ONE CAPSULE BY MOUTH THREE TIMES A DAY Hydrocodone-Acet [facility] [address]-56 7.5-325 MG take one aminophen Orally QID tablet by mouth every 6 hours for 30 days Fish Oil [facility] [address]-24 1000 MG Orally 1 capsule Once a day Furosemide ND 64779117493 40MG TAKE ONE TABLET BY MOUTH TWICE DAILY Venlafaxine HCl [facility] 18309938739 75 TAKE THREE ER CAPSULES BY MOUTH DAILY WITH FOOD Flaxseed Oil [facility] [address]-45 1000 MG Orally as directed Metoprolol ND 0 50 MG Orally 1 tablet Succinate Once a day Klor-Con M10 [facility] 53647989385 10 TAKE ONE TABLET BY MOUTH TWICE A DAY Warfarin Sodium [facility] 20356578128 7.5 TAKE ONE TABLET BY MOUTH DAILY Seroquel [facility] [address]-48 100 MG Orally 1 tablet Once a day at bedtime Procedures Procedure Coding System Code Date OFFICE VISITEST PT CPT-4 04577 May 02, 2016 PROTIME CPT-4 78076 May 02, 2016 Vital Signs Date/Time: May 02, 2016 Blood Pressure Systolic 120 mm Hg Height 65 in Weight 230 lbs BMI 38.27 Index Blood Pressure Diastolic 65 mm Hg Results Name Result Date Reference Range Unit Abnormality Flag PROTIME ----PT 22.2 [id number] 11.4-13.8 SEC H ----INR 2.8 [id number] 2.0-3.5 Summary Purpose [employer]ClinicalWorks Submission
--- OUTSIDE RECORDS SUMMARY | 2017-09-13 16:05 | External Medical Summary ---
:1945 Author Organization [facility] Care Team Providers Name Role Phone Afshin [...] Medications Results No Known Results Summary Purpose [facility] [facility] Submission
--- OUTSIDE RECORDS SUMMARY | 2017-09-13 16:05 | External Medical Summary ---
[...] Start Date End Date Status Dosage Fentanyl [facility] [address] MCG/HR Apr 29, Active 1 patch to 1-45 Transdermal every 2013 skin 72 hrs Results No Known Results Summary Purpose [employer] Submission
--- OUTSIDE RECORDS SUMMARY | 2017-09-13 16:05 | External Medical Summary ---
[...] Medications Results No Known Results Summary Purpose [employer] Submission
--- OUTSIDE RECORDS SUMMARY | 2017-09-13 16:05 | External Medical Summary ---
[...] Medications Results No Known Results Summary Purpose [email or web address] Submission
--- OUTSIDE RECORDS SUMMARY | 2017-09-13 16:05 | External Medical Summary ---
:1945 Author Organization [facility] Address [address] [place] [address] Care Team Providers Name Role Phone Afshin Macias Unavailable Unavailable PROBLEMS ALLERGIES No Information SOCIAL HISTORY No smoking Hx information available PLAN OF CARE VITAL SIGNS MEDICATIONS Unknown Medications RESULTS No Results PROCEDURES No Known procedures IMMUNIZATIONS No Known Immunizations MEDICAL (GENERAL) HISTORY
--- OUTSIDE RECORDS SUMMARY | 2017-09-13 16:05 | External Medical Summary ---
:1945 Author Organization [facility] Address [address] [place] [address] Care Team Providers Name Role Phone Afshin Macias Unavailable Unavailable PROBLEMS Type Condition ICD9-CM Code [id number] Onset Condition SNOMED Code Code Dates Status Problem Irritable bowel K58.0 Active 78296008 syndrome with constipation and diarrhea Problem Atrial fibrillation I48.91 Active 58102746 Problem Personal history of Z85.3 Active 897573860 malignant neoplasm of breast Problem Restless leg G25.81 Active 65370098 Problem Nocturnal hypoxia G47.34 Active 484877567 Problem Irritable bowel K58.9 Active 87802653 Problem Depression F32.9 Active 685192560 Problem Cerumen impaction H61.20 Active 91388210 Problem Actinic keratosis L57.0 Active 839102082 Problem Pain in joint, M25.569 Active 759381148 lower leg Problem 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 719862457 type II Problem Insomnia G47.00 Active 980014719 Problem Malignant neoplasm C18.9 Active 163334877 of colon Problem 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 491975162 goiter 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 121749153 use of anticoagulant therapy Problem Contact dermatitis L25.9 Active 20934379 and other eczema, due to unspecified cause Problem 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 17805114 lumbar or lumbosacral intervertebral disc Problem Closed fracture of S92.919A Active 65871134 phalanx of foot Problem Personal history of Z86.73 Active 278145211 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 ALLERGIES Substance Reaction Event Type Date Status Penicillin Unknown Drug Allergy Dec, Active SOCIAL HISTORY No smoking Hx information available PLAN OF CARE Activity Details Follow Up As needed Reason: VITAL SIGNS Weight 220.6 lbs 2017 Height 65 in 2017 Heart Rate 87 /min 2017 Oximetry 97 % 2017 BMI 36.71 kg/m2 2017 Blood pressure systolic 126 mm Hg 2017 Blood pressure diastolic 78 mm Hg 2017 MEDICATIONS Medication Instructions Dosage Frequency Start End Duration Status Date Date Fish Oil 1000 MG Orally Once a 1 capsule 24h 30 day(s) Active day Furosemide 40 MG Orally Twice a 1 tablet 12h 90 days Active day Klor-Con M10 10 Orally Twice a 1 tablet 12h 90 days Active day with food Calcium 1500 MG Orally Twice a 1 tablet 12h 30 day(s) Active day with food Allopurinol 300 Orally Once a 1 tablet 24h 90 days Active day Sertraline HCl Orally Once a 1 tablet 24h Active 100 MG day Warfarin Sodium Orally Once a 1 tablet 24h 90 DAYS Active 7.5 day Gabapentin 300 Orally Three 1 capsule 8h 90 days Active times a day Venlafaxine HCl Orally Everyday 1 1/2 Active ER 75 MG in the morning TABLETS Seroquel 100 MG Orally Once a 1 tablet at 24h 90 days Active day bedtime Metoprolol Orally Twice a 1/2 - 1 12h Active Tartrate 50 MG day TABLET Hydrocodone-Aceta Orally QID take one 6h 30 days Active minophen 7.5-325 tablet by MG mouth every 6 hours for 30 days Multivitamins as directed Active Trazodone HCl 50 Orally Once a 1 tablet at 24h Active MG day bedtime as needed Fentanyl 50 Transdermal 1 patch to Apr, Active MCG/HR every 72 hrs skin 2013 Coumadin 5 mg Orally Once a 1 tablet 24h Sep, day(s) Active day 2016 RESULTS No Results PROCEDURES Procedure Date Ordered Related Diagnosis Body Site PROTIME 2017 OFFICE VISITEST PT 2017 IMMUNIZATIONS No Known Immunizations
--- OUTSIDE RECORDS SUMMARY | 2017-09-13 16:05 | External Medical Summary ---
:1945 Author Organization [employer] Care Team Providers Name Role Phone [place] Provider Role Unavailable Allergies No Known [...] Start End Date Status Dosage Date Hydrocodone-Ron [facility] 78593-946 7.5-325 MG take one taminophen 4-01 Orally QID tablet by mouth every 6 hours for 30 days Results No Known Results Summary Purpose [employer]ClinicalWorks Submission
--- OUTSIDE RECORDS SUMMARY | 2017-09-13 16:05 | External Medical Summary ---
:1945 Author Organization [employer] Care Team Providers Name Role Phone Afshin [...] Procedure Coding System Code Date PROTIME CPT-4 81146 December 18, 2014 Results Name Result Date Reference Range Unit Abnormality Flag PROTIME ----PT 16.5 [id number] 11.6-13.2 SEC H ----INR 1.7 [id number] 2.0-3.5 L Summary Purpose [employer] Submission
--- OUTSIDE RECORDS SUMMARY | 2017-09-13 16:05 | External Medical Summary ---
[...] Medications Results No Known Results Summary Purpose [employer] Submission
--- OUTSIDE RECORDS SUMMARY | 2017-09-13 16:05 | External Medical Summary ---
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
--- OUTSIDE RECORDS SUMMARY | 2017-09-13 16:05 | External Medical Summary ---
[...] Start End Date Status Dosage Date Hydrocodone-Ron [facility] 69122424660 10-325 Active TAKE ONE taminophen TABLET BY MOUTH EVERY 6 HOURS FOR 30 DAYS Results No Known Results Summary Purpose [employer]Works Submission
--- OUTSIDE RECORDS SUMMARY | 2017-09-13 16:06 | External Medical Summary ---
[...] Dosage System Date Date Klor-Con M10 [facility] 66494168160 10MEQ TAKE ONE TABLET BY MOUTH TWICE DAILY Hydrocodone-Acet [facility] [address]-64 7.5-325 MG take one aminophen Orally QID tablet by mouth every 6 hours for 30 days Fish Oil [facility] [address]-45 1000 MG Orally 1 capsule Once a day Allopurinol [facility] 24911819282 300MG TAKE ONE TABLET BY MOUTH EVERY DAY Imodium A-D [facility] [address]-07 2 MG Orally 8 1 tablet time(s) a day Venlafaxine HCl [facility] [address]-64 75 MG Orally QD 3 capules Flaxseed Oil [facility] [address]-76 1000 MG Orally as directed Metoprolol [facility] 0 50 MG Orally 1 tablet Succinate Once a day Furosemide [facility] 52409898013 40MG TAKE ONE TABLET BY MOUTH TWICE DAILY Lomotil [facility] [address]-46 2.5-0.025 MG Apr 12, 1 tablet Orally Four 2015 as needed times a day Calcium [facility] [address]62 1500 MG Orally 1 tablet Twice a day with food Multivitamins [facility] 6[address]3622 Orally as directed Gabapentin [facility] 94955583295 300MG Orally take one TID capsule by mouth twice daily for 30 days Warfarin Sodium [facility] 11891227084 7.5MG TAKE ONE TABLET BY MOUTH EVERY DAY Fentanyl [facility] [address]-29 50 MCG/HR Apr 29, 1 patch to Transdermal 2014 skin every 72 hrs Procedures Procedure Coding System Code Date OFFICE VISITEST PT CPT-4 40685 Apr 12, 2015 Vital Signs Date/Time: Apr 12, 2015 Blood Pressure Systolic 110 mm Hg Height 65 in Weight 217.6 lbs BMI 36.21 Index Blood Pressure Diastolic 66 mm Hg Results No Known Results Summary Purpose [employer]ClinicalWorks Submission
--- OUTSIDE RECORDS SUMMARY | 2017-09-13 16:06 | External Medical Summary ---
[...] Medications Results No Known Results Summary Purpose [employer] Submission
--- OUTSIDE RECORDS SUMMARY | 2017-09-13 16:06 | External Medical Summary ---
:1945 Author Organization [employer] Care Team Providers Name Role Phone Afshin [...] Procedure Coding System Code Date TSH CPT-4 04358 May 18, 2014 PROTIME CPT-4 85100 May 18, 2014 FREE T4 CPT-4 59590 May 18, 2014 Results Name Result Date Reference Range Unit FREE T4 ----Free T4 1.14 [id number] -0.93-1.70 ng/dL PROTIME TSH ----TSH 3.24 [id number] -0.40-5.00 IU/ML Summary Purpose [employer] Submission
--- OUTSIDE RECORDS SUMMARY | 2017-09-13 16:06 | External Medical Summary ---
[...] Status Dosage System Date Date Venlafaxine HCl [facility] [address]-05 150mg QD 1 Imodium A-D [facility] [address]-86 2 MG Orally 8 1 tablet time(s) a day Allopurinol [facility] 58791102602 300MG TAKE ONE TABLET BY MOUTH EVERY DAY Fentanyl [facility] [address]-51 50 MCG/HR Apr 29, patch to Transdermal 2013 skin every 72 hrs Maryam Contour ND 0 USE Type 2 DM Mar 09, test blood Test diet controlled 2013 sugar daily Fish Oil [facility] [address]-21 1000 MG Orally 1 capsule Once a day Klor-Con M10 [facility] 45423852065 10MEQ TAKE ONE TABLET BY MOUTH TWICE DAILY Warfarin Sodium [facility] 84719863909 5MG TAKE ONE TABLET BY MOUTH EVERY DAY Hydrocodone-Acet [facility] 02361725389 7.5-500MG TAKE ONE aminophen TABLET BY MOUTH EVERY 6 HOURS FOR 30 DAYS Furosemide NDC 92977880310 40MG TAKE ONE TABLET BY MOUTH TWICE DAILY Calcium [facility] 59909-96[address] 1500 MG Orally 1 tablet Twice a day with food Maryam Contour NDC 0 USE Type 2 DM Mar 09 blood diet controlled 2013 sugar daily Flaxseed Oil [facility] [address]-37 1000 MG Orally as directed Gabapentin [facility] 83650763603 300MG TAKE ONE CAPSULE BY MOUTH TWICE DAILY FOR 30 DAYS Metoprolol ND 0 50 MG Orally 1 tablet Succinate Once a day Seroquel [facility] [address]-80 25 MG Orally 1 tablet Twice a day Multivitamins [facility] 63[address]-16064 Orally as directed Procedures Procedure Coding System Code Date RIB UNILAT 2 VIEW CPT-4 54365 November 03, 2014 OFFICE VISITEST PT CPT-4 60371 November 03, 2014 CHEST XRAY 2 VIEW CPT-4 65324 November 03, 2014 Vital Signs Date/Time: November 03, 2014 Blood Pressure Systolic 110 mm Hg Height 65 in Weight 229.2 lbs BMI 38.14 Index Blood Pressure Diastolic 68 mm Hg Results No Known Results Summary Purpose [employer]ClinicalWorks Submission
--- OUTSIDE RECORDS SUMMARY | 2017-09-13 16:06 | External Medical Summary ---
[...] End Status Dosage System Date Date Seroquel [facility] [address]-23 25 MG Orally 1 tablet Twice a day Calcium [facility] 35[address]28 1500 MG Orally 1 tablet Twice a day with food Warfarin Sodium [facility] 27877901602 7.5MG TAKE ONE TABLET BY MOUTH EVERY DAY Multivitamins [facility] [address] Orally as directed Allopurinol [facility] 65839268225 300MG TAKE ONE TABLET BY MOUTH EVERY DAY Metoprolol ND 0 50 MG Orally 1 tablet Succinate Once a day Gabapentin [facility] 73985906244 300MG TAKE ONE CAPSULE BY MOUTH TWICE DAILY FOR 30 DAYS Furosemide [facility] 45590351165 40MG TAKE ONE TABLET BY MOUTH TWICE DAILY Flaxseed Oil [facility] [address]-96 1000 MG Orally as directed Klor-Con M10 [facility] 96960208953 10MEQ TAKE ONE TABLET BY MOUTH TWICE DAILY Maryam Contour NDC 0 USE Type 2 DM Mar 09, test blood diet controlled 2013 sugar daily Maryam Contour NDC 0 USE Type 2 DM Mar 09, test blood Test diet controlled 2013 sugar daily Fish Oil [facility] [address]-20 1000 MG Orally 1 capsule Once a day Hydrocodone-Acet [facility] 76073914703 7.5-500MG take one aminophen Orally QID tablet by mouth every 6 hours for 30 days Venlafaxine HCl [facility] [address]-77 150mg QD 1 Imodium A-D [facility] [address]-68 2 MG Orally 8 1 tablet time(s) a day Fentanyl [facility] [address]-75 50 MCG/HR Apr 29, patch to Transdermal 2014 skin every 72 hrs Procedures Procedure Coding System Code Date OFFICE VISITEST PT CPT-4 99413 Feb 01, 2015 Vital Signs Date/Time: Feb 01, 2015 Blood Pressure Systolic 110 mm Hg Height 65 in Weight 220.2 lbs BMI 36.64 Index Blood Pressure Diastolic 62 mm Hg Results No Known Results Summary Purpose [employer]ClinicalWorks Submission
--- OUTSIDE RECORDS SUMMARY | 2017-09-13 16:06 | External Medical Summary ---
:1945 Author Organization [employer] Care Team Providers Name Role Phone Afshin [...] Medications Results No Known Results Summary Purpose [employer] Submission
--- OUTSIDE RECORDS SUMMARY | 2017-09-13 16:06 | External Medical Summary ---
[...] Medications Results No Known Results Summary Purpose [employer] Submission
--- OUTSIDE RECORDS SUMMARY | 2017-09-13 16:06 | External Medical Summary ---
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 anticoagulant therapy [...] End Status Dosage System Date Date Hydrocodone-Acet [facility] [address]-90 7.5-325 MG take one aminophen Orally QID tablet by mouth every 6 hours for 30 [place] [address]-80 1000 MG Orally 1 capsule [place] [address]-17 75 mg Orally Jul 12, 3 capsule ER Once a day 2015 [place] [address] Orally as directed Fentanyl [facility] [address]-26 50 MCG/HR Apr 29, 1 patch to Transdermal 2014 skin [place] [address] 1500 MG Orally 1 tablet Twice a day with food Flaxseed Oil [facility] [address]-61 1000 MG Orally as directed Allopurinol ND 91251073731 300 TAKE ONE TABLET BY MOUTH DAILY Warfarin Sodium [facility] 43692953232 7.5MG TAKE ONE TABLET BY MOUTH EVERY DAY Klor-Con M10 [facility] 89780322545 10 TAKE ONE TABLET BY MOUTH TWICE A DAY Metoprolol ND 0 50 MG Orally 1 tablet Succinate Once a day Gabapentin [facility] 18669519991 300 TAKE ONE CAPSULE BY MOUTH THREE TIMES A DAY Seroquel [facility] [address]-93 50 MG Orally Aug 02, 1 tablet Once a day 2015 Furosemide [facility] 35961433241 40MG TAKE ONE TABLET BY MOUTH TWICE [...]
--- OUTSIDE RECORDS SUMMARY | 2017-09-13 16:06 | External Medical Summary ---
:1945 Author Organization [facility] Address [address] [place] [address] Care Team Providers Name Role Phone Afshin Macias Unavailable Unavailable PROBLEMS Type Condition ICD9-CM Code [id number] Onset Condition SNOMED Code Code Dates Status Problem Personal history of Z85.3 Active 789434881 malignant neoplasm of breast Problem Depression F32.9 Active 35926577 Problem Atrial fibrillation I48.91 Active 83229481 Problem Hyperlipidemia, E78.5 Active 17767680 unspecified hyperlipidemia type Problem Insomnia G47.00 Active 563525397 Problem Restless leg G25.81 Active 42495688 Problem Actinic keratosis L57.0 Active 731774 Problem Irritable bowel K58.9 Active 26303815 Problem Nocturnal hypoxia G47.34 Active 862968819 Problem Cerumen impaction H61.20 Active 86645060 Problem 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 Problem Contact dermatitis L25.9 Active 90201973 and other eczema, due to unspecified cause Problem Malignant neoplasm C18.9 Active 877437042 of colon Problem Pain in joint, M25.569 Active 439564252 lower leg Problem FDC 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 Active 764386795 use of anticoagulant therapy Problem 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 30052840 lumbar or lumbosacral intervertebral disc Problem Closed fracture of S92.919A Active 28425888 phalanx of foot Problem Personal history of Z86.73 Active 085526903 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 Kaur [id number] Hospitalization History with above surgeries Hospitalization History [facility]- CVA 2005
--- OUTSIDE RECORDS SUMMARY | 2017-09-13 16:06 | External Medical Summary ---
[...] Medications Results No Known Results Summary Purpose [employer] Submission
--- OUTSIDE RECORDS SUMMARY | 2017-09-13 16:06 | External Medical Summary ---
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 anticoagulant therapy [...] End Status Dosage System Date Date Fentanyl [facility] [address]-86 50 MCG/HR Apr 29 patch to Transdermal 2014 skin every 72 hrs Multivitamins [facility] [address]-26 Orally as directed Gabapentin [facility] 41487695160 300 TAKE ONE CAPSULE BY MOUTH THREE TIMES A DAY Flaxseed Oil [facility] [address]-93 1000 MG Orally as directed Hydrocodone-Acet [facility] [address]-03 7.5-325 MG take one aminophen Orally QID tablet by mouth every 6 hours for 30 days Metoprolol NDC 0 50 MG Orally 1 tablet Succinate Once a day Fish Oil [facility] [address]-01 1000 MG Orally 1 capsule Once a day Allopurinol [facility] 75835887629 300 TAKE ONE TABLET BY MOUTH DAILY Klor-Con M10 [facility] 83650678298 10 TAKE ONE TABLET BY MOUTH TWICE A DAY Furosemide [facility] 40760170127 40MG TAKE ONE TABLET BY MOUTH TWICE DAILY Calcium [facility] 209[address] 1500 MG Orally 1 tablet Twice a day with food Warfarin Sodium [facility] 50657978170 7.5 TAKE ONE TABLET BY MOUTH DAILY Venlafaxine HCl [facility] 85174942803 75 TAKE THREE ER CAPSULES BY MOUTH DAILY WITH FOOD Seroquel [facility] 56825852162 50 TAKE ONE TABLET BY MOUTH DAILY Procedures Procedure Coding System Code Date OFFICE VISITEST PT CPT-4 31925 Feb 14, 2016 PROTIME CPT-4 85028 Feb 14, 2016 Vital Signs Date/Time: Feb 14, 2016 Blood Pressure Systolic 112 mm Hg Height 65 in Weight 230.4 lbs BMI 38.34 Index Blood Pressure Diastolic 64 mm Hg Results Name Result Date Reference Range Unit Abnormality Flag PROTIME ----PT 23.7 [id number] 11.4-13.8 SEC H ----INR 3.2 [id number] 2.0-3.5 Summary Purpose [employer]ClinicalWorks Submission
--- OUTSIDE RECORDS SUMMARY | 2017-09-13 16:06 | External Medical Summary ---
:1945 Author Organization [facility] Address [address] [place] [address] Care Team Providers Name Role Phone Afshin Macias Unavailable Unavailable PROBLEMS ALLERGIES SOCIAL HISTORY No smoking Hx information available PLAN OF CARE VITAL SIGNS MEDICATIONS RESULTS PROCEDURES IMMUNIZATIONS No Known Immunizations MEDICAL (GENERAL) HISTORY
--- OUTSIDE RECORDS SUMMARY | 2017-09-13 16:06 | External Medical Summary ---
:1945 Author Organization [facility] Address [address] [place] [address] Care Team Providers Name Role Phone Afshin Macias Unavailable Unavailable PROBLEMS Type Condition ICD9-CM Code [id number] Onset Condition SNOMED Code Code Dates Status Problem Irritable bowel K58.0 Active 24416940 syndrome with constipation and diarrhea Problem Atrial fibrillation I48.91 Active 68165750 Problem Personal history of Z85.3 Active 451755994 malignant neoplasm of breast Problem Restless leg G25.81 Active 48015095 Problem Nocturnal hypoxia G47.34 Active 008961414 Problem Irritable bowel K58.9 Active 15730771 Problem Depression F32.9 Active 696968486 Problem Cerumen impaction H61.20 Active 10535317 Problem Actinic keratosis L57.0 Active 799358998 Problem Pain in joint, M25.569 Active 879786039 lower leg Problem 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 140751055 type II Problem Insomnia G47.00 Active 244349526 Problem Malignant neoplasm C18.9 Active 483868671 of colon Problem 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 070733687 goiter Problem 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 317803253 use of anticoagulant therapy Problem Contact dermatitis L25.9 Active 71135311 and other eczema, due to unspecified cause Problem 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
--- OUTSIDE RECORDS SUMMARY | 2017-09-13 16:06 | External Medical Summary ---
[...] Start Date End Date Status Dosage Fentanyl [facility] 210[address]-693 50 MCG/HR Apr 29, patch to 1-45 Transdermal every 2013 skin 72 hrs Results No Known Results Summary Purpose [employer]ClinicalWorks Submission
--- OUTSIDE RECORDS SUMMARY | 2017-09-13 16:07 | External Medical Summary ---
[...] Status Dosage System Date Date Warfarin Sodium [facility] 40152694883 7.5MG TAKE ONE TABLET BY MOUTH EVERY DAY Gabapentin [facility] 97737593149 300MG TAKE ONE CAPSULE BY MOUTH TWICE DAILY FOR 30 DAYS Fentanyl [facility] [address]-18 50 MCG/HR Apr 29 patch to Transdermal 2014 skin every 72 hrs Seroquel [facility] [address]-86 25 MG Orally 1 tablet Twice a day Hydrocodone-Acet [facility] 58319381635 7.5-500MG TAKE ONE aminophen TABLET BY MOUTH EVERY 6 HOURS FOR 30 DAYS Furosemide [facility] 13446145501 40MG TAKE ONE TABLET BY MOUTH TWICE DAILY Flaxseed Oil [facility] [address]-70 1000 MG Orally as directed Multivitamins [facility] [address]-90[address] Orally as directed Venlafaxine HCl [facility] [address]-59 150mg QD 1 Imodium A-D NDC [address]-14 2 MG Orally 8 1 tablet time(s) a day Allopurinol [facility] 14940141419 300MG TAKE ONE TABLET BY MOUTH EVERY DAY Klor-Con M10 [facility] 33233584434 10MEQ TAKE ONE TABLET BY MOUTH TWICE DAILY Metoprolol NDC 0 50 MG Orally 1 tablet Succinate Once a day Fish Oil [facility] [address]-91 1000 MG Orally 1 capsule Once a day Maryam Contour NDC 0 USE Type 2 DM Mar 09, test blood diet controlled 2013 sugar daily Maryam Contour NDC 0 USE Type 2 DM Mar 09, test blood Test diet controlled 2013 sugar daily Calcium [facility] [address]66 1500 MG Orally 1 tablet Twice a day with food Procedures Procedure Coding System Code Date OFFICE VISITEST PT CPT-4 80842 January 05, 2015 Vital Signs Date/Time: January 05, 2015 Blood Pressure Diastolic 62 mm Hg Blood Pressure Systolic 122 mm Hg Height 65 in Cardiac Monitoring Heart Rate 72 /min Temperature 98.6 F Results No Known Results Summary Purpose [employer]Works Submission
--- OUTSIDE RECORDS SUMMARY | 2017-09-13 16:07 | External Medical Summary ---
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
--- OUTSIDE RECORDS SUMMARY | 2017-09-13 16:07 | External Medical Summary ---
:1945 Author Organization [facility] Address [address] [place] [address] Care Team Providers Name Role Phone Afshin Macias Unavailable Unavailable PROBLEMS Type Condition ICD9-CM Code [id number] Onset Condition SNOMED Code Code Dates Status Problem Irritable bowel K58.0 Active 00213015 syndrome with constipation and diarrhea Problem Atrial fibrillation I48.91 Active 31588848 Problem Personal history of Z85.3 Active 210405799 malignant neoplasm of breast Problem Restless leg G25.81 Active 28107295 Problem Nocturnal hypoxia G47.34 Active 964631330 Problem Irritable bowel K58.9 Active 36860876 Problem Depression F32.9 Active 268085766 Problem Cerumen impaction H61.20 Active 31284386 Problem Actinic keratosis L57.0 Active 161918031 Problem Pain in joint, M25.569 Active 842403877 lower leg Problem 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 164934388 type II Problem Insomnia G47.00 Active 867470377 Problem Malignant neoplasm C18.9 Active 572825589 of colon Problem 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 616617807 goiter Problem manager intermediate 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 Active 990871745 use of anticoagulant therapy Problem Contact dermatitis L25.9 Active 94141227 and other eczema, due to unspecified cause Problem 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 48535444 lumbar or lumbosacral intervertebral disc Problem Closed fracture of S92.919A Active 18329267 phalanx of foot Problem Personal history of Z86.73 Active 393319706 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
--- OUTSIDE RECORDS SUMMARY | 2017-09-13 16:07 | External Medical Summary ---
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
--- OUTSIDE RECORDS SUMMARY | 2017-09-13 16:07 | External Medical Summary ---
:[address] [facility] Address [address] [place] [address] Care Team Providers Name Role Phone Afshin Macias Unavailable Unavailable PROBLEMS Type Condition ICD9-CM Code [id number] Onset Condition SNOMED Code Code Dates Status Problem Personal history of Z85.3 Active 890450733 malignant neoplasm of breast Problem Depression F32.9 Active 75565046 Problem Atrial fibrillation I48.91 Active 87470800 Problem Hyperlipidemia, E78.5 Active 89316150 unspecified hyperlipidemia type Problem Insomnia G47.00 Active 367677065 Problem Restless leg G25.81 Active 53595794 Problem Actinic keratosis L57.0 Active 371116 Problem Irritable bowel K58.9 Active 78382242 Problem Nocturnal hypoxia G47.34 Active 089313060 Problem Cerumen impaction H61.20 Active 58132904 Problem 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 713249530 type II Problem Contact dermatitis L25.9 Active 19120673 and other eczema, due to unspecified cause Problem Malignant neoplasm C18.9 Active 206664654 of colon Problem Pain in joint, M25.569 Active 198725383 lower leg Problem 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 883307477 use of anticoagulant therapy Problem 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 47374789 lumbar or lumbosacral intervertebral disc Problem Closed fracture of S92.919A Active 94811384 phalanx of foot Problem Personal history of Z86.73 Active 393104216 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 Kaur [phone] Hospitalization History with above surgeries Hospitalization History [facility]- CVA 2005
--- OUTSIDE RECORDS SUMMARY | 2017-09-13 16:07 | External Medical Summary ---
:1945 Author Organization [facility] Address [address] [place] [address] Care Team Providers Name Role Phone Afshin Macias Unavailable Unavailable PROBLEMS Type Condition ICD9-CM Code [id number] Onset Condition SNOMED Code Code Dates Status Problem Irritable bowel K58.0 Active 03922152 syndrome with constipation and diarrhea Problem Atrial fibrillation I48.91 Active 62429496 Problem Personal history of Z85.3 Active 987721335 malignant neoplasm of breast Problem Restless leg G25.81 Active 70989159 Problem Nocturnal hypoxia G47.34 Active 471972688 Problem Irritable bowel K58.9 Active 14566453 Problem Depression F32.9 Active 627110284 Problem Cerumen impaction H61.20 Active 20534451 Problem Actinic keratosis L57.0 Active 121673727 Problem Pain in joint, M25.569 Active 028783357 lower leg Problem 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 510235140 type II Problem Insomnia G47.00 Active 175022239 Problem Malignant neoplasm C18.9 Active 985020653 of colon Problem 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 140405667 goiter Problem 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 736459126 use of anticoagulant therapy Problem Contact dermatitis L25.9 Active 96395289 and other eczema, due to unspecified cause Problem 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 01215336 lumbar or lumbosacral intervertebral disc Problem Closed fracture of S92.919A Active 29067197 phalanx of foot Problem Personal history of Z86.73 Active 000551919 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
--- OUTSIDE RECORDS SUMMARY | 2017-09-13 16:07 | External Medical Summary | Continuity of Care Document ---
:1945 Author Organization [facility] [place] Allergies Active Description Code Type Severity Reaction Onset Reported/ Identified Relationship Clinical to Patient Status Yes Penicillins Drug Mild Urticaria 06/08/2010 Aller (hives) gy Yes No Known Food 10/09/2012 Food Aller Allergies gy Medications There is no data. 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 Encounters ACCT No. Visit Discharge Status Pt. Type Provider Facility Loc./Unit Complaint Date/Time [id number] 10/11/2012 10/14/2012 DIS Inpatient Alfredito [facility]5SE 6 08:00:00 13:13:00 , [facility] [place] [id number] 10/27/2012 11/26/2012 Mason Felix MDINF 30 09:59:00 00:00:00 [facility] [id number] 10/21/2012 10/21/2012 Mason Felix MDPOONAM 12:57:00 12:57:00 [facility]
--- OUTSIDE RECORDS SUMMARY | 2017-09-13 16:07 | External Medical Summary ---
:1945 Author Organization [facility] Address [address] [place] [address] Care Team Providers Name Role Phone Afshin Macias Unavailable Unavailable PROBLEMS Type Condition ICD9-CM Code [id number] Onset Condition SNOMED Code Code Dates Status Problem Personal history of Z85.3 Active 357466903 malignant neoplasm of breast Problem Depression F32.9 Active 56936442 Problem Atrial fibrillation I48.91 Active 71124470 Problem Hyperlipidemia, E78.5 Active 37057345 unspecified hyperlipidemia type Problem Insomnia G47.00 Active 419032252 Problem Restless leg G25.81 Active 08439781 Problem Actinic keratosis L57.0 Active 507326 Problem Irritable bowel K58.9 Active 51906899 Problem Nocturnal hypoxia G47.34 Active 300283155 Problem Cerumen impaction H61.20 Active 75981066 Problem 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 682396041 type II Problem Contact dermatitis L25.9 Active 79328394 and other eczema, due to unspecified cause Problem Malignant neoplasm C18.9 Active 747716264 of colon Problem Pain in joint, M25.569 Active 112970844 lower leg Problem detention 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 Active 748948179 use of anticoagulant therapy Problem 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 82645784 lumbar or lumbosacral intervertebral disc Problem Closed fracture of S92.919A Active 95645631 phalanx of foot Problem Personal history of Z86.73 Active 160968631 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 Problem 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 668024969 goiter Problem Irritable bowel K58.0 Active 12158873 syndrome with constipation and diarrhea ALLERGIES Substance Reaction Event Type Date Status Penicillin Unknown Drug Allergy May, Active SOCIAL HISTORY Never Assessed PLAN OF CARE Activity Details Follow Up follow up pending results Reason: VITAL SIGNS Weight 230.6 lbs 2017-05-31 Height 65 in 2017-05-31 Heart Rate 86 /min 2017-05-31 Oximetry 97 % 2017-05-31 BMI 38.37 kg/m2 2017-05-31 Blood pressure systolic 112 mm Hg 2017-05-31 Blood pressure diastolic 78 mm Hg 2017-05-31 MEDICATIONS Medication Instructions Dosage Frequency Start End Duration Status Date Date Seroquel 100 MG Orally Once a 1 tablet at 24h 90 days Active day bedtime Metoprolol Orally Twice a 1/2 tablet 12h Active Tartrate 25 MG day Klor-Con M10 10 Orally Twice a 1 tablet 12h 90 days Active day with food Allopurinol 300 Orally Once a 1 tablet 24h 90 days Active day Venlafaxine HCl Orally Everyday 1 1/2 Active ER 75 MG in the morning TABLETS Lipitor 10 MG Orally Once a 1 tablet 24h May, day(s) Active day 2016 Gabapentin 300 Orally Three 1 capsule 8h 14 days Active times a day Calcium 1500 MG Orally Twice a 1 tablet 12h 30 day(s) Active day with food Sertraline HCl Orally Once a 1 tablet 24h Active 100 MG day Furosemide 40 mg Orally Once a 1 tablet 24h 90 days Active day Remeron 15 MG Orally Once a 1 tablet at 24h Active day bedtime Fentanyl 50 Transdermal 1 patch to Apr, Active MCG/HR every 72 hrs skin 2013 Fish Oil 1000 MG Orally Once a 1 capsule 24h 30 day(s) Active day Hydrocodone-Aceta Orally QID take one 6h 30 days Active minophen 7.5-325 tablet by MG mouth every 6 hours for 30 days Multivitamins as directed Active Warfarin Sodium 6 Orally Once a 1 tablet 24h 30 days Active MG day RESULTS Name Result Date Reference Range PROTIME 2017-05-31 PT 27.3 11.4-13.8 INR 4.0 2.0-3.5 PROCEDURES Procedure Date Ordered Result Body Site PROTIME May 31, 2017 IMMUNIZATIONS No Known Immunizations MEDICAL (GENERAL) [...] lumbar or lumbosacral intervertebral disc Medical History detention current use of anticoagulant therapy Medical History Nontoxic uninodular goiter Medical History Contact dermatitis and other eczema, due to unspecified cause Medical History Malignant neoplasm of colon Medical History Insomnia Medical History Hyperglycemia Surgical History Tubal Ligation 1969 Surgical History Lumbar Spine Surgery in [place] 1982 Surgical History Cholecystectomy- Dr. Mcmahan 1984 Surgical History cardiac pacemaker in [place] 1991 Surgical History Negative Myoview Perfusion Imaging [...] 07/2014 Surgical History Multiple LESIs- Dr. Kaur [phone] Hospitalization History with above surgeries Hospitalization History [facility]- CVA 2006
--- OUTSIDE RECORDS SUMMARY | 2017-09-13 16:07 | External Medical Summary ---
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
--- OUTSIDE RECORDS SUMMARY | 2017-09-13 16:07 | External Medical Summary ---
:1945 Author Organization [facility] Address [address] [place] [address] Care Team Providers Name Role Phone Afshin Macias Unavailable Unavailable PROBLEMS Type Condition ICD9-CM Code [id number] Onset Condition SNOMED Code Code Dates Status Problem Irritable bowel K58.0 Active 41617935 syndrome with constipation and diarrhea Problem Atrial fibrillation I48.91 Active 32476828 Problem Personal history of Z85.3 Active 001486997 malignant neoplasm of breast Problem Restless leg G25.81 Active 70065570 Problem Nocturnal hypoxia G47.34 Active 877671563 Problem Irritable bowel K58.9 Active 46533613 Problem Depression F32.9 Active 17619720 Problem Cerumen impaction H61.20 Active 37072937 Problem Actinic keratosis L57.0 Active 297991 Problem Pain in joint, M25.569 Active 040694984 lower leg Problem 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 Problem Insomnia G47.00 Active 759870779 Problem Malignant neoplasm C18.9 Active 481952660 of colon Problem 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 377784728 goiter Problem skilled nursing 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 Active 202643277 use of anticoagulant therapy Problem Contact dermatitis L25.9 Active 55703519 and other eczema, due to unspecified cause Problem 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 16625620 lumbar or lumbosacral intervertebral disc Problem Closed fracture of S92.919A Active 39729041 phalanx of foot Problem Personal history of Z86.73 Active 348578851 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 ALLERGIES Substance Reaction Event Type Date Status Penicillin Unknown Drug Allergy Mar, Active SOCIAL HISTORY Never Assessed PLAN OF CARE Activity Details Follow Up follow up pending results Reason: VITAL SIGNS Weight 215 lbs 2017-03-27 Height 65 in 2017-03-27 BMI 35.77 kg/m2 2017-03-27 Blood pressure systolic 132 mm Hg 2017-03-27 Blood pressure diastolic 80 mm Hg 2017-03-27 MEDICATIONS Medication Instructions Dosage Frequency Start End Duration Status Date Date Venlafaxine HCl Orally Everyday 1 1/2 Active ER 75 MG in the morning TABLETS Fentanyl 50 Transdermal 1 patch to Apr, days Active MCG/HR every 72 hrs skin 2013 Warfarin Sodium 5 Orally Once a 1 tablet 24h Active MG day Trazodone HCl 50 Orally Once a 1 tablet at 24h Active MG day bedtime as needed Multivitamins as directed Active Gabapentin 300 Orally Three 1 capsule 8h 90 days Active times a day Klor-Con M10 10 Orally Twice a 1 tablet 12h 90 days Active day with food Hydrocodone-Aceta Orally QID take one 6h 30 days Active minophen 7.5-325 tablet by MG mouth every 6 hours for 30 days Furosemide 40 mg Orally Once a 1 tablet 24h 90 days Active day Metoprolol Orally Twice a 1/2 tablet 12h Active Tartrate 25 MG day Fish Oil 1000 MG Orally Once a 1 capsule 24h 30 day(s) Active day Sertraline HCl Orally Once a 1 tablet 24h Active 100 MG day Seroquel 100 MG Orally Once a 1 tablet at 24h 90 days Active day bedtime Allopurinol 300 Orally Once a 1 tablet 24h 90 days Active day Calcium 1500 MG Orally Twice a 1 tablet 12h 30 day(s) Active day with food RESULTS Name Result Date Reference Range PROTIME 2017-03-27 PT 15.3 11.4-13.8 INR 1.4 2.0-3.5 PROCEDURES Procedure Date Ordered Result Body Site PROTIME Mar 27, 2017 IMMUNIZATIONS No Known Immunizations MEDICAL (GENERAL) [...] lumbar or lumbosacral intervertebral disc 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 Mcmahan 1984 Surgical History cardiac pacemaker in [place] 1991 Surgical History Negative Myoview Perfusion Imaging [...] 07/2014 Surgical History Multiple LESIs- Dr. Kaur [phone] Hospitalization History with above surgeries Hospitalization History [facility]- CVA 2006
--- OUTSIDE RECORDS SUMMARY | 2017-09-13 16:07 | External Medical Summary ---
[...] End Status Dosage System Date Date Hydrocodone-Acet [facility] 35198971291 10-325 TAKE ONE aminophen TABLET BY MOUTH EVERY 6 HOURS FOR 30 DAYS Imodium A-D [facility] [address]-49 2 MG Orally 8 1 tablet time(s) a day Fentanyl [facility] [address]-88 50 MCG/HR Apr 29 patch to Transdermal 2013 skin every 72 hrs Klor-Con M10 [facility] 65384728956 10MEQ TAKE ONE TABLET BY MOUTH TWICE DAILY Maryam Contour NDC 0 USE Type 2 DM Sept test blood Test diet 08, sugar controlled 2013 daily Venlafaxine HCl [facility] [address]-42 150mg QD 1 Omeprazole [facility] 42589369325 20MG TAKE ONE CAPSULE BY MOUTH TWICE DAILY Calcium [facility] 58311-56966 1500 MG Orally 1 tablet with Twice a day food Warfarin Sodium ND 67337502694 5MG TAKE ONE TABLET BY MOUTH EVERY DAY Allopurinol [facility] 52696799957 300MG TAKE ONE TABLET BY MOUTH EVERY DAY Triamcinolone [facility] [address]-81 0.1 % September 30 application Acetonide Externally 29, to affected Twice a day 2012 area Amitriptyline [facility] [address]-01 25 MG Orally September 30 tablet at HCl Once a day 07, bedtime 2014 Maryam Contour NDC 0 USE Type 2 DM Sept test blood diet 08, sugar controlled 2013 daily Metoprolol ND 0 50 MG Orally 1 tablet Succinate Once a day Furosemide [facility] 47519231096 40MG TAKE ONE TABLET BY MOUTH TWICE DAILY Gabapentin [facility] 74931498372 300MG TAKE ONE CAPSULE BY MOUTH TWICE DAILY FOR 30 DAYS Procedures Procedure Coding System Code Date OFFICE VISITEST PT CPT-4 12091 October 06, 2014 PROTIME CPT-4 58335 October 06, 2014 Vital Signs Date/Time: October 06, 2014 Blood Pressure Systolic 113 mm Hg Height 65 in Weight 226.8 lbs BMI 37.74 Index Oximetry 94 % Cardiac Monitoring Heart Rate 88 /min Blood Pressure Diastolic 75 mm Hg Results No Known Results Summary Purpose [employer] Submission
--- OUTSIDE RECORDS SUMMARY | 2017-09-13 16:07 | External Medical Summary ---
:1945 Author Organization [facility] Address [address] [place] [address] Care Team Providers Name Role Phone Afshin Macias Unavailable Unavailable PROBLEMS Type Condition ICD9-CM Code [id number] Onset Condition SNOMED Code Code Dates Status Problem Personal history of Z85.3 Active 508798082 malignant neoplasm of breast Problem Depression F32.9 Active 24533897 Problem Atrial fibrillation I48.91 Active 26741686 Problem Hyperlipidemia, E78.5 Active 01286546 unspecified hyperlipidemia type Problem Insomnia G47.00 Active 032966286 Problem Restless leg G25.81 Active 73991305 Problem Actinic keratosis L57.0 Active 704890 Problem Irritable bowel K58.9 Active 96099242 Problem Nocturnal hypoxia G47.34 Active 632730308 Problem Cerumen impaction H61.20 Active 96403956 Problem 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 308748331 type II Problem Contact dermatitis L25.9 Active 33529488 and other eczema, due to unspecified cause Problem Malignant neoplasm C18.9 Active 213251009 of colon Problem Pain in joint, M25.569 Active 246841781 lower leg Problem group home 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 Active 758397953 use of anticoagulant therapy Problem 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 13582848 lumbar or lumbosacral intervertebral disc Problem Closed fracture of S92.919A Active 60596578 phalanx of foot Problem Personal history of Z86.73 Active 876005973 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 Problem 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 542462325 goiter Problem Irritable bowel K58.0 Active 17036643 syndrome with constipation and diarrhea ALLERGIES Substance Reaction Event Type Date Status Penicillin Unknown Drug Allergy Jul, Active SOCIAL HISTORY Never Assessed PLAN OF CARE Activity Details Follow Up follow up pending results Reason: VITAL SIGNS Weight 230 lbs 2017-07-05 Height 65 in 2017-07-05 Heart Rate 93 /min 2017-07-05 Oximetry 94 % 2017-07-05 BMI 38.27 kg/m2 2017-07-05 Blood pressure systolic 100 mm Hg 2017-07-05 Blood pressure diastolic 59 mm Hg 2017-07-05 MEDICATIONS Medication Instructions Dosage Frequency Start End Duration Status Date Date Fentanyl 50 Transdermal 1 patch to Apr, days Active MCG/HR every 72 hrs skin 2013 Seroquel 150 MG Orally Once a 1 tablet at 24h Active day bedtime Klor-Con M10 10 Orally Twice a 1 tablet 12h 90 days Active day with food Hydrocodone-Aceta Orally QID take one 6h 30 days Active minophen 7.5-325 tablet by MG mouth every 6 hours for 30 days Multivitamins as directed Active Warfarin Sodium 6 Orally Once a 1 tablet 24h 30 days Active MG day Furosemide 40 MG TAKE 1 90 Active TABLET TWICE DAILY Calcium 1500 MG Orally Twice a 1 tablet 12h 30 day(s) Active day with food Metoprolol Orally Twice a 1/2 tablet 12h Active Tartrate 25 MG day Gabapentin 300 Orally Three 1 capsule 8h 14 days Active times a day Lipitor 10 MG Orally Once a 1 tablet 24h May, day(s) Active day 2016 Fish Oil 1000 MG Orally Once a 1 capsule 24h 30 day(s) Active day Sertraline HCl Orally Once a 1 tablet 24h Active 100 MG day Allopurinol 300 TAKE 1 90 Active MG TABLET ONE TIME DAILY RESULTS Name Result Date Reference Range PROTIME 2017-07-05 PT 22.0 11.4-13.8 INR 2.7 2.0-3.5 PROCEDURES Procedure Date Ordered Result Body Site [facility] Jul 05, 2017 IMMUNIZATIONS No Known Immunizations MEDICAL (GENERAL) [...] 1969 Surgical History Lumbar Spine Surgery in [place] 1981 Surgical History Cholecystectomy- Dr. Mcmahan 1984 Surgical History cardiac pacemaker in [place] 1991 Surgical History Negative Myoview Perfusion Imaging [...] 07/2014 Surgical History Multiple LESIs- Dr. Kaur [phone] Hospitalization History with above surgeries Hospitalization History [facility]- CVA 2006
--- NOTE | 2017-09-13 16:44 | XRay Report ---
Indication: SOA, hypoxia PROCEDURE: XR chest 1V: Encounter: Initial Comparison: January 18, 2017 Findings: New hazy interstitial perihilar predominant airspace opacities. Small left effusion with obscuration of the left hemidiaphragm. No pneumothorax. Cardiac silhouette remains moderately enlarged. Prior sternotomy changes with a right cardiac pacemaker. Pulmonary vascularity is prominent. Impression: Moderate pulmonary edema, likely due to CHF. .
[2017-09-13] MEDS ORDERED: FUROSEMIDE 40 MG/4 ML INJECTION IVP ONE (17:07)
--- NOTE | 2017-09-13 17:29 | Emergency Department Report ---
SOB HPI - General Chief Complaint: Shortness of Breath/Dyspnea Stated Complaint: Diff breathing Source: patient Mode of arrival: EMS Limitations: no limitations - History of Present Illness Pt presents with worsening SOA over the last few days. Pt reports a history of pneumonia last fall. PT denies fever, N/V/D, or chest pain. She has had a somewhat productive cough. She has a history of A fib with a PPM and sees Dr Gtz for cardiology care. EMS reported pt SpO2 in the high *0s on 6l O2 NC MD Complaint: shortness of breath, cough Onset (ago): day(s) Severity: moderate Consistency/Duration: constant Relieving factors: nothing Exacerbating factors: lying flat, exertion Associated symptoms: cough Treatment prior to arrival: oxygen - Related Data Home Medications Medication Instructions Recorded Confirmed Allopurinol [Zyloprim] 300 mg PO DAILY 01/18/17 09/13/17 Calcium Carbonate [Calcium] 3 tab PO DAILY 01/18/17 09/13/17 Gabapentin 300 mg PO TID 01/18/17 09/13/17 Hydrocodone/Acetaminophen 1 tab PO Q6HPRN PRN 01/18/17 09/13/17 [Hydrocodon-Acetaminoph 7.5-300] [place]-3/Dha/Epa/Fish Oil [Fish Oil 1 each PO BID 01/18/17 09/13/17 1,000 mg Softgel] Quetiapine [Seroquel] 100 mg PO HS 01/18/17 09/13/17 Mirtazapine [Remeron] 15 mg PO HS 09/13/17 09/13/17 Multivitamin [One Daily] 1 each PO DAILY 09/13/17 09/13/17 Potassium Chloride [Klor-Con 10] 10 meq PO DAILY 09/13/17 09/13/17 Sertraline HCl [Zoloft] 200 mg PO DAILY 09/13/17 09/13/17 Warfarin [Coumadin] 6 mg PO 1700 09/13/17 09/13/17 fentaNYL [Fentanyl] 50 mcg TRANSDERMA Q3D 09/13/17 09/13/17 Previous Rx's Medication Instructions Recorded Furosemide [Lasix 40 mg Tab] 1 tab PO DAILY #0 01/19/17 Metoprolol Tartrate [Lopressor] 12.5 mg PO BIDWM #90 tab 01/19/17 Allergies Allergy/AdvReac Type Severity Reaction Status Date / Time Penicillins Allergy Hives Verified 09/13/17 16:41 Review of Systems All systems: reviewed and negative except as stated Constitutional: Reports: as per HPI Cardiovascular: Reports: as per HPI Respiratory: Reports: as per HPI Gastrointestinal: Reports: as per HPI Musculoskeletal: Reports: as per HPI [facility] Patient Stated Medical History Cerebrovascular Accident Yes Migraine Yes Syncope Yes Cataracts Yes Dental Problems Yes: "i don't have any" has dentures but does not wear them Other HEENT Yes Cardiac Arrhythmia Yes: AFIB, PVC's Heart Murmur Yes Hypotension Yes Pneumonia Yes Hx Kidney Stones Yes Clotting Problems Yes: on coumadin Osteoarthritis Yes Bipolar Disorder Yes Depression Yes Post Menopausal Yes Surgical History: Pacemaker. Lumbar fusion 2. Cholecystectomy. Oophorectomy- benign disease. Right colon resection. Bilateral cataract extractions. Hemithyroidectomy - Social History Smoking status: Former smoker Substance use type: does not use Alcohol intake frequency: does not drink Household members: other (granddaughter-Christelle) Current residence: Apartment/Private Home Physical Exam - Limitations Limitations: no limitations - General General appearance: alert, in no apparent distress - Normal Exams: Head:: Normocephalic without trauma Neck:: Full range of motion, without adenopathy Cardiovascular:: Regular rate and rhythm, without murmur or gallop, Pulses 2+ all extremities, capillary refill, <2 seconds all extremities (trace pedal edema keira) Abdomen:: Bowel sounds positive, soft, non-tender, non-distended Musculoskeletal:: No tenderness, or deformity noted, good range of motion, all extremities Neurological:: Patient is alert, and oriented, cranial nerves, motor/sensory/ cerebellar, exams w/o gross deficits, to observation Psychiatric:: Patient exhibits, appropriate attention, emotion and affect - Expanded Respiratory Exam Location: Left: rhonchi, Right: rhonchi, Lower: rhonchi - Expanded Skin Exam Distribution: back Description: Present: vesicular, blisters (PT has dime sized plaque like vesicle to right back in addition to reddened areas to same genreal area. Pt denies pain with palpation to that area. Recent exposure to chicken pox. ) Course Vital Signs Temperature 97.8 F 09/13/17 15:44 Pulse Rate 70 09/13/17 15:44 Respiratory Rate 24 09/13/17 15:44 Blood Pressure 108/62 09/13/17 15:44 Pulse Oximetry 92 09/13/17 15:44 Temperature 97.8 F 09/13/17 15:44 Pulse Rate 69 09/13/17 17:00 Respiratory Rate 21 09/13/17 17:00 Blood Pressure 106/58 09/13/17 17:00 Pulse Oximetry 92 09/13/17 17:00 Shortness of Breath/Dyspnea - MDM Narrative Medical decision making narrative: Lab, X ray, and EKG reviewed. Pt reports minimal improvement in SOA after Duoneb treatment. X ray indicates CHF and IV lasix provided. Dr Palacios notified of findings and pt status. Findings and need for admission discussed with pt who voices understanding of need for continued care. - Differential Diagnosis Likely: acute exacerbation of chronic obstructive airways disease, congestive heart failure, community acquired pneumonia, asthma with exacerbation - Lab Data Attestation: I reviewed the patient's lab results. Result diagrams: 09/13/17 15:52 09/13/17 15:52 Lab Results 09/13/17 09/13/17 09/13/17 Range/Units 15:52 15:52 16:59 WBC 17.8 H (4.5-11.0) T/MM3 RBC 4.28 (4.00-5.20) M/MM3 Hgb 13.2 (12-16) GM/DL Hct 41.2 (36-46) % MCV 96.3 (80-100) UM3 MCH 30.8 (26-34) UUG MCHC 32.0 (31-37) GM/DL RDW Std Deviation 45.9 (36.9-50.2) FL Plt Count 191 (130-400) T/MM3 MPV 11.0 (9.4-12.4) UM3 Immature Gran % (Auto) Not performed Neut % (Auto) Not performed Lymph % (Auto) Not performed [place] % (Auto) Not performed Eos % (Auto) Not performed Baso % (Auto) Not performed Neut # (Auto) Not performed Lymph # (Auto) Not performed [place] # (Auto) Not performed Eos # (Auto) Not performed Baso # (Auto) Not performed Abs Immat Gran (auto) Not performed Neutrophils % (Manual) 77.0 H (33-66) % Band Neutrophils % 6.0 (0-6) % Lymphocytes % (Manual) 15.0 L (23-45) % Monocytes % (Manual) 2.0 (0-9.0) % Neutrophils # (Manual) 13.7 H (1.8-7.7) T/MM3 Band Neutrophils # 1.1 T/MM3 Lymphocytes # (Manual) 2.7 (1-4.8) T/MM3 Monocytes # (Manual) 0.4 (0-0.8) T/MM3 RBC Morph Comment Normal Sample Site ABG pH (7.350-7.450) ABG pCO2 (34.0-45.0) MMHG ABG pO2 (80.0-100.0) MMHG ABG HCO3 (22.0-26.0) MEQ/L ABG Total CO2 (23.0-27.0) MEQ/L ABG O2 Saturation (95.0-98.0) % ABG Base Excess (-2.0-2.0) MMOL/L Modified Isacc Test O2 Delivery Method FiO2 (liters per min) LPM Turbidity < 20 (0-20) Sodium 150 H (134-144) MEQ/L Potassium 4.2 (3.6-5) MEQ/L Chloride 108 H (98-107) MEQ/L Carbon Dioxide 27 (22-30) MEQ/L Anion Gap 15 (5-15) MEQ/L BUN 24.0 H (7-17) MG/DL Creatinine 1.1 (0.7-1.2) mg/dL GFR Calculation 49 BUN/Creatinine Ratio 22 (6-26) RATIO Glucose 123 H (65-110) MG/DL Calculated Osmolality 293 H (261-280) MOSM/KG Calcium 10.2 (8.4-10.2) MG/DL Total Bilirubin 1.40 H (0.20-1.30) MG/DL Icterus Index < 2 (0-7) AST 33 (14-36) U/L ALT 14 (1-35) U/L Alkaline Phosphatase 65 (38-126) U/L Total Protein 7.3 (6.3-8.2) g/dL Albumin 4.1 (3.5-5.0) g/dL Globulin 3.2 (2.4-3.6) G/DL Albumin/Globulin Ratio 1.3 (1.1-2.2) RATIO Plasma Lactate 1.6 (0.6-2.2) MMOL/L Specimen Hemolysis < 15 (0-25) /15/18 Range/Units 17:02 WBC (4.5-11.0) T/MM3 RBC (4.00-5.20) M/MM3 Hgb (12-16) GM/DL Hct (36-46) % MCV (80-100) UM3 MCH (26-34) UUG MCHC (31-37) GM/DL RDW Std Deviation (36.9-50.2) FL Plt Count (130-400) T/MM3 MPV (9.4-12.4) UM3 Immature Gran % (Auto) Neut % (Auto) Lymph % (Auto) [place] % (Auto) Eos % (Auto) Baso % (Auto) Neut # (Auto) Lymph # (Auto) [place] # (Auto) Eos # (Auto) Baso # (Auto) Abs Immat Gran (auto) Neutrophils % (Manual) (33-66) % Band Neutrophils % (0-6) % Lymphocytes % (Manual) (23-45) % Monocytes % (Manual) (0-9.0) % Neutrophils # (Manual) (1.8-7.7) T/MM3 Band Neutrophils # T/MM3 Lymphocytes # (Manual) (1-4.8) T/MM3 Monocytes # (Manual) (0-0.8) T/MM3 RBC Morph Comment Sample Site R radial ABG pH 7.372 (7.350-7.450) ABG pCO2 46 H (34.0-45.0) MMHG ABG pO2 65.8 L (80.0-100.0) MMHG ABG HCO3 26.7 H (22.0-26.0) MEQ/L ABG Total CO2 28.2 H (23.0-27.0) MEQ/L ABG O2 Saturation 91.9 L (95.0-98.0) % ABG Base Excess 1.1 (-2.0-2.0) MMOL/L Modified Isacc Test Positive O2 Delivery Method Cannula FiO2 (liters per min) 6 LPM Turbidity (0-20) Sodium (134-144) MEQ/L Potassium (3.6-5) MEQ/L Chloride (98-107) MEQ/L Carbon Dioxide (22-30) MEQ/L Anion Gap (5-15) MEQ/L BUN (7-17) MG/DL Creatinine (0.7-1.2) mg/dL GFR Calculation BUN/Creatinine Ratio (6-26) RATIO Glucose (65-110) MG/DL Calculated Osmolality (261-280) MOSM/KG Calcium (8.4-10.2) MG/DL Total Bilirubin (0.20-1.30) MG/DL Icterus Index (0-7) AST (14-36) U/L ALT (1-35) U/L Alkaline Phosphatase (38-126) U/L Total Protein (6.3-8.2) g/dL Albumin (3.5-5.0) g/dL Globulin (2.4-3.6) G/DL Albumin/Globulin Ratio (1.1-2.2) RATIO Plasma Lactate (0.6-2.2) MMOL/L Specimen Hemolysis (0-25) - Radiology Data Attestation: I reviewed the patient's radiology results. (read per Dr Turner) - EKG Data EKG #1 EKG attestation: Yes: I reviewed and interpreted this EKG. Disposition Clinical Impression: Congestive heart failure Qualifiers: Heart failure type: unspecified Heart failure chronicity: acute Qualified Code( s): I50.9 - Heart failure, unspecified Disposition: 02 To [facility] Acute Care Condition: Improved Prescriptions: No Action Hydrocodone/Acetaminophen [Hydrocodon-Acetaminoph 7.5-300] 1 tab PO Q6HPRN PRN PRN Reason: Pain Gabapentin 300 mg PO TID [place]-3/Dha/Epa/Fish Oil [Fish Oil 1,000 mg Softgel] 1 each PO BID Calcium Carbonate [Calcium] 3 tab PO DAILY Allopurinol [Zyloprim] 300 mg PO DAILY Quetiapine [Seroquel] 100 mg PO HS Metoprolol Tartrate [Lopressor] 12.5 mg PO BIDWM #90 tab Multivitamin [One Daily] 1 each PO DAILY Potassium Chloride [Klor-Con 10] 10 meq PO DAILY fentaNYL [Fentanyl] 50 mcg TRANSDERMA Q3D Sertraline HCl [Zoloft] 200 mg PO DAILY Mirtazapine [Remeron] 15 mg PO HS Furosemide [Lasix 40 mg Tab] 1 tab PO DAILY #0 Warfarin [Coumadin] 6 mg PO 1700 Referrals: Afshin Macias [Family Provider] - Time of Disposition: 17:42 - Seen By: midlevel
--- NOTE | 2017-09-13 18:07 | History & Physical Report ---
History of Present Illness Date: 09/14/17 Chief complaint: shortness of breath HPI: Patient is a 72-year-old female who presents today to ER by EMS for shortness of breath. States symptoms started yesterday and have worsened. She is requiring 6 L of oxygen per EMS to keep sats above 90%. At home she uses 2 L oxygen to sleep. She denies fever or cold type symptoms, but feels like she may have pneumonia as she had this last year. She does admit to a bit of a loose cough today. She is fatigued, but states this is chronic for her. She had a "dull ache" in the left chest last night for 2 hours, but no associated symptoms. She states she didn't take any of her medicines yesterday and only took some of her medicines today because she feels like she cannot swallow them. She states this is something that occurs intermittently ever since her stroke in the past. Review of Systems All systems PM: 10-point ROS was reviewed, no additional remarkable complaints except (fatigue, shortness of breath, chronic back pain, rash on right back, decrease in appetite, dysphagia) Past Medical History Medical History Hypertension Chronic atrial fibrillation-on Coumadin (pacer dependent) COPD History kidney stones Osteoarthritis Depression Gout Chronic back pain History of CVA Surgical History: Pacemaker. Lumbar fusion 2. Cholecystectomy. Oophorectomy- benign disease. Right colon resection. Bilateral cataract extractions. Hemithyroidectomy Family History: Mother-breast cancer Father, brother - CAD Family History Updates: Reviewed - Social History Smoking status: Former smoker (1 pack per day 40 years. Quit 2005.) Substance use type: does not use Alcohol intake frequency: does not drink Household members: other (lives with her granddaughter) Current occupational status: retired Current residence: Apartment/Private Home Social history: PCP- Dr.Kirk Macias [employer]-Dr. Gtz (has seen Dr. Chavez when she was hospitalized here) Medications Home Medications Medication Instructions Recorded Confirmed Type Allopurinol [Zyloprim] 300 mg PO DAILY 01/18/17 09/13/17 History Calcium Carbonate [Calcium] 3 tab PO DAILY 01/18/17 09/13/17 History Gabapentin 300 mg PO TID 01/18/17 09/13/17 History Hydrocodone/Acetaminophen 1 tab PO Q6HPRN PRN 01/18/17 09/13/17 History [Hydrocodon-Acetaminoph 7.5-300] [place]-3/Dha/Epa/Fish Oil [Fish Oil 1 each PO BID 01/18/17 09/13/17 History 1,000 mg Softgel] Quetiapine [Seroquel] 100 mg PO HS 01/18/17 09/13/17 History Furosemide [Lasix 40 mg Tab] 1 tab PO DAILY #0 01/19/17 09/13/17 Rx Metoprolol Tartrate [Lopressor] 12.5 mg PO BIDWM #90 tab 01/19/17 09/13/17 Rx Mirtazapine [Remeron] 15 mg PO HS 09/13/17 09/13/17 History Multivitamin [One Daily] 1 each PO DAILY 09/13/17 09/13/17 History Potassium Chloride [Klor-Con 10] 10 meq PO DAILY 09/13/17 09/13/17 History Sertraline HCl [Zoloft] 200 mg PO DAILY 09/13/17 09/13/17 History Warfarin [Coumadin] 6 mg PO 1700 09/13/17 09/13/17 History fentaNYL [Fentanyl] 50 mcg TRANSDERMA Q3D 09/13/17 09/13/17 History Allergies Allergy/AdvReac Type Severity Reaction Status Date / Time Penicillins Allergy Hives Verified 09/13/17 16:41 Exam Vital Signs: Temperature 97.8 F 09/13/17 15:44 Pulse Rate 70 09/13/17 17:30 Respiratory Rate 24 09/13/17 17:30 Blood Pressure 111/55 09/13/17 17:30 Pulse Oximetry 95 09/13/17 17:30 Height/Weight/BMI: Height 1.63 m Weight 98.2 kg - Constitutional Present: no acute distress, well nourished, well developed, somnolent - Routine HEENT Exam Head: Present: normocephalic, atraumatic Eye: Present: EOMI, PERRL ENT: Present: mucous membranes dry, oropharynx clear Comments: Edentulous - Routine Neck Exam Present: supple. Absent: lymphadenopathy, thyromegaly - Routine Chest/Breast/Axilla Exam Chest wall: Present: pacemaker (right chest) - Routine Respiratory Exam Present: dyspnea. Absent: accessory muscle use Comments: Coarse sounds diffuse - left greater than right. Productive sounding cough. - Routine Cardiovascular Exam Present: RRR, no murmur - Routine Abdominal Exam Present: soft, normoactive bowel sounds. Absent: tenderness, distended - Routine Extremities Exam Present: no edema, normal capillary refill - Routine Skin Exam Present: dry, warm Comments: Raw- appearing lesion on the right mid back - approx 1 cm in size. - Routine Neurological Exam Present: alert, oriented X3, CN II-XII intact - Routine Psychiatric Exam Present: cooperative, depressed Results - Labs CBC & Chem 7: 09/14/17 04:28 09/14/17 04:28 Microbiology Results: Microbiology 09/13/17 16:59 Peripheral/Iv Start Blood Culture - Preliminary Culture Initiated - Results Pending 09/13/17 17:03 Peripheral/Iv Start Blood Culture - Preliminary Culture Initiated - Results Pending - ABG Interpretation ABG results: 09/13/17 17:02 ABG pH 7.372 ABG pCO2 46 H ABG pO2 65.8 L ABG HCO3 26.7 H ABG Total CO2 28.2 H ABG O2 Saturation 91.9 L ABG Base Excess 1.1 Assessment and Plan (1) Acute respiratory failure with hypoxia Current visit: Yes Status: Acute Assessment and Plan: Assessment Acute respiratory failure with hypoxia Probable community-acquired pneumonia CHF exacerbation Leukocytosis-POA [17.8] Hypernatremia-POA [150] Skin wound-right mid-back (? etiology)-POA Hypertension Chronic atrial fibrillation-on Coumadin (pacer dependent) Subtherapeutic INR-POA [1.28] COPD History kidney stones Osteoarthritis Depression Gout Chronic back pain History of CVA Plan Admit, inpatient, under the hospitalist service, Dr. Palacios attending. Stay expected to exceed 2 midnights given her hypoxia and comorbidities. Start Levaquin 750 mg IV every 24 hours for probable CAP. Repeat lactate. Blood cultures drawn in ER. DuoNeb's, Acapella for respiratory symptoms. Lasix 40 mg IV given in ED for CHF exacerbation. Monitor I and O's. Daily weights. Insert Manuel. Telemetry. Continuous pulse oximetry. Pharmacy consult for warfarin. Warfarin for DVT prophylaxis. Echocardiogram in the a.m. to evaluate heart structure and function. Check BNP. Repeat troponin. Speech therapy, PT/OT consults. Wound clinic consult for lesion on back. Repeat labs in a.m. to follow blood counts, renal function and electrolytes. Check magnesium. Fentanyl patch continued from home med list for her chronic back pain. Continue mirtazapine at at bedtime. Dr. Palacios to reconcile remainder of medications. Patient requests DO NOT RESUSCITATE CODE STATUS. Care to return to Dr. Afshin Macias upon discharge. 09/13/2017-9 PM-I reviewed this chart, the patient history, and the IN ROOM DINING SERVER's/PA's documented findings as above. We discussed and formulated the assessment and plan as above with the additions below.-Dr. Palacios The patient was seen in her room this evening accompanied by her daughter. The patient states her breathing is better currently. She feels fatigued and complains of chronic pain. She denies any chest pain or abdominal pain. She has a lesion on her back over the right flank area which is a quarter sized ulceration with some surrounding erythematous [place] that look like scratches. She states this is not painful or pruritic. On exam the patient is alert and in no acute distress. Neck is supple with positive JVD. Chest reveals crackles in the lower one half of the lung garza bilaterally. Cardiovascular reveals a regular rate and rhythm without murmur. Abdomen is soft, obese, nontender with positive bowel sounds. She does have a ventral hernia. Extremities are free of any pitting edema. The patient's nurse did attempt a Manuel catheter and stated the patient had labial edema which made it difficult to place the Manuel. Another nurse will attempt placement. The patient is voided once since receiving IV Lasix. Pertinent lab included sodium of 150, white count 17, neutrophils 77, bands 6%. Troponin was normal at 0.013. INR was subtherapeutic at 1.28. Lactate was normal. Impression and plan Acute on chronic hypoxic respiratory failure (the patient usually uses 2 L of oxygen at night only) Exacerbation of congestive heart failure with pulmonary edema on chest x-ray-we' ll give Lasix 40 mg IV every 8 hours. Recheck chest x-ray and basic metabolic profile tomorrow. Echocardiogram tomorrow. Dr. Chavez was consulted to see the patient tomorrow. Place BiPAP if needed. Possible pneumonia with recent productive cough, elevated white count, and history of dysphagia-Levaquin initiated. Repeat lactate tonight. Speech therapy consulted. Known cardiomyopathy with last ejection fraction of 35% Repeat troponin. Obtain respiratory panel and sputum culture. Regarding wound/ulcer on the patient's right flank, will consult wound and skin nurse Will consult pharmacy regarding Coumadin. - Physician Narrative Narrative: Date: 09/13/17 Time: 1804 Hospital Course Summary Disclaimer: The visit summary below is not to be considered part of the above Progress Note. Hospital Course: 09/13/17-hospital admission Admit, inpatient, under the hospitalist service, Dr. Palacios attending. Stay expected to exceed 2 midnights given her hypoxia and comorbidities. Start Levaquin 750 mg IV every 24 hours for probable CAP. Repeat lactate. Blood cultures drawn in ER. DuoNeb's, Acapella for respiratory symptoms. Lasix 40 mg IV given in ED for CHF exacerbation. Monitor I and O's. Daily weights. Insert Manuel. Telemetry. Continuous pulse oximetry. Pharmacy consult for warfarin. Warfarin for DVT prophylaxis. Echocardiogram in the a.m. to evaluate heart structure and function. Check BNP. Repeat troponin. Speech therapy, PT/OT consults. Wound clinic consult for lesion on back. Repeat labs in a.m. to follow blood counts, renal function and electrolytes. Check magnesium. Fentanyl patch continued from home med list for her chronic back pain. Continue mirtazapine at at bedtime. Dr. Palacios to reconcile remainder of medications. Patient requests DO NOT RESUSCITATE CODE STATUS. Care to return to Dr. Afshin Macias upon discharge.
[2017-09-13] MEDS ORDERED: WARFARIN - PHARMACY CONSULT MC ONE (19:33)
[2017-09-13 19:46] VITALS: BMI 39.9
[2017-09-13] MEDS ORDERED: ACETAMINOPHEN PO PRN (19:48)
[2017-09-13] MEDS ORDERED: [UNRECOGNIZED DRUG - OTHER] PO PRN (19:48)
[2017-09-13] MEDS ORDERED: HYDROCODONE PO PRN (19:48)
[2017-09-13] MEDS ORDERED: WARFARIN 6 MG TABLET PO SCH (19:50)
[2017-09-13] MEDS: ALBUTEROL/IPRATROPIUM 2.5mg-0.5mg/3ml NEB AEROSOL SCH (20:47)
[2017-09-13] MEDS ORDERED: NS FLUSH BAG 500ml IV PRN (21:55)
[2017-09-13] MEDS: MIRTAZAPINE 15 MG TABLET PO SCH (22:02)
[2017-09-13] MEDS: GABAPENTIN 300 MG CAPSULE PO SCH (22:03)
[2017-09-13] MEDS: QUETIAPINE 100 MG TABLET PO SCH (22:03)
[2017-09-13] MEDS: LEVOFLOXACIN PB 750 MG/150 ML BAG IV SCH (22:04)
[2017-09-13] MEDS ORDERED: FALL RISK - PHARMACY CONSULT MC ONE (23:07)
[2017-09-14] MEDS: FUROSEMIDE 40 MG/4 ML INJECTION IVP SCH ×2 (00:05→09:33)
[2017-09-14] MEDS: SALINE FLUSH 10ml SYRINGE IV PRN (00:08)
[2017-09-14] MEDS: ALBUTEROL/IPRATROPIUM 2.5mg-0.5mg/3ml NEB AEROSOL SCH ×4 (07:30→19:05)
--- NOTE | 2017-09-14 08:28 | Pharmacy Consult ---
Pharmacy Consult-Warfarin - Laboratory Information 09/14/17 05:54 INR 1.59 H - Consult Information INR coming into range. Will continue what is believed to be home dose of warfarin 6mg p.o. daily. Patient placed on daily INR's for now to bring INR into target range of 2-3 for A. Fib. Thanks
--- NOTE | 2017-09-14 09:10 | XRay Report ---
Indication: hypoxia PROCEDURE: XR chest 1V: Encounter: Initial Comparison: September 13, 2017 Findings: Overlying monitoring leads. Right pacemaker. Poststernotomy changes. Increasing airspace consolidation in the right middle lobe. Persistent left lower lobe airspace disease with small left effusion. No pneumothorax. Cardiac silhouette remains enlarged. Mediastinal contours are stable. Pulmonary vascularity is less congested. Impression: Worsening right middle and left lower lobe airspace disease could represent pneumonia or aspiration. .
[2017-09-14] MEDS: CALCIUM CARBONATE 500 MG TABLET PO SCH (09:32)
[2017-09-14] MEDS: GABAPENTIN 300 MG CAPSULE PO SCH ×3 (09:32→20:57)
[2017-09-14] MEDS: MULTI-VITAMIN + MINERAL TABLET PO SCH (09:32)
[2017-09-14] MEDS: SERTRALINE 100 MG TABLET PO SCH (09:33)
[2017-09-14] MEDS: ALLOPURINOL 300 MG TABLET PO SCH (09:33)
--- NOTE | 2017-09-14 10:30 | Cardiology Consult Note ---
<Bridgett Colbert - Last Filed: 09/14/17 19:08> History of Present Illness Consult date: 09/13/17 Requesting physician: Rocio Palacios Consult reason: congestive heart failure Chief complaint: Dyspnea History of present illness: Swapna is a 72-year-old female who presents today to ED by EMS for shortness of breath. Reportedly symptoms started yesterday and have worsened. She is requiring 6 L of oxygen per EMS to keep sats above 90%. At home she uses 2 L oxygen to sleep. She denies fever or cold type symptoms, but feels like she may have pneumonia as she had this last year. She does admit to a bit of a loose cough today. She is fatigued, but states this is chronic for her. She had a "dull ache" in the left chest last night for 2 hours, but no associated symptoms. She states she didn't take any of her medicines yesterday and only took some of her medicines today because she feels like she cannot swallow them. She states this is something that occurs intermittently ever since her stroke in the past She lives with her granddaughter and reports eating only foods taken out of a microwave. She reports she very seldom has a home cooked meal. Review of Systems - Constitutional Constitutional: Present: fatigue. Absent: chills, fever(s) - EENMT Eyes: Absent: change in vision Balance: Absent: vertigo Mouth/Throat: Absent: sore throat - Cardiovascular Cardiovascular: Present: dyspnea on exertion, orthopnea, edema. Absent: chest pain, palpitations, syncope Rhythm: Present: abnormal rhythm - Respiratory Respiratory: Present: dyspnea, dyspnea on exertion. Absent: cough - Gastrointestinal Gastrointestinal: Absent: abdominal pain, diarrhea, nausea, vomiting - Genitourinary Genitourinary: Absent: dysuria - Integumentary/Breasts Integumentary: Absent: rash - Neurological Neurological: Absent: dizziness - Endocrine Endocrine: Absent: palpitations PFSH Patient Stated Medical History Cerebrovascular Accident Yes Cataracts Yes Dental Problems Yes: "i don't have any" has dentures but does not wear them Cardiac Arrhythmia Yes: AFIB, PVC's Heart Murmur Yes Hypertension Yes Pneumonia Yes Other GI Yes: IBS Hx Incontinence Yes Hx Kidney Stones Yes Clotting Problems Yes: on coumadin Blood Transfusions Yes Depression Yes Post Menopausal Yes Surgical History: Pacemaker. Lumbar fusion 2. Cholecystectomy. Oophorectomy- benign disease. Right colon resection. Bilateral cataract extractions. Hemithyroidectomy Family History Updates: Son- A Fib, CM/ICD. Daughter - A Fib CM/ICD - Social History Smoking status: Former smoker (1 pack per day 40 years. Quit 2005.) Substance use type: does not use Alcohol intake frequency: does not drink Household members: other (lives with her granddaughter) Current occupational status: retired Current residence: Apartment/Private Home Medications Home Medications Medication Instructions Recorded Confirmed Type Allopurinol [Zyloprim] 300 mg PO DAILY 01/18/17 09/13/17 History Calcium Carbonate [Calcium] 3 tab PO DAILY 01/18/17 09/13/17 History Gabapentin 300 mg PO TID 01/18/17 09/13/17 History Hydrocodone/Acetaminophen 1 tab PO Q6HPRN PRN 01/18/17 09/13/17 History [Hydrocodon-Acetaminoph 7.5-300] [place]-3/Dha/Epa/Fish Oil [Fish Oil 1 each PO BID 01/18/17 09/13/17 History 1,000 mg Softgel] Quetiapine [Seroquel] 100 mg PO HS 01/18/17 09/13/17 History Furosemide [Lasix 40 mg Tab] 1 tab PO DAILY #0 01/19/17 09/13/17 Rx Metoprolol Tartrate [Lopressor] 12.5 mg PO BIDWM #90 tab 01/19/17 09/13/17 Rx Mirtazapine [Remeron] 15 mg PO HS 09/13/17 09/13/17 History Multivitamin [One Daily] 1 each PO DAILY 09/13/17 09/13/17 History Potassium Chloride [Klor-Con 10] 10 meq PO DAILY 09/13/17 09/13/17 History Sertraline HCl [Zoloft] 200 mg PO DAILY 09/13/17 09/13/17 History Warfarin [Coumadin] 6 mg PO 1700 09/13/17 09/13/17 History fentaNYL [Fentanyl] 50 mcg TRANSDERMA Q3D 09/13/17 09/13/17 History Allergies Allergy/AdvReac Type Severity Reaction Status Date / Time Penicillins Allergy Hives Verified 09/13/17 16:41 Exam Vital signs: Temperature 96.7 F L 09/14/17 07:00 Pulse Rate 69 09/14/17 08:00 Respiratory Rate 18 09/14/17 07:35 Blood Pressure 112/61 09/14/17 07:00 Pulse Oximetry 94 09/14/17 07:35 - Constitutional no acute distress, morbidly obese, cooperative - Routine HEENT Exam Head: Present: normocephalic ENT: Present: mucous membranes moist - Routine Neck Exam Absent: JVD, carotid bruit - Routine Chest/Breast/Axilla Exam Chest wall: Absent: tenderness - Routine Respiratory Exam Present: decreased breath sounds, diminished air movement (L >R). Absent: CTA bilaterally - Routine Cardiovascular Exam Present: RRR, murmur - Routine Abdominal Exam Present: soft, normoactive bowel sounds - Routine Extremities Exam Present: edema - Routine Skin Exam Present: intact, dry, warm - Routine Neurological Exam Present: alert, oriented X3 - Routine Psychiatric Exam Present: normal affect, normal thought process Results 09/14/17 04:28 09/14/17 04:28 Cardiac Enzymes 09/13/17 Range/Units 20:44 Troponin I 0.015 (0-0.12) ng/ml CBC 09/14/17 Range/Units 04:28 WBC 12.7 H (4.5-11.0) T/MM3 RBC 3.29 L (4.00-5.20) M/MM3 Hgb 11.2 L D (12-16) GM/DL Hct 32.7 L D (36-46) % Plt Count 159 (130-400) T/MM3 Neut # (Auto) 10.3 H (1.8-7.7) T/MM3 Lymph # (Auto) 1.4 (1-4.8) T/MM3 Andrews # (Auto) 0.9 H (0-0.8) T/MM3 Eos # (Auto) 0.1 (0-0.5) T/MM3 Baso # (Auto) 0.0 (0-0.2) T/MM3 Comprehensive Metabolic Panel 09/14/17 Range/Units 04:28 Sodium 144 (134-144) MEQ/L Potassium 3.4 L D (3.6-5) MEQ/L Chloride 102 (98-107) MEQ/L Carbon Dioxide 33 H (22-30) MEQ/L BUN 28.0 H (7-17) MG/DL Creatinine 1.2 (0.7-1.2) mg/dL Glucose 115 H (65-110) MG/DL Calcium 9.2 D (8.4-10.2) MG/DL Intake and Output 09/13/17 09/14/17 09/14/17 22:59 06:59 14:59 Intake Total 590 / 590 450 / 450 300 / 300 Output Total 300 / 300 775 / 775 Balance 290 / 290 -325 / -325 300 / 300 Intake: IV 150 / 150 Levofloxacin Pb 750 mg In 150 150 / 150 ml @ 100 mls/hr IV Q24H [facility] Rx# :[id number] Oral 590 / 590 300 / 300 300 / 300 Output: Urine Amount (Catheter) 300 / 300 775 / 775 Other: Urine Appearance Clear Urine Color Dark Yellow Weight 232 lb 9.403 oz 230 lb 6.129 oz Patient Weight 09/15/17 06:59 Weight 230 lb 6.129 oz - Imaging and Cardiology Echo: pending Imaging & Cardiology Narrative: Date of Exam: 09/14/17 Ordering Provider: Rocio Palacios MD Type of Exam(s): XR chest 1V Reason for Exam(s): hypoxia Indication: hypoxia PROCEDURE: XR chest 1V: Encounter: Initial Comparison: September 13, 2017 Findings: Overlying monitoring leads. Right pacemaker. Poststernotomy changes. Increasing airspace consolidation in the right middle lobe. Persistent left lower lobe airspace disease with small left effusion. No pneumothorax. Cardiac silhouette remains enlarged. Mediastinal contours are stable. Pulmonary vascularity is less congested. Impression: Worsening right middle and left lower lobe airspace disease could represent pneumonia or aspiration. 09/14/17 10:50 EKG interpretations - CT, pacemaker, normal Pacemaker: ventricular pacing w/capture (except when refractory) Assessment and Plan - Assessment and Plan (1) Congestive heart failure Problem details: diastolic Current visit: Yes Status: Chronic Acute on Chronic - Last EF 35% - 2D echo pending - Restrict fluid/ NA intake - Change Diuresis to PO BID - Monitor renal and electrolytes - Change Metoprolol tartrate to Succinate (2) Essential (primary) hypertension Current visit: Yes Status: Acute (3) PAF (paroxysmal atrial fibrillation) Current visit: Yes Status: Acute (4) Presence of cardiac pacemaker Current visit: Yes Status: Acute - Assessment and Plan Acute on Chronic - Last EF 35% - 2D echo pending - Restrict fluid/ NA intake - Change Diuresis to PO BID - Monitor renal and electrolytes - Change Metoprolol tartrate to Succinate Thank you for allowing us to participate in the care of this patient Hospital Course Summary Disclaimer: The visit summary below is not to be considered part of the above Progress Note. Hospital Course: 09/13/17-hospital admission Admit, inpatient, under the hospitalist service, Dr. Palacios attending. Stay expected to exceed 2 midnights given her hypoxia and comorbidities. Start Levaquin 750 mg IV every 24 hours for probable CAP. Repeat lactate. Blood cultures drawn in ER. DuoNeb's, Acapella for respiratory symptoms. Lasix 40 mg IV given in ED for CHF exacerbation. Monitor I and O's. Daily weights. Insert Manuel. Telemetry. Continuous pulse oximetry. Pharmacy consult for warfarin. Warfarin for DVT prophylaxis. Echocardiogram in the a.m. to evaluate heart structure and function. Check BNP. Repeat troponin. Speech therapy, PT/OT consults. Wound clinic consult for lesion on back. Repeat labs in a.m. to follow blood counts, renal function and electrolytes. Check magnesium. Fentanyl patch continued from home med list for her chronic back pain. Continue mirtazapine at at bedtime. Dr. Palacios to reconcile remainder of medications. Patient requests DO NOT RESUSCITATE CODE STATUS. Care to return to Dr. Afshin Macias upon discharge. <Willis Chavez - Last Filed: 09/19/17 12:51> [facility] Patient Stated Medical History Cerebrovascular Accident Yes Cataracts Yes Dental Problems Yes: "i don't have any" has dentures but does not wear them Cardiac Arrhythmia Yes: AFIB, PVC's Heart Murmur Yes Hypertension Yes Pneumonia Yes Other GI Yes: IBS Hx Incontinence Yes Hx Kidney Stones Yes Clotting Problems Yes: on coumadin Blood Transfusions Yes Depression Yes Post Menopausal Yes Exam Vital signs: Temperature 96.3 F L 09/19/17 07:00 Pulse Rate 69 09/19/17 08:00 Respiratory Rate 16 09/19/17 11:20 Blood Pressure 133/71 09/19/17 07:00 Pulse Oximetry 91 09/19/17 11:32 Results 09/19/17 04:30 09/19/17 04:30 CBC 09/19/17 Range/Units 04:30 WBC 7.6 (4.5-11.0) T/MM3 RBC 3.54 L (4.00-5.20) M/MM3 Hgb 11.3 L (12-16) GM/DL Hct 34.1 L (36-46) % Plt Count 207 (130-400) T/MM3 Neut # (Auto) 4.3 (1.8-7.7) T/MM3 Lymph # (Auto) 2.2 (1-4.8) T/MM3 Andrews # (Auto) 0.6 (0-0.8) T/MM3 Eos # (Auto) 0.4 (0-0.5) T/MM3 Baso # (Auto) 0.0 (0-0.2) T/MM3 Comprehensive Metabolic Panel 09/19/17 Range/Units 04:30 Sodium 145 H (134-144) MEQ/L Potassium 3.8 (3.6-5) MEQ/L Chloride 99 (98-107) MEQ/L Carbon Dioxide 35 H (22-30) MEQ/L BUN 24.0 H (7-17) MG/DL Creatinine 1.2 (0.7-1.2) mg/dL Glucose 103 (65-110) MG/DL Calcium 9.6 (8.4-10.2) MG/DL Intake and Output 09/18/17 09/19/17 09/19/17 22:59 06:59 14:59 Intake Total 1000 / 1000 350 / 350 Output Total 100 / 100 350 / 350 Balance 900 / 900 -350 / -350 350 / 350 Intake: Oral 1000 / 1000 350 / 350 Output: Urine 100 / 100 350 / 350 Other: Urine Appearance Clear Clear Urine Color Yellow Dark Yellow Stool Color Brown Stool Consistency Soft Liza Size of Bowel Movement Small # Voids 1 # Incontinent Voids 1 # Bowel Movements 1 Weight 104.5 kg Patient Weight 09/20/17 06:59 Weight 104.5 kg Assessment and Plan - Attestation Attestation Narrative: 09/19/17 12:51 Recommendation After examining the patient I agree with the above assessment. I am involved in the formulation of the patient's plan of care. - Assessment and Plan (1) Congestive heart failure Problem details: diastolic Current visit: Yes Status: Chronic (2) Essential (primary) hypertension Current visit: Yes Status: Acute (3) PAF (paroxysmal atrial fibrillation) Current visit: Yes Status: Acute (4) Presence of cardiac pacemaker Current visit: Yes Status: Acute Hospital Course Summary Disclaimer: The visit summary below is not to be considered part of the above Progress Note.
[2017-09-14] MEDS ORDERED: WARFARIN 6 MG TABLET PO SCH (12:00)
--- NOTE | 2017-09-14 14:15 | Progress Note ---
- Date 09/14/17 Subjective: The patient was seen this afternoon in her room. She states she's feeling better than yesterday. Her energy level is better. She continues to have a cough. She does not feel a short of breath. She is eating okay today. She walked with physical therapy today. Speech therapy did evaluate her and said she could have a soft diet with regular liquids. She has had no fevers. She has a Manuel catheter in place with good urine output. Her nurse states she has some erythema in her perineum concerning for yeast infection. Objective Vital signs: Temperature 96.7 F L 09/14/17 07:00 Pulse Rate 69 09/14/17 08:00 Respiratory Rate 22 09/14/17 11:40 Blood Pressure 112/61 09/14/17 07:00 Pulse Oximetry 93 09/14/17 11:40 Height/Weight/BMI: Height 1.63 m Weight 104.5 kg Body Mass Index 39.9 Comments: Weight is down 1 kg. I&O is slightly positive at 2120/1775 GEN-alert, oriented, no acute distress HEENT-sclera anicteric, oropharynx is moist NECK-supple CV-regular rate and rhythm CHEST-coarse breath sounds in the lower one half of the lung garza bilaterally ABD-soft, nontender with positive bowel sounds -Manuel in place with good urine output EXT-no lower extremity edema NEURO-no focal deficits, patient states she is having word finding difficulties which has been present but gradually worsening since she had a stroke in the past SKIN-warm and dry. She has an abraded skin lesion on the right scapular area. The wound and skin nurse did see the patient has applied a dressing Results - Labs CBC & Chem 7: 09/14/17 04:28 09/14/17 04:28 Labs: BNP is elevated at 1620, there are no previous BMPs for comparison. Troponin was negative 2. Viral respiratory panel was negative. - Impressions Chest x-ray today reveals worsening right middle and left lower lobe airspace disease which could represent pneumonia or aspiration. Pulmonary vascularity is less congested. I have viewed the films myself and agree. Assessment and Plan (1) Acute respiratory failure with hypoxia Current visit: Yes Status: Acute Assessment and Plan: Assessment Acute respiratory failure with hypoxia (the patient is usually on 2 L of oxygen at night only) Right middle lobe and left lower lobe community-acquired pneumonia CHF exacerbation-improving on chest x-ray, on Lasix 40 mg IV twice daily Small left pleural effusion Leukocytosis-POA [17.8]-improving Hypernatremia-POA [150]-resolved Skin wound-right mid-back (? etiology)-POA-wound and skin nurse has evaluated and placed a honey dressing Hypertension-well controlled Chronic atrial fibrillation-on Coumadin (pacer dependent)-rate controlled Subtherapeutic INR-POA [1.28]-Coumadin adjusted per pharmacy COPD History kidney stones Osteoarthritis Depression Gout Chronic back pain-on chronic narcotics (50 g fentanyl patch and [place] 7.5 every 6 hours when necessary) History of CVA with word finding difficulties that is gradually worsening Perineal yeast infection Plan Overall, the patient is feeling a little bit better today. She feels stronger and is less short of breath. She is still requiring 6 L of oxygen. Continue Levaquin for pneumonia. Try to obtain a sputum sample. Check urine for Legionella and strep pneumonia antigens. Continue breathing treatments and Acapella. Will add guaifenesin Will decrease Lasix to 40 IV twice a day. Echocardiogram is pending. Dr. Chavez has been consulted regarding pulmonary edema, possible exacerbation of CHF. The patient states that at home she had recently decrease Lasix to 40 mg once daily at the recommendation have her physician because they thought she had become dehydrated. Will start nystatin powder for perineal yeast infection PT and OT did evaluate the patient and have recommended home with home health when the patient is medically ready for discharge. The patient is in agreement Consider speech therapy as an outpatient to help with word finding/cognitive difficulties related to her stroke The wound and skin nurse did see the patient and placed a honey dressing on her wound. This will be changed every 3 days. Add 20 mEq of potassium twice a day for underlying hypokalemia. Recheck BMP and CBC tomorrow. Increase activity as tolerated. We'll check a pro-calcitonin level. Continue Coumadin for A. fib., INR is increasing. Her subtherapeutic INR was likely because she was having trouble swallowing for a couple of days prior to admission and had not taken her Coumadin. Discussed with the patient's nurse and the wound and skin nurse. DVT Prophylaxis: Coumadin Resuscitation Status: Do Not Resuscitate - Time spent with patient Time with patient PN: 30 minutes - Physician Narrative Narrative: Date: 09/14/17 Time: 1412 Hospital Course Summary Disclaimer: The visit summary below is not to be considered part of the above Progress Note. Hospital Course: 09/13/17-hospital admission Admit, inpatient, under the hospitalist service, Dr. Palacios attending. Stay expected to exceed 2 midnights given her hypoxia and comorbidities. Start Levaquin 750 mg IV every 24 hours for probable CAP. Repeat lactate. Blood cultures drawn in ER. DuoNeb's, Acapella for respiratory symptoms. Lasix 40 mg IV given in ED for CHF exacerbation. Monitor I and O's. Daily weights. Insert Manuel. Telemetry. Continuous pulse oximetry. Pharmacy consult for warfarin. Warfarin for DVT prophylaxis. Echocardiogram in the a.m. to evaluate heart structure and function. Check BNP. Repeat troponin. Speech therapy, PT/OT consults. Wound clinic consult for lesion on back. Repeat labs in a.m. to follow blood counts, renal function and electrolytes. Check magnesium. Fentanyl patch continued from home med list for her chronic back pain. Continue mirtazapine at at bedtime. Dr. Palacios to reconcile remainder of medications. Patient requests DO NOT RESUSCITATE CODE STATUS. Care to return to Dr. Afshin Macias upon discharge.
--- NOTE | 2017-09-14 14:50 | Wound Care Progress Note ---
Wound Center Progress Note: Pt seen for wound consultation r/t wound on R thoracic back. Pt is sitting up in bed watching TV, no complaints of pain. Pt reports about a week ago she noticed her back started itching, she scratched it and realized she had removed some skin to this area. After scratching this area, she reports the wound no longer hurt/itched. Wound bed: 100% slough, scant serosanguineous drainage on band aid removed. Periwound: increased warmth, blanchable erythema. Wound dressing: Medihoney to wound bed, cover with Mepilex, change q 3 days. Would recommend culturing wound after debridement.
--- NOTE | 2017-09-14 14:54 | Wound Care Progress Note ---
Wound Management - Patient Status Premedicated Prior to Dressing Change: No - Wound Right Back Wound Type: Open Wound Wound Present on Admission?: Yes Length: 1.8 Width: 0.5 Wound Bed Appearance: Slough Viri Wound Appearance: Bright Red Tunneling: No Undermining: No Drainage Description: Sanguineous Drainage Amount: Scant Drainage Odor: No Odor Dressing Status: Changed Secondary Dressing: Foam Dressing Dressing Change Date: 09/14/17 Dressing Change Time: 14:10 Dressing Change Patient Tolerance: Tolerated Well (Dressing: Medihoney to wound bed, cover with Mepilex, change q 3 days.)
[2017-09-14] MEDS: FUROSEMIDE 40 MG TABLET PO SCH (17:02)
--- NOTE | 2017-09-14 20:01 | Echocardiogram ---
DATE OF PROCEDURE 09/14/2017 This is a two-dimensional echo with spectral Doppler, color-flow and M-mode. It was obtained in a patient with shortness of breath and history of pacemaker. Left atrium is dilated. Left ventricular end-diastolic dimension is normal. Left ventricular wall thickness is increased. LV systolic function is mildly reduced with an ejection fraction of about 45%. Right atrium is dilated. Right ventricle is dilated. Aortic root dimension is normal. Mitral valve annulus is calcified. Mitral valve leaflets are normal with no stenosis. Mild mitral regurgitation is present. Aortic valve shows fibrocalcific changes with no stenosis or insufficiency. Tricuspid valve shows mild tricuspid regurgitation with moderate pulmonary hypertension with estimated pulmonary artery systolic pressure of 46. Pulmonary valve shows mild pulmonary insufficiency. There is no pericardial effusion. Pacemaker leads are present in right heart. IMPRESSION 1. Biatrial dilation. 3. Right ventricular dilation. 3. Left ventricular hypertrophy. 4. Pacemaker leads are present in right heart. 5. Mild global hypokinesia with ejection fraction of about 45%. 6. Mitral annulus calcification with mild mitral regurgitation. 7. Aortic sclerosis. 8. Mild tricuspid regurgitation with moderate pulmonary hypertension with estimated pulmonary artery systolic pressure of 46. 9. Mild pulmonary insufficiency. MTDD
[2017-09-14] MEDS: LEVOFLOXACIN PB 750 MG/150 ML BAG IV SCH (20:56)
[2017-09-14] MEDS: MIRTAZAPINE 15 MG TABLET PO SCH (20:57)
[2017-09-14] MEDS: GUAIFENESIN LA 600 MG TABLET PO SCH (20:58)
[2017-09-14] MEDS: QUETIAPINE 100 MG TABLET PO SCH (21:00)
[2017-09-14] MEDS ORDERED: FUROSEMIDE 40 MG/4 ML INJECTION IVP SCH (21:00)
[2017-09-15] MEDS: ALBUTEROL/IPRATROPIUM 2.5mg-0.5mg/3ml NEB AEROSOL SCH ×4 (07:04→19:10)
[2017-09-15] MEDS: SERTRALINE 100 MG TABLET PO SCH (08:33)
[2017-09-15] MEDS: GUAIFENESIN LA 600 MG TABLET PO SCH ×2 (08:33→20:44)
[2017-09-15] MEDS: GABAPENTIN 300 MG CAPSULE PO SCH ×3 (08:33→20:44)
[2017-09-15] MEDS: ALLOPURINOL 300 MG TABLET PO SCH (08:34)
[2017-09-15] MEDS: FUROSEMIDE 40 MG TABLET PO SCH ×2 (08:34→17:34)
[2017-09-15] MEDS: MULTI-VITAMIN + MINERAL TABLET PO SCH (08:34)
[2017-09-15] MEDS: CALCIUM CARBONATE 500 MG TABLET PO SCH (08:35)
--- NOTE | 2017-09-15 08:50 | Pharmacy Consult ---
Pharmacy Consult-Warfarin - Laboratory Information 09/14/17 09/15/17 05:54 05:13 INR 1.59 H 1.58 H - Consult Information Warfarin 7.5mg ordered for noon today. Will continue to monitor. Thank you.
[2017-09-15] MEDS ORDERED: WARFARIN 7.5 MG TABLET PO SCH (12:00)
--- NOTE | 2017-09-15 12:41 | Progress Note ---
- Date 09/15/17 Subjective: Patient states she's feeling okay today. She feels a little short of breath while eating lunch. Otherwise her breathing is a little better. She did have a coughing fit earlier today. She is not coughing up any phlegm. She is eating and drinking okay. She has not had a bowel movement since admission but did take some milk of magnesia this morning. She has a Manuel catheter in place. The patient states she still feels fatigued and does not feel ready for discharge. Objective Vital signs: Temperature 97.4 F 09/15/17 01:00 Pulse Rate 70 09/15/17 07:37 Respiratory Rate 18 09/15/17 10:56 Blood Pressure 125/65 09/15/17 07:37 Pulse Oximetry 94 09/15/17 10:56 Height/Weight/BMI: Height 1.63 m Weight 104.9 kg Body Mass Index 39.9 Comments: Afebrile, O2 needs have improved and she is now on 2.5 L of oxygen down from 6 L on admission GEN-alert, oriented, no acute distress CV-regular rate and rhythm CHEST-crackles in the lower lung garza, decreased breath sounds on the left base ABD-soft, nontender with positive bowel sounds -Manuel in place EXT-no lower extremity edema NEURO-generalized weakness, no focal deficits SKIN-warm and dry Results - Labs CBC & Chem 7: 09/15/17 05:13 09/15/17 05:13 Labs: Neutrophils 70%, bands 1%. White count is 9.3 down from 12.7. Phosphorus is normal at 3.4. INR is 1.58 Microbiology Results: Microbiology 09/14/17 13:22 Urine Legionella Urinary Antigen - Final 09/14/17 13:22 Urine Streptococcus pneumoniae Antigen (M - Final - Impressions Chest x-ray on my read shows some improvement in the bilateral basilar pneumonias Assessment and Plan (1) Acute respiratory failure with hypoxia Current visit: Yes Status: Acute Assessment and Plan: Assessment Acute respiratory failure with hypoxia (the patient is usually on 2 L of oxygen at night only)-currently she is on 2.5 L of oxygen, down from 6 L maximum Right middle lobe and left lower lobe community-acquired pneumonia CHF exacerbation-improving on chest x-ray, currently on Lasix 40 mg by mouth twice a day Small left pleural effusion Leukocytosis-POA [17.8]-improving Hypernatremia-POA [150]-resolved Skin wound-right mid-back (? etiology)-POA-wound and skin nurse has evaluated and placed a medi-honey dressing Hypertension-well controlled Chronic atrial fibrillation-on Coumadin (pacer dependent)-rate controlled Subtherapeutic INR-POA [1.28]-Coumadin adjusted per pharmacy COPD History kidney stones Osteoarthritis Depression Gout Chronic back pain-on chronic narcotics (50 g fentanyl patch and [place] 7.5 every 6 hours when necessary) History of CVA with word finding difficulties that is gradually worsening Perineal yeast infection Plan Overall, the patient appears to be doing better today. Oxygen needs have decreased down to 2.5 L down from 6 L yesterday. She still feels weak and not ready for discharge. Continue Levaquin for community-acquired pneumonia. Repeat CBC and pro- calcitonin tomorrow. Echocardiogram showed improvement in ejection fraction and is now 45%. Dr. Chavez's help is appreciated. He did decrease her Lasix down to 40 mg by mouth twice a day. We'll discontinue Manuel catheter. Continue PT and OT. Recheck basic metabolic profile tomorrow regarding diuresis. Continue wound care treatments initiated by wound and skin team Continue Coumadin for A. fib. INR is subtherapeutic due to missing a couple of days of Coumadin at home. Swallowing has improved and speech recommended a soft diet and regular liquids. - Physician Narrative Narrative: Date: 09/15/17 Time: 1235 Hospital Course Summary Disclaimer: The visit summary below is not to be considered part of the above Progress Note. Hospital Course: 09/13/17-hospital admission Admit, inpatient, under the hospitalist service, Dr. Palacios attending. Stay expected to exceed 2 midnights given her hypoxia and comorbidities. Start Levaquin 750 mg IV every 24 hours for probable CAP. Repeat lactate. Blood cultures drawn in ER. DuoNeb's, Acapella for respiratory symptoms. Lasix 40 mg IV given in ED for CHF exacerbation. Monitor I and O's. Daily weights. Insert Manuel. Telemetry. Continuous pulse oximetry. Pharmacy consult for warfarin. Warfarin for DVT prophylaxis. Echocardiogram in the a.m. to evaluate heart structure and function. Check BNP. Repeat troponin. Speech therapy, PT/OT consults. Wound clinic consult for lesion on back. Repeat labs in a.m. to follow blood counts, renal function and electrolytes. Check magnesium. Fentanyl patch continued from home med list for her chronic back pain. Continue mirtazapine at at bedtime. Dr. Palacios to reconcile remainder of medications. Patient requests DO NOT RESUSCITATE CODE STATUS. Care to return to Dr. Afshin Macias upon discharge. 09/14/2017 Overall, the patient is feeling a little bit better today. She feels stronger and is less short of breath. She is still requiring 6 L of oxygen. Continue Levaquin for pneumonia. Try to obtain a sputum sample. Check urine for Legionella and strep pneumonia antigens. Continue breathing treatments and Acapella. Will add guaifenesin Will decrease Lasix to 40 IV twice a day. Echocardiogram is pending. Dr. Chavez has been consulted regarding pulmonary edema, possible exacerbation of CHF. The patient states that at home she had recently decrease Lasix to 40 mg once daily at the recommendation have her physician because they thought she had become dehydrated. Will start nystatin powder for perineal yeast infection PT and OT did evaluate the patient and have recommended home with home health when the patient is medically ready for discharge. The patient is in agreement Consider speech therapy as an outpatient to help with word finding/cognitive difficulties related to her stroke The wound and skin nurse did see the patient and placed a honey dressing on her wound. This will be changed every 3 days. Add 20 mEq of potassium twice a day for underlying hypokalemia. Recheck BMP and CBC tomorrow. Increase activity as tolerated. We'll check a pro-calcitonin level. Continue Coumadin for A. fib., INR is increasing. Her subtherapeutic INR was likely because she was having trouble swallowing for a couple of days prior to admission and had not taken her Coumadin. Discussed with the patient's nurse and the wound and skin nurse. 09/15/2017 Overall, the patient appears to be doing better today. Oxygen needs have decreased down to 2.5 L down from 6 L yesterday. She still feels weak and not ready for discharge. Continue Levaquin for community-acquired pneumonia. Repeat CBC and pro- calcitonin tomorrow. Echocardiogram showed improvement in ejection fraction and is now 45%. Dr. Chavez's help is appreciated. He did decrease her Lasix down to 40 mg by mouth twice a day. We'll discontinue Manuel catheter. Continue PT and OT. Recheck basic metabolic profile tomorrow regarding diuresis. Continue wound care treatments initiated by wound and skin team Continue Coumadin for A. fib. INR is subtherapeutic due to missing a couple of days of Coumadin at home. Swallowing has improved and speech recommended a soft diet and regular liquids.
[2017-09-15] MEDS: ONDANSETRON 4 MG/2 ML INJECTION IVP PRN (19:57)
[2017-09-15] MEDS: QUETIAPINE 100 MG TABLET PO SCH (20:44)
[2017-09-15] MEDS: MIRTAZAPINE 15 MG TABLET PO SCH (20:44)
[2017-09-15] MEDS: LEVOFLOXACIN PB 750 MG/150 ML BAG IV SCH (20:45)
[2017-09-15] MEDS: HYDROCODONE/APAP 7.5 MG/325 MG TABLET PO PRN (20:45)
[2017-09-16] MEDS: MULTI-VITAMIN + MINERAL TABLET PO SCH (08:30)
[2017-09-16] MEDS: CALCIUM CARBONATE 500 MG TABLET PO SCH (08:30)
[2017-09-16] MEDS: ALLOPURINOL 300 MG TABLET PO SCH (08:30)
[2017-09-16] MEDS: GABAPENTIN 300 MG CAPSULE PO SCH ×4 (08:30→22:57)
[2017-09-16] MEDS: GUAIFENESIN LA 600 MG TABLET PO SCH ×3 (08:31→22:57)
[2017-09-16] MEDS: SERTRALINE 100 MG TABLET PO SCH (08:31)
[2017-09-16] MEDS: FUROSEMIDE 40 MG TABLET PO SCH ×2 (08:31→17:33)
--- NOTE | 2017-09-16 08:31 | Pharmacy Consult ---
Pharmacy Consult-Warfarin - Laboratory Information 09/14/17 09/15/17 09/16/17 05:54 05:13 04:45 INR 1.59 H 1.58 H 1.61 H - Consult Information INR still subtherapeutic. Patient has missed doses at home. Warfarin 7.5mg ordered today, anticipate going back to home dose of 6mg daily tomorrow. Will continue to monitor. Thank you.
[2017-09-16] MEDS: ALBUTEROL/IPRATROPIUM 2.5mg-0.5mg/3ml NEB AEROSOL SCH ×4 (09:57→20:52)
[2017-09-16] MEDS ORDERED: WARFARIN 7.5 MG TABLET PO SCH (12:00)
--- NOTE | 2017-09-16 13:13 | XRay Report ---
Indication: pneumonia, chf PROCEDURE: XR chest 1V: Encounter: Initial Comparison: September 14, 2017 Findings: Improving aeration of the right middle lobe with continued dense consolidation of the left lower lobe and small left effusion. No pneumothorax. Cardiac silhouette remains enlarged. Mediastinal contours are stable. Pulmonary vascularity now appears normal. Impression: Improved pneumonia with resolving pulmonary edema. .
--- NOTE | 2017-09-16 14:26 | Progress Note ---
- Date 09/16/17 Subjective: Afia is seen today in follow up. She is feeling well. Up in chair. Denies pain, SOA, or other acute concerns. Objective Vital signs: Temperature 98.0 F 09/16/17 07:29 Pulse Rate 69 09/16/17 07:29 Respiratory Rate 24 09/16/17 09:58 Blood Pressure 114/65 09/16/17 07:29 Pulse Oximetry 95 09/16/17 13:22 Height/Weight/BMI: Height 1.63 m Weight 104 kg Body Mass Index 39.9 - Constitutional Present: no acute distress, obese, cooperative - Routine HEENT Exam Head: Present: normocephalic, atraumatic Eye: Present: EOMI, PERRL ENT: Present: mucous membranes moist - Routine Respiratory Exam Present: decreased breath sounds, diminished air movement. Absent: accessory muscle use, dyspnea, rhonchi, crackles - Routine Cardiovascular Exam Present: RRR, S1, S2, no murmur - Routine Abdominal Exam Present: soft, non distended, non tender. Absent: normoactive bowel sounds ( hypoactive) - Routine Extremities Exam Present: non tender - Routine Musculoskeletal Exam Musculoskeletal: Present: moving extremities well - Routine Skin Exam Present: intact, dry, warm - Routine Neurological Exam Present: alert, moving all extremities - Routine Psychiatric Exam Present: normal affect, normal thought process, cooperative Results - Labs CBC & Chem 7: 09/16/17 04:45 09/16/17 04:45 Microbiology Results: Microbiology 09/14/17 13:22 Urine Legionella Urinary Antigen - Final 09/14/17 13:22 Urine Streptococcus pneumoniae Antigen (M - Final - Imaging and Cardiology Chest x-ray Additional comments: Impression: Improved pneumonia with resolving pulmonary edema. . Assessment and Plan (1) Acute respiratory failure with hypoxia Current visit: Yes Status: Acute Assessment and Plan: Assessment Acute respiratory failure with hypoxia (the patient is usually on 2 L of oxygen at night only)-currently she is on 2.5 L of oxygen, down from 6 L maximum Right middle lobe and left lower lobe community-acquired pneumonia CHF exacerbation-improving on chest x-ray, currently on Lasix 40 mg by mouth twice a day Small left pleural effusion Leukocytosis-POA [17.8]-improving Hypernatremia-POA [150]-resolved Skin wound-right mid-back (? etiology)-POA-wound and skin nurse has evaluated and placed a medi-honey dressing Hypertension-well controlled Chronic atrial fibrillation-on Coumadin (pacer dependent)-rate controlled Subtherapeutic INR-POA [1.28]-Coumadin adjusted per pharmacy COPD History kidney stones Osteoarthritis Depression Gout Chronic back pain-on chronic narcotics (50 g fentanyl patch and [place] 7.5 every 6 hours when necessary) History of CVA with word finding difficulties that is gradually worsening Perineal yeast infection Plan 09/16/17 Patient continues to improve. She is stable on 2-3 liters. (She uses only nocturnal O2 at home). She is up in chair, but is requiring assistance to get up. Concerned she may need some rehabilitation before going home. (Lives with granddaughter) Leukocytosis and procalcitonin is trending down. Continue Levaquin d#4. Nebs. Lasix BID, KCL, Metoprolol. INR/Warfarin adjustment per pharmacy- chronic atrial fib. rate is controlled. Continue supportive care. Home soon? She will need either rehab or HH on discharge most likely. 09/16/2017-3:50 PM-I reviewed this chart, the patient history, and the [employer]'s/PA 's documented findings as above. We discussed and formulated the assessment and plan as above with the additions below.-Dr. Palacios Patient is seen this afternoon in her room. She sitting up in the recliner. She has a wet productive cough. She denies any shortness of breath at this time, but states she gets short of breath with activity. She denies any pain. She is eating and drinking well. She is concerned that she will be strong enough to go home when she is medically ready. She is also worried about her shortness of breath with activity. She also would like an evaluation with speech therapy for her word finding difficulty. This has been present since she had a stroke but she thinks it's getting worse On exam she is alert and in no acute distress speech sounds fairly fluent. Chest reveals scattered coarse breath sounds in the bases. Cardiovascular reveals a regular rate and rhythm. Abdomen is soft and nontender. Extremities are free of edema. On skin exam, she has a dressing over a small wound that she had on her right flank area. She had had some scratches with erythema around this wound, but the skin is looking much better at this time. Dressing is due to be changed tomorrow. Impression and plan Acute hypoxic respiratory failure-improving CHF-markedly better Right middle lobe and left lower lobe community-acquired pneumonia-slowly improving Generalized weakness-PT did evaluate the patient on Sunday and thought she could go home with home health. The patient is concerned that she is too short of breath with activity to go home. We'll ask case management to reevaluate the patient for possible mcc per her request. Physical therapy should see the patient again tomorrow as well. We'll ask speech therapy to see the patient regarding chronic progressive word finding difficulties DVT Prophylaxis: SCD's, Coumadin Resuscitation Status: Do Not Resuscitate - Physician Narrative Physician: Rocio Palacios MD Narrative: Date: 09/16/17 Time: 1422 Hospital Course Summary Disclaimer: The visit summary below is not to be considered part of the above Progress Note. Hospital Course: 09/13/17-hospital admission Admit, inpatient, under the hospitalist service, Dr. Palacios attending. Stay expected to exceed 2 midnights given her hypoxia and comorbidities. Start Levaquin 750 mg IV every 24 hours for probable CAP. Repeat lactate. Blood cultures drawn in ER. DuoNeb's, Acapella for respiratory symptoms. Lasix 40 mg IV given in ED for CHF exacerbation. Monitor I and O's. Daily weights. Insert Manuel. Telemetry. Continuous pulse oximetry. Pharmacy consult for warfarin. Warfarin for DVT prophylaxis. Echocardiogram in the a.m. to evaluate heart structure and function. Check BNP. Repeat troponin. Speech therapy, PT/OT consults. Wound clinic consult for lesion on back. Repeat labs in a.m. to follow blood counts, renal function and electrolytes. Check magnesium. Fentanyl patch continued from home med list for her chronic back pain. Continue mirtazapine at at bedtime. Dr. Palacios to reconcile remainder of medications. Patient requests DO NOT RESUSCITATE CODE STATUS. Care to return to Dr. Afshin Macias upon discharge. 09/14/2017 Overall, the patient is feeling a little bit better today. She feels stronger and is less short of breath. She is still requiring 6 L of oxygen. Continue Levaquin for pneumonia. Try to obtain a sputum sample. Check urine for Legionella and strep pneumonia antigens. Continue breathing treatments and Acapella. Will add guaifenesin Will decrease Lasix to 40 IV twice a day. Echocardiogram is pending. Dr. Chavez has been consulted regarding pulmonary edema, possible exacerbation of CHF. The patient states that at home she had recently decrease Lasix to 40 mg once daily at the recommendation have her physician because they thought she had become dehydrated. Will start nystatin powder for perineal yeast infection PT and OT did evaluate the patient and have recommended home with home health when the patient is medically ready for discharge. The patient is in agreement Consider speech therapy as an outpatient to help with word finding/cognitive difficulties related to her stroke The wound and skin nurse did see the patient and placed a honey dressing on her wound. This will be changed every 3 days. Add 20 mEq of potassium twice a day for underlying hypokalemia. Recheck BMP and CBC tomorrow. Increase activity as tolerated. We'll check a pro-calcitonin level. Continue Coumadin for A. fib., INR is increasing. Her subtherapeutic INR was likely because she was having trouble swallowing for a couple of days prior to admission and had not taken her Coumadin. Discussed with the patient's nurse and the wound and skin nurse. 09/15/2017 Overall, the patient appears to be doing better today. Oxygen needs have decreased down to 2.5 L down from 6 L yesterday. She still feels weak and not ready for discharge. Continue Levaquin for community-acquired pneumonia. Repeat CBC and pro- calcitonin tomorrow. Echocardiogram showed improvement in ejection fraction and is now 45%. Dr. Chavez's help is appreciated. He did decrease her Lasix down to 40 mg by mouth twice a day. We'll discontinue Manuel catheter. Continue PT and OT. Recheck basic metabolic profile tomorrow regarding diuresis. Continue wound care treatments initiated by wound and skin team Continue Coumadin for A. fib. INR is subtherapeutic due to missing a couple of days of Coumadin at home. Swallowing has improved and speech recommended a soft diet and regular liquids. Plan 09/16/17 Patient continues to improve. She is stable on 2-3 liters. (She uses only nocturnal O2 at home). She is up in chair, but is requiring assistance to get up. Concerned she may need some rehabilitation before going home. (Lives with granddaughter) Leukocytosis and procalcitonin is trending down. Continue Levaquin d#4. Nebs. Lasix BID, KCL, Metoprolol. INR/Warfarin adjustment per pharmacy- chronic atrial fib. rate is controlled. Continue supportive care. Home soon? She will need either rehab or HH on discharge most likely.
[2017-09-16] MEDS: POLYETHYL GLYCOL 3350 17gm PACKET PO SCH (17:33)
[2017-09-16] MEDS: LEVOFLOXACIN PB 750 MG/150 ML BAG IV SCH (19:43)
[2017-09-16] MEDS: HYDROCODONE/APAP 7.5 MG/325 MG TABLET PO PRN (19:52)
[2017-09-16] MEDS: MIRTAZAPINE 15 MG TABLET PO SCH ×2 (19:53→22:57)
[2017-09-16] MEDS: QUETIAPINE 100 MG TABLET PO SCH ×2 (19:54→22:58)
[2017-09-17] MEDS: ALBUTEROL/IPRATROPIUM 2.5mg-0.5mg/3ml NEB AEROSOL SCH ×4 (07:09→19:24)
--- NOTE | 2017-09-17 08:16 | Pharmacy Consult ---
Pharmacy Consult-Warfarin - Laboratory Information 09/14/17 09/15/17 09/16/17 05:54 05:13 04:45 INR 1.59 H 1.58 H 1.61 H 09/17/17 04:07 INR 1.84 H - Consult Information 72 y.o. female with history of a. fib. recent documentation reports that rate is controlled and history of chronic anticoagulation with warfarin. Home warfarin dose 6 mg po daily. goal INR range= 2.0 to 3.0. INR was subtherapeutic upon admission. Date INR dose 12/15 1.59 6 mg 12/16 1.58 7.5 mg 12/17 1.61 7.5 mg 12/18 1.84 plan: 7.5 mg INR subtherapeutic, however it has been climbing the past 2 days. Will give Warfarin 7.5 mg po x 1 dose today. Potential drug-drug interaction between Levaquin and Warfarin. May increase INR and risk of bleeding. Pharmacy will monitor and dose. Thank you, Sowmya Hernandez [facility]
[2017-09-17] MEDS: MULTI-VITAMIN + MINERAL TABLET PO SCH (08:48)
[2017-09-17] MEDS: ALLOPURINOL 300 MG TABLET PO SCH (08:48)
[2017-09-17] MEDS: FUROSEMIDE 40 MG TABLET PO SCH ×2 (08:48→16:48)
[2017-09-17] MEDS: SERTRALINE 100 MG TABLET PO SCH (08:48)
[2017-09-17] MEDS: GABAPENTIN 300 MG CAPSULE PO SCH ×3 (08:48→21:54)
[2017-09-17] MEDS: POLYETHYL GLYCOL 3350 17gm PACKET PO SCH (08:48)
[2017-09-17] MEDS: CALCIUM CARBONATE 500 MG TABLET PO SCH (08:49)
[2017-09-17] MEDS: HYDROCODONE/APAP 7.5 MG/325 MG TABLET PO PRN (08:51)
[2017-09-17] MEDS: GUAIFENESIN LA 600 MG TABLET PO SCH ×2 (08:51→22:30)
--- NOTE | 2017-09-17 10:46 | Progress Note ---
- Date 09/17/17 Subjective: Afia c/o lower back pain. She has it chronically but it is much worse than usual. She states that she is no longer short of breath. She has a dry cough. Her appetite is "ok" - she's eating only because she knows she should but doesn' t really feel like eating. She denies nausea but has been constipated and bloated. She denies dizziness when up ambulating. Objective Vital signs: Temperature 97.7 F 09/17/17 07:00 Pulse Rate 69 09/17/17 08:00 Respiratory Rate 18 09/17/17 10:17 Blood Pressure 118/54 09/17/17 07:00 Pulse Oximetry 91 09/17/17 10:17 Height/Weight/BMI: Height 1.63 m Weight 104.5 kg Body Mass Index 39.9 - Constitutional Present: no acute distress, well nourished, well developed, obese - Routine HEENT Exam Head: Present: normocephalic Eye: Present: PERRL. Absent: conjunctival icterus, scleral injection - Routine Respiratory Exam Present: decreased breath sounds (LLL), crackles (LLL) Comments: Breath sounds are clear except in the LLL - Routine Cardiovascular Exam Present: RRR, S1, S2, murmur - Routine Abdominal Exam Present: soft, normoactive bowel sounds, non tender, distended (mild) - Routine Extremities Exam Present: no edema, pulses intact - Routine Skin Exam Present: intact, dry, warm - Routine Neurological Exam Present: alert, oriented X3, normal speech - Routine Psychiatric Exam Present: normal affect, normal thought process, cooperative Results - Labs CBC & Chem 7: 09/17/17 04:07 09/17/17 04:07 Microbiology Results: Microbiology 09/14/17 13:22 Urine Legionella Urinary Antigen - Final 09/14/17 13:22 Urine Streptococcus pneumoniae Antigen (M - Final Assessment and Plan (1) Acute respiratory failure with hypoxia Current visit: Yes Status: Acute Assessment and Plan: Assessment Acute respiratory failure with hypoxia (the patient is usually on 2 L of oxygen at night only)-currently she is on 2.5 L of oxygen, down from 6 L maximum Right middle lobe and left lower lobe community-acquired pneumonia CHF exacerbation-improving on chest x-ray, currently on Lasix 40 mg by mouth twice a day Small left pleural effusion Leukocytosis-POA [17.8]-improving Hypernatremia-POA [150]-resolved Skin wound-right mid-back (? etiology)-POA-wound and skin nurse has evaluated and placed a medi-honey dressing Hypertension-well controlled Chronic atrial fibrillation-on Coumadin (pacer dependent)-rate controlled Subtherapeutic INR-POA [1.28]-Coumadin adjusted per pharmacy COPD History kidney stones Osteoarthritis Depression Gout Chronic back pain-on chronic narcotics (50 g fentanyl patch and [place] 7.5 every 6 hours when necessary) History of CVA with word finding difficulties that is gradually worsening Perineal yeast infection Plan 09/17/17 Continue Levaquin (day #5) for CAP. Infectious markers trending down. Previous CXRs reviewed -- improving radiographically and also clinically. O2 weaned down to 1L; she desaturated to 86% on room air. K down to 3.4; increase KDur 20 mEq from BID to TID Monitor hgb -- slow decline since admission, at which time hgb was 13.2 & today 10.6. Check stool for occult blood. INR has been subtherapeutic. Constipation -- pt has taken PRN meds and does not want suppository. Will offer lactulose; start Senna Plus BID and Miralax daily. Chronic back pain -- try heating pad. Small wound to right flank -- not visualized today; will discuss with RN. CM checked with pt - she states her only need will be meals on wheels. DVT Prophylaxis: Coumadin Resuscitation Status: Do Not Resuscitate - Physician Narrative Narrative: Date: 09/17/17 Time: 16:12 I have independently evaluated and examined this patient. I reviewed the chart, the patient's history, and the [employer]/PA's documented findings as above. We discussed and formulated the assessment and plan as above with additions as below. In general, the patient is alert and oriented 3, cooperative with exam, and in no respiratory distress. HEENT: Head is atraumatic, normocephalic, no conjunctival petechiae, no oral thrush, mucous membranes are moist and pink. Lungs: Clear to auscultation with crackles in left lower lobe CV: Regular rate and rhythm without murmur Abdomen: Soft, nontender, bowel sounds are present, there is no guarding no rebound. Extremities: No clubbing, no cyanosis, no edema. Skin: Warm and dry no sign of rash Neuro: Patient is alert The patient reports that she has poor by mouth intake because of difficulty swallowing. On further questioning, she points to the middle of her throat and says that food seems to stick in that area. Upon occasion she has pain lower in her chest area when she eats. She reports sometimes she throws up because food sticks. In the remote past she has undergone evaluation in [place] with both an ENT and her GI physician, she doesn't recall who. She does not remember having a barium swallow. Speech pathology notes were reviewed, I discussed her symptoms with our speech pathologist, we'll proceed with a barium swallow. Her GI issues may increase her risk for chronic aspiration which may explain her pulmonary issues and, and she may be at risk for recurrent hospitalizations secondary to this. It is unclear for her symptoms if she might have an esophageal stricture, an esophageal diverticulum or esophageal spasm. She has received 4 days of IV levofloxacin. We'll change to oral levofloxacin 1 dose and then complete therapy. The patient believes she has current on her flu vaccine, is not sure when she had her pneumococcal 23 Valent or and or routine Valent immunizations. She does not recall her last Tdap or if she's had one before. She agrees to a Tdap today. Hospital Course Summary Disclaimer: The visit summary below is not to be considered part of the above Progress Note. Hospital Course: 09/13/17-hospital admission Admit, inpatient, under the hospitalist service, Dr. Palacios attending. Stay expected to exceed 2 midnights given her hypoxia and comorbidities. Start Levaquin 750 mg IV every 24 hours for probable CAP. Repeat lactate. Blood cultures drawn in ER. DuoNeb's, Acapella for respiratory symptoms. Lasix 40 mg IV given in ED for CHF exacerbation. Monitor I and O's. Daily weights. Insert Manuel. Telemetry. Continuous pulse oximetry. Pharmacy consult for warfarin. Warfarin for DVT prophylaxis. Echocardiogram in the a.m. to evaluate heart structure and function. Check BNP. Repeat troponin. Speech therapy, PT/OT consults. Wound clinic consult for lesion on back. Repeat labs in a.m. to follow blood counts, renal function and electrolytes. Check magnesium. Fentanyl patch continued from home med list for her chronic back pain. Continue mirtazapine at at bedtime. Dr. Palacios to reconcile remainder of medications. Patient requests DO NOT RESUSCITATE CODE STATUS. Care to return to Dr. Afshin Macias upon discharge. 09/14/2017 Overall, the patient is feeling a little bit better today. She feels stronger and is less short of breath. She is still requiring 6 L of oxygen. Continue Levaquin for pneumonia. Try to obtain a sputum sample. Check urine for Legionella and strep pneumonia antigens. Continue breathing treatments and Acapella. Will add guaifenesin Will decrease Lasix to 40 IV twice a day. Echocardiogram is pending. Dr. Chavez has been consulted regarding pulmonary edema, possible exacerbation of CHF. The patient states that at home she had recently decrease Lasix to 40 mg once daily at the recommendation have her physician because they thought she had become dehydrated. Will start nystatin powder for perineal yeast infection PT and OT did evaluate the patient and have recommended home with home health when the patient is medically ready for discharge. The patient is in agreement Consider speech therapy as an outpatient to help with word finding/cognitive difficulties related to her stroke The wound and skin nurse did see the patient and placed a honey dressing on her wound. This will be changed every 3 days. Add 20 mEq of potassium twice a day for underlying hypokalemia. Recheck BMP and CBC tomorrow. Increase activity as tolerated. We'll check a pro-calcitonin level. Continue Coumadin for A. fib., INR is increasing. Her subtherapeutic INR was likely because she was having trouble swallowing for a couple of days prior to admission and had not taken her Coumadin. Discussed with the patient's nurse and the wound and skin nurse. 09/15/2017 Overall, the patient appears to be doing better today. Oxygen needs have decreased down to 2.5 L down from 6 L yesterday. She still feels weak and not ready for discharge. Continue Levaquin for community-acquired pneumonia. Repeat CBC and pro- calcitonin tomorrow. Echocardiogram showed improvement in ejection fraction and is now 45%. Dr. Chavez's help is appreciated. He did decrease her Lasix down to 40 mg by mouth twice a day. We'll discontinue Manuel catheter. Continue PT and OT. Recheck basic metabolic profile tomorrow regarding diuresis. Continue wound care treatments initiated by wound and skin team Continue Coumadin for A. fib. INR is subtherapeutic due to missing a couple of days of Coumadin at home. Swallowing has improved and speech recommended a soft diet and regular liquids. Plan 09/16/17 Patient continues to improve. She is stable on 2-3 liters. (She uses only nocturnal O2 at home). She is up in chair, but is requiring assistance to get up. Concerned she may need some rehabilitation before going home. (Lives with granddaughter) Leukocytosis and procalcitonin is trending down. Continue Levaquin d#4. Nebs. Lasix BID, KCL, Metoprolol. INR/Warfarin adjustment per pharmacy- chronic atrial fib. rate is controlled. Continue supportive care. Home soon? She will need either rehab or HH on discharge most likely. 09/17/17 Continue Levaquin (day #5) for CAP. Infectious markers trending down. Previous CXRs reviewed -- improving radiographically and also clinically. O2 weaned down to 1L; she desaturated to 86% on room air. K down to 3.4; increase KDur 20 mEq from BID to TID Monitor hgb -- slow decline since admission, at which time hgb was 13.2 & today 10.6. Check stool for occult blood. INR has been subtherapeutic. Constipation -- pt has taken PRN meds and does not want suppository. Will offer lactulose; start Senna Plus BID and Miralax daily. Chronic back pain -- try heating pad. Small wound to right flank -- not visualized today; will discuss with RN. CM checked with pt - she states her only need will be meals on wheels.
[2017-09-17] MEDS: SALINE FLUSH 10ml SYRINGE IV PRN (11:51)
[2017-09-17] MEDS ORDERED: WARFARIN 7.5 MG TABLET PO SCH (12:00)
[2017-09-17] MEDS ORDERED: LACTULOSE 20 GM/30 ML ORAL LIQUID PO ONE (14:14)
--- NOTE | 2017-09-17 15:33 | Cardiology Progress Note ---
<Bridgett Colbert M - Last Filed: 09/18/17 14:11> Subjective Principal diagnosis: CHF Interval history: Swapna is seen in follow up for DCHF exacerbation. She is laying in her bed on Medical. She denies chest pain or pressure, remains in A Fib. Exam Vital signs: Temperature 96.3 F L 09/17/17 15:00 Pulse Rate 71 09/17/17 15:00 Respiratory Rate 14 09/17/17 15:00 Blood Pressure 101/62 09/17/17 15:00 Pulse Oximetry 94 09/17/17 15:00 Inpatient Medications: Generic Name Dose Route Start Last Admin Trade Name Freq PRN Reason Stop Dose Admin Hydrocodone Bitart/Acetaminophen 1 tab 09/13/17 21:49 09/17/17 08:51 Clymer 7.5/325 PO 1 tab Q6H PRN Administration Pain Albuterol/Ipratropium 3 ml 09/13/17 19:00 09/17/17 14:54 Duoneb AEROSOL 3 ml RTQID TATIANA Administration Allopurinol 300 mg 09/14/17 09:00 09/17/17 08:48 Zyloprim PO 300 mg DAILY TATIANA Administration Calcium Carbonate 1,500 mg 09/14/17 09:00 09/17/17 08:49 Calcium PO 1,500 mg DAILY TATIANA Administration Fentanyl 50 mcg 09/13/17 20:00 09/16/17 19:43 Duragesic Patch TD 50 mcg Q3D TATIANA Administration Fentanyl Citrate 1 removal 09/16/17 20:00 09/16/17 19:42 Duragesic Patch Removal TD 1 removal Q3D TATIANA Administration Furosemide 40 mg 09/14/17 17:00 09/17/17 08:48 Lasix 40 Mg Tab PO 40 mg 0900,1700 TATIANA Administration Gabapentin 300 mg 09/13/17 21:00 09/17/17 15:07 Neurontin PO 300 mg TID TATIANA Administration Guaifenesin 1,200 mg 09/14/17 21:00 09/17/17 08:51 Mucinex La PO 1,200 mg BID TATIANA Administration Levofloxacin 500 mg 09/17/17 18:00 Levaquin PO 09/17/17 18:01 O ONE Magnesium Hydroxide 30 ml 09/15/17 08:32 09/16/17 08:29 Mom PO 30 ml DAILY PRN Administration Constipation Metoprolol Succinate 25 mg 09/14/17 15:30 09/17/17 08:49 Toprol Xl PO 25 mg DAILY TATIANA Administration Mirtazapine 15 mg 09/13/17 21:00 09/16/17 22:57 Remeron PO Not Given HS TATIANA Multivitamins/Minerals 1 tab 09/14/17 09:00 09/17/17 08:48 Therapeutic - M PO 1 tab DAILY TATIANA Administration Nystatin 1 applic 09/14/17 15:00 09/17/17 15:07 Mycostatin TP 1 applic TID TATIANA Administration Ondansetron HCl 4 mg 09/15/17 19:52 09/15/17 19:57 Zofran IVP 4 mg Q6H PRN Administration Nausea &/or vomiting Polyethylene Glycol 17 gm 09/16/17 16:00 09/17/17 08:48 Miralax PO 17 gm DAILY TATIANA Administration Polyethylene Glycol 17 gm 09/18/17 09:00 Miralax PO DAILY TATIANA Potassium Chloride 20 meq 09/17/17 14:15 09/17/17 15:07 K-Dur 20 Meq Tablet PO 20 meq TIDWM TATIANA Administration Quetiapine Fumarate 100 mg 09/13/17 21:00 09/16/17 22:58 Seroquel PO Not Given HS TATIANA Senna/Docusate Sodium 1 tab 09/17/17 21:00 Senna Plus Tablet PO BID TATIANA Sertraline HCl 200 mg 09/14/17 09:00 09/17/17 08:48 Zoloft PO 200 mg DAILY TATIANA Administration Sodium Chloride 10 - 80 ml 09/13/17 21:55 09/17/17 11:51 Iv Flush IV 10 ml PRN PRN Administration Flushing Sodium Chloride 500 ml 09/13/17 21:55 09/13/17 22:04 Normal Saline IV 500 ml PRN PRN Administration Warfarin Sodium 0 09/14/17 08:15 Coumadin Protocol NOTE TATIANA Discontinued Medications Generic Name Dose Route Start Last Admin Trade Name Freq PRN Reason Stop Dose Admin Albuterol/Ipratropium 3 ml 09/13/17 15:57 09/13/17 16:00 Duoneb AEROSOL 09/13/17 15:58 3 ml O ONE Administration Furosemide 40 mg 09/13/17 17:07 09/13/17 17:27 Lasix 40 Mg/4 Ml IVP 09/13/17 17:08 40 mg O ONE Administration Furosemide 40 mg 09/14/17 01:00 09/14/17 09:33 Lasix 40 Mg/4 Ml IVP 40 mg Q8HR TATIANA Administration Levofloxacin/Dextrose 750 mg in 150 mls @ 100 mls/hr 09/13/17 19:33 09/16/17 21:13 Levaquin Premix IV Infused Q24H TATIANA Infusion Lactulose 20 gm 09/17/17 14:14 09/17/17 15:07 Lactulose PO 09/17/17 14:15 20 gm O ONE Administration Metoprolol Tartrate 12.5 mg 09/14/17 08:00 09/14/17 09:31 Lopressor PO 12.5 mg BIDWM TATIANA Administration Non-Formulary Medication 1 tab 09/13/17 19:48 Hydrocodone/Acetaminophen [Hydrocodon-Acetaminoph 7.5-300] PO Q6HPRN PRN Pain Pharmacy Consult each 09/13/17 23:07 Pharmacy Consult - Fall Risk 09/13/17 23:08 ONE TIME ONE Potassium Chloride 10 meq 09/14/17 08:00 09/16/17 08:31 K-Dur 10 Meq Tablet PO 10 meq WB TATIANA Administration Potassium Chloride 20 meq 09/14/17 08:00 09/17/17 08:53 K-Dur 20 Meq Tablet PO 20 meq BIDWM TATIANA Administration Warfarin Sodium 1 each 09/13/17 19:33 09/13/17 20:30 Pharmacy Consult - Warfarin 09/13/17 19:34 1 each O ONE Administration Warfarin Sodium 6 mg 09/13/17 19:50 09/13/17 22:04 Coumadin PO 6 mg 1700 TATIANA Administration Warfarin Sodium 6 mg 09/14/17 12:00 09/14/17 12:00 Coumadin PO 09/14/17 12:15 6 mg NOON TATIANA Administration Warfarin Sodium 7.5 mg 09/15/17 12:00 09/15/17 11:40 Coumadin PO 09/15/17 12:30 7.5 mg NOON TATIANA Administration Warfarin Sodium 7.5 mg 09/16/17 12:00 09/16/17 11:57 Coumadin PO 09/16/17 12:30 7.5 mg NOON TATIANA Administration Warfarin Sodium 7.5 mg 09/17/17 12:00 09/17/17 11:51 Coumadin PO 09/17/17 12:01 7.5 mg NOON TATIANA Administration - Constitutional no acute distress, obese, cooperative - Routine HEENT Exam Head: Present: normocephalic ENT: Present: mucous membranes moist - Routine Neck Exam Absent: JVD, carotid bruit - Routine Chest/Breast/Axilla Exam Chest wall: Present: pacemaker. Absent: tenderness - Routine Respiratory Exam Present: decreased breath sounds, wheezes (left). Absent: dyspnea - Routine Cardiovascular Exam Present: RRR, murmur - Routine Abdominal Exam Present: soft, normoactive bowel sounds - Routine Extremities Exam Present: no edema - Routine Skin Exam Present: intact, dry, warm - Routine Neurological Exam Present: alert, oriented X3 - Routine Psychiatric Exam Present: normal affect, normal thought process - Urinary Catheter Management Urethral Cath placed during this visit: yes, but has since been removed by the nurse Insertion date: 09/13/17 Insertion time: 21:20 Removal date: 09/15/17 Removal time: 15:47 Results 09/18/17 04:09 09/18/17 04:09 CBC 09/17/17 Range/Units 04:07 WBC 7.6 (4.5-11.0) T/MM3 RBC 3.28 L (4.00-5.20) M/MM3 Hgb 10.6 L (12-16) GM/DL Hct 32.3 L (36-46) % Plt Count 165 (130-400) T/MM3 Neut # (Auto) 5.0 (1.8-7.7) T/MM3 Lymph # (Auto) 1.6 (1-4.8) T/MM3 [place] # (Auto) 0.6 (0-0.8) T/MM3 Eos # (Auto) 0.3 (0-0.5) T/MM3 Baso # (Auto) 0.0 (0-0.2) T/MM3 Comprehensive Metabolic Panel 09/17/17 Range/Units 04:07 Sodium 144 (134-144) MEQ/L Potassium 3.3 L (3.6-5) MEQ/L Chloride 100 (98-107) MEQ/L Carbon Dioxide 33 H (22-30) MEQ/L BUN 27.0 H (7-17) MG/DL Creatinine 1.1 (0.7-1.2) mg/dL Glucose 105 (65-110) MG/DL Calcium 9.4 (8.4-10.2) MG/DL Intake and Output 09/17/17 09/17/17 09/17/17 06:59 14:59 22:59 Intake Total 250 / 250 430 / 430 Balance 250 / 250 430 / 430 Intake: Oral 250 / 250 430 / 430 Other: Urine Appearance Clear Clear Urine Color Yellow Urine Odor Normal Normal # Voids 1 1 # Incontinent Voids 1 Weight 230 lb 6.129 oz Patient Weight 09/18/17 06:59 Weight 230 lb 6.129 oz - Imaging and Cardiology Imaging & Cardiology Narrative: = = = = = = = = = = = = = = = = = = = = = = = = = = = = = = = = = = = = = = = = = = = = = = = = = = = = = = = = = = = Date of Exam: 09/14/17 Type of Exam(s): US echo doppler complete DATE OF PROCEDURE 09/14/2017 This is a two-dimensional echo with spectral Doppler, color-flow and M-mode. It was obtained in a patient with shortness of breath and history of pacemaker. Left atrium is dilated. Left ventricular end-diastolic dimension is normal. Left ventricular wall thickness is increased. LV systolic function is mildly reduced with an ejection fraction of about 45%. Right atrium is dilated. Right ventricle is dilated. Aortic root dimension is normal. Mitral valve annulus is calcified. Mitral valve leaflets are normal with no stenosis. Mild mitral regurgitation is present. Aortic valve shows fibrocalcific changes with no stenosis or insufficiency. Tricuspid valve shows mild tricuspid regurgitation with moderate pulmonary hypertension with estimated pulmonary artery systolic pressure of 46. Pulmonary valve shows mild pulmonary insufficiency. There is no pericardial effusion. Pacemaker leads are present in right heart. IMPRESSION 1. Biatrial dilation. 3. Right ventricular dilation. 3. Left ventricular hypertrophy. 4. Pacemaker leads are present in right heart. 5. Mild global hypokinesia with ejection fraction of about 45%. 6. Mitral annulus calcification with mild mitral regurgitation. 7. Aortic sclerosis. 8. Mild tricuspid regurgitation with moderate pulmonary hypertension with estimated pulmonary artery systolic pressure of 46. 9. Mild pulmonary insufficiency. 09/17/17 15:31 Assessment and Plan - Assessment and Plan (1) Congestive heart failure Problem details: diastolic Current visit: Yes Status: Chronic (2) Essential (primary) hypertension Current visit: Yes Status: Acute (3) PAF (paroxysmal atrial fibrillation) Current visit: Yes Status: Acute (4) Presence of cardiac pacemaker Current visit: Yes Status: Acute - Assessment and Plan 09/14/17 Acute on Chronic - Last EF 35% - 2D echo pending - Restrict fluid/ NA intake - Change Diuresis to PO BID - Monitor renal and electrolytes - Change Metoprolol tartrate to Succinate Thank you for allowing us to participate in the care of this patient 09/17/17 EF 45% on echo report - Requires 1L O2 but laying flat Hospital Course Summary Disclaimer: The visit summary below is not to be considered part of the above Progress Note. Hospital Course: 09/13/17-hospital admission Admit, inpatient, under the hospitalist service, Dr. Palacios attending. Stay expected to exceed 2 midnights given her hypoxia and comorbidities. Start Levaquin 750 mg IV every 24 hours for probable CAP. Repeat lactate. Blood cultures drawn in ER. DuoNeb's, Acapella for respiratory symptoms. Lasix 40 mg IV given in ED for CHF exacerbation. Monitor I and O's. Daily weights. Insert Manuel. Telemetry. Continuous pulse oximetry. Pharmacy consult for warfarin. Warfarin for DVT prophylaxis. Echocardiogram in the a.m. to evaluate heart structure and function. Check BNP. Repeat troponin. Speech therapy, PT/OT consults. Wound clinic consult for lesion on back. Repeat labs in a.m. to follow blood counts, renal function and electrolytes. Check magnesium. Fentanyl patch continued from home med list for her chronic back pain. Continue mirtazapine at at bedtime. Dr. Palacios to reconcile remainder of medications. Patient requests DO NOT RESUSCITATE CODE STATUS. Care to return to Dr. Afshin Macias upon discharge. 09/14/2017 Overall, the patient is feeling a little bit better today. She feels stronger and is less short of breath. She is still requiring 6 L of oxygen. Continue Levaquin for pneumonia. Try to obtain a sputum sample. Check urine for Legionella and strep pneumonia antigens. Continue breathing treatments and Acapella. Will add guaifenesin Will decrease Lasix to 40 IV twice a day. Echocardiogram is pending. Dr. Chavez has been consulted regarding pulmonary edema, possible exacerbation of CHF. The patient states that at home she had recently decrease Lasix to 40 mg once daily at the recommendation have her physician because they thought she had become dehydrated. Will start nystatin powder for perineal yeast infection PT and OT did evaluate the patient and have recommended home with home health when the patient is medically ready for discharge. The patient is in agreement Consider speech therapy as an outpatient to help with word finding/cognitive difficulties related to her stroke The wound and skin nurse did see the patient and placed a honey dressing on her wound. This will be changed every 3 days. Add 20 mEq of potassium twice a day for underlying hypokalemia. Recheck BMP and CBC tomorrow. Increase activity as tolerated. We'll check a pro-calcitonin level. Continue Coumadin for A. fib., INR is increasing. Her subtherapeutic INR was likely because she was having trouble swallowing for a couple of days prior to admission and had not taken her Coumadin. Discussed with the patient's nurse and the wound and skin nurse. 09/15/2017 Overall, the patient appears to be doing better today. Oxygen needs have decreased down to 2.5 L down from 6 L yesterday. She still feels weak and not ready for discharge. Continue Levaquin for community-acquired pneumonia. Repeat CBC and pro- calcitonin tomorrow. Echocardiogram showed improvement in ejection fraction and is now 45%. Dr. Chavez's help is appreciated. He did decrease her Lasix down to 40 mg by mouth twice a day. We'll discontinue Manuel catheter. Continue PT and OT. Recheck basic metabolic profile tomorrow regarding diuresis. Continue wound care treatments initiated by wound and skin team Continue Coumadin for A. fib. INR is subtherapeutic due to missing a couple of days of Coumadin at home. Swallowing has improved and speech recommended a soft diet and regular liquids. Plan 09/16/17 Patient continues to improve. She is stable on 2-3 liters. (She uses only nocturnal O2 at home). She is up in chair, but is requiring assistance to get up. Concerned she may need some rehabilitation before going home. (Lives with granddaughter) Leukocytosis and procalcitonin is trending down. Continue Levaquin d#4. Nebs. Lasix BID, KCL, Metoprolol. INR/Warfarin adjustment per pharmacy- chronic atrial fib. rate is controlled. Continue supportive care. Home soon? She will need either rehab or HH on discharge most likely. 09/17/17 Continue Levaquin (day #5) for CAP. Infectious markers trending down. Previous CXRs reviewed -- improving radiographically and also clinically. O2 weaned down to 1L; she desaturated to 86% on room air. K down to 3.4; increase KDur 20 mEq from BID to TID Monitor hgb -- slow decline since admission, at which time hgb was 13.2 & today 10.6. Check stool for occult blood. INR has been subtherapeutic. Constipation -- pt has taken PRN meds and does not want suppository. Will offer lactulose; start Senna Plus BID and Miralax daily. Chronic back pain -- try heating pad. Small wound to right flank -- not visualized today; will discuss with RN. CM checked with pt - she states her only need will be meals on wheels. <Willis Chavez - Last Filed: 09/19/17 13:07> Exam Vital signs: Temperature 96.3 F L 09/19/17 07:00 Pulse Rate 69 09/19/17 08:00 Respiratory Rate 16 09/19/17 11:20 Blood Pressure 133/71 09/19/17 07:00 Pulse Oximetry 91 09/19/17 11:32 Inpatient Medications: Generic Name Dose Route Start Last Admin Trade Name Freq PRN Reason Stop Dose Admin Hydrocodone Bitart/Acetaminophen 1 tab 09/13/17 21:49 09/19/17 09:25 Clymer 7.5/325 PO 1 tab Q6H PRN Administration Pain Albuterol/Ipratropium 3 ml 09/13/17 19:00 09/19/17 11:20 Duoneb AEROSOL 3 ml RTQID TATIANA Administration Allopurinol 300 mg 09/14/17 09:00 09/19/17 09:27 Zyloprim PO 300 mg DAILY TATIANA Administration Calcium Carbonate 1,500 mg 09/14/17 09:00 09/19/17 09:26 Calcium PO 1,500 mg DAILY TATIANA Administration Fentanyl 50 mcg 09/13/17 20:00 09/16/17 19:43 Duragesic Patch TD 50 mcg Q3D TATIANA Administration Fentanyl Citrate 1 removal 09/16/17 20:00 09/16/17 19:42 Duragesic Patch Removal TD 1 removal Q3D TATIANA Administration Furosemide 40 mg 09/14/17 17:00 09/19/17 09:27 Lasix 40 Mg Tab PO 40 mg 0900,1700 TATIANA Administration Gabapentin 300 mg 09/13/17 21:00 09/19/17 09:26 Neurontin PO 300 mg TID TATIANA Administration Guaifenesin 1,200 mg 09/14/17 21:00 09/19/17 09:26 Mucinex La PO 1,200 mg BID TATIANA Administration Magnesium Hydroxide 30 ml 09/15/17 08:32 09/16/17 08:29 Mom PO 30 ml DAILY PRN Administration Constipation Metoprolol Succinate 25 mg 09/14/17 15:30 09/19/17 09:27 Toprol Xl PO 25 mg DAILY TATIANA Administration Mirtazapine 15 mg 09/13/17 21:00 09/18/17 20:31 Remeron PO 15 mg HS TATIANA Administration Multivitamins/Minerals 1 tab 09/14/17 09:00 09/19/17 09:34 Therapeutic - M PO 1 tab DAILY TATIANA Administration Nystatin 1 applic 09/14/17 15:00 09/19/17 09:28 Mycostatin TP 1 applic TID TATIANA Administration Ondansetron HCl 4 mg 09/15/17 19:52 09/15/17 19:57 Zofran IVP 4 mg Q6H PRN Administration Nausea &/or vomiting Pantoprazole Sodium 40 mg 09/18/17 17:00 09/19/17 06:39 Protonix Tab PO 40 mg ACBID TATIANA Administration Polyethylene Glycol 17 gm 09/16/17 16:00 09/19/17 09:28 Miralax PO 17 gm DAILY TATIANA Administration Potassium Chloride 30 meq 09/18/17 12:00 09/19/17 12:26 K-Dur 10 Meq Tablet PO 30 meq TIDWM TATIANA Administration Quetiapine Fumarate 100 mg 09/13/17 21:00 09/18/17 20:31 Seroquel PO 100 mg HS TATIANA Administration Senna/Docusate Sodium 1 tab 09/17/17 21:00 09/19/17 09:26 Senna Plus Tablet PO 1 tab BID TATIANA Administration Sertraline HCl 200 mg 09/14/17 09:00 09/19/17 09:28 Zoloft PO 200 mg DAILY TATIANA Administration Sodium Chloride 10 - 80 ml 09/13/17 21:55 09/18/17 20:32 Iv Flush IV 10 ml PRN PRN Administration Flushing Sodium Chloride 500 ml 09/13/17 21:55 09/13/17 22:04 Normal Saline IV 500 ml PRN PRN Administration Warfarin Sodium 0 09/14/17 08:15 Coumadin Protocol MC NOTE TATIANA Warfarin Sodium 7.5 mg 09/19/17 12:00 09/19/17 12:26 Coumadin PO 09/19/17 14:00 7.5 mg NOON TATIANA Administration Discontinued Medications Generic Name Dose Route Start Last Admin Trade Name Freq PRN Reason Stop Dose Admin Albuterol/Ipratropium 3 ml 09/13/17 15:57 09/13/17 16:00 Duoneb AEROSOL 09/13/17 15:58 3 ml O ONE Administration Diphtheria/Tetanus/Acell Pertussis 0.5 ml 09/17/17 17:00 09/17/17 16:48 Adacel IM 09/17/17 17:01 0.5 ml .ONCE ONE Administration Diphtheria/Tetanus/Acell Pertussis 1 each 09/17/17 17:00 09/17/17 16:51 Tdap Vaccine Administr Charge INJ 09/17/17 17:01 1 each O ONE Administration Furosemide 40 mg 09/13/17 17:07 09/13/17 17:27 Lasix 40 Mg/4 Ml IVP 09/13/17 17:08 40 mg O ONE Administration Furosemide 40 mg 09/14/17 01:00 09/14/17 09:33 Lasix 40 Mg/4 Ml IVP 40 mg Q8HR TATIANA Administration Furosemide 40 mg 09/18/17 13:11 09/18/17 14:27 Lasix 40 Mg/4 Ml IVP 09/18/17 13:12 40 mg O ONE Administration Levofloxacin/Dextrose 750 mg in 150 mls @ 100 mls/hr 09/13/17 19:33 09/16/17 21:13 Levaquin Premix IV Infused Q24H TATIANA Infusion Lactulose 20 gm 09/17/17 14:14 09/17/17 15:07 Lactulose PO 09/17/17 14:15 20 gm O ONE Administration Levofloxacin 500 mg 09/17/17 18:00 09/17/17 17:00 Levaquin PO 09/17/17 18:01 500 mg O ONE Administration Metoprolol Tartrate 12.5 mg 09/14/17 08:00 09/14/17 09:31 Lopressor PO 12.5 mg BIDWM TATIANA Administration Non-Formulary Medication 1 tab 09/13/17 19:48 Hydrocodone/Acetaminophen [Hydrocodon-Acetaminoph 7.5-300] PO Q6HPRN PRN Pain Pharmacy Consult each 09/13/17 23:07 Pharmacy Consult - Fall Risk 09/13/17 23:08 ONE TIME ONE Polyethylene Glycol 17 gm 09/18/17 09:00 Miralax PO DAILY [facility] Potassium Chloride 10 meq 09/14/17 08:00 09/16/17 08:31 K-Dur 10 Meq Tablet PO 10 meq WB TATIANA Administration Potassium Chloride 20 meq 09/14/17 08:00 09/17/17 08:53 K-Dur 20 Meq Tablet PO 20 meq BIDWM TATIANA Administration Potassium Chloride 20 meq 09/17/17 14:15 09/18/17 08:35 K-Dur 20 Meq Tablet PO 20 meq TIDWM [facility] Administration Potassium Chloride 20 meq 09/18/17 10:05 09/18/17 10:31 K-Dur 20 Meq Tablet PO 09/18/17 10:06 20 meq O ONE Administration Warfarin Sodium 1 each 09/13/17 19:33 09/13/17 20:30 Pharmacy Consult - Warfarin 09/13/17 19:34 1 each O ONE Administration Warfarin Sodium 6 mg 09/13/17 19:50 09/13/17 22:04 Coumadin PO 6 mg 1700 TATIANA Administration Warfarin Sodium 6 mg 09/14/17 12:00 09/14/17 12:00 Coumadin PO 09/14/17 12:15 6 mg NOON TATIANA Administration Warfarin Sodium 7.5 mg 09/15/17 12:00 09/15/17 11:40 Coumadin PO 09/15/17 12:30 7.5 mg NOON TATIANA Administration Warfarin Sodium 7.5 mg 09/16/17 12:00 09/16/17 11:57 Coumadin PO 09/16/17 12:30 7.5 mg NOON TATIANA Administration Warfarin Sodium 7.5 mg 09/17/17 12:00 09/17/17 11:51 Coumadin PO 09/17/17 12:01 7.5 mg NOON TATIANA Administration Warfarin Sodium 7.5 mg 09/18/17 12:00 09/18/17 12:01 Coumadin PO 09/18/17 23:59 7.5 mg NOON TATIANA Administration - Urinary Catheter Management Urethral Cath placed during this visit: no Results 09/19/17 04:30 09/19/17 04:30 CBC 09/19/17 Range/Units 04:30 WBC 7.6 (4.5-11.0) T/MM3 RBC 3.54 L (4.00-5.20) M/MM3 Hgb 11.3 L (12-16) GM/DL Hct 34.1 L (36-46) % Plt Count 207 (130-400) T/MM3 Neut # (Auto) 4.3 (1.8-7.7) T/MM3 Lymph # (Auto) 2.2 (1-4.8) T/MM3 [place] # (Auto) 0.6 (0-0.8) T/MM3 Eos # (Auto) 0.4 (0-0.5) T/MM3 Baso # (Auto) 0.0 (0-0.2) T/MM3 Comprehensive Metabolic Panel 09/19/17 Range/Units 04:30 Sodium 145 H (134-144) MEQ/L Potassium 3.8 (3.6-5) MEQ/L Chloride 99 (98-107) MEQ/L Carbon Dioxide 35 H (22-30) MEQ/L BUN 24.0 H (7-17) MG/DL Creatinine 1.2 (0.7-1.2) mg/dL Glucose 103 (65-110) MG/DL Calcium 9.6 (8.4-10.2) MG/DL Intake and Output 09/18/17 09/19/17 09/19/17 22:59 06:59 14:59 Intake Total 1000 / 1000 350 / 350 Output Total 100 / 100 350 / 350 Balance 900 / 900 -350 / -350 350 / 350 Intake: Oral 1000 / 1000 350 / 350 Output: Urine 100 / 100 350 / 350 Other: Urine Appearance Clear Clear Urine Color Yellow Dark Yellow Stool Color Brown Stool Consistency Soft Liza Size of Bowel Movement Small # Voids 1 # Incontinent Voids 1 # Bowel Movements 1 Weight 104.5 kg Patient Weight 09/20/17 06:59 Weight 104.5 kg Assessment and Plan - Assessment and Plan (1) Congestive heart failure Problem details: diastolic Current visit: Yes Status: Chronic (2) Essential (primary) hypertension Current visit: Yes Status: Acute (3) PAF (paroxysmal atrial fibrillation) Current visit: Yes Status: Acute (4) Presence of cardiac pacemaker Current visit: Yes Status: Acute - Attestation Attestation Narrative: 09/19/17 13:07 Recommendation After examining the patient I agree with the above assessment. I am involved in the formulation of the patient's plan of care. Hospital Course Summary Disclaimer: The visit summary below is not to be considered part of the above Progress Note.
[2017-09-17] MEDS ORDERED: Tdap VACCINE ADMINISTR CHARGE INJ ONE (17:00)
[2017-09-17] MEDS ORDERED: [UNRECOGNIZED DRUG - OTHER] IM ONE (17:00)
[2017-09-17] MEDS ORDERED: DIPHTHERIA IM ONE (17:00)
[2017-09-17] MEDS ORDERED: TETANUS IM ONE (17:00)
[2017-09-17] MEDS ORDERED: LEVOFLOXACIN 500 MG TABLET PO ONE (18:00)
[2017-09-17] MEDS: MIRTAZAPINE 15 MG TABLET PO SCH (21:54)
[2017-09-17] MEDS: SENNA + DOCUSATE TABLET PO SCH (21:55)
[2017-09-17] MEDS: QUETIAPINE 100 MG TABLET PO SCH (21:55)
--- NOTE | 2017-09-18 07:26 | Pharmacy Consult ---
Pharmacy Consult-Warfarin - Laboratory Information 09/14/17 09/15/17 09/16/17 05:54 05:13 04:45 INR 1.59 H 1.58 H 1.61 H 09/17/17 09/18/17 04:07 04:09 INR 1.84 H 2.12 H - Consult Information 72 y.o. female with history of a. fib. recent documentation reports that rate is controlled and history of chronic anticoagulation with warfarin. Home warfarin dose 6 mg po daily. goal INR range= 2.0 to 3.0. INR was subtherapeutic upon admission. Date INR dose 12/15 1.59 6 mg 12/16 1.58 7.5 mg 12/17 1.61 7.5 mg 12/18 1.84 7.5 mg 12/19 2.12 Plan 7.5 mg INR is therapeutic today. The Warfarin Dosing Protocol indicates a Warfarin 7.5 mg po x 1 dose be given today. Potential drug-drug interaction between Levaquin and Warfarin. May increase INR and risk of bleeding. The pharmacy will monitor the INR and dose the Warfarin accordingly. Thank you for the [facility] Dosing Protocol, Isacc Cotton, Pharmacist.
[2017-09-18] MEDS: ALBUTEROL/IPRATROPIUM 2.5mg-0.5mg/3ml NEB AEROSOL SCH ×4 (07:30→19:29)
[2017-09-18] MEDS: GABAPENTIN 300 MG CAPSULE PO SCH ×3 (08:34→20:30)
[2017-09-18] MEDS: FUROSEMIDE 40 MG TABLET PO SCH ×2 (08:34→17:21)
[2017-09-18] MEDS: SERTRALINE 100 MG TABLET PO SCH (08:35)
[2017-09-18] MEDS: SENNA + DOCUSATE TABLET PO SCH ×2 (08:35→20:31)
[2017-09-18] MEDS: GUAIFENESIN LA 600 MG TABLET PO SCH ×2 (08:35→20:30)
[2017-09-18] MEDS: ALLOPURINOL 300 MG TABLET PO SCH (08:35)
[2017-09-18] MEDS: CALCIUM CARBONATE 500 MG TABLET PO SCH (08:35)
[2017-09-18] MEDS: POLYETHYL GLYCOL 3350 17gm PACKET PO SCH (08:36)
[2017-09-18] MEDS: MULTI-VITAMIN + MINERAL TABLET PO SCH (08:36)
[2017-09-18] MEDS ORDERED: POLYETHYL GLYCOL 3350 17gm PACKET PO SCH (09:00)
--- NOTE | 2017-09-18 09:49 | Fluoroscopy Report ---
Indication:difficulty swallowing, feels food stick in mid throat region Procedure:FL barium swallow modified MODIFIED BAR. SWALLOW STUDY: Videofluoroscopy was performed in conjunction with a insurance verification representative from speech pathology and a separate report and recommendations will be provided. Varying gradations of barium from thin to solid were administered. Flash tracheal penetration was noted with thin and honey consistencies. There was no aspiration noted with any of the consistencies. On the AP view the bolus showed no obvious preference for either side. Impression: 1. Flash tracheal penetration with thin and honey consistencies. 2. No aspiration seen. Please see the speech pathology report for additional details and recommendations. Fluoroscopy dose: 7.91 mGy (Cumulative air kerma) Giovany Pastrana RPA/TRINIDAD performed this under my direct supervision. .
--- NOTE | 2017-09-18 09:54 | Progress Note ---
- Date 09/18/17 Subjective: Afia reports feeling pretty well. Her back pain is a little better. She denies feeling short of breath but states that her oxygen had to be increased last night just before she went to sleep. She denies having chest pain or increased dyspnea at that time. She had a large bowel movement yesterday, reported as brown in color though stool was heme positive. Prior to this she hadn't had a BM for several days. She denies nausea/vomiting. Objective Vital signs: Temperature 98.2 F 09/18/17 07:32 Pulse Rate 83 09/18/17 08:00 Respiratory Rate 18 09/18/17 07:32 Blood Pressure 112/62 09/18/17 07:32 Pulse Oximetry 93 09/18/17 07:32 Height/Weight/BMI: Height 1.63 m Weight 105 kg Body Mass Index 39.9 - Constitutional Present: no acute distress, well nourished, well developed, obese - Routine HEENT Exam Head: Present: normocephalic Eye: Present: PERRL. Absent: conjunctival icterus, scleral injection - Routine Respiratory Exam Present: decreased breath sounds - Routine Cardiovascular Exam Present: RRR, S1, S2 - Routine Abdominal Exam Present: soft, normoactive bowel sounds, non tender - Routine Extremities Exam Present: edema (trace BLE) - Routine Skin Exam Present: dry, warm, wounds (Right flank, dressing removed to identify a superfical ulceration with sloughed skin/granulation tissue. ) - Routine Neurological Exam Present: alert, oriented X3, normal speech - Routine Psychiatric Exam Present: normal affect, normal thought process, cooperative Results - Labs CBC & Chem 7: 09/18/17 04:09 09/18/17 04:09 Microbiology Results: Microbiology 09/14/17 13:22 Urine Legionella Urinary Antigen - Final 09/14/17 13:22 Urine Streptococcus pneumoniae Antigen (M - Final Assessment and Plan (1) Acute respiratory failure with hypoxia Current visit: Yes Status: Acute Assessment and Plan: Assessment Acute respiratory failure with hypoxia (the patient is usually on 2 L of oxygen at night only) Right middle lobe and left lower lobe community-acquired pneumonia - completed Levaquin x5 days CHF exacerbation-improving on chest x-ray, currently on Lasix 40 mg by mouth twice a day Small left pleural effusion Leukocytosis-POA [17.8]-resolved Hypernatremia-POA [150]-resolved Hypokalemia-not POA Subtherapeutic INR-POA [1.28]-Coumadin adjusted per pharmacy Skin wound-right mid-back (? etiology)-POA-wound and skin nurse has evaluated and placed a medi-honey dressing Normocytic anemia, mild Heme positive stool History of stage II colon cancer. Mass removed from right colon in 2012 and her last colonoscopy was last year. Perineal yeast infection Chronic and associated conditions Hypertension-well controlled Chronic atrial fibrillation-on Coumadin (pacer dependent)-rate controlled COPD History kidney stones Osteoarthritis Depression Gout Chronic back pain-on chronic narcotics (50 g fentanyl patch and [place] 7.5 every 6 hours when necessary) History of CVA with word finding difficulties that is gradually worsening Plan 09/18/17 Respiratory status is nearly at baseline though she required a temporary increase in oxygen last evening, up to 4L. Currently she is on 3L whereas yesterday she was down to 1L. Will check CXR. Levaquin course has been completed for CAP. Continue Lasix per cardiology. K continues to decline and will increase KDur dose from 20 mEq TID to 30 mEq TID and give an extra 20 mEq now. Modified barium swallow study done this morning, which was negative for aspiration. Hgb improved to 11.0 (13.2 on admission). She had a colonoscopy last year at a surgery center in [place] which she reports was negative. Discussed scenario with Dilan Shepherd -- typically since she's had a "normal" colonoscopy within the last couple of years, they would not recommend repeating that. One option would be to do an EGD, conversely, we could opt to treat empirically for PUD with Carafate and Protonix. Since her labs are otherwise stable, however, this could also be worked up in outpt setting. Will repeat stool for occult blood. INR was therapeutic today at 2.12, which increases her risk of GI blood loss. Will start Protonix 40 mg BID and discuss options further with Dr. Okeefe. Check iron studies. Continue wound care as recommended by wound team. DVT Prophylaxis: Coumadin GI Prophylaxis: Protonix Resuscitation Status: Do Not Resuscitate - Physician Narrative Narrative: Date: 09/18/17 Time: 950 I have independently evaluated and examined this patient. I reviewed the chart, the patient's history, and the ENROLLMENT NURSE/PA's documented findings as above. We discussed and formulated the assessment and plan as above with additions as below. Discussed with speech therapy, she did not have any signs of aspiration with her barium swallow today. The patient has expressed an interest in going to rehabilitation/SNU as she feels that she has been getting weaker lately and needs further therapy. She has been evaluated by them and they are looking at the options. Hospital Course Summary Disclaimer: The visit summary below is not to be considered part of the above Progress Note. Hospital Course: 09/13/17-hospital admission Admit, inpatient, under the hospitalist service, Dr. Palacios attending. Stay expected to exceed 2 midnights given her hypoxia and comorbidities. Start Levaquin 750 mg IV every 24 hours for probable CAP. Repeat lactate. Blood cultures drawn in ER. DuoNeb's, Acapella for respiratory symptoms. Lasix 40 mg IV given in ED for CHF exacerbation. Monitor I and O's. Daily weights. Insert Manuel. Telemetry. Continuous pulse oximetry. Pharmacy consult for warfarin. Warfarin for DVT prophylaxis. Echocardiogram in the a.m. to evaluate heart structure and function. Check BNP. Repeat troponin. Speech therapy, PT/OT consults. Wound clinic consult for lesion on back. Repeat labs in a.m. to follow blood counts, renal function and electrolytes. Check magnesium. Fentanyl patch continued from home med list for her chronic back pain. Continue mirtazapine at at bedtime. Dr. Palacios to reconcile remainder of medications. Patient requests DO NOT RESUSCITATE CODE STATUS. Care to return to Dr. Afshin Macias upon discharge. 09/14/2017 Overall, the patient is feeling a little bit better today. She feels stronger and is less short of breath. She is still requiring 6 L of oxygen. Continue Levaquin for pneumonia. Try to obtain a sputum sample. Check urine for Legionella and strep pneumonia antigens. Continue breathing treatments and Acapella. Will add guaifenesin Will decrease Lasix to 40 IV twice a day. Echocardiogram is pending. Dr. Chavez has been consulted regarding pulmonary edema, possible exacerbation of CHF. The patient states that at home she had recently decrease Lasix to 40 mg once daily at the recommendation have her physician because they thought she had become dehydrated. Will start nystatin powder for perineal yeast infection PT and OT did evaluate the patient and have recommended home with home health when the patient is medically ready for discharge. The patient is in agreement Consider speech therapy as an outpatient to help with word finding/cognitive difficulties related to her stroke The wound and skin nurse did see the patient and placed a honey dressing on her wound. This will be changed every 3 days. Add 20 mEq of potassium twice a day for underlying hypokalemia. Recheck BMP and CBC tomorrow. Increase activity as tolerated. We'll check a pro-calcitonin level. Continue Coumadin for A. fib., INR is increasing. Her subtherapeutic INR was likely because she was having trouble swallowing for a couple of days prior to admission and had not taken her Coumadin. Discussed with the patient's nurse and the wound and skin nurse. 09/15/2017 Overall, the patient appears to be doing better today. Oxygen needs have decreased down to 2.5 L down from 6 L yesterday. She still feels weak and not ready for discharge. Continue Levaquin for community-acquired pneumonia. Repeat CBC and pro- calcitonin tomorrow. Echocardiogram showed improvement in ejection fraction and is now 45%. Dr. Chvaez's help is appreciated. He did decrease her Lasix down to 40 mg by mouth twice a day. We'll discontinue Manuel catheter. Continue PT and OT. Recheck basic metabolic profile tomorrow regarding diuresis. Continue wound care treatments initiated by wound and skin team Continue Coumadin for A. fib. INR is subtherapeutic due to missing a couple of days of Coumadin at home. Swallowing has improved and speech recommended a soft diet and regular liquids. Plan 09/16/17 Patient continues to improve. She is stable on 2-3 liters. (She uses only nocturnal O2 at home). She is up in chair, but is requiring assistance to get up. Concerned she may need some rehabilitation before going home. (Lives with granddaughter) Leukocytosis and procalcitonin is trending down. Continue Levaquin d#4. Nebs. Lasix BID, KCL, Metoprolol. INR/Warfarin adjustment per pharmacy- chronic atrial fib. rate is controlled. Continue supportive care. Home soon? She will need either rehab or HH on discharge most likely. 09/17/17 Continue Levaquin (day #5) for CAP. Infectious markers trending down. Previous CXRs reviewed -- improving radiographically and also clinically. O2 weaned down to 1L; she desaturated to 86% on room air. K down to 3.4; increase KDur 20 mEq from BID to TID Monitor hgb -- slow decline since admission, at which time hgb was 13.2 & today 10.6. Check stool for occult blood. INR has been subtherapeutic. Constipation -- pt has taken PRN meds and does not want suppository. Will offer lactulose; start Senna Plus BID and Miralax daily. Chronic back pain -- try heating pad. Small wound to right flank -- not visualized today; will discuss with RN. CM checked with pt - she states her only need will be meals on wheels. 09/18/17 Respiratory status is nearly at baseline though she required a temporary increase in oxygen last evening, up to 4L. Currently she is on 3L whereas yesterday she was down to 1L. Will check CXR. Levaquin course has been completed for CAP. Continue Lasix per cardiology. K continues to decline and will increase KDur dose from 20 mEq TID to 30 mEq TID and give an extra 20 mEq now. Modified barium swallow study done this morning, which was negative for aspiration. Hgb improved to 11.0 (13.2 on admission). She had a colonoscopy last year at a surgery center in [place] which she reports was negative. Discussed scenario with Dilan Shepherd -- typically since she's had a "normal" colonoscopy within the last couple of years, they would not recommend repeating that. One option would be to do an EGD, conversely, we could opt to treat empirically for PUD with Carafate and Protonix. Since her labs are otherwise stable, however, this could also be worked up in outpt setting. Will repeat stool for occult blood. INR was therapeutic today at 2.12, which increases her risk of GI blood loss. Will start Protonix 40 mg BID and discuss options further with Dr. Okeefe. Check iron studies.
--- NOTE | 2017-09-18 11:14 | XRay Report ---
INDICATION: worsened hypoxia, CHF PROCEDURE: CHEST 2-VIEWS UPRIGHT (PA & LAT) Encounter: Initial COMPARISON: September 15, 2017 FINDINGS: Pulmonary edema appears worsened in the interval, now moderate. Left lower lobe airspace consolidation is slightly improved. Left effusion remaining. No pneumothorax. Heart size and mediastinal contours are stable. Right pacemaker. Prior CABG. Impression: Increasing pulmonary edema. .
[2017-09-18] MEDS ORDERED: WARFARIN 7.5 MG TABLET PO SCH (12:00)
[2017-09-18] MEDS ORDERED: FUROSEMIDE 40 MG/4 ML INJECTION IVP ONE (13:11)
--- NOTE | 2017-09-18 14:15 | Cardiology Progress Note ---
<Bridgett Colbert M - Last Filed: 09/19/17 13:37> Subjective Principal diagnosis: CHF Interval history: Afia is seen in follow up for DCHF exacerbation. She is sitting up in the recliner, eating her lunch. She has JVD but is in no distress. She denies chest pain or pressure. Exam Vital signs: Temperature 98.2 F 09/18/17 07:32 Pulse Rate 83 09/18/17 08:00 Respiratory Rate 22 09/18/17 11:15 Blood Pressure 112/62 09/18/17 07:32 Pulse Oximetry 95 09/18/17 11:15 Inpatient Medications: Generic Name Dose Route Start Last Admin Trade Name Freq PRN Reason Stop Dose Admin Hydrocodone Bitart/Acetaminophen 1 tab 09/13/17 21:49 09/17/17 08:51 [place] 7.5/325 PO 1 tab Q6H PRN Administration Pain Albuterol/Ipratropium 3 ml 09/13/17 19:00 09/18/17 11:15 Duoneb AEROSOL 3 ml RTQID TATIANA Administration Allopurinol 300 mg 09/14/17 09:00 09/18/17 08:35 Zyloprim PO 300 mg DAILY TATIANA Administration Calcium Carbonate 1,500 mg 09/14/17 09:00 09/18/17 08:35 Calcium PO 1,500 mg DAILY TATIANA Administration Fentanyl 50 mcg 09/13/17 20:00 09/16/17 19:43 Duragesic Patch TD 50 mcg Q3D TATIANA Administration Fentanyl Citrate 1 removal 09/16/17 20:00 09/16/17 19:42 Duragesic Patch Removal TD 1 removal Q3D TATIANA Administration Furosemide 40 mg 09/14/17 17:00 09/18/17 08:34 Lasix 40 Mg Tab PO 40 mg 0900,1700 TATIANA Administration Gabapentin 300 mg 09/13/17 21:00 09/18/17 08:34 Neurontin PO 300 mg TID TATIANA Administration Guaifenesin 1,200 mg 09/14/17 21:00 09/18/17 08:35 Mucinex La PO 1,200 mg BID TATIANA Administration Magnesium Hydroxide 30 ml 09/15/17 08:32 09/16/17 08:29 Mom PO 30 ml DAILY PRN Administration Constipation Metoprolol Succinate 25 mg 09/14/17 15:30 09/18/17 08:35 Toprol Xl PO 25 mg DAILY TATIANA Administration Mirtazapine 15 mg 09/13/17 21:00 09/17/17 21:54 Remeron PO 15 mg HS TATIANA Administration Multivitamins/Minerals 1 tab 09/14/17 09:00 09/18/17 08:36 Therapeutic - M PO 1 tab DAILY TATIANA Administration Nystatin 1 applic 09/14/17 15:00 09/18/17 08:36 Mycostatin TP 1 applic TID TAITANA Administration Ondansetron HCl 4 mg 09/15/17 19:52 09/15/17 19:57 Zofran IVP 4 mg Q6H PRN Administration Nausea &/or vomiting Pantoprazole Sodium 40 mg 09/18/17 17:00 Protonix Tab PO ACBID TATIANA Polyethylene Glycol 17 gm 09/16/17 16:00 09/18/17 08:36 Miralax PO 17 gm DAILY TATIANA Administration Potassium Chloride 30 meq 09/18/17 12:00 09/18/17 12:01 K-Dur 10 Meq Tablet PO 30 meq TIDWM TATIANA Administration Quetiapine Fumarate 100 mg 09/13/17 21:00 09/17/17 21:55 Seroquel PO 100 mg HS TATIANA Administration Senna/Docusate Sodium 1 tab 09/17/17 21:00 09/18/17 08:35 Senna Plus Tablet PO 1 tab BID TATIANA Administration Sertraline HCl 200 mg 09/14/17 09:00 09/18/17 08:35 Zoloft PO 200 mg DAILY TATIANA Administration Sodium Chloride 10 - 80 ml 09/13/17 21:55 09/17/17 11:51 Iv Flush IV 10 ml PRN PRN Administration Flushing Sodium Chloride 500 ml 09/13/17 21:55 09/13/17 22:04 Normal Saline IV 500 ml PRN PRN Administration Warfarin Sodium 0 09/14/17 08:15 Coumadin Protocol NOTE TATIANA Warfarin Sodium 7.5 mg 09/18/17 12:00 09/18/17 12:01 Coumadin PO 09/18/17 23:59 7.5 mg NOON TATIANA Administration Discontinued Medications Generic Name Dose Route Start Last Admin Trade Name Freq PRN Reason Stop Dose Admin Albuterol/Ipratropium 3 ml 09/13/17 15:57 09/13/17 16:00 Duoneb AEROSOL 09/13/17 15:58 3 ml O ONE Administration Diphtheria/Tetanus/Acell Pertussis 0.5 ml 09/17/17 17:00 09/17/17 16:48 Adacel IM 09/17/17 17:01 0.5 ml .ONCE ONE Administration Diphtheria/Tetanus/Acell Pertussis 1 each 09/17/17 17:00 09/17/17 16:51 Tdap Vaccine Administr Charge INJ 09/17/17 17:01 1 each O ONE Administration Furosemide 40 mg 09/13/17 17:07 09/13/17 17:27 Lasix 40 Mg/4 Ml IVP 09/13/17 17:08 40 mg O ONE Administration Furosemide 40 mg 09/14/17 01:00 09/14/17 09:33 Lasix 40 Mg/4 Ml IVP 40 mg Q8HR TATIANA Administration Furosemide 40 mg 09/18/17 13:11 Lasix 40 Mg/4 Ml IVP 09/18/17 13:12 O ONE Levofloxacin/Dextrose 750 mg in 150 mls @ 100 mls/hr 09/13/17 19:33 09/16/17 21:13 Levaquin Premix IV Infused Q24H TATIANA Infusion Lactulose 20 gm 09/17/17 14:14 09/17/17 15:07 Lactulose PO 09/17/17 14:15 20 gm O ONE Administration Levofloxacin 500 mg 09/17/17 18:00 09/17/17 17:00 Levaquin PO 09/17/17 18:01 500 mg O ONE Administration Metoprolol Tartrate 12.5 mg 09/14/17 08:00 09/14/17 09:31 Lopressor PO 12.5 mg BIDWM TATIANA Administration Non-Formulary Medication 1 tab 09/13/17 19:48 Hydrocodone/Acetaminophen [Hydrocodon-Acetaminoph 7.5-300] PO Q6HPRN PRN Pain Pharmacy Consult each 09/13/17 23:07 Pharmacy Consult - Fall Risk [facility] 09/13/17 23:08 ONE TIME ONE Polyethylene Glycol 17 gm 09/18/17 09:00 Miralax PO DAILY TATIANA Potassium Chloride 10 meq 09/14/17 08:00 09/16/17 08:31 K-Dur 10 Meq Tablet PO 10 meq WB TATIANA Administration Potassium Chloride 20 meq 09/14/17 08:00 09/17/17 08:53 K-Dur 20 Meq Tablet PO 20 meq BIDWM TATIANA Administration Potassium Chloride 20 meq 09/17/17 14:15 09/18/17 08:35 K-Dur 20 Meq Tablet PO 20 meq TIDWM TATIANA Administration Potassium Chloride 20 meq 09/18/17 10:05 09/18/17 10:31 K-Dur 20 Meq Tablet PO 09/18/17 10:06 20 meq O ONE Administration Warfarin Sodium 1 each 09/13/17 19:33 09/13/17 20:30 Pharmacy Consult - Warfarin MC 09/13/17 19:34 1 each O ONE Administration Warfarin Sodium 6 mg 09/13/17 19:50 09/13/17 22:04 Coumadin PO 6 mg 1700 TATIANA Administration Warfarin Sodium 6 mg 09/14/17 12:00 09/14/17 12:00 Coumadin PO 09/14/17 12:15 6 mg NOON TATIANA Administration Warfarin Sodium 7.5 mg 09/15/17 12:00 09/15/17 11:40 Coumadin PO 09/15/17 12:30 7.5 mg NOON TATIANA Administration Warfarin Sodium 7.5 mg 09/16/17 12:00 09/16/17 11:57 Coumadin PO 09/16/17 12:30 7.5 mg NOON TATIANA Administration Warfarin Sodium 7.5 mg 09/17/17 12:00 09/17/17 11:51 Coumadin PO 09/17/17 12:01 7.5 mg NOON TATIANA Administration - Constitutional no acute distress, well nourished, cooperative - Routine HEENT Exam Head: Present: normocephalic ENT: Present: mucous membranes moist - Routine Neck Exam Present: JVD. Absent: carotid bruit - Routine Chest/Breast/Axilla Exam Chest wall: Absent: tenderness - Routine Respiratory Exam Present: decreased breath sounds, rales (bibasilar). Absent: CTA bilaterally - Routine Cardiovascular Exam Present: RRR, no murmur - Routine Abdominal Exam Present: soft, normoactive bowel sounds - Routine Extremities Exam Present: no edema - Routine Skin Exam Present: intact, dry, warm - Routine Neurological Exam Present: alert, oriented X3 - Routine Psychiatric Exam Present: normal affect, normal thought process - Urinary Catheter Management Urethral Cath placed during this visit: yes, but has since been removed by the nurse Insertion date: 09/13/17 Insertion time: 21:20 Removal date: 09/15/17 Removal time: 15:47 Results 09/19/17 04:30 09/19/17 04:30 Cardiac Enzymes 09/18/17 Range/Units 04:09 AST 48 H (14-36) U/L CBC 09/18/17 Range/Units 04:09 WBC 7.8 (4.5-11.0) T/MM3 RBC 3.38 L (4.00-5.20) M/MM3 Hgb 11.0 L (12-16) GM/DL Hct 33.0 L (36-46) % Plt Count 184 (130-400) T/MM3 Neut # (Auto) 4.9 (1.8-7.7) T/MM3 Lymph # (Auto) 1.8 (1-4.8) T/MM3 Hutchinson # (Auto) 0.7 (0-0.8) T/MM3 Eos # (Auto) 0.4 (0-0.5) T/MM3 Baso # (Auto) 0.0 (0-0.2) T/MM3 Comprehensive Metabolic Panel 09/18/17 Range/Units 04:09 Sodium 144 (134-144) MEQ/L Potassium 3.8 (3.6-5) MEQ/L Chloride 99 (98-107) MEQ/L Carbon Dioxide 35 H (22-30) MEQ/L BUN 25.0 H (7-17) MG/DL Creatinine 1.2 (0.7-1.2) mg/dL Glucose 112 H (65-110) MG/DL Calcium 9.8 (8.4-10.2) MG/DL AST 48 H (14-36) U/L ALT 14 (1-35) U/L Alkaline Phosphatase 70 (38-126) U/L Total Protein 6.7 (6.3-8.2) g/dL Albumin 3.7 (3.5-5.0) g/dL Intake and Output 09/17/17 09/18/17 09/18/17 22:59 06:59 14:59 Intake Total 200 / 200 390 / 390 Balance 200 / 200 390 / 390 Intake: Oral 200 / 200 390 / 390 Other: Urine Appearance Clear Urine Color Yellow Yellow Urine Odor Normal Stool Color Brown Stool Consistency Soft Size of Bowel Movement Large # Voids 1 2 1 # Bowel Movements 1 Weight 231 lb 7.766 oz Patient Weight 09/19/17 06:59 Weight 231 lb 7.766 oz - Imaging and Cardiology Imaging & Cardiology Narrative: Date of Exam: 09/18/17 Ordering Provider: Florence Jenkins APRN Type of Exam(s): XR chest 2V Reason for Exam(s): worsened hypoxia, CHF INDICATION: worsened hypoxia, CHF PROCEDURE: CHEST 2-VIEWS UPRIGHT (PA & LAT) Encounter: Initial COMPARISON: September 15, 2017 FINDINGS: Pulmonary edema appears worsened in the interval, now moderate. Left lower lobe airspace consolidation is slightly improved. Left effusion remaining. No pneumothorax. Heart size and mediastinal contours are stable. Right pacemaker. Prior CABG. Impression: Increasing pulmonary edema. 09/18/17 14:15 Assessment and Plan - Assessment and Plan (1) Congestive heart failure Problem details: diastolic Current visit: Yes Status: Chronic (2) Essential (primary) hypertension Current visit: Yes Status: Acute (3) PAF (paroxysmal atrial fibrillation) Current visit: Yes Status: Acute (4) Presence of cardiac pacemaker Current visit: Yes Status: Acute - Assessment and Plan 09/14/17 Acute on Chronic - Last EF 35% - 2D echo pending - Restrict fluid/ NA intake - Change Diuresis to PO BID - Monitor renal and electrolytes - Change Metoprolol tartrate to Succinate Thank you for allowing us to participate in the care of this patient 09/17/17 EF 45% on echo report - Requires 1L O2 but laying flat 09/18/17 - JVD and Bibasilar rales - Increasing pulmonary edema on CXR - Lasix 40mg IV x1 in addition to scheduled Lasix Hospital Course Summary Disclaimer: The visit summary below is not to be considered part of the above Progress Note. Hospital Course: 09/13/17-hospital admission Admit, inpatient, under the hospitalist service, Dr. Palacios attending. Stay expected to exceed 2 midnights given her hypoxia and comorbidities. Start Levaquin 750 mg IV every 24 hours for probable CAP. Repeat lactate. Blood cultures drawn in ER. DuoNeb's, Acapella for respiratory symptoms. Lasix 40 mg IV given in ED for CHF exacerbation. Monitor I and O's. Daily weights. Insert Manuel. Telemetry. Continuous pulse oximetry. Pharmacy consult for warfarin. Warfarin for DVT prophylaxis. Echocardiogram in the a.m. to evaluate heart structure and function. Check BNP. Repeat troponin. Speech therapy, PT/OT consults. Wound clinic consult for lesion on back. Repeat labs in a.m. to follow blood counts, renal function and electrolytes. Check magnesium. Fentanyl patch continued from home med list for her chronic back pain. Continue mirtazapine at at bedtime. Dr. Palacios to reconcile remainder of medications. Patient requests DO NOT RESUSCITATE CODE STATUS. Care to return to Dr. Afshin Macias upon discharge. 09/14/2017 Overall, the patient is feeling a little bit better today. She feels stronger and is less short of breath. She is still requiring 6 L of oxygen. Continue Levaquin for pneumonia. Try to obtain a sputum sample. Check urine for Legionella and strep pneumonia antigens. Continue breathing treatments and Acapella. Will add guaifenesin Will decrease Lasix to 40 IV twice a day. Echocardiogram is pending. Dr. Chavez has been consulted regarding pulmonary edema, possible exacerbation of CHF. The patient states that at home she had recently decrease Lasix to 40 mg once daily at the recommendation have her physician because they thought she had become dehydrated. Will start nystatin powder for perineal yeast infection PT and OT did evaluate the patient and have recommended home with home health when the patient is medically ready for discharge. The patient is in agreement Consider speech therapy as an outpatient to help with word finding/cognitive difficulties related to her stroke The wound and skin nurse did see the patient and placed a honey dressing on her wound. This will be changed every 3 days. Add 20 mEq of potassium twice a day for underlying hypokalemia. Recheck BMP and CBC tomorrow. Increase activity as tolerated. We'll check a pro-calcitonin level. Continue Coumadin for A. fib., INR is increasing. Her subtherapeutic INR was likely because she was having trouble swallowing for a couple of days prior to admission and had not taken her Coumadin. Discussed with the patient's nurse and the wound and skin nurse. 09/15/2017 Overall, the patient appears to be doing better today. Oxygen needs have decreased down to 2.5 L down from 6 L yesterday. She still feels weak and not ready for discharge. Continue Levaquin for community-acquired pneumonia. Repeat CBC and pro- calcitonin tomorrow. Echocardiogram showed improvement in ejection fraction and is now 45%. Dr. Chavez's help is appreciated. He did decrease her Lasix down to 40 mg by mouth twice a day. We'll discontinue Manuel catheter. Continue PT and OT. Recheck basic metabolic profile tomorrow regarding diuresis. Continue wound care treatments initiated by wound and skin team Continue Coumadin for A. fib. INR is subtherapeutic due to missing a couple of days of Coumadin at home. Swallowing has improved and speech recommended a soft diet and regular liquids. Plan 09/16/17 Patient continues to improve. She is stable on 2-3 liters. (She uses only nocturnal O2 at home). She is up in chair, but is requiring assistance to get up. Concerned she may need some rehabilitation before going home. (Lives with granddaughter) Leukocytosis and procalcitonin is trending down. Continue Levaquin d#4. Nebs. Lasix BID, KCL, Metoprolol. INR/Warfarin adjustment per pharmacy- chronic atrial fib. rate is controlled. Continue supportive care. Home soon? She will need either rehab or HH on discharge most likely. 09/17/17 Continue Levaquin (day #5) for CAP. Infectious markers trending down. Previous CXRs reviewed -- improving radiographically and also clinically. O2 weaned down to 1L; she desaturated to 86% on room air. K down to 3.4; increase KDur 20 mEq from BID to TID Monitor hgb -- slow decline since admission, at which time hgb was 13.2 & today 10.6. Check stool for occult blood. INR has been subtherapeutic. Constipation -- pt has taken PRN meds and does not want suppository. Will offer lactulose; start Senna Plus BID and Miralax daily. Chronic back pain -- try heating pad. Small wound to right flank -- not visualized today; will discuss with RN. CM checked with pt - she states her only need will be meals on wheels. <Willis Chavez - Last Filed: 09/21/17 14:21> Exam Vital signs: Temperature 96.2 F L 09/21/17 07:25 Pulse Rate 69 09/21/17 07:54 Respiratory Rate 18 09/21/17 10:26 Blood Pressure 122/61 09/21/17 07:25 Pulse Oximetry 94 09/21/17 10:26 Inpatient Medications: Generic Name Dose Route Start Last Admin Trade Name Freq PRN Reason Stop Dose Admin Hydrocodone Bitart/Acetaminophen 1 tab 09/13/17 21:49 09/21/17 09:42 [place] 7.5/325 PO 1 tab Q6H PRN Administration Pain Albuterol/Ipratropium 3 ml 09/13/17 19:00 09/21/17 10:25 Duoneb AEROSOL 3 ml RTQID TATIANA Administration Allopurinol 300 mg 09/14/17 09:00 09/21/17 09:09 Zyloprim PO 300 mg DAILY TATIANA Administration Ascorbic Acid 500 mg 09/20/17 09:00 09/21/17 09:09 Vitamin C PO 500 mg DAILY TATIANA Administration Calcium Carbonate 1,500 mg 09/14/17 09:00 09/21/17 09:09 Calcium PO 1,500 mg DAILY TATIANA Administration Fentanyl 50 mcg 09/13/17 20:00 09/19/17 20:17 Duragesic Patch TD 50 mcg Q3D TATIANA Administration Fentanyl Citrate 1 removal 09/16/17 20:00 09/19/17 20:19 Duragesic Patch Removal TD 1 removal Q3D TATIANA Administration Ferrous Sulfate 324 mg 09/20/17 08:00 09/21/17 09:08 Feosol PO 324 mg WB TATIANA Administration Furosemide 40 mg 09/21/17 09:00 09/21/17 09:09 Lasix 40 Mg Tab PO 40 mg DAILY TATIANA Administration Furosemide 20 mg 09/20/17 17:00 09/20/17 18:22 Lasix 20 Mg Tab PO 20 mg DAILY@1700 TATIANA Administration Gabapentin 300 mg 09/13/17 21:00 09/21/17 09:10 Neurontin PO 300 mg TID TATIANA Administration Guaifenesin 1,200 mg 09/14/17 21:00 09/21/17 09:10 Mucinex La PO 1,200 mg BID TATIANA Administration Hyoscyamine 0.125 mg 09/20/17 15:23 Levsin SL Q4HR PRN .Downtime Magnesium Hydroxide 30 ml 09/15/17 08:32 09/16/17 08:29 Mom PO 30 ml DAILY PRN Administration Constipation Metoprolol Succinate 25 mg 09/14/17 15:30 03/23/18 09:10 Toprol Xl PO 25 mg DAILY TATIANA Administration Mirtazapine 15 mg 09/13/17 21:00 09/20/17 20:56 Remeron PO 15 mg HS TATIANA Administration Multivitamins/Minerals 1 tab 09/14/17 09:00 09/21/17 09:10 Therapeutic - M PO 1 tab DAILY TATIANA Administration Nystatin 1 applic 09/14/17 15:00 09/21/17 09:17 Mycostatin TP 1 applic TID TATIANA Administration Ondansetron HCl 4 mg 09/15/17 19:52 09/19/17 13:52 Zofran IVP 4 mg Q6H PRN Administration Nausea &/or vomiting Pantoprazole Sodium 40 mg 09/18/17 17:00 09/21/17 05:50 Protonix Tab PO 40 mg ACBID TATIANA Administration Polyethylene Glycol 17 gm 09/16/17 16:00 09/21/17 09:10 Miralax PO Not Given DAILY TATIANA Potassium Chloride 20 meq 09/21/17 08:00 09/21/17 09:09 K-Dur 20 Meq Tablet PO 20 meq WB TATIANA Administration Quetiapine Fumarate 100 mg 09/13/17 21:00 09/20/17 20:59 Seroquel PO 100 mg HS TATIANA Administration Senna/Docusate Sodium 1 tab 09/17/17 21:00 09/21/17 09:11 Senna Plus Tablet PO 1 tab BID TATIANA Administration Sertraline HCl 200 mg 09/14/17 09:00 09/21/17 09:11 Zoloft PO 200 mg DAILY TATIANA Administration Sodium Chloride 10 - 80 ml 09/13/17 21:55 09/19/17 20:17 Iv Flush IV 10 ml PRN PRN Administration Flushing Sodium Chloride 500 ml 09/13/17 21:55 09/13/17 22:04 Normal Saline IV 500 ml PRN PRN Administration Warfarin Sodium 0 09/14/17 08:15 Coumadin Protocol NOTE TATIANA Discontinued Medications Generic Name Dose Route Start Last Admin Trade Name Freq PRN Reason Stop Dose Admin Albuterol/Ipratropium 3 ml 09/13/17 15:57 09/13/17 16:00 Duoneb AEROSOL 09/13/17 15:58 3 ml O ONE Administration Diphtheria/Tetanus/Acell Pertussis 0.5 ml 09/17/17 17:00 09/17/17 16:48 Adacel IM 09/17/17 17:01 0.5 ml .ONCE ONE Administration Diphtheria/Tetanus/Acell Pertussis 1 each 09/17/17 17:00 09/17/17 16:51 Tdap Vaccine Administr Charge INJ 09/17/17 17:01 1 each O ONE Administration Furosemide 40 mg 09/13/17 17:07 09/13/17 17:27 Lasix 40 Mg/4 Ml IVP 09/13/17 17:08 40 mg O ONE Administration Furosemide 40 mg 09/14/17 01:00 09/14/17 09:33 Lasix 40 Mg/4 Ml IVP 40 mg Q8HR TATIANA Administration Furosemide 40 mg 09/14/17 17:00 09/20/17 08:57 Lasix 40 Mg Tab PO 40 mg 0900,1700 TATIANA Administration Furosemide 40 mg 09/18/17 13:11 09/18/17 14:27 Lasix 40 Mg/4 Ml IVP 09/18/17 13:12 40 mg O ONE Administration Levofloxacin/Dextrose 750 mg in 150 mls @ 100 mls/hr 09/13/17 19:33 09/16/17 21:13 Levaquin Premix IV Infused Q24H TATIANA Infusion Lactulose 20 gm 09/17/17 14:14 09/17/17 15:07 Lactulose PO 09/17/17 14:15 20 gm O ONE Administration Levofloxacin 500 mg 09/17/17 18:00 09/17/17 17:00 Levaquin PO 09/17/17 18:01 500 mg O ONE Administration Metoprolol Tartrate 12.5 mg 09/14/17 08:00 09/14/17 09:31 Lopressor PO 12.5 mg BIDWM TATIANA Administration Non-Formulary Medication 1 tab 09/13/17 19:48 Hydrocodone/Acetaminophen [Hydrocodon-Acetaminoph 7.5-300] PO Q6HPRN PRN Pain Pharmacy Consult each 09/13/17 23:07 Pharmacy Consult - Fall Risk 09/13/17 23:08 ONE TIME ONE Pharmacy Profile Note 30 ml 09/19/17 13:29 09/19/17 14:28 Maalox Plus/Lidocaine Susp PO 09/19/17 13:30 30 ml O ONE Administration Polyethylene Glycol 17 gm 09/18/17 09:00 Miralax PO DAILY TATIANA Potassium Chloride 10 meq 09/14/17 08:00 09/16/17 08:31 K-Dur 10 Meq Tablet PO 10 meq WB TATIANA Administration Potassium Chloride 20 meq 09/14/17 08:00 09/17/17 08:53 K-Dur 20 Meq Tablet PO 20 meq BIDWM TATIANA Administration Potassium Chloride 20 meq 09/17/17 14:15 09/18/17 08:35 K-Dur 20 Meq Tablet PO 20 meq TIDWM TATIANA Administration Potassium Chloride 20 meq 09/18/17 10:05 09/18/17 10:31 K-Dur 20 Meq Tablet PO 09/18/17 10:06 20 meq O ONE Administration Potassium Chloride 30 meq 09/18/17 12:00 09/20/17 11:46 K-Dur 10 Meq Tablet PO 30 meq TIDWM TATIANA Administration Sucralfate 1 gm 09/19/17 17:00 09/20/17 11:46 Carafate PO 1 gm ACHS TATIANA Administration Warfarin Sodium 1 each 09/13/17 19:33 09/13/17 20:30 Pharmacy Consult - Warfarin 09/13/17 19:34 1 each O ONE Administration Warfarin Sodium 6 mg 09/13/17 19:50 09/13/17 22:04 Coumadin PO 6 mg 1700 TATIANA Administration Warfarin Sodium 6 mg 09/14/17 12:00 09/14/17 12:00 Coumadin PO 09/14/17 12:15 6 mg NOON TATIANA Administration Warfarin Sodium 7.5 mg 09/15/17 12:00 09/15/17 11:40 Coumadin PO 09/15/17 12:30 7.5 mg NOON TATIANA Administration Warfarin Sodium 7.5 mg 09/16/17 12:00 09/16/17 11:57 Coumadin PO 09/16/17 12:30 7.5 mg NOON TATIANA Administration Warfarin Sodium 7.5 mg 09/17/17 12:00 09/17/17 11:51 Coumadin PO 09/17/17 12:01 7.5 mg NOON TATIANA Administration Warfarin Sodium 7.5 mg 09/18/17 12:00 09/18/17 12:01 Coumadin PO 09/18/17 23:59 7.5 mg NOON TATIANA Administration Warfarin Sodium 7.5 mg 09/19/17 12:00 09/19/17 12:26 Coumadin PO 09/19/17 14:00 7.5 mg NOON TATIANA Administration Warfarin Sodium 7.5 mg 09/20/17 12:00 09/20/17 11:46 Coumadin PO 09/20/17 12:01 7.5 mg NOON TATIANA Administration Warfarin Sodium 7.5 mg 09/21/17 12:00 09/21/17 11:27 Coumadin PO 09/21/17 14:00 7.5 mg NOON TATIANA Administration - Urinary Catheter Management Urethral Cath placed during this visit: no Results 09/21/17 04:36 09/21/17 04:36 Cardiac Enzymes 09/21/17 Range/Units 04:36 AST 24 (14-36) U/L CBC 09/21/17 Range/Units 04:36 WBC 7.3 (4.5-11.0) T/MM3 RBC 2.92 L (4.00-5.20) M/MM3 Hgb 11.0 L (12-16) GM/DL Hct 29.3 L (36-46) % Plt Count 207 (130-400) T/MM3 Neut # (Auto) 4.3 (1.8-7.7) T/MM3 Lymph # (Auto) 2.1 (1-4.8) T/MM3 [place] # (Auto) 0.5 (0-0.8) T/MM3 Eos # (Auto) 0.4 (0-0.5) T/MM3 Baso # (Auto) 0.0 (0-0.2) T/MM3 Comprehensive Metabolic Panel 09/21/17 Range/Units 04:36 Sodium 144 (134-144) MEQ/L Potassium 4.0 (3.6-5) MEQ/L Chloride 102 (98-107) MEQ/L Carbon Dioxide 31 H (22-30) MEQ/L BUN 23.0 H (7-17) MG/DL Creatinine 1.2 (0.7-1.2) mg/dL Glucose 98 (65-110) MG/DL Calcium 9.3 (8.4-10.2) MG/DL AST 24 (14-36) U/L ALT 11 (1-35) U/L Alkaline Phosphatase 75 (38-126) U/L Total Protein 6.4 (6.3-8.2) g/dL Albumin 3.4 L (3.5-5.0) g/dL Intake and Output 09/20/17 09/21/17 09/21/17 22:59 06:59 14:59 Intake Total 660 / 660 300 / 300 700 / 700 Output Total 100 / 100 Balance 660 / 660 300 / 300 600 / 600 Intake: Oral 660 / 660 300 / 300 700 / 700 Output: Urine 100 / 100 Other: Urine Appearance Clear Urine Color Pale Yellow # Voids 1 Weight 103.7 kg Patient Weight 09/22/17 06:59 Weight 103.7 kg Assessment and Plan - Assessment and Plan (1) Congestive heart failure Problem details: diastolic Current visit: Yes Status: Chronic (2) Essential (primary) hypertension Current visit: Yes Status: Chronic (3) PAF (paroxysmal atrial fibrillation) Current visit: Yes Status: Chronic (4) Presence of cardiac pacemaker Current visit: Yes Status: Chronic - Attestation Attestation Narrative: 09/21/17 14:21 Recommendation After examining the patient I agree with the above assessment. I am involved in the formulation of the patient's plan of care. Hospital Course Summary Disclaimer: The visit summary below is not to be considered part of the above Progress Note.
[2017-09-18] MEDS: PANTOPRAZOLE 40 MG TABLET PO SCH (17:21)
[2017-09-18] MEDS: MIRTAZAPINE 15 MG TABLET PO SCH (20:31)
[2017-09-18] MEDS: QUETIAPINE 100 MG TABLET PO SCH (20:31)
[2017-09-18] MEDS: SALINE FLUSH 10ml SYRINGE IV PRN (20:32)
[2017-09-18] MEDS: HYDROCODONE/APAP 7.5 MG/325 MG TABLET PO PRN (21:33)
[2017-09-19] MEDS: PANTOPRAZOLE 40 MG TABLET PO SCH ×2 (06:39→18:00)
[2017-09-19] MEDS: ALBUTEROL/IPRATROPIUM 2.5mg-0.5mg/3ml NEB AEROSOL SCH ×4 (07:05→19:29)
--- NOTE | 2017-09-19 08:14 | Pharmacy Consult ---
Pharmacy Consult-Warfarin - Laboratory Information 09/14/17 09/15/17 09/16/17 05:54 05:13 04:45 INR 1.59 H 1.58 H 1.61 H 09/17/17 09/18/17 09/19/17 04:07 04:09 04:30 INR 1.84 H 2.12 H 2.07 H - Consult Information OUMADIN CONSULT (Recurring): 72 y.o. female with history of a. fib. recent documentation reports that rate is controlled and history of chronic anticoagulation with warfarin. Home warfarin dose 6 mg po daily. goal INR range= 2.0 to 3.0. INR was subtherapeutic upon admission. Date INR dose 09/14 1.59 6 mg 09/15 1.58 7.5 mg 09/16 1.61 7.5 mg 09/17 1.84 7.5 mg 09/18 2.12 7.5 mg 09/19 2.07 Will give 7.5 mg today INR is therapeutic today but dropped slightly. Will give 7.5 mg of Warfarin today. The pharmacy will monitor the INR and dose the Warfarin accordingly. Thank you. Tricia Figueroa, PharmD
[2017-09-19] MEDS: HYDROCODONE/APAP 7.5 MG/325 MG TABLET PO PRN (09:25)
[2017-09-19] MEDS: GABAPENTIN 300 MG CAPSULE PO SCH ×3 (09:26→20:22)
[2017-09-19] MEDS: SENNA + DOCUSATE TABLET PO SCH ×2 (09:26→20:22)
[2017-09-19] MEDS: CALCIUM CARBONATE 500 MG TABLET PO SCH (09:26)
[2017-09-19] MEDS: GUAIFENESIN LA 600 MG TABLET PO SCH ×2 (09:26→20:22)
[2017-09-19] MEDS: FUROSEMIDE 40 MG TABLET PO SCH ×2 (09:27→18:00)
[2017-09-19] MEDS: ALLOPURINOL 300 MG TABLET PO SCH (09:27)
[2017-09-19] MEDS: SERTRALINE 100 MG TABLET PO SCH (09:28)
[2017-09-19] MEDS: POLYETHYL GLYCOL 3350 17gm PACKET PO SCH (09:28)
[2017-09-19] MEDS: MULTI-VITAMIN + MINERAL TABLET PO SCH (09:34)
[2017-09-19] MEDS ORDERED: WARFARIN 7.5 MG TABLET PO SCH (12:00)
[2017-09-19] MEDS ORDERED: GI COCKTAIL 30 ML PO ONE (13:29)
--- NOTE | 2017-09-19 13:38 | Progress Note ---
- Date 09/19/17 Subjective: While Afia's breathing is better today, she doesn't feel like she is having a good day because her throat hurt so much. It hurts to swallow, especially and she cannot even tolerate the [place] ice at her bedside. It feels like things are getting stuck in her throat. She also complains of epigastric pain and pain underneath both sides of her rib cage. She states this pain came on while she was eating lunch today. She has had this come on intermittently for about a year. She states that she had an EGD between 5 and 10 years ago which was negative. Objective Vital signs: Temperature 96.3 F L 09/19/17 07:00 Pulse Rate 69 09/19/17 08:00 Respiratory Rate 16 09/19/17 11:20 Blood Pressure 133/71 09/19/17 07:00 Pulse Oximetry 91 09/19/17 11:32 Height/Weight/BMI: Height 1.63 m Weight 104.5 kg Body Mass Index 39.9 - Constitutional Present: mild distress, well nourished, well developed, obese - Routine HEENT Exam Head: Present: normocephalic Eye: Present: PERRL. Absent: conjunctival icterus, scleral injection - Routine Respiratory Exam Present: CTA bilaterally (clear anteriorly) - Routine Cardiovascular Exam Present: RRR, S1, S2 - Routine Abdominal Exam Present: soft, normoactive bowel sounds, non distended, non tender - Routine Extremities Exam Present: no edema, pulses intact - Routine Skin Exam Present: intact, dry, warm - Routine Neurological Exam Present: alert, oriented X3, normal speech - Routine Psychiatric Exam Present: normal affect, normal thought process, cooperative Results - Labs CBC & Chem 7: 09/19/17 04:30 09/19/17 04:30 Microbiology Results: Microbiology 09/14/17 13:22 Urine Legionella Urinary Antigen - Final 09/14/17 13:22 Urine Streptococcus pneumoniae Antigen (M - Final Assessment and Plan (1) Acute respiratory failure with hypoxia Current visit: Yes Status: Acute Assessment and Plan: Assessment Acute respiratory failure with hypoxia (the patient is usually on 2 L of oxygen at night only) Right middle lobe and left lower lobe community-acquired pneumonia - completed Levaquin x5 days CHF exacerbation-improving on chest x-ray, currently on Lasix 40 mg by mouth twice a day Small left pleural effusion Leukocytosis-POA [17.8]-resolved Hypernatremia-POA [150]-resolved Hypokalemia-not POA Subtherapeutic INR-POA [1.28]-Coumadin adjusted per pharmacy Skin wound-right mid-back (? etiology)-POA-wound and skin nurse has evaluated and placed a medi-honey dressing Normocytic anemia/iron deficiency anemia Heme positive stools History of stage II colon cancer. Mass removed from right colon in 2012 and her last colonoscopy was last year. Perineal yeast infection. Dysphagia and epigastric pain Chronic and associated conditions Hypertension-well controlled Chronic atrial fibrillation-on Coumadin (pacer dependent)-rate controlled COPD History kidney stones Osteoarthritis Depression Gout Chronic back pain-on chronic narcotics (50 g fentanyl patch and [place] 7.5 every 6 hours when necessary) History of CVA with word finding difficulties that is gradually worsening Plan 09/19/17 Chest x-ray yesterday revealed increasing pulmonary edema and cardiology ordered a dose of IV Lasix. Her oxygen requirements have improved since then, and currently, in the afternoon, she is on room air. She is having increasing dysphagia and throat pain as well as epigastric pain. Will give a GI cocktail and check a lipase. She has a history of cholecystectomy. Her LFTs were checked on 09/18/17 and the only abnormal was a slightly elevated AST at 48. This pain has been occurring intermittently for the last year or so, and often begins while she is eating. Her last EGD was between 5 and 10 years ago. Given her 2 heme positive stools, will consult Dr. Mcclain regarding EGD. Her modified barium swallow was negative for aspiration or any other gross pathology. Hemoglobin remained stable, 11.3. INR is therapeutic at 2.07. Sodium increased slightly up to 145. Iron level was low at 30, will start ferrous sulfate and vitamin C. Discussed with Dr. Okeefe and Dr. Mcclain. DVT Prophylaxis: Coumadin GI Prophylaxis: Protonix Resuscitation Status: Do Not Resuscitate - Physician Narrative Narrative: Date: 09/19/17 Time: 2349 I have independently evaluated and examined this patient. I reviewed the chart, the patient's history, and the [employer]/PA's documented findings as above. We discussed and formulated the assessment and plan as above with additions as below. The patient's biggest issue today is problems swallowing, food feels like it sticks and she has actually thrown up because of that. She denies any nausea. Agree with consultation with surgery. Hospital Course Summary Disclaimer: The visit summary below is not to be considered part of the above Progress Note. Hospital Course: 09/13/17: HOSPITAL ADMISSION Levaquin started for CAP; WBC 17.8. DuoNeb treatments and acapella initiated. Viral respiratory panel was negative. Diurese Lasix 40 mg IV TID for CHF. Manuel was inserted to measure I&Os. Warfarin continued per pharmacy protocol. HR monitored on tele. Wound care consulted for skin lesion to right side of back. Complains of swallowing problems: speech therapy consulted. DNR status. 09/14/17 Still requiring 6 L of oxygen. Urine legionella and strep pneumo antigens were ordered and both came back negative. Procalcitonin was 19.82. WBC improved. Decreased Lasix to 40 IV BID; at home she had recently decreased Lasix to 40 mg daily because PCP thought she had become dehydrated. Add KDur. Started nystatin powder for perineal yeast infection PT and OT recommended home with home health. Wound RN placed a honey dressing on her wound and this should be changed every 3 days. 09/15/17 Oxygen decreased to 2.5 L. Echocardiogram showed improvement in EF from 35% to 45%. Lasix changed to 40 mg PO BID. Manuel catheter was discontinued. Speech recommended a soft diet and regular liquids. 09/16/17 Improved; stable on 2-3 liters. (She uses only nocturnal O2 at home). Leukocytosis has resolved and Procalcitonin decreased to 6.38. 09/17/17 Completed 5 days of Levaquin today. Unable to be weaned completely off O2; desaturated to 86% on room air. K down to 3.4; increased KDur 20 mEq from BID to TID. Hgb decreased from 13.2 to 10.6. Stool was positive for occult blood. INR has been subtherapeutic. 09/18/17 Increased in oxygen last evening, up to 4L. CXR showed increased pulmonary edema and Lasix 40 mg IV was given. K continues to decline and KDur dose was adjusted. Modified barium swallow study done was negative for aspiration. Hgb 11.0; had negative colonoscopy last year in [place]. Started Protonix 40 mg BID. 09/19/17 Respiratory status improved, maintaining saturations on room air in the afternoon. Increased dysphagia and throat pain and epigastric pain. Provided GI cocktail. Lipase level was normal. Had another heme-positive stool but hgb stable at 11.3. Dr. Mcclain consulted for possible EGD as last EGD was 5-10 years ago. Iron level was low at 30, and we started ferrous sulfate and vitamin C.
[2017-09-19] MEDS: ONDANSETRON 4 MG/2 ML INJECTION IVP PRN (13:52)
--- NOTE | 2017-09-19 14:17 | Cardiology Progress Note ---
<Bridgett Colbert M - Last Filed: 09/20/17 14:40> Subjective Principal diagnosis: CHF Interval history: Afia is seen in follow up for DCHF exacerbation. She is sitting up in the recliner, has just had some emesis, but denies nausea at this time. She denies chest pain or pressure. States her breathing is "fine". Exam Vital signs: Temperature 96.3 F L 09/19/17 07:00 Pulse Rate 69 09/19/17 08:00 Respiratory Rate 16 09/19/17 11:20 Blood Pressure 133/71 09/19/17 07:00 Pulse Oximetry 91 09/19/17 11:32 Inpatient Medications: Generic Name Dose Route Start Last Admin Trade Name Freq PRN Reason Stop Dose Admin Hydrocodone Bitart/Acetaminophen 1 tab 09/13/17 21:49 09/19/17 09:25 [place] 7.5/325 PO 1 tab Q6H PRN Administration Pain Albuterol/Ipratropium 3 ml 09/13/17 19:00 09/19/17 11:20 Duoneb AEROSOL 3 ml RTQID TATIANA Administration Allopurinol 300 mg 09/14/17 09:00 09/19/17 09:27 Zyloprim PO 300 mg DAILY TATIANA Administration Calcium Carbonate 1,500 mg 09/14/17 09:00 09/19/17 09:26 Calcium PO 1,500 mg DAILY TATIANA Administration Fentanyl 50 mcg 09/13/17 20:00 09/16/17 19:43 Duragesic Patch TD 50 mcg Q3D TATIANA Administration Fentanyl Citrate 1 removal 09/16/17 20:00 09/16/17 19:42 Duragesic Patch Removal TD 1 removal Q3D TATIANA Administration Furosemide 40 mg 09/14/17 17:00 09/19/17 09:27 Lasix 40 Mg Tab PO 40 mg 0900,1700 TAT[facility]NA Administration Gabapentin 300 mg 09/13/17 21:00 09/19/17 09:26 Neurontin PO 300 mg TID [facility]NA Administration Guaifenesin 1,200 mg 09/14/17 21:00 09/19/17 09:26 Mucinex La PO 1,200 mg BID TATIANA Administration Magnesium Hydroxide 30 ml 09/15/17 08:32 09/16/17 08:29 Mom PO 30 ml DAILY PRN Administration Constipation Metoprolol Succinate 25 mg 09/14/17 15:30 09/19/17 09:27 Toprol Xl PO 25 mg DAILY [facility]NA Administration Mirtazapine 15 mg 09/13/17 21:00 09/18/17 20:31 Remeron PO 15 mg HS TATIANA Administration Multivitamins/Minerals 1 tab 09/14/17 09:00 09/19/17 09:34 Therapeutic - M PO 1 tab DAILY TATIANA Administration Nystatin 1 applic 09/14/17 15:00 09/19/17 09:28 Mycostatin TP 1 applic TID TATIANA Administration Ondansetron HCl 4 mg 09/15/17 19:52 09/15/17 19:57 Zofran IVP 4 mg Q6H PRN Administration Nausea &/or vomiting Pantoprazole Sodium 40 mg 09/18/17 17:00 09/19/17 06:39 Protonix Tab PO 40 mg ACBID TATIANA Administration Polyethylene Glycol 17 gm 09/16/17 16:00 09/19/17 09:28 Miralax PO 17 gm DAILY TATIANA Administration Potassium Chloride 30 meq 09/18/17 12:00 09/19/17 12:26 K-Dur 10 Meq Tablet PO 30 meq TIDWM TATIANA Administration Quetiapine Fumarate 100 mg 09/13/17 21:00 09/18/17 20:31 Seroquel PO 100 mg HS TATIANA Administration Senna/Docusate Sodium 1 tab 09/17/17 21:00 09/19/17 09:26 Senna Plus Tablet PO 1 tab BID TATIANA Administration Sertraline HCl 200 mg 09/14/17 09:00 09/19/17 09:28 Zoloft PO 200 mg DAILY TATIANA Administration Sodium Chloride 10 - 80 ml 09/13/17 21:55 09/18/17 20:32 Iv Flush IV 10 ml PRN PRN Administration Flushing Sodium Chloride 500 ml 09/13/17 21:55 09/13/17 22:04 Normal Saline IV 500 ml PRN PRN Administration Warfarin Sodium 0 09/14/17 08:15 Coumadin Protocol NOTE TATIANA Warfarin Sodium 7.5 mg 09/19/17 12:00 09/19/17 12:26 Coumadin PO 09/19/17 14:00 7.5 mg NOON TATIANA Administration Discontinued Medications Generic Name Dose Route Start Last Admin Trade Name Freq PRN Reason Stop Dose Admin Albuterol/Ipratropium 3 ml 09/13/17 15:57 09/13/17 16:00 Duoneb AEROSOL 09/13/17 15:58 3 ml O ONE Administration Diphtheria/Tetanus/Acell Pertussis 0.5 ml 09/17/17 17:00 09/17/17 16:48 Adacel IM 09/17/17 17:01 0.5 ml .ONCE ONE Administration Diphtheria/Tetanus/Acell Pertussis 1 each 09/17/17 17:00 09/17/17 16:51 Tdap Vaccine Administr Charge INJ 09/17/17 17:01 1 each O ONE Administration Furosemide 40 mg 09/13/17 17:07 09/13/17 17:27 Lasix 40 Mg/4 Ml IVP 09/13/17 17:08 40 mg O ONE Administration Furosemide 40 mg 09/14/17 01:00 09/14/17 09:33 Lasix 40 Mg/4 Ml IVP 40 mg Q8HR TATIANA Administration Furosemide 40 mg 09/18/17 13:11 09/18/17 14:27 Lasix 40 Mg/4 Ml IVP 09/18/17 13:12 40 mg O ONE Administration Levofloxacin/Dextrose 750 mg in 150 mls @ 100 mls/hr 09/13/17 19:33 09/16/17 21:13 Levaquin Premix IV Infused Q24H TATIANA Infusion Lactulose 20 gm 09/17/17 14:14 09/17/17 15:07 Lactulose PO 09/17/17 14:15 20 gm O ONE Administration Levofloxacin 500 mg 09/17/17 18:00 09/17/17 17:00 Levaquin PO 09/17/17 18:01 500 mg O ONE Administration Metoprolol Tartrate 12.5 mg 09/14/17 08:00 09/14/17 09:31 Lopressor PO 12.5 mg BIDWM TAT[place]NA Administration Non-Formulary Medication 1 tab 09/13/17 19:48 Hydrocodone/Acetaminophen [Hydrocodon-Acetaminoph 7.5-300] PO Q6HPRN PRN Pain Pharmacy Consult each 09/13/17 23:07 Pharmacy Consult - Fall Risk [facility] 09/13/17 23:08 ONE TIME ONE Pharmacy Profile Note 30 ml 09/19/17 13:29 Maalox Plus/Lidocaine Susp PO 09/19/17 13:30 O ONE Polyethylene Glycol 17 gm 09/18/17 09:00 Miralax PO DAILY [facility]NA Potassium Chloride 10 meq 09/14/17 08:00 09/16/17 08:31 K-Dur 10 Meq Tablet PO 10 meq WB TATIANA Administration Potassium Chloride 20 meq 09/14/17 08:00 09/17/17 08:53 K-Dur 20 Meq Tablet PO 20 meq BIDWM [facility] Administration Potassium Chloride 20 meq 09/17/17 14:15 09/18/17 08:35 K-Dur 20 Meq Tablet PO 20 meq TIDWM [place] Administration Potassium Chloride 20 meq 09/18/17 10:05 09/18/17 10:31 K-Dur 20 Meq Tablet PO 09/18/17 10:06 20 meq O ONE Administration Warfarin Sodium 1 each 09/13/17 19:33 09/13/17 20:30 Pharmacy Consult - Warfarin [facility] 09/13/17 19:34 1 each O ONE Administration Warfarin Sodium 6 mg 09/13/17 19:50 09/13/17 22:04 Coumadin PO 6 mg 1700 TAT[facility]NA Administration Warfarin Sodium 6 mg 09/14/17 12:00 09/14/17 12:00 Coumadin PO 09/14/17 12:15 6 mg NOON [facility] Administration Warfarin Sodium 7.5 mg 09/15/17 12:00 09/15/17 11:40 Coumadin PO 09/15/17 12:30 7.5 mg NOON [place] Administration Warfarin Sodium 7.5 mg 09/16/17 12:00 09/16/17 11:57 Coumadin PO 09/16/17 12:30 7.5 mg NOON [place] Administration Warfarin Sodium 7.5 mg 09/17/17 12:00 09/17/17 11:51 Coumadin PO 09/17/17 12:01 7.5 mg NOON [place] Administration Warfarin Sodium 7.5 mg 09/18/17 12:00 09/18/17 12:01 Coumadin PO 09/18/17 23:59 7.5 mg NOON [place] Administration - Constitutional no acute distress, morbidly obese, cooperative - Routine HEENT Exam Head: Present: normocephalic ENT: Present: mucous membranes moist - Routine Neck Exam Absent: JVD, carotid bruit - Routine Chest/Breast/Axilla Exam Chest wall: Present: pacemaker. Absent: tenderness - Routine Respiratory Exam Present: diminished air movement (bases) - Routine Cardiovascular Exam Present: RRR, no murmur - Routine Abdominal Exam Present: soft, normoactive bowel sounds - Routine Extremities Exam Present: edema (trace) - Routine Skin Exam Present: intact, dry, warm - Routine Neurological Exam Present: alert, oriented X3 - Routine Psychiatric Exam Present: normal affect, normal thought process - Urinary Catheter Management Urethral Cath placed during this visit: yes, but has since been removed by the nurse Insertion date: 09/13/17 Insertion time: : Removal date: 09/15/17 Removal time: 15:47 Results 09/20/17 04:37 09/20/17 04:37 CBC 09/19/17 Range/Units 04:30 WBC 7.6 (4.5-11.0) T/MM3 RBC 3.54 L (4.00-5.20) M/MM3 Hgb 11.3 L (12-16) GM/DL Hct 34.1 L (36-46) % Plt Count 207 (130-400) T/MM3 Neut # (Auto) 4.3 (1.8-7.7) T/MM3 Lymph # (Auto) 2.2 (1-4.8) T/MM3 Thomas # (Auto) 0.6 (0-0.8) T/MM3 Eos # (Auto) 0.4 (0-0.5) T/MM3 Baso # (Auto) 0.0 (0-0.2) T/MM3 Comprehensive Metabolic Panel 09/19/17 Range/Units 04:30 Sodium 145 H (134-144) MEQ/L Potassium 3.8 (3.6-5) MEQ/L Chloride 99 (98-107) MEQ/L Carbon Dioxide 35 H (22-30) MEQ/L BUN 24.0 H (7-17) MG/DL Creatinine 1.2 (0.7-1.2) mg/dL Glucose 103 (65-110) MG/DL Calcium 9.6 (8.4-10.2) MG/DL Intake and Output 09/18/17 09/19/17 09/19/17 22:59 06:59 14:59 Intake Total 1000 / 1000 1150 / 1150 Output Total 100 / 100 350 / 350 Balance 900 / 900 -350 / -350 1150 / 1150 Intake: Oral 1000 / 1000 1150 / 1150 Output: Urine 100 / 100 350 / 350 Other: Urine Appearance Clear Clear Urine Color Yellow Dark Yellow Stool Color Brown Stool Consistency Soft Liza Size of Bowel Movement Small # Voids 1 # Incontinent Voids 1 # Bowel Movements 1 Weight 230 lb 6.129 oz Patient Weight 09/20/17 06:59 Weight 230 lb 6.129 oz Assessment and Plan - Assessment and Plan (1) Congestive heart failure Problem details: diastolic Current visit: Yes Status: Chronic (2) Essential (primary) hypertension Current visit: Yes Status: Chronic (3) PAF (paroxysmal atrial fibrillation) Current visit: Yes Status: Chronic (4) Presence of cardiac pacemaker Current visit: Yes Status: Chronic - Assessment and Plan 09/14/17 Acute on Chronic - Last EF 35% - 2D echo pending - Restrict fluid/ NA intake - Change Diuresis to PO BID - Monitor renal and electrolytes - Change Metoprolol tartrate to Succinate Thank you for allowing us to participate in the care of this patient 09/17/17 EF 45% on echo report - Requires 1L O2 but laying flat 09/18/17 - JVD and Bibasilar rales - Increasing pulmonary edema on CXR - Lasix 40mg IV x1 in addition to scheduled Lasix 09/19/17 Continue current diuresis. - no new orders Hospital Course Summary Disclaimer: The visit summary below is not to be considered part of the above Progress Note. Hospital Course: 09/13/17-hospital admission Admit, inpatient, under the hospitalist service, Dr. Palacios attending. Stay expected to exceed 2 midnights given her hypoxia and comorbidities. Start Levaquin 750 mg IV every 24 hours for probable CAP. Repeat lactate. Blood cultures drawn in ER. DuoNeb's Acapella for respiratory symptoms. Lasix 40 mg IV given in ED for CHF exacerbation. Monitor I and O's. Daily weights. Insert Manuel. Telemetry. Continuous pulse oximetry. Pharmacy consult for warfarin. Warfarin for DVT prophylaxis. Echocardiogram in the a.m. to evaluate heart structure and function. Check BNP. Repeat troponin. Speech therapy, PT/OT consults. Wound clinic consult for lesion on back. Repeat labs in a.m. to follow blood counts, renal function and electrolytes. Check magnesium. Fentanyl patch continued from home med list for her chronic back pain. Continue mirtazapine at at bedtime. Dr. Palacios to reconcile remainder of medications. Patient requests DO NOT RESUSCITATE CODE STATUS. Care to return to Dr. Afshin Macias upon discharge. 09/14/2017 Overall, the patient is feeling a little bit better today. She feels stronger and is less short of breath. She is still requiring 6 L of oxygen. Continue Levaquin for pneumonia. Try to obtain a sputum sample. Check urine for Legionella and strep pneumonia antigens. Continue breathing treatments and Acapella. Will add guaifenesin Will decrease Lasix to 40 IV twice a day. Echocardiogram is pending. Dr. Chavez has been consulted regarding pulmonary edema, possible exacerbation of CHF. The patient states that at home she had recently decrease Lasix to 40 mg once daily at the recommendation have her physician because they thought she had become dehydrated. Will start nystatin powder for perineal yeast infection PT and OT did evaluate the patient and have recommended home with home health when the patient is medically ready for discharge. The patient is in agreement Consider speech therapy as an outpatient to help with word finding/cognitive difficulties related to her stroke The wound and skin nurse did see the patient and placed a honey dressing on her wound. This will be changed every 3 days. Add 20 mEq of potassium twice a day for underlying hypokalemia. Recheck BMP and CBC tomorrow. Increase activity as tolerated. We'll check a pro-calcitonin level. Continue Coumadin for A. fib., INR is increasing. Her subtherapeutic INR was likely because she was having trouble swallowing for a couple of days prior to admission and had not taken her Coumadin. Discussed with the patient's nurse and the wound and skin nurse. 09/15/2017 Overall, the patient appears to be doing better today. Oxygen needs have decreased down to 2.5 L down from 6 L yesterday. She still feels weak and not ready for discharge. Continue Levaquin for community-acquired pneumonia. Repeat CBC and pro- calcitonin tomorrow. Echocardiogram showed improvement in ejection fraction and is now 45%. Dr. Chavez's help is appreciated. He did decrease her Lasix down to 40 mg by mouth twice a day. We'll discontinue Manuel catheter. Continue PT and OT. Recheck basic metabolic profile tomorrow regarding diuresis. Continue wound care treatments initiated by wound and skin team Continue Coumadin for A. fib. INR is subtherapeutic due to missing a couple of days of Coumadin at home. Swallowing has improved and speech recommended a soft diet and regular liquids. Plan 09/16/17 Patient continues to improve. She is stable on 2-3 liters. (She uses only nocturnal O2 at home). She is up in chair, but is requiring assistance to get up. Concerned she may need some rehabilitation before going home. (Lives with granddaughter) Leukocytosis and procalcitonin is trending down. Continue Levaquin d#4. Nebs. Lasix BID, KCL, Metoprolol. INR/Warfarin adjustment per pharmacy- chronic atrial fib. rate is controlled. Continue supportive care. Home soon? She will need either rehab or HH on discharge most likely. 09/17/17 Continue Levaquin (day #5) for CAP. Infectious markers trending down. Previous CXRs reviewed -- improving radiographically and also clinically. O2 weaned down to 1L; she desaturated to 86% on room air. K down to 3.4; increase KDur 20 mEq from BID to TID Monitor hgb -- slow decline since admission, at which time hgb was 13.2 & today 10.6. Check stool for occult blood. INR has been subtherapeutic. Constipation -- pt has taken PRN meds and does not want suppository. Will offer lactulose; start Senna Plus BID and Miralax daily. Chronic back pain -- try heating pad. Small wound to right flank -- not visualized today; will discuss with RN. CM checked with pt - she states her only need will be meals on wheels. <Willis Chavez - Last Filed: 09/21/17 14:25> Exam Vital signs: Temperature 96.2 F L 09/21/17 07:25 Pulse Rate 69 09/21/17 07:54 Respiratory Rate 18 09/21/17 10:26 Blood Pressure 122/61 09/21/17 07:25 Pulse Oximetry 94 09/21/17 10:26 Inpatient Medications: Generic Name Dose Route Start Last Admin Trade Name Freq PRN Reason Stop Dose Admin Hydrocodone Bitart/Acetaminophen 1 tab 09/13/17 21:49 09/21/17 09:42 [place] 7.5/325 PO 1 tab Q6H PRN Administration Pain Albuterol/Ipratropium 3 ml 09/13/17 19:00 09/21/17 10:25 Duoneb AEROSOL 3 ml RTQID TATIANA Administration Allopurinol 300 mg 09/14/17 09:00 09/21/17 09:09 Zyloprim PO 300 mg DAILY TATIANA Administration Ascorbic Acid 500 mg 09/20/17 09:00 09/21/17 09:09 Vitamin C PO 500 mg DAILY TATIANA Administration Calcium Carbonate 1,500 mg 09/14/17 09:00 09/21/17 09:09 Calcium PO 1,500 mg DAILY TATIANA Administration Fentanyl 50 mcg 09/13/17 20:00 09/19/17 20:17 Duragesic Patch TD 50 mcg Q3D TATIANA Administration Fentanyl Citrate 1 removal 09/16/17 20:00 09/19/17 20:19 Duragesic Patch Removal TD 1 removal Q3D TATIANA Administration Ferrous Sulfate 324 mg 09/20/17 08:00 09/21/17 09:08 Feosol PO 324 mg WB TATIANA Administration Furosemide 40 mg 09/21/17 09:00 09/21/17 09:09 Lasix 40 Mg Tab PO 40 mg DAILY [facility] Administration Furosemide 20 mg 09/20/17 17:00 09/20/17 18:22 Lasix 20 Mg Tab PO 20 mg DAILY@1700 TATIANA Administration Gabapentin 300 mg 09/13/17 21:00 09/21/17 09:10 Neurontin PO 300 mg TID [facility] Administration Guaifenesin 1,200 mg 09/14/17 21:00 09/21/17 09:10 Mucinex La PO 1,200 mg BID [facility] Administration Hyoscyamine 0.125 mg 09/20/17 15:23 Levsin SL Q4HR PRN .Downtime Magnesium Hydroxide 30 ml 09/15/17 08:32 09/16/17 08:29 Mom PO 30 ml DAILY PRN Administration Constipation Metoprolol Succinate 25 mg 09/14/17 15:30 09/21/17 09:10 Toprol Xl PO 25 mg DAILY [facility] Administration Mirtazapine 15 mg 09/13/17 21:00 09/20/17 20:56 Remeron PO 15 mg HS [facility] Administration Multivitamins/Minerals 1 tab 09/14/17 09:00 09/21/17 09:10 Therapeutic - M PO 1 tab DAILY [facility] Administration Nystatin 1 applic 09/14/17 15:00 09/21/17 09:17 Mycostatin TP 1 applic TID [facility]NA Administration Ondansetron HCl 4 mg 09/15/17 19:52 09/19/17 13:52 Zofran IVP 4 mg Q6H PRN Administration Nausea &/or vomiting Pantoprazole Sodium 40 mg 09/18/17 17:00 09/21/17 05:50 Protonix Tab PO 40 mg ACBID TATIANA Administration Polyethylene Glycol 17 gm 09/16/17 16:00 09/21/17 09:10 Miralax PO Not Given DAILY [facility] Potassium Chloride 20 meq 09/21/17 08:00 09/21/17 09:09 K-Dur 20 Meq Tablet PO 20 meq WB TAT[facility]NA Administration Quetiapine Fumarate 100 mg 09/13/17 21:00 09/20/17 20:59 Seroquel PO 100 mg HS [facility]NA Administration Senna/Docusate Sodium 1 tab 09/17/17 21:00 09/21/17 09:11 Senna Plus Tablet PO 1 tab BID [facility] Administration Sertraline HCl 200 mg 09/14/17 09:00 09/21/17 09:11 Zoloft PO 200 mg DAILY [facility] Administration Sodium Chloride 10 - 80 ml 09/13/17 21:55 09/19/17 20:17 Iv Flush IV 10 ml PRN PRN Administration Flushing Sodium Chloride 500 ml 09/13/17 21:55 09/13/17 22:04 Normal Saline IV 500 ml PRN PRN Administration Warfarin Sodium 0 09/14/17 08:15 Coumadin Protocol NOTE TATIANA Discontinued Medications Generic Name Dose Route Start Last Admin Trade Name Freq PRN Reason Stop Dose Admin Albuterol/Ipratropium 3 ml 09/13/17 15:57 09/13/17 16:00 Duoneb AEROSOL 09/13/17 15:58 3 ml O ONE Administration Diphtheria/Tetanus/Acell Pertussis 0.5 ml 09/17/17 17:00 09/17/17 16:48 Adacel IM 09/17/17 17:01 0.5 ml .ONCE ONE Administration Diphtheria/Tetanus/Acell Pertussis 1 each 09/17/17 17:00 09/17/17 16:51 Tdap Vaccine Administr Charge INJ 09/17/17 17:01 1 each O ONE Administration Furosemide 40 mg 09/13/17 17:07 09/13/17 17:27 Lasix 40 Mg/4 Ml IVP 09/13/17 17:08 40 mg O ONE Administration Furosemide 40 mg 09/14/17 01:00 09/14/17 09:33 Lasix 40 Mg/4 Ml IVP 40 mg Q8HR [facility] Administration Furosemide 40 mg 09/14/17 17:00 09/20/17 08:57 Lasix 40 Mg Tab PO 40 mg 0900,1700 [facility] Administration Furosemide 40 mg 09/18/17 13:11 09/18/17 14:27 Lasix 40 Mg/4 Ml IVP 09/18/17 13:12 40 mg O ONE Administration Levofloxacin/Dextrose 750 mg in 150 mls @ 100 mls/hr 09/13/17 19:33 09/16/17 21:13 Levaquin Premix IV Infused Q24H [facility]NA Infusion Lactulose 20 gm 09/17/17 14:14 09/17/17 15:07 Lactulose PO 09/17/17 14:15 20 gm O ONE Administration Levofloxacin 500 mg 09/17/17 18:00 09/17/17 17:00 Levaquin PO 09/17/17 18:01 500 mg O ONE Administration Metoprolol Tartrate 12.5 mg 09/14/17 08:00 09/14/17 09:31 Lopressor PO 12.5 mg BIDWM TAT[place]NA Administration Non-Formulary Medication 1 tab 09/13/17 19:48 Hydrocodone/Acetaminophen [Hydrocodon-Acetaminoph 7.5-300] PO Q6HPRN PRN Pain Pharmacy Consult each 09/13/17 23:07 Pharmacy Consult - Fall Risk 09/13/17 23:08 ONE TIME ONE Pharmacy Profile Note 30 ml 09/19/17 13:29 09/19/17 14:28 Maalox Plus/Lidocaine Susp PO 09/19/17 13:30 30 ml O ONE Administration Polyethylene Glycol 17 gm 09/18/17 09:00 Miralax PO DAILY [facility] Potassium Chloride 10 meq 09/14/17 08:00 09/16/17 08:31 K-Dur 10 Meq Tablet PO 10 meq WB [facility] Administration Potassium Chloride 20 meq 09/14/17 08:00 09/17/17 08:53 K-Dur 20 Meq Tablet PO 20 meq BIDWM [facility] Administration Potassium Chloride 20 meq 09/17/17 14:15 09/18/17 08:35 K-Dur 20 Meq Tablet PO 20 meq TIDWM [facility] Administration Potassium Chloride 20 meq 09/18/17 10:05 09/18/17 10:31 K-Dur 20 Meq Tablet PO 09/18/17 10:06 20 meq O ONE Administration Potassium Chloride 30 meq 09/18/17 12:00 09/20/17 11:46 K-Dur 10 Meq Tablet PO 30 meq TIDWM [facility] Administration Sucralfate 1 gm 09/19/17 17:00 09/20/17 11:46 Carafate PO 1 gm ACHS TATIANA Administration Warfarin Sodium 1 each 09/13/17 19:33 09/13/17 20:30 Pharmacy Consult - Warfarin 09/13/17 19:34 1 each O ONE Administration Warfarin Sodium 6 mg 09/13/17 19:50 09/13/17 22:04 Coumadin PO 6 mg 1700 [facility] Administration Warfarin Sodium 6 mg 09/14/17 12:00 09/14/17 12:00 Coumadin PO 09/14/17 12:15 6 mg NOON [facility] Administration Warfarin Sodium 7.5 mg 09/15/17 12:00 09/15/17 11:40 Coumadin PO 09/15/17 12:30 7.5 mg NOON [facility] Administration Warfarin Sodium 7.5 mg 09/16/17 12:00 09/16/17 11:57 Coumadin PO 09/16/17 12:30 7.5 mg NOON [facility] Administration Warfarin Sodium 7.5 mg 09/17/17 12:00 09/17/17 11:51 Coumadin PO 09/17/17 12:01 7.5 mg NOON [facility] Administration Warfarin Sodium 7.5 mg 09/18/17 12:00 09/18/17 12:01 Coumadin PO 09/18/17 23:59 7.5 mg NOON [facility] Administration Warfarin Sodium 7.5 mg 09/19/17 12:00 09/19/17 12:26 Coumadin PO 09/19/17 14:00 7.5 mg NOON [place] Administration Warfarin Sodium 7.5 mg 09/20/17 12:00 09/20/17 11:46 Coumadin PO 09/20/17 12:01 7.5 mg NOON [place] Administration Warfarin Sodium 7.5 mg 09/21/17 12:00 09/21/17 11:27 Coumadin PO 09/21/17 14:00 7.5 mg NOON TAT[place]NA Administration - Urinary Catheter Management Urethral Cath placed during this visit: no Results 09/21/17 04:36 09/21/17 04:36 Cardiac Enzymes 09/21/17 Range/Units 04:36 AST 24 (14-36) U/L CBC 09/21/17 Range/Units 04:36 WBC 7.3 (4.5-11.0) T/MM3 RBC 2.92 L (4.00-5.20) M/MM3 Hgb 11.0 L (12-16) GM/DL Hct 29.3 L (36-46) % Plt Count 207 (130-400) T/MM3 Neut # (Auto) 4.3 (1.8-7.7) T/MM3 Lymph # (Auto) 2.1 (1-4.8) T/MM3 Thomas # (Auto) 0.5 (0-0.8) T/MM3 Eos # (Auto) 0.4 (0-0.5) T/MM3 Baso # (Auto) 0.0 (0-0.2) T/MM3 Comprehensive Metabolic Panel 09/21/17 Range/Units 04:36 Sodium 144 (134-144) MEQ/L Potassium 4.0 (3.6-5) MEQ/L Chloride 102 (98-107) MEQ/L Carbon Dioxide 31 H (22-30) MEQ/L BUN 23.0 H (7-17) MG/DL Creatinine 1.2 (0.7-1.2) mg/dL Glucose 98 (65-110) MG/DL Calcium 9.3 (8.4-10.2) MG/DL AST 24 (14-36) U/L ALT 11 (1-35) U/L Alkaline Phosphatase 75 (38-126) U/L Total Protein 6.4 (6.3-8.2) g/dL Albumin 3.4 L (3.5-5.0) g/dL Intake and Output 09/20/17 09/21/17 09/21/17 22:59 06:59 14:59 Intake Total 660 / 660 300 / 300 700 / 700 Output Total 100 / 100 Balance 660 / 660 300 / 300 600 / 600 Intake: Oral 660 / 660 300 / 300 700 / 700 Output: Urine 100 / 100 Other: Urine Appearance Clear Urine Color Pale Yellow # Voids 1 Weight 103.7 kg Patient Weight 09/22/17 06:59 Weight 103.7 kg Assessment and Plan - Assessment and Plan (1) Congestive heart failure Problem details: diastolic Current visit: Yes Status: Chronic (2) Essential (primary) hypertension Current visit: Yes Status: Chronic (3) PAF (paroxysmal atrial fibrillation) Current visit: Yes Status: Chronic (4) Presence of cardiac pacemaker Current visit: Yes Status: Chronic - Attestation Attestation Narrative: 09/21/17 14:25 Recommendation After examining the patient I agree with the above assessment. I am involved in the formulation of the patient's plan of care. Hospital Course Summary Disclaimer: The visit summary below is not to be considered part of the above Progress Note.
[2017-09-19] MEDS: SUCRALFATE 1 GM TABLET PO SCH ×2 (18:00→20:22)
[2017-09-19] MEDS: SALINE FLUSH 10ml SYRINGE IV PRN (20:17)
[2017-09-19] MEDS: MIRTAZAPINE 15 MG TABLET PO SCH (20:22)
[2017-09-19] MEDS: QUETIAPINE 100 MG TABLET PO SCH (20:22)
[2017-09-20] MEDS: PANTOPRAZOLE 40 MG TABLET PO SCH ×2 (06:10→18:22)
[2017-09-20] MEDS: SUCRALFATE 1 GM TABLET PO SCH ×2 (06:10→11:46)
[2017-09-20] MEDS: GABAPENTIN 300 MG CAPSULE PO SCH ×3 (07:30→20:56)
--- NOTE | 2017-09-20 07:32 | Pharmacy Consult ---
Pharmacy Consult-Warfarin - Laboratory Information 09/14/17 09/15/17 09/16/17 05:54 05:13 04:45 INR 1.59 H 1.58 H 1.61 H 09/17/17 09/18/17 09/19/17 04:07 04:09 04:30 INR 1.84 H 2.12 H 2.07 H 09/20/17 04:37 INR 2.18 H - Consult Information COUMADIN CONSULT (Recurring): 72 y.o. female with history of a. fib. recent documentation reports that rate is controlled and history of chronic anticoagulation with warfarin. Home warfarin dose 6 mg po daily. goal INR range= 2.0 to 3.0. INR was subtherapeutic upon admission. Date INR dose 12/15 1.59 6 mg 12/16 1.58 7.5 mg 12/17 1.61 7.5 mg 12/18 1.84 7.5 mg 12/19 2.12 7.5 mg 12/20 2.07 7.5 mg 12/21 2.18 plan: 7.5 mg Warfarin 7.5 mg po x 1 dose be given today. The pharmacy will monitor the INR and dose the Warfarin accordingly. Thank you, Sowmya Hernandez [facility]
[2017-09-20] MEDS: ALBUTEROL/IPRATROPIUM 2.5mg-0.5mg/3ml NEB AEROSOL SCH ×4 (07:34→19:29)
--- NOTE | 2017-09-20 08:39 | General Surgery Consult Note ---
Consult date: 09/20/17 Attending Physician: Quiana Okeefe MD Reason for consult: other (PUD symptoms) [facility] Medical History (Last Updated 09/20/17 @ 08:40 by Jules Mcclain MD) Colon cancer (Resolved) Latest colonoscopy 2017 Chronic back pain (Chronic) Gout (Chronic) Depression (Chronic) Osteoarthritis (Chronic) CVA (cerebral vascular accident) (Resolved 2005) Trouble finding words, weaker on the right side COPD (chronic obstructive pulmonary disease) (Chronic) Congestive heart failure (Chronic) diastolic Essential (primary) hypertension (Chronic) PAF (paroxysmal atrial fibrillation) (Chronic) Presence of cardiac pacemaker (Chronic) Kidney stones Surgical History: Colonoscopy - 2017 in [place]. Pacemaker. Lumbar fusion 2. EGD - ~2009 - reportedly normal. Open Cholecystectomy - . Oophorectomy - benign disease. Open right colon resection. Bilateral cataract extractions. Hemithyroidectomy Family History Updates: Son - A Fib, CM/ICD. Daughter - A Fib CM/ICD. Sister - Breast cancer - Social History Smoking status: Former smoker (1 pack per day 40 years. Quit 2005.) Substance use type: does not use Alcohol intake frequency: does not drink Household members: other (lives with her granddaughter) Current occupational status: retired Current residence: Apartment/Private Home Medications Home Medications Medication Instructions Recorded Confirmed Type Allopurinol [Zyloprim] 300 mg PO DAILY 01/18/17 09/13/17 History Calcium Carbonate [Calcium] 3 tab PO DAILY 01/18/17 09/13/17 History Gabapentin 300 mg PO TID 01/18/17 09/13/17 History Hydrocodone/Acetaminophen 1 tab PO Q6HPRN PRN 01/18/17 09/13/17 History [Hydrocodon-Acetaminoph 7.5-300] Spencer-3/Dha/Epa/Fish Oil [Fish Oil 1 each PO BID 01/18/17 09/13/17 History 1,000 mg Softgel] Quetiapine [Seroquel] 100 mg PO HS 01/18/17 09/13/17 History Furosemide [Lasix 40 mg Tab] 1 tab PO DAILY #0 01/19/17 09/13/17 Rx Metoprolol Tartrate [Lopressor] 12.5 mg PO BIDWM #90 tab 01/19/17 09/13/17 Rx Mirtazapine [Remeron] 15 mg PO HS 09/13/17 09/13/17 History Multivitamin [One Daily] 1 each PO DAILY 09/13/17 09/13/17 History Potassium Chloride [Klor-Con 10] 10 meq PO DAILY 09/13/17 09/13/17 History Sertraline HCl [Zoloft] 200 mg PO DAILY 09/13/17 09/13/17 History Warfarin [Coumadin] 6 mg PO 1700 09/13/17 09/13/17 History fentaNYL [Fentanyl] 50 mcg TRANSDERMA Q3D 09/13/17 09/13/17 History Allergies Allergy/AdvReac Type Severity Reaction Status Date / Time Penicillins Allergy Hives Verified 09/13/17 16:41 Review of Systems 10-point ROS: negative except for HPI and the following: - Respiratory Respiratory: Present: wheezing, difficulty breathing, cough (recent pneumonia), use of oxygen (usually 2 l nc at night) - Gastrointestinal Gastrointestinal: Present: vomiting - Genitourinary Females Only: Present: menopause - Musculoskeletal Musculoskeletal: Present: back pain - Neurological Neurological: Present: muscle weakness (right side after stroke) - Psychiatric Psychiatric: Present: depression - Hematologic/Lymphatic Hematologic/Lymphatic: Present: use of blood thinners - Vital Signs Last Vital Signs Temp 96.1 F L 09/20/17 07:00 Pulse 70 09/20/17 07:00 Resp 20 09/20/17 07:31 BP 90/61 09/20/17 07:00 Pulse Ox 93 09/20/17 07:31 - Laboratory Result Diagrams: 09/20/17 04:37 09/20/17 04:37 Hospital Course Summary Disclaimer: The visit summary below is not to be considered part of the above Progress Note. Hospital Course: 09/13/17: HOSPITAL ADMISSION Levaquin started for CAP; WBC 17.8. DuoNeb treatments and acapella initiated. Viral respiratory panel was negative. Diurese Lasix 40 mg IV TID for CHF. Manuel was inserted to measure I&Os. Warfarin continued per pharmacy protocol. HR monitored on tele. Wound care consulted for skin lesion to right side of back. Complains of swallowing problems: speech therapy consulted. DNR status. 09/14/17 Still requiring 6 L of oxygen. Urine legionella and strep pneumo antigens were ordered and both came back negative. Procalcitonin was 19.82. WBC improved. Decreased Lasix to 40 IV BID; at home she had recently decreased Lasix to 40 mg daily because PCP thought she had become dehydrated. Add KDur. Started nystatin powder for perineal yeast infection PT and OT recommended home with home health. Wound RN placed a honey dressing on her wound and this should be changed every 3 days. 09/15/17 Oxygen decreased to 2.5 L. Echocardiogram showed improvement in EF from 35% to 45%. Lasix changed to 40 mg PO BID. Manuel catheter was discontinued. Speech recommended a soft diet and regular liquids. 09/16/17 Improved; stable on 2-3 liters. (She uses only nocturnal O2 at home). Leukocytosis has resolved and Procalcitonin decreased to 6.38. 09/17/17 Completed 5 days of Levaquin today. Unable to be weaned completely off O2; desaturated to 86% on room air. K down to 3.4; increased KDur 20 mEq from BID to TID. Hgb decreased from 13.2 to 10.6. Stool was positive for occult blood. INR has been subtherapeutic. 09/18/17 Increased in oxygen last evening, up to 4L. CXR showed increased pulmonary edema and Lasix 40 mg IV was given. K continues to decline and KDur dose was adjusted. Modified barium swallow study done was negative for aspiration. Hgb 11.0; had negative colonoscopy last year in [place]. Started Protonix 40 mg BID. 09/19/17 Respiratory status improved, maintaining saturations on room air in the afternoon. Increased dysphagia and throat pain and epigastric pain. Provided GI cocktail. Lipase level was normal. Had another heme-positive stool but hgb stable at 11.3. Dr. Mcclain consulted for possible EGD as last EGD was 5-10 years ago. Iron level was low at 30, and we started ferrous sulfate and vitamin C.
[2017-09-20] MEDS: ASCORBIC ACID 500 MG TABLET PO SCH (08:56)
[2017-09-20] MEDS: GUAIFENESIN LA 600 MG TABLET PO SCH ×2 (08:57→20:56)
[2017-09-20] MEDS: HYDROCODONE/APAP 7.5 MG/325 MG TABLET PO PRN (08:57)
[2017-09-20] MEDS: FUROSEMIDE 40 MG TABLET PO SCH (08:57)
[2017-09-20] MEDS: FERROUS SULFATE 324 MG TABLET PO SCH (08:57)
[2017-09-20] MEDS: SENNA + DOCUSATE TABLET PO SCH ×2 (08:57→21:48)
[2017-09-20] MEDS: CALCIUM CARBONATE 500 MG TABLET PO SCH (08:57)
[2017-09-20] MEDS: SERTRALINE 100 MG TABLET PO SCH (08:58)
[2017-09-20] MEDS: ALLOPURINOL 300 MG TABLET PO SCH (08:58)
[2017-09-20] MEDS: POLYETHYL GLYCOL 3350 17gm PACKET PO SCH (08:58)
[2017-09-20] MEDS: MULTI-VITAMIN + MINERAL TABLET PO SCH (08:58)
--- NOTE | 2017-09-20 11:22 | XRay Report ---
INDICATION: increased crackles PROCEDURE: CHEST 2-VIEWS UPRIGHT (PA & LAT) Encounter: Initial COMPARISON: September 18, 2017 FINDINGS: Left lower lobe airspace disease appears stable. Right infrahilar airspace opacities are stable. Pulmonary edema is grossly stable. No pneumothorax. Cardiac silhouette remains enlarged. Mediastinal contours are stable. Right pacemaker. Impression: No significant change in lower lobe airspace disease. .
[2017-09-20] MEDS ORDERED: WARFARIN 7.5 MG TABLET PO SCH (12:00)
--- NOTE | 2017-09-20 13:37 | Progress Note ---
- Date 09/20/17 Subjective: Afia is feeling much better today. She has not had recurrence of throat pain /epigastric discomfort. Dr. Mcclain has met with her and at this time they made a shared decision to postpone EGD. Rather, she may be having esophageal spasms. Additionally, she denies chest pain or SOA. She was on room air when I visited. She denies nausea this am. Objective Vital signs: Temperature 96.1 F L 09/20/17 07:00 Pulse Rate 69 09/20/17 08:00 Respiratory Rate 18 09/20/17 11:24 Blood Pressure 90/61 09/20/17 07:00 Pulse Oximetry 93 09/20/17 11:25 Rhythm: Atrial Fibrillation with Normal Ventricular Rate Height/Weight/BMI: Height 1.63 m Weight 104.1 kg Body Mass Index 39.9 - Constitutional Present: no acute distress, well nourished, well developed, obese - Routine HEENT Exam Head: Present: normocephalic Eye: Present: PERRL. Absent: conjunctival icterus, scleral injection - Routine Respiratory Exam Present: crackles (slightly increased from yesterday, more pronounced on R compared to L) - Routine Cardiovascular Exam Present: irregularly irregular - Routine Abdominal Exam Present: soft, normoactive bowel sounds, non distended, non tender - Routine Extremities Exam Present: edema (trace edema BLE) - Routine Skin Exam Present: intact, dry, warm Comments: dressing to right lateral back - Routine Neurological Exam Present: alert, oriented X3, normal speech - Routine Psychiatric Exam Present: normal affect, normal thought process, cooperative Results - Labs CBC & Chem 7: 09/20/17 04:37 09/20/17 04:37 Microbiology Results: Microbiology 09/14/17 13:22 Urine Legionella Urinary Antigen - Final 09/14/17 13:22 Urine Streptococcus pneumoniae Antigen (M - Final Assessment and Plan (1) Acute respiratory failure with hypoxia Current visit: Yes Status: Acute Assessment and Plan: Assessment Acute respiratory failure with hypoxia (the patient is usually on 2 L of oxygen at night only)-resolved Right middle lobe and left lower lobe community-acquired pneumonia - completed Levaquin x5 days CHF exacerbation-improving on chest x-ray, currently on Lasix 40 mg by mouth twice a day Small left pleural effusion Leukocytosis-POA [17.8]-resolved Hypernatremia-POA [150]-resolved Hypokalemia-not POA-resolved Subtherapeutic INR-POA [1.28]-Coumadin adjusted per pharmacy Skin wound-right mid-back (? etiology)-POA-wound and skin nurse has evaluated and placed a medi-honey dressing Normocytic anemia/iron deficiency anemia-iron started Heme positive stools History of stage II colon cancer. Mass removed from right colon in 2012 and her last colonoscopy was last year. Perineal yeast infection. Dysphagia and epigastric pain-intermittent; possibly esophageal spasms Chronic and associated conditions Hypertension-well controlled Chronic atrial fibrillation-on Coumadin (pacer dependent)-rate controlled COPD History kidney stones Osteoarthritis Depression Gout Chronic back pain-on chronic narcotics (50 g fentanyl patch and Asher 7.5 every 6 hours when necessary) History of CVA with word finding difficulties that is gradually worsening Plan 09/20/17 Chest x-ray was repeated d/t increased crackles heard on exam but upon personal review it actually looks a little clearer compared to CXR on 09/18/17. She has been on room air all morning and at night only required 1L of oxygen compared to her usual 2L. K increased to 4.4; KDur dose decreased to 20 mEq daily. She is on Lasix 40 mg BID. (At home, she was on Lasix 40 mg daily and KCl 10 mEq daily.) Slight increase seen in creatinine today [1.3] - continue to monitor. Dr. Mcclain evaluated Afia and reviewed options. She is not interested in EGD at this time. We can DC carafate. Her pain could be esophageal spasms. The GI cocktail was not helpful. Her hgb remains stable at 11.4. Discussed with CM: working on SNF. DVT Prophylaxis: Coumadin GI Prophylaxis: Protonix Resuscitation Status: Do Not Resuscitate - Physician Narrative Narrative: Date: 09/20/17 Time: 1333 I have independently evaluated and examined this patient. I reviewed the chart, the patient's history, and the SPINNING [employer]ER/PA's documented findings as above. We discussed and formulated the assessment and plan as above with additions as below. Will monitor overnight. The patient's been started on Lasix twice a day her creatinine slightly increased 1.3 she takes Lasix daily at home. Her potassium is also slightly increased. We'll recheck lab morning. Hospital Course Summary Disclaimer: The visit summary below is not to be considered part of the above Progress Note. Hospital Course: 09/13/17: HOSPITAL ADMISSION Levaquin started for CAP; WBC 17.8. DuoNeb treatments and acapella initiated. Viral respiratory panel was negative. Diurese Lasix 40 mg IV TID for CHF. Manuel was inserted to measure I&Os. Warfarin continued per pharmacy protocol. HR monitored on tele. Wound care consulted for skin lesion to right side of back. Complains of swallowing problems: speech therapy consulted. DNR status. 09/14/17 Still requiring 6 L of oxygen. Urine legionella and strep pneumo antigens were ordered and both came back negative. Procalcitonin was 19.82. WBC improved. Decreased Lasix to 40 IV BID; at home she had recently decreased Lasix to 40 mg daily because PCP thought she had become dehydrated. Add KDur. Started nystatin powder for perineal yeast infection PT and OT recommended home with home health. Wound RN placed a honey dressing on her wound and this should be changed every 3 days. 09/15/17 Oxygen decreased to 2.5 L. Echocardiogram showed improvement in EF from 35% to 45%. Lasix changed to 40 mg PO BID. Manuel catheter was discontinued. Speech recommended a soft diet and regular liquids. 09/16/17 Improved; stable on 2-3 liters. (She uses only nocturnal O2 at home). Leukocytosis has resolved and Procalcitonin decreased to 6.38. 09/17/17 Completed 5 days of Levaquin today. Unable to be weaned completely off O2; desaturated to 86% on room air. K down to 3.4; increased KDur 20 mEq from BID to TID. Hgb decreased from 13.2 to 10.6. Stool was positive for occult blood. INR has been subtherapeutic. 09/18/17 Increased in oxygen last evening, up to 4L. CXR showed increased pulmonary edema and Lasix 40 mg IV was given. K continues to decline and KDur dose was adjusted. Modified barium swallow study done was negative for aspiration. Hgb 11.0; had negative colonoscopy last year in [place]. Started Protonix 40 mg BID. 09/19/17 Respiratory status improved, maintaining saturations on room air in the afternoon. Increased dysphagia and throat pain and epigastric pain. Provided GI cocktail. Lipase level was normal. Had another heme-positive stool but hgb stable at 11.3. Dr. Mcclain consulted for possible EGD as last EGD was 5-10 years ago. Iron level was low at 30, and we started ferrous sulfate and vitamin C. 09/20/17 Oxygen needs improving: on room air during the day; 1L at night. KDur dose decreased. Dr. Mcclain consulted d/t heme positive stools -- EGD deferred at this time. Her pain could be esophageal spasms. Hgb 11.4.
--- NOTE | 2017-09-20 14:47 | Cardiology Progress Note ---
<Bridgett Colbert M - Last Filed: 09/21/17 13:49> Subjective Principal diagnosis: CHF Interval history: Afia is seen in follow up for DCHF. She is sitting up in the recliner, asks about going home tomorrow. She denies chest pain or pressure. Exam Vital signs: Temperature 96.1 F L 09/20/17 07:00 Pulse Rate 69 09/20/17 08:00 Respiratory Rate 18 09/20/17 14:31 Blood Pressure 90/61 09/20/17 07:00 Pulse Oximetry 95 09/20/17 14:31 Inpatient Medications: Generic Name Dose Route Start Last Admin Trade Name Freq PRN Reason Stop Dose Admin Hydrocodone Bitart/Acetaminophen 1 tab 09/13/17 21:49 09/20/17 08:57 [place] 7.5/325 PO 1 tab Q6H PRN Administration Pain Albuterol/Ipratropium 3 ml 09/13/17 19:00 09/20/17 14:31 Duoneb AEROSOL 3 ml RTQID TATIANA Administration Allopurinol 300 mg 09/14/17 09:00 09/20/17 08:58 Zyloprim PO 300 mg DAILY TATIANA Administration Ascorbic Acid 500 mg 09/20/17 09:00 09/20/17 08:56 Vitamin C PO 500 mg DAILY TATIANA Administration Calcium Carbonate 1,500 mg 09/14/17 09:00 09/20/17 08:57 Calcium PO 1,500 mg DAILY TATIANA Administration Fentanyl 50 mcg 09/13/17 20:00 09/19/17 20:17 Duragesic Patch TD 50 mcg Q3D TATIANA Administration Fentanyl Citrate 1 removal 09/16/17 20:00 09/19/17 20:19 Duragesic Patch Removal TD 1 removal Q3D TATIANA Administration Ferrous Sulfate 324 mg 09/20/17 08:00 09/20/17 08:57 Feosol PO 324 mg WB TATIANA Administration Furosemide 40 mg 09/14/17 17:00 09/20/17 08:57 Lasix 40 Mg Tab PO 40 mg 0900,1700 TATIANA Administration Gabapentin 300 mg 09/13/17 21:00 09/20/17 07:30 Neurontin PO 300 mg TID TATIANA Administration Guaifenesin 1,200 mg 09/14/17 21:00 09/20/17 08:57 Mucinex La PO 1,200 mg BID TATIANA Administration Magnesium Hydroxide 30 ml 09/15/17 08:32 09/16/17 08:29 Mom PO 30 ml DAILY PRN Administration Constipation Metoprolol Succinate 25 mg 09/14/17 15:30 09/20/17 09:00 Toprol Xl PO 25 mg DAILY TATIANA Administration Mirtazapine 15 mg 09/13/17 21:00 09/19/17 20:22 Remeron PO 15 mg HS TATIANA Administration Multivitamins/Minerals 1 tab 09/14/17 09:00 09/20/17 08:58 Therapeutic - M PO 1 tab DAILY TATIANA Administration Nystatin 1 applic 09/14/17 15:00 09/20/17 08:58 Mycostatin TP 1 applic TID TATIANA Administration Ondansetron HCl 4 mg 09/15/17 19:52 09/19/17 13:52 Zofran IVP 4 mg Q6H PRN Administration Nausea &/or vomiting Pantoprazole Sodium 40 mg 09/18/17 17:00 09/20/17 06:10 Protonix Tab PO 40 mg ACBID TATIANA Administration Polyethylene Glycol 17 gm 09/16/17 16:00 09/20/17 08:58 Miralax PO 17 gm DAILY TATIANA Administration Potassium Chloride 20 meq 09/21/17 08:00 K-Dur 20 Meq Tablet PO WB TATIANA Quetiapine Fumarate 100 mg 09/13/17 21:00 09/19/17 20:22 Seroquel PO 100 mg HS TATIANA Administration Senna/Docusate Sodium 1 tab 09/17/17 21:00 09/20/17 08:57 Senna Plus Tablet PO 1 tab BID TATIANA Administration Sertraline HCl 200 mg 09/14/17 09:00 09/20/17 08:58 Zoloft PO 200 mg DAILY TATIANA Administration Sodium Chloride 10 - 80 ml 09/13/17 21:55 09/19/17 20:17 Iv Flush IV 10 ml PRN PRN Administration Flushing Sodium Chloride 500 ml 09/13/17 21:55 09/13/17 22:04 Normal Saline IV 500 ml PRN PRN Administration Warfarin Sodium 0 09/14/17 08:15 Coumadin Protocol NOTE TATIANA Discontinued Medications Generic Name Dose Route Start Last Admin Trade Name Freq PRN Reason Stop Dose Admin Albuterol/Ipratropium 3 ml 09/13/17 15:57 09/13/17 16:00 Duoneb AEROSOL 09/13/17 15:58 3 ml O ONE Administration Diphtheria/Tetanus/Acell Pertussis 0.5 ml 09/17/17 17:00 09/17/17 16:48 Adacel IM 09/17/17 17:01 0.5 ml .ONCE ONE Administration Diphtheria/Tetanus/Acell Pertussis 1 each 09/17/17 17:00 09/17/17 16:51 Tdap Vaccine Administr Charge INJ 09/17/17 17:01 1 each O ONE Administration Furosemide 40 mg 09/13/17 17:07 09/13/17 17:27 Lasix 40 Mg/4 Ml IVP 09/13/17 17:08 40 mg O ONE Administration Furosemide 40 mg 09/14/17 01:00 09/14/17 09:33 Lasix 40 Mg/4 Ml IVP 40 mg Q8HR TATIANA Administration Furosemide 40 mg 09/18/17 13:11 09/18/17 14:27 Lasix 40 Mg/4 Ml IVP 09/18/17 13:12 40 mg O ONE Administration Levofloxacin/Dextrose 750 mg in 150 mls @ 100 mls/hr 09/13/17 19:33 09/16/17 21:13 Levaquin Premix IV Infused Q24H TATIANA Infusion Lactulose 20 gm 09/17/17 14:14 09/17/17 15:07 Lactulose PO 09/17/17 14:15 20 gm O ONE Administration Levofloxacin 500 mg 09/17/17 18:00 09/17/17 17:00 Levaquin PO 09/17/17 18:01 500 mg O ONE Administration Metoprolol Tartrate 12.5 mg 09/14/17 08:00 09/14/17 09:31 Lopressor PO 12.5 mg BIDWM TATIANA Administration Non-Formulary Medication 1 tab 09/13/17 19:48 Hydrocodone/Acetaminophen [Hydrocodon-Acetaminoph 7.5-300] PO Q6HPRN PRN Pain Pharmacy Consult each 09/13/17 23:07 Pharmacy Consult - Fall Risk 09/13/17 23:08 ONE TIME ONE Pharmacy Profile Note 30 ml 09/19/17 13:29 09/19/17 14:28 Maalox Plus/Lidocaine Susp PO 09/19/17 13:30 30 ml O ONE Administration Polyethylene Glycol 17 gm 09/18/17 09:00 Miralax PO DAILY TATIANA Potassium Chloride 10 meq 09/14/17 08:00 09/16/17 08:31 K-Dur 10 Meq Tablet PO 10 meq WB TATIANA Administration Potassium Chloride 20 meq 09/14/17 08:00 09/17/17 08:53 K-Dur 20 Meq Tablet PO 20 meq BIDWM TATIANA Administration Potassium Chloride 20 meq 09/17/17 14:15 09/18/17 08:35 K-Dur 20 Meq Tablet PO 20 meq TIDWM TATIANA Administration Potassium Chloride 20 meq 09/18/17 10:05 09/18/17 10:31 K-Dur 20 Meq Tablet PO 09/18/17 10:06 20 meq O ONE Administration Potassium Chloride 30 meq 09/18/17 12:00 09/20/17 11:46 K-Dur 10 Meq Tablet PO 30 meq TIDWM TATIANA Administration Sucralfate 1 gm 09/19/17 17:00 09/20/17 11:46 Carafate PO 1 gm ACHS TATIANA Administration Warfarin Sodium 1 each 09/13/17 19:33 09/13/17 20:30 Pharmacy Consult - Warfarin 09/13/17 19:34 1 each O ONE Administration Warfarin Sodium 6 mg 09/13/17 19:50 09/13/17 22:04 Coumadin PO 6 mg 1700 TATIANA Administration Warfarin Sodium 6 mg 09/14/17 12:00 09/14/17 12:00 Coumadin PO 09/14/17 12:15 6 mg NOON TATIANA Administration Warfarin Sodium 7.5 mg 09/15/17 12:00 09/15/17 11:40 Coumadin PO 09/15/17 12:30 7.5 mg NOON TATIANA Administration Warfarin Sodium 7.5 mg 09/16/17 12:00 09/16/17 11:57 Coumadin PO 09/16/17 12:30 7.5 mg NOON TATIANA Administration Warfarin Sodium 7.5 mg 09/17/17 12:00 09/17/17 11:51 Coumadin PO 09/17/17 12:01 7.5 mg NOON TATIANA Administration Warfarin Sodium 7.5 mg 09/18/17 12:00 09/18/17 12:01 Coumadin PO 09/18/17 23:59 7.5 mg NOON TATIANA Administration Warfarin Sodium 7.5 mg 09/19/17 12:00 09/19/17 12:26 Coumadin PO 09/19/17 14:00 7.5 mg NOON TATIANA Administration Warfarin Sodium 7.5 mg 09/20/17 12:00 09/20/17 11:46 Coumadin PO 09/20/17 12:01 7.5 mg NOON TATIANA Administration - Constitutional no acute distress, well nourished, cooperative - Routine HEENT Exam Head: Present: normocephalic ENT: Present: mucous membranes moist - Routine Neck Exam Absent: JVD, carotid bruit - Routine Chest/Breast/Axilla Exam Chest wall: Present: pacemaker. Absent: tenderness - Routine Respiratory Exam Present: diminished air movement (bases) - Routine Cardiovascular Exam Present: no murmur, irregular rhythm - Routine Abdominal Exam Present: soft, normoactive bowel sounds - Routine Extremities Exam Present: edema (trace) - Routine Skin Exam Present: intact, dry, warm - Routine Neurological Exam Present: alert, oriented X3 - Routine Psychiatric Exam Present: normal affect, normal thought process - Urinary Catheter Management Urethral Cath placed during this visit: yes, but has since been removed by the nurse Insertion date: 09/13/17 Insertion time: 21:20 Removal date: 09/15/17 Removal time: 15:47 Results 09/21/17 04:36 09/21/17 04:36 CBC 09/20/17 Range/Units 04:37 WBC 7.0 (4.5-11.0) T/MM3 RBC 3.04 L (4.00-5.20) M/MM3 Hgb 11.4 L (12-16) GM/DL Hct 30.0 L D (36-46) % Plt Count 218 (130-400) T/MM3 Neut # (Auto) 4.1 (1.8-7.7) T/MM3 Lymph # (Auto) 1.9 (1-4.8) T/MM3 Coffee # (Auto) 0.5 (0-0.8) T/MM3 Eos # (Auto) 0.4 (0-0.5) T/MM3 Baso # (Auto) 0.0 (0-0.2) T/MM3 Comprehensive Metabolic Panel 09/20/17 Range/Units 04:37 Sodium 146 H (134-144) MEQ/L Potassium 4.4 (3.6-5) MEQ/L Chloride 102 (98-107) MEQ/L Carbon Dioxide 33 H (22-30) MEQ/L BUN 25.0 H (7-17) MG/DL Creatinine 1.3 H D (0.7-1.2) mg/dL Glucose 99 (65-110) MG/DL Calcium 9.6 (8.4-10.2) MG/DL Intake and Output 09/19/17 09/20/17 09/20/17 22:59 06:59 14:59 Intake Total 240 / 240 200 / 200 690 / 690 Output Total 700 / 700 300 / 300 Balance 240 / 240 -500 / -500 390 / 390 Intake: Oral 240 / 240 200 / 200 690 / 690 Output: Urine 400 / 400 300 / 300 Urine Amount (Catheter) 300 / 300 Other: Urine Appearance Clear Clear Clear Urine Color Yellow Yellow Straw Urine Odor Normal Stool Color Brown Brown Stool Consistency Soft Soft Formed Size of Bowel Movement Large Small # Voids 1 1 # Bowel Movements 1 1 Weight 229 lb 8.019 oz Patient Weight 09/21/17 06:59 Weight 229 lb 8.019 oz - Imaging and Cardiology Imaging & Cardiology Narrative: Date of Exam: 09/20/17 Ordering Provider: Florence Jenkins APRN Type of Exam(s): XR chest 2V Reason for Exam(s): increased crackles INDICATION: increased crackles PROCEDURE: CHEST 2-VIEWS UPRIGHT (PA & LAT) Encounter: Initial COMPARISON: September 18, 2017 FINDINGS: Left lower lobe airspace disease appears stable. Right infrahilar airspace opacities are stable. Pulmonary edema is grossly stable. No pneumothorax. Cardiac silhouette remains enlarged. Mediastinal contours are stable. Right pacemaker. Impression: No significant change in lower lobe airspace disease. 09/20/17 14:57 Assessment and Plan - Assessment and Plan (1) Congestive heart failure Problem details: diastolic Status: Chronic (2) Essential (primary) hypertension Status: Chronic (3) PAF (paroxysmal atrial fibrillation) Status: Chronic (4) Presence of cardiac pacemaker Status: Chronic - Assessment and Plan 09/14/17 Acute on Chronic - Last EF 35% - 2D echo pending - Restrict fluid/ NA intake - Change Diuresis to PO BID - Monitor renal and electrolytes - Change Metoprolol tartrate to Succinate Thank you for allowing us to participate in the care of this patient 09/17/17 EF 45% on echo report - Requires 1L O2 but laying flat 09/18/17 - JVD and Bibasilar rales - Increasing pulmonary edema on CXR - Lasix 40mg IV x1 in addition to scheduled Lasix 09/19/17 Continue current diuresis. - no new orders 09/20/17 SCr increasing. - Change Lasix to 40mg Q am and 20mg Q pm - Monitor renal and electrolytes Hospital Course Summary Disclaimer: The visit summary below is not to be considered part of the above Progress Note. Hospital Course: 09/13/17-hospital admission Admit, inpatient, under the hospitalist service, Dr. Palacios attending. Stay expected to exceed 2 midnights given her hypoxia and comorbidities. Start Levaquin 750 mg IV every 24 hours for probable CAP. Repeat lactate. Blood cultures drawn in ER. DuoNeb's, Acapella for respiratory symptoms. Lasix 40 mg IV given in ED for CHF exacerbation. Monitor I and O's. Daily weights. Insert Manuel. Telemetry. Continuous pulse oximetry. Pharmacy consult for warfarin. Warfarin for DVT prophylaxis. Echocardiogram in the a.m. to evaluate heart structure and function. Check BNP. Repeat troponin. Speech therapy, PT/OT consults. Wound clinic consult for lesion on back. Repeat labs in a.m. to follow blood counts, renal function and electrolytes. Check magnesium. Fentanyl patch continued from home med list for her chronic back pain. Continue mirtazapine at at bedtime. Dr. Palacios to reconcile remainder of medications. Patient requests DO NOT RESUSCITATE CODE STATUS. Care to return to Dr. Afshin Macias upon discharge. 09/14/2017 Overall, the patient is feeling a little bit better today. She feels stronger and is less short of breath. She is still requiring 6 L of oxygen. Continue Levaquin for pneumonia. Try to obtain a sputum sample. Check urine for Legionella and strep pneumonia antigens. Continue breathing treatments and Acapella. Will add guaifenesin Will decrease Lasix to 40 IV twice a day. Echocardiogram is pending. Dr. Chavez has been consulted regarding pulmonary edema, possible exacerbation of CHF. The patient states that at home she had recently decrease Lasix to 40 mg once daily at the recommendation have her physician because they thought she had become dehydrated. Will start nystatin powder for perineal yeast infection PT and OT did evaluate the patient and have recommended home with home health when the patient is medically ready for discharge. The patient is in agreement Consider speech therapy as an outpatient to help with word finding/cognitive difficulties related to her stroke The wound and skin nurse did see the patient and placed a honey dressing on her wound. This will be changed every 3 days. Add 20 mEq of potassium twice a day for underlying hypokalemia. Recheck BMP and CBC tomorrow. Increase activity as tolerated. We'll check a pro-calcitonin level. Continue Coumadin for A. fib., INR is increasing. Her subtherapeutic INR was likely because she was having trouble swallowing for a couple of days prior to admission and had not taken her Coumadin. Discussed with the patient's nurse and the wound and skin nurse. 09/15/2017 Overall, the patient appears to be doing better today. Oxygen needs have decreased down to 2.5 L down from 6 L yesterday. She still feels weak and not ready for discharge. Continue Levaquin for community-acquired pneumonia. Repeat CBC and pro- calcitonin tomorrow. Echocardiogram showed improvement in ejection fraction and is now 45%. Dr. Chavez's help is appreciated. He did decrease her Lasix down to 40 mg by mouth twice a day. We'll discontinue Manuel catheter. Continue PT and OT. Recheck basic metabolic profile tomorrow regarding diuresis. Continue wound care treatments initiated by wound and skin team Continue Coumadin for A. fib. INR is subtherapeutic due to missing a couple of days of Coumadin at home. Swallowing has improved and speech recommended a soft diet and regular liquids. Plan 09/16/17 Patient continues to improve. She is stable on 2-3 liters. (She uses only nocturnal O2 at home). She is up in chair, but is requiring assistance to get up. Concerned she may need some rehabilitation before going home. (Lives with granddaughter) Leukocytosis and procalcitonin is trending down. Continue Levaquin d#4. Nebs. Lasix BID, KCL, Metoprolol. INR/Warfarin adjustment per pharmacy- chronic atrial fib. rate is controlled. Continue supportive care. Home soon? She will need either rehab or HH on discharge most likely. 09/17/17 Continue Levaquin (day #5) for CAP. Infectious markers trending down. Previous CXRs reviewed -- improving radiographically and also clinically. O2 weaned down to 1L; she desaturated to 86% on room air. K down to 3.4; increase KDur 20 mEq from BID to TID Monitor hgb -- slow decline since admission, at which time hgb was 13.2 & today 10.6. Check stool for occult blood. INR has been subtherapeutic. Constipation -- pt has taken PRN meds and does not want suppository. Will offer lactulose; start Senna Plus BID and Miralax daily. Chronic back pain -- try heating pad. Small wound to right flank -- not visualized today; will discuss with RN. CM checked with pt - she states her only need will be meals on wheels. <Willis Chavez - Last Filed: 09/24/17 13:02> Exam Vital signs: Temperature 96.2 F L 09/21/17 07:25 Pulse Rate 69 09/21/17 07:54 Respiratory Rate 18 09/21/17 10:26 Blood Pressure 122/61 09/21/17 07:25 Pulse Oximetry 94 09/21/17 10:26 Inpatient Medications: Discontinued Medications Generic Name Dose Route Start Last Admin Trade Name Freq PRN Reason Stop Dose Admin Hydrocodone Bitart/Acetaminophen 1 tab 09/13/17 21:49 09/21/17 09:42 [place] 7.5/325 PO 1 tab Q6H PRN Administration Pain Albuterol/Ipratropium 3 ml 09/13/17 15:57 09/13/17 16:00 Duoneb AEROSOL 09/13/17 15:58 3 ml O ONE Administration Albuterol/Ipratropium 3 ml 09/13/17 19:00 09/21/17 10:25 Duoneb AEROSOL 3 ml RTQID TATIANA Administration Allopurinol 300 mg 09/14/17 09:00 09/21/17 09:09 Zyloprim PO 300 mg DAILY TATIANA Administration Ascorbic Acid 500 mg 09/20/17 09:00 09/21/17 09:09 Vitamin C PO 500 mg DAILY TATIANA Administration Calcium Carbonate 1,500 mg 09/14/17 09:00 09/21/17 09:09 Calcium PO 1,500 mg DAILY TATIANA Administration Diphtheria/Tetanus/Acell Pertussis 0.5 ml 09/17/17 17:00 09/17/17 16:48 Adacel IM 09/17/17 17:01 0.5 ml .ONCE ONE Administration Diphtheria/Tetanus/Acell Pertussis 1 each 09/17/17 17:00 09/17/17 16:51 Tdap Vaccine Administr Charge INJ 09/17/17 17:01 1 each O ONE Administration Fentanyl 50 mcg 09/13/17 20:00 09/19/17 20:17 Duragesic Patch TD 50 mcg Q3D TATIANA Administration Fentanyl Citrate 1 removal 09/16/17 20:00 09/19/17 20:19 Duragesic Patch Removal TD 1 removal Q3D TATIANA Administration Ferrous Sulfate 324 mg 09/20/17 08:00 09/21/17 09:08 Feosol PO 324 mg WB TATIANA Administration Furosemide 40 mg 09/13/17 17:07 09/13/17 17:27 Lasix 40 Mg/4 Ml IVP 09/13/17 17:08 40 mg O ONE Administration Furosemide 40 mg 09/14/17 01:00 09/14/17 09:33 Lasix 40 Mg/4 Ml IVP 40 mg Q8HR TATIANA Administration Furosemide 40 mg 09/14/17 17:00 09/20/17 08:57 Lasix 40 Mg Tab PO 40 mg 0900,1700 TATIANA Administration Furosemide 40 mg 09/18/17 13:11 09/18/17 14:27 Lasix 40 Mg/4 Ml IVP 09/18/17 13:12 40 mg O ONE Administration Furosemide 40 mg 09/21/17 09:00 09/21/17 09:09 Lasix 40 Mg Tab PO 40 mg DAILY TATIANA Administration Furosemide 20 mg 09/20/17 17:00 09/20/17 18:22 Lasix 20 Mg Tab PO 20 mg DAILY@1700 TATIANA Administration Gabapentin 300 mg 09/13/17 21:00 09/21/17 09:10 Neurontin PO 300 mg TID TATIANA Administration Guaifenesin 1,200 mg 09/14/17 21:00 09/21/17 09:10 Mucinex La PO 1,200 mg BID TATIANA Administration Hyoscyamine 0.125 mg 09/20/17 15:23 Levsin SL Q4HR PRN .Downtime Levofloxacin/Dextrose 750 mg in 150 mls @ 100 mls/hr 09/13/17 19:33 03/18/18 21:13 Levaquin Premix IV Infused Q24H TATIANA Infusion Lactulose 20 gm 09/17/17 14:14 09/17/17 15:07 Lactulose PO 09/17/17 14:15 20 gm O ONE Administration Levofloxacin 500 mg 09/17/17 18:00 09/17/17 17:00 Levaquin PO 09/17/17 18:01 500 mg O ONE Administration Magnesium Hydroxide 30 ml 09/15/17 08:32 09/16/17 08:29 Mom PO 30 ml DAILY PRN Administration Constipation Metoprolol Succinate 25 mg 09/14/17 15:30 09/21/17 09:10 Toprol Xl PO 25 mg DAILY TATIANA Administration Metoprolol Tartrate 12.5 mg 09/14/17 08:00 09/14/17 09:31 Lopressor PO 12.5 mg BIDWM TATIANA Administration Mirtazapine 15 mg 09/13/17 21:00 09/20/17 20:56 Remeron PO 15 mg HS TATIANA Administration Multivitamins/Minerals 1 tab 09/14/17 09:00 09/21/17 09:10 Therapeutic - M PO 1 tab DAILY TATIANA Administration Non-Formulary Medication 1 tab 09/13/17 19:48 Hydrocodone/Acetaminophen [Hydrocodon-Acetaminoph 7.5-300] PO Q6HPRN PRN Pain Nystatin 1 applic 09/14/17 15:00 09/21/17 09:17 Mycostatin TP 1 applic TID TATIANA Administration Ondansetron HCl 4 mg 09/15/17 19:52 09/19/17 13:52 Zofran IVP 4 mg Q6H PRN Administration Nausea &/or vomiting Pantoprazole Sodium 40 mg 09/18/17 17:00 09/21/17 05:50 Protonix Tab PO 40 mg ACBID TATIANA Administration Pharmacy Consult each 09/13/17 23:07 Pharmacy Consult - Fall Risk MC 09/13/17 23:08 ONE TIME ONE Pharmacy Profile Note 30 ml 09/19/17 13:29 09/19/17 14:28 Maalox Plus/Lidocaine Susp PO 09/19/17 13:30 30 ml O ONE Administration Polyethylene Glycol 17 gm 09/16/17 16:00 09/21/17 09:10 Miralax PO Not Given DAILY TATIANA Polyethylene Glycol 17 gm 09/18/17 09:00 Miralax PO DAILY TATIANA Potassium Chloride 10 meq 09/14/17 08:00 09/16/17 08:31 K-Dur 10 Meq Tablet PO 10 meq WB TATIANA Administration Potassium Chloride 20 meq 09/14/17 08:00 09/17/17 08:53 K-Dur 20 Meq Tablet PO 20 meq BIDWM TATIANA Administration Potassium Chloride 20 meq 09/17/17 14:15 09/18/17 08:35 K-Dur 20 Meq Tablet PO 20 meq TIDWM ATTIANA Administration Potassium Chloride 20 meq 09/18/17 10:05 09/18/17 10:31 K-Dur 20 Meq Tablet PO 09/18/17 10:06 20 meq O ONE Administration Potassium Chloride 30 meq 09/18/17 12:00 09/20/17 11:46 K-Dur 10 Meq Tablet PO 30 meq TIDWM TATIANA Administration Potassium Chloride 20 meq 09/21/17 08:00 09/21/17 09:09 K-Dur 20 Meq Tablet PO 20 meq WB TATIANA Administration Quetiapine Fumarate 100 mg 09/13/17 21:00 09/20/17 20:59 Seroquel PO 100 mg HS TATIANA Administration Senna/Docusate Sodium 1 tab 09/17/17 21:00 09/21/17 09:11 Senna Plus Tablet PO 1 tab BID TATIANA Administration Sertraline HCl 200 mg 09/14/17 09:00 09/21/17 09:11 Zoloft PO 200 mg DAILY TATIANA Administration Sodium Chloride 10 - 80 ml 09/13/17 21:55 09/19/17 20:17 Iv Flush IV 10 ml PRN PRN Administration Flushing Sodium Chloride 500 ml 09/13/17 21:55 09/13/17 22:04 Normal Saline IV 500 ml PRN PRN Administration Sucralfate 1 gm 09/19/17 17:00 09/20/17 11:46 Carafate PO 1 gm ACHS TATIANA Administration Warfarin Sodium 1 each 09/13/17 19:33 09/13/17 20:30 Pharmacy Consult - Warfarin 09/13/17 19:34 1 each O ONE Administration Warfarin Sodium 6 mg 09/13/17 19:50 09/13/17 22:04 Coumadin PO 6 mg 1700 TATIANA Administration Warfarin Sodium 0 09/14/17 08:15 Coumadin Protocol NOTE TATIANA Warfarin Sodium 6 mg 09/14/17 12:00 03/16/18 12:00 Coumadin PO 09/14/17 12:15 6 mg NOON TATIANA Administration Warfarin Sodium 7.5 mg 09/15/17 12:00 09/15/17 11:40 Coumadin PO 09/15/17 12:30 7.5 mg NOON TATIANA Administration Warfarin Sodium 7.5 mg 09/16/17 12:00 09/16/17 11:57 Coumadin PO 09/16/17 12:30 7.5 mg NOON TATIANA Administration Warfarin Sodium 7.5 mg 09/17/17 12:00 09/17/17 11:51 Coumadin PO 09/17/17 12:01 7.5 mg NOON TATIANA Administration Warfarin Sodium 7.5 mg 09/18/17 12:00 09/18/17 12:01 Coumadin PO 09/18/17 23:59 7.5 mg NOON TATIANA Administration Warfarin Sodium 7.5 mg 09/19/17 12:00 09/19/17 12:26 Coumadin PO 09/19/17 14:00 7.5 mg NOON TATIANA Administration Warfarin Sodium 7.5 mg 09/20/17 12:00 09/20/17 11:46 Coumadin PO 09/20/17 12:01 7.5 mg NOON TATIANA Administration Warfarin Sodium 7.5 mg 09/21/17 12:00 09/21/17 11:27 Coumadin PO 09/21/17 14:00 7.5 mg NOON TATIANA Administration - Urinary Catheter Management Urethral Cath placed during this visit: no Results 09/21/17 04:36 09/21/17 04:36 Assessment and Plan - Assessment and Plan (1) Congestive heart failure Problem details: diastolic Status: Chronic (2) Essential (primary) hypertension Status: Chronic (3) PAF (paroxysmal atrial fibrillation) Status: Chronic (4) Presence of cardiac pacemaker Status: Chronic - Attestation Attestation Narrative: 09/24/17 13:02 Recommendation After examining the patient I agree with the above assessment. I am involved in the formulation of the patient's plan of care. Hospital Course Summary Disclaimer: The visit summary below is not to be considered part of the above Progress Note.
--- NOTE | 2017-09-20 14:47 | Consultation ---
DATE OF CONSULTATION 09/20/2017 CONSULTING PHYSICIAN Jules Mcclain MD REQUESTING PROVIDER Florence Jenkins APRN REASON FOR CONSULTATION Peptic ulcer disease symptoms. IMPRESSION 1. Esophageal dysphagia - her symptoms seem intermittent and are most consistent with esophageal spasms. Based on her clinical history, I do not think that this relates to a mechanical problem such as a mass or stricture. It also does not seem consistent with inflammation. 2. Epigastric pain - severe yesterday but resolved today. 3. Recent pneumonia. 4. Diastolic congestive heart failure - chronic. 5. Coumadin anticoagulation - currently therapeutic. RECOMMENDATIONS 1. I did discuss the situation with Swapna and explained that I did not think that esophagogastroduodenoscopy would likely be revealing given the intermittent episodes of problems that she has. The patient also agreed that she was not interested in endoscopy at this point in time. 2. She can remain on her Coumadin since no procedure is planned. 3. I will sign off of her case since there does not appear to be need for surgical intervention based on the patient's wishes. Please call me if I can be of any further assistance. HISTORY OF PRESENT ILLNESS Swapna is a 72-year-old female who was admitted to the hospital lately for shortness of breath. She needed diuresis with her congestive heart failure but was also treated for a pneumonia. Yesterday she had trouble swallowing and some epigastric abdominal pain. She says that she has had problems since 2012. She feels that this is related to back surgery when they had put "a tube down my throat". She averages having an episode weekly but there is no predicting when her next episode will bother her. When she has an episode she feels like food gets stuck at her upper chest or at the lower chest. She usually regurgitates food. She may have an associated dull ache in the lower chest but it only lasts for a few minutes. If her food is regurgitated, sometimes she can eat immediately but she usually has to wait until the next meal. Her problems have only occurred with solids or a combination of solids and liquids with meals. She has never had trouble with liquids alone. Her abdominal pain yesterday followed dinner and she said it felt "like my muscles were tied up in knots". She rated her pain 4/10 in severity. It is totally resolved today. PAST MEDICAL HISTORY, PAST SURGICAL HISTORY, ALLERGIES, MEDICATIONS, FAMILY HISTORY, SOCIAL HISTORY, VITAL SIGNS, LABORATORY DATA See electronic consultation form. PHYSICAL EXAMINATION GENERAL: The patient is awake and alert, in no acute distress. HEENT: Sclerae clear. Extraocular muscles intact. NECK: Supple with a midline trachea. No lymphadenopathy or thyromegaly are noted. HEART: Regular rate and rhythm. LUNGS: Clear to auscultation bilaterally. ABDOMEN: Soft, obese, nontender, nondistended. There is a broad-based incisional hernia which is reducible. EXTREMITIES: Mild pitting edema but no clubbing or cyanosis. NEURO: Cranial nerves II-XII are grossly intact. PSYCHIATRIC: Normal mood and affect. Thank you for allowing me to participate in Swapna's care. TRACEY
[2017-09-20] MEDS ORDERED: Hyoscyamine 0.125mg Sublingual tab SL PRN (15:23)
[2017-09-20] MEDS ORDERED: FUROSEMIDE 20 MG TABLET PO SCH (17:00)
[2017-09-20] MEDS: MIRTAZAPINE 15 MG TABLET PO SCH (20:56)
[2017-09-20] MEDS: QUETIAPINE 100 MG TABLET PO SCH (20:59)
[2017-09-21] MEDS: PANTOPRAZOLE 40 MG TABLET PO SCH (05:50)
[2017-09-21] MEDS: ALBUTEROL/IPRATROPIUM 2.5mg-0.5mg/3ml NEB AEROSOL SCH ×2 (06:47→10:25)
[2017-09-21 07:28] VITALS: BP 122/61; TEMP 96.2
--- NOTE | 2017-09-21 07:36 | Pharmacy Consult ---
Pharmacy Consult-Warfarin - Laboratory Information 09/14/17 09/15/17 09/16/17 05:54 05:13 04:45 INR 1.59 H 1.58 H 1.61 H 09/17/17 09/18/17 09/19/17 04:07 04:09 04:30 INR 1.84 H 2.12 H 2.07 H 09/20/17 09/21/17 04:37 04:36 INR 2.18 H 2.11 H - Consult Information COUMADIN CONSULT (Recurring): 72 y.o. female with history of a. fib. recent documentation reports that rate is controlled and history of chronic anticoagulation with warfarin. Home warfarin dose 6 mg po daily. goal INR range= 2.0 to 3.0. INR was subtherapeutic upon admission. Date INR dose 09/14 1.59 6 mg 09/15 1.58 7.5 mg 09/16 1.61 7.5 mg 09/17 1.84 7.5 mg 09/18 2.12 7.5 mg 09/19 2.07 7.5 mg 09/20 2.18 7.5 mg 09/21 2.11 will give 7.5 mg today INR is therapeutic today but dropped slightly. Will give 7.5 mg of Warfarin today. The pharmacy will monitor the INR and dose the Warfarin accordingly. Thank you. Triica Figueroa, CristhianD
[2017-09-21] MEDS ORDERED: FUROSEMIDE 40 MG TABLET PO SCH (09:00)
[2017-09-21] MEDS: FERROUS SULFATE 324 MG TABLET PO SCH (09:08)
[2017-09-21] MEDS: CALCIUM CARBONATE 500 MG TABLET PO SCH (09:09)
[2017-09-21] MEDS: ASCORBIC ACID 500 MG TABLET PO SCH (09:09)
[2017-09-21] MEDS: ALLOPURINOL 300 MG TABLET PO SCH (09:09)
[2017-09-21] MEDS: GABAPENTIN 300 MG CAPSULE PO SCH (09:10)
[2017-09-21] MEDS: GUAIFENESIN LA 600 MG TABLET PO SCH (09:10)
[2017-09-21] MEDS: MULTI-VITAMIN + MINERAL TABLET PO SCH (09:10)
[2017-09-21] MEDS: POLYETHYL GLYCOL 3350 17gm PACKET PO SCH (09:10)
[2017-09-21] MEDS: SERTRALINE 100 MG TABLET PO SCH (09:11)
[2017-09-21] MEDS: SENNA + DOCUSATE TABLET PO SCH (09:11)
[2017-09-21] MEDS: HYDROCODONE/APAP 7.5 MG/325 MG TABLET PO PRN (09:42)
[2017-09-21 10:16] VITALS: PULSE 69
[2017-09-21 10:28] VITALS: RESP 18; O2SAT 94
--- NOTE | 2017-09-21 11:08 | Extended Care Facility Orders ---
Admission Orders Admit to:: Longterm Allergies/Adverse Reactions: Allergies Penicillins Allergy (Verified 09/13/17 16:41) Hives Admitting Diagnosis: SOA Admitting Physician: Miguel Chaparro MD Attending Physician: Miguel Chaparro MD Code Status: Do Not Resuscitate Anticiapted Length of Stay: 30 days or less Rehab Potential: good Rehab Prognosis: good Diet: 09/13/17 Breakfast Cardiac Diet [DIET] Sodium Restriction: 2GRAM Fluid Restriction: FR 2000ML Fat Content: LOW Food Consistency: SOFT May use Facility Protocol or Standing Orders: Yes May have flu vaccine: Yes Evaluations/Treatment: Speech, PT, OT Longterm Certification: I certify that SNF services are required to be given on an Inpatient basis because of the patients need for [facility] care on a continuing basis for the condition(s) for which he/she received inpatient hospital services prior to his/her transfer to the SNF. SNF inpatient care is necessary for the following reasons Indication for Longterm: Other (PT/OT) - Additional Information In Event of Arrest: Do Not Start CPR Referrals: Afshin Macias [Family Provider] - (Follow up in 1 week) Additional Orders: CBC, BMP and INR sunday 09/24.
--- NOTE | 2017-09-21 11:13 | Discharge Summary ---
Discharge Information Date of admission: 09/13/17 18:40 Anticipated date of discharge: 09/21/17 Attending Physician: Miguel Chaparro MD Primary care physician: Afshin Macias Consults: Dr. Chavez-claims support specialist Dr. Mcclain-General Surgeon - Discharge Diagnosis (1) Acute respiratory failure with hypoxia Status: Acute Discharge diagnosis Acute respiratory failure with hypoxia (the patient is usually on 2 L of oxygen at night only)-resolved Right middle lobe and left lower lobe community-acquired pneumonia - completed Levaquin x5 days CHF exacerbation-improving on chest x-ray, currently on Lasix 40 mg by mouth twice a day Wound on back- POA Small left pleural effusion- Resolved Leukocytosis-POA [17.8]-resolved Hypernatremia-POA [150]-resolved Hypokalemia-not POA-resolved Subtherapeutic INR-POA [1.28]-Coumadin adjusted per pharmacy Skin wound-right mid-back (? etiology)-POA-wound and skin nurse has evaluated and placed a medi-honey dressing Normocytic anemia/iron deficiency anemia-iron started Heme positive stools- Stable History of stage II colon cancer. Mass removed from right colon in 2012 and her last colonoscopy was last year. Perineal yeast infection- Resolved Dysphagia and epigastric pain-intermittent; possibly esophageal spasms Chronic and associated conditions Hypertension-well controlled Chronic atrial fibrillation-on Coumadin (pacer dependent)-rate controlled COPD History kidney stones Osteoarthritis Depression Gout Chronic back pain-on chronic narcotics (50 g fentanyl patch and Calumet 7.5 every 6 hours when necessary) History of CVA with word finding difficulties that is gradually worsening Obesity with BMI 39.2 - Procedures Procedures: None - Laboratory Labs: 09/21/17 04:36 09/21/17 04:36 - Microbiology Microbiology 09/14/17 13:22 Urine Legionella Urinary Antigen - Final 09/14/17 13:22 Urine Streptococcus pneumoniae Antigen (M - Final - Radiology Radiology: 09/13/17-chest [id number]: Moderate pulmonary edema, likely due to CHF. 09/14/17-echocardiogram IMPRESSION 1. Biatrial dilation. 3. Right ventricular dilation. 3. Left ventricular hypertrophy. 4. Pacemaker leads are present in right heart. 5. Mild global hypokinesia with ejection fraction of about 45%. 6. Mitral annulus calcification with mild mitral regurgitation. 7. Aortic sclerosis. 8. Mild tricuspid regurgitation with moderate pulmonary hypertension with estimated pulmonary artery systolic pressure of 46. 9. Mild pulmonary insufficiency. 09/14/17-chest x-ray- Impression: Worsening right middle and left lower lobe airspace disease could represent pneumonia or aspiration. 09/15/17 Chest Xray- Impression: Improved pneumonia with resolving pulmonary edema. 09/18/17-barium swallow eval- Impression: 1. Flash tracheal penetration with thin and honey consistencies. 2. No aspiration seen. 09/18/17-chest x-ray- Impression: Increasing pulmonary edema. 09/20/17- Chest Xray- Impression: No significant change in lower lobe airspace disease. - Pathology None History of Present Illness HPI: Patient is a 72-year-old female who presents today to ER by EMS for shortness of breath. States symptoms started yesterday and have worsened. She is requiring 6 L of oxygen per EMS to keep sats above 90%. At home she uses 2 L oxygen to sleep. She denies fever or cold type symptoms, but feels like she may have pneumonia as she had this last year. She does admit to a bit of a loose cough today. She is fatigued, but states this is chronic for her. She had a "dull ache" in the left chest last night for 2 hours, but no associated symptoms. She states she didn't take any of her medicines yesterday and only took some of her medicines today because she feels like she cannot swallow them. She states this is something that occurs intermittently ever since her stroke in the past. For complete details of the H&P refer to that document. Objective Vital signs: Temperature 96.2 F L 09/21/17 07:25 Pulse Rate 69 09/21/17 07:54 Respiratory Rate 18 09/21/17 10:26 Blood Pressure 122/61 09/21/17 07:25 Pulse Oximetry 94 09/21/17 10:26 Rhythm: Atrial Fibrillation with Normal Ventricular Rate Height/Weight/BMI: Height 1.63 m Weight 103.7 kg Body Mass Index 39.9 - Constitutional Present: no acute distress, well nourished, well developed - Routine HEENT Exam Eye: Present: EOMI ENT: Present: mucous membranes moist, dentition normal - Routine Respiratory Exam Present: CTA bilaterally. Absent: wheezes - Routine Cardiovascular Exam Present: RRR, S1, S2. Absent: murmur - Routine Abdominal Exam Present: soft, normoactive bowel sounds, non distended. Absent: tenderness - Routine Extremities Exam Present: normal capillary refill - Routine Skin Exam Present: intact, dry, warm - Routine Neurological Exam Present: alert, oriented X3, CN II-XII intact, moving all extremities - Routine Lymphatic Exam Lymphatic: Absent: adenopathy - Routine Psychiatric Exam Present: normal affect, cooperative Hospital Course This is a general summary of the patient's hospital course. For more details refer to the complete medical record. Hospital course: 09/13/17: HOSPITAL ADMISSION Levaquin started for CAP; WBC 17.8. DuoNeb treatments and acapella initiated. Viral respiratory panel was negative. Diurese Lasix 40 mg IV TID for CHF. Manuel was inserted to measure I&Os. Warfarin continued per pharmacy protocol. HR monitored on tele. Wound care consulted for skin lesion to right side of back. Complains of swallowing problems: speech therapy consulted. DNR status. 09/14/17 Still requiring 6 L of oxygen. Urine legionella and strep pneumo antigens were ordered and both came back negative. Procalcitonin was 19.82. WBC improved. Decreased Lasix to 40 IV BID; at home she had recently decreased Lasix to 40 mg daily because PCP thought she had become dehydrated. Add KDur. Started nystatin powder for perineal yeast infection PT and OT recommended home with home health. Wound RN placed a honey dressing on her wound and this should be changed every 3 days. 09/15/17 Oxygen decreased to 2.5 L. Echocardiogram showed improvement in EF from 35% to 45%. Lasix changed to 40 mg PO BID. Manuel catheter was discontinued. Speech recommended a soft diet and regular liquids. 09/16/17 Improved; stable on 2-3 liters. (She uses only nocturnal O2 at home). Leukocytosis has resolved and Procalcitonin decreased to 6.38. 09/17/17 Completed 5 days of Levaquin today. Unable to be weaned completely off O2; desaturated to 86% on room air. K down to 3.4; increased KDur 20 mEq from BID to TID. Hgb decreased from 13.2 to 10.6. Stool was positive for occult blood. INR has been subtherapeutic. 09/18/17 Increased in oxygen last evening, up to 4L. CXR showed increased pulmonary edema and Lasix 40 mg IV was given. K continues to decline and KDur dose was adjusted. Modified barium swallow study done was negative for aspiration. Hgb 11.0; had negative colonoscopy last year in [place]. Started Protonix 40 mg BID. 09/19/17 Respiratory status improved, maintaining saturations on room air in the afternoon. Increased dysphagia and throat pain and epigastric pain. Provided GI cocktail. Lipase level was normal. Had another heme-positive stool but hgb stable at 11.3. Dr. cMclain consulted for possible EGD as last EGD was 5-10 years ago. Iron level was low at 30, and we started ferrous sulfate and vitamin C. 09/20/17 Oxygen needs improving: on room air during the day; 1L at night. KDur dose decreased. Dr. Mcclain consulted d/t heme positive stools -- EGD deferred at this time. Her pain could be esophageal spasms. Hgb 11.4. 09/21/17- Discharge Afia is seen and examined prior to discharge. Overall, she states that she is feeling better and feels that her appetite continues to improve. She denies having any pain or feeling short of breath. She is currently on room air, and does use oxygen at night chronically. Given her overall weakness during the hospitalization. Her plan is to discharge to [facility] for skilled rehabilitation and then hopefully to return home independently. Did complete course of Levaquin for treatment of 20 quite pneumonia. In light of heard heme positive stools she was evaluated by Dr. Mcclain during her hospitalization At this time will go EGD and follow in the outpatient setting. He does continue on chronic anticoagulation and INR has been therapeutic on Coumadin 7.5 milligrams daily. Wound recommended using Medihoney to wound and cover with Mepilex dressing to be changed every 3 days. She will plan to follow with PCP in the outpatient setting, Dr Afshin Macias. At this time, patient appears stable for discharge Time spent with patient: discharge greater than 30 minutes Resuscitation Status: Do Not Resuscitate Discharge Plan - Discharge Disposition Discharge Date: 09/21/17 Disposition: Discharged Home, Self-Care *Condition: Improved Reason For Visit (Visit label in EMR): SOA - Discharge Medications *Discharge Medications: New Metoprolol Succinate (XL) [Toprol Xl] 25 mg PO DAILY tab PEG 3350 17gm PACKET [Miralax] 17 gm PO DAILY PRN packet PRN Reason: Constipation Senna + Docusate [Senna Plus Tablet] 1 tab PO BID tab Pantoprazole Tab [Protonix Tab] 40 mg PO ACBID tab Continue Gabapentin 300 mg PO TID Sayre-3/Dha/Epa/Fish Oil [Fish Oil 1,000 mg Softgel] 1 each PO BID Calcium Carbonate [Calcium] 3 tab PO DAILY Allopurinol [Zyloprim] 300 mg PO DAILY Quetiapine [Seroquel] 100 mg PO HS Multivitamin [One Daily] 1 each PO DAILY Potassium Chloride [Klor-Con 10] 10 meq PO DAILY Sertraline HCl [Zoloft] 200 mg PO DAILY Mirtazapine [Remeron] 15 mg PO HS fentaNYL [Fentanyl] 50 mcg TRANSDERMA Q3D #10 patch.td72 Hydrocodone/Acetaminophen [Hydrocodon-Acetaminoph 7.5-300] 1 tab PO Q6HPRN PRN #20 tab PRN Reason: Pain Furosemide [Lasix 40 mg Tab] 1 tab PO DAILY #0 Discontinued Metoprolol Tartrate [Lopressor] 12.5 mg PO BIDWM #90 tab Warfarin [Coumadin] 6 mg PO 1700 - Discharge Packet/Instructions *Diet: Cardiac diet with 2 gm sodium *Activity: Activity as tolerated *Pain Management/Treatment: Fentanyl patch and Calumet as needed for pain control *Wound Care: None Additional Instructions: Coumadin dose change during her hospitalization to 7.5 milligrams daily. CBC, BMP, INR sunday 09/24. *Expected Signs/Symptoms: Improvement in strength *Notify Physician if: Fever, chills, shortness of breath, chest pain or other concerning symptoms *During Business Hours Contact: PCP Dr Macias *After Business Hours Contact: Page systems consultant physician *Pending Lab/Results: No Pending Lab - Referrals/Follow Up *Referrals/Follow Up: Afshin Macias [Family Provider] - (Follow up in 1 week) - Patient Handouts - Dismissal Complete Discharge Instructions are:: Complete Physician Narrative - Narrative Physician: Miguel Chaparro MD Attestation Narrative: Date: 09/21/17 Time: 1130 I have independently interviewed and examined patient prior to discharge. Chart reviewed. Case discussed with CM and my BULB WEEDER. Care plan developed with my supervision; agree with above. Doing well today. Breathing improved-not having cough, congestion, SOA, or pain with breathing. Appetite fair-she feels it's at baseline. Strength very diminished. 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 Lungs: decreased bilaterally. No distress. CV: regular MSE: awake alert appropriate Plan: Medically stable for discharge to alf. See orders for details.
[2017-09-21] MEDS ORDERED: WARFARIN 7.5 MG TABLET PO SCH (12:00)
== END 2017-09-21 14:33 | DRG 291 ==
LOC: ED 15:42 → MED 18:40 → SUATTDRO 18:40 → MED 19:30
PROVIDERS: ADMIT Internal Medicine; ATTEND Hospitalist